=== PATIENT | female | born 1965 | race Caucasian/White ===

== ENCOUNTER 2016-11-02 11:59 | Outpatient (CLI) | payer BC | END 2016-11-02 12:00 | disposition home or self-care (01) | DX: Z79.01 Long term (current) use of anticoagulants (principal); Z95.811 Presence of heart assist device ==

== ENCOUNTER 2016-11-16 10:21 | Outpatient (CLI) | payer BC | END 2016-11-16 10:22 | disposition home or self-care (01) | DX: Z79.01 Long term (current) use of anticoagulants (principal); Z95.811 Presence of heart assist device ==

== ENCOUNTER 2016-11-30 11:00 | Outpatient (CLI) | payer MEDICARE | END 2016-11-30 11:01 | disposition home or self-care (01) | DX: Z79.01 Long term (current) use of anticoagulants (principal); Z95.811 Presence of heart assist device ==

== ENCOUNTER 2016-12-17 13:21 | Outpatient (CLI) | payer MEDICARE, BC | END 2016-12-17 13:22 | disposition home or self-care (01) | DX: Z79.01 Long term (current) use of anticoagulants (principal); Z95.811 Presence of heart assist device ==

== ENCOUNTER 2016-12-24 10:59 | Outpatient (CLI) | payer MEDICARE, BC | END 2016-12-24 11:00 | disposition home or self-care (01) | DX: Z79.01 Long term (current) use of anticoagulants (principal); Z95.811 Presence of heart assist device ==

== ENCOUNTER 2017-01-04 12:07 | Outpatient (CLI) | payer MEDICARE, BC | END 2017-01-04 12:08 | disposition home or self-care (01) | DX: Z79.01 Long term (current) use of anticoagulants (principal); Z95.811 Presence of heart assist device ==

== ENCOUNTER 2017-01-09 14:54 | Outpatient (CLI) | payer MEDICARE, BC | END 2017-01-09 14:55 | disposition home or self-care (01) | DX: Z79.01 Long term (current) use of anticoagulants (principal); Z95.811 Presence of heart assist device ==

== ENCOUNTER 2017-02-11 10:58 | Outpatient (CLI) | payer MEDICARE, BC | END 2017-02-11 10:59 | disposition home or self-care (01) | DX: Z79.01 Long term (current) use of anticoagulants (principal); Z95.811 Presence of heart assist device ==

== ENCOUNTER 2017-02-25 08:00 | Outpatient (CLI) | payer MEDICARE, BC | END 2017-02-25 08:01 | disposition home or self-care (01) | DX: Z79.01 Long term (current) use of anticoagulants (principal); Z95.811 Presence of heart assist device ==

== ENCOUNTER 2017-03-12 11:12 | Outpatient (CLI) | payer MEDICARE, BC ==
[2017-03-12 11:59] LABS: INR 3.2 (0.8-1.2); PT - PROTHROMBIN TIME 36.5 secs (9.9-12.6)
== END 2017-03-12 11:13 | disposition home or self-care (01) ==
LOC: LAB 11:12
PROVIDERS: ATTEND Pharmacist Pharmacotherapy
DX: Z95.811 Presence of heart assist device (principal); Z79.01 Long term (current) use of anticoagulants
CPT/HCPCS: 36415; 85610

== ENCOUNTER 2017-04-11 10:15 | Outpatient (CLI) | payer MEDICARE, BC ==
[2017-04-11 10:49] LABS: INR 2.3 (0.8-1.2); PT - PROTHROMBIN TIME 26.2 secs (9.9-12.6)
== END 2017-04-11 10:16 | disposition home or self-care (01) ==
LOC: LAB 10:15
PROVIDERS: ATTEND Pharmacist Pharmacotherapy
DX: Z95.811 Presence of heart assist device (principal); Z79.01 Long term (current) use of anticoagulants
CPT/HCPCS: 36415; 85610

== ENCOUNTER 2017-04-18 11:07 | Outpatient (CLI) | payer MEDICARE, BC ==
[2017-04-18 11:26] LABS: INR 2.7 (0.8-1.2)
== END 2017-04-18 11:08 | disposition home or self-care (01) ==
LOC: LAB 11:07
PROVIDERS: ATTEND Pharmacist Pharmacotherapy
DX: Z95.811 Presence of heart assist device (principal); Z79.01 Long term (current) use of anticoagulants
CPT/HCPCS: 36415; 85610

== ENCOUNTER 2017-04-25 10:58 | Outpatient (CLI) | payer MEDICARE, BC ==
[2017-04-25 11:21] LABS: INR 2.6 (0.8-1.2); PT - PROTHROMBIN TIME 29.7 secs (9.9-12.6)
== END 2017-04-25 10:59 | disposition home or self-care (01) ==
LOC: LAB 10:58
PROVIDERS: ATTEND Pharmacist Pharmacotherapy
DX: Z95.811 Presence of heart assist device (principal); Z79.01 Long term (current) use of anticoagulants
CPT/HCPCS: 36415; 85610

== ENCOUNTER 2017-05-10 11:32 | Outpatient (CLI) | payer MEDICARE, BC ==
[2017-05-10 11:53] LABS: INR 3.1 (0.8-1.2)
== END 2017-05-10 11:33 | disposition home or self-care (01) ==
LOC: LAB 11:32
PROVIDERS: ATTEND Pharmacist Pharmacotherapy
DX: Z95.811 Presence of heart assist device (principal); Z79.01 Long term (current) use of anticoagulants
CPT/HCPCS: 36415; 85610

== ENCOUNTER 2017-05-24 09:30 | Outpatient (CLI) | payer MEDICARE, BC ==
[2017-05-24 11:14] LABS: INR 2.7 (0.8-1.2); PT - PROTHROMBIN TIME 30.4 secs (9.9-12.6)
== END 2017-05-24 09:31 | disposition home or self-care (01) ==
LOC: LAB 09:30
PROVIDERS: ATTEND Pharmacist Pharmacotherapy
DX: Z95.811 Presence of heart assist device (principal); Z79.01 Long term (current) use of anticoagulants
CPT/HCPCS: 85610

== ENCOUNTER → 2017-06-06 | Outpatient (CLI) | payer MEDICARE, BC ==
[2017-06-06 11:03] LABS: INR 2.3 (0.8-1.2); PT - PROTHROMBIN TIME 26.1 secs (9.9-12.6)
== END ==
LOC: LAB 08:00
PROVIDERS: ATTEND Pharmacist Pharmacotherapy
DX: Z95.811 Presence of heart assist device (principal); Z79.01 Long term (current) use of anticoagulants
CPT/HCPCS: 36415; 85610

== ENCOUNTER 2017-07-03 20:09 | Emergency (ER) | payer MEDICARE, BC ==
[2017-07-03] MEDS ORDERED: SODIUM CHLORIDE 0.9% 500 ML IV ONE (20:59)
[2017-07-03 21:13] LABS: BASOPHILS # (AUTO) 0.1 10^3/uL (0.0-0.1); BASOPHILS % (AUTO) 1.1 %; EOSINOPHILS # (AUTO) 0.2 10^3/uL (0.0-0.7); EOSINOPHILS % (AUTO) 2.1 %; HCT - HEMATOCRIT 38.7 % (37.0-47.0); HGB - HEMOGLOBIN 13.6 g/dL (12.0-16.0); LYMPHOCYTES # (AUTO) 1.4 10^3/uL (1.5-3.5); LYMPHOCYTES % (AUTO) 19.4 %; MEAN CORPUSCULAR HEMOGLOBIN 33.8 pg (27.0-31.0); MEAN CORPUSCULAR VOLUME 96.6 fL (81.0-99.0); MEAN PLATELET VOLUME 8.9 fL (7.9-10.8); MONOCYTES # (AUTO) 0.5 10^3/uL (0.0-1.0); MONOCYTES % (AUTO) 7.3 %; NEUTROPHILS # (AUTO) 5.2 10^3/uL (1.5-6.6); NEUTROPHILS % (AUTO) 70.1 %; NUCLEATED RED BLOOD CELLS AUTO 0.1 /100WBC; RED BLOOD COUNT 4.01 10^6/uL (4.20-5.40); RED CELL DISTRIBUTION WIDTH 13.2 % (12.0-15.0); UNCORRECTED WHITE BLOOD COUNT 7.4 x10^3/uL; WHITE BLOOD COUNT 7.4 x10^3/uL (4.8-10.8)
[2017-07-03 21:23] LABS: VBG BASE EXCESS 2.1 mmol/L (-2 - +2); VBG OXYGEN SATURATION 97.9 % (60-80); VBG PH 7.497 (7.31-7.41); VBG TOTAL CO2 25.8 mmol/L (24-29)
--- NOTE | 2017-07-03 21:25 | XRAY Preliminary Report ---
Exam: XR Chest 1 View IMPRESSION: No acute pulmonary air space disease. Cardiomegaly. [facility] SITE ID: [id number]
[2017-07-03 21:27] LABS: ALBUMIN/GLOBULIN RATIO 1.4 (1.0-2.2); BILIRUBIN,TOTAL 0.6 mg/dL (0.2-1.0); CALCIUM 8.6 mg/dL (8.5-10.3); MAGNESIUM 1.9 mg/dL (1.7-2.8); PHOSPHORUS 2.8 mg/dL (2.5-4.6); POTASSIUM 3.4 mmol/L (3.5-5.0); TOTAL PROTEIN 6.8 g/dL (6.7-8.2)
--- NOTE | 2017-07-03 21:28 | XRAY Report ---
EXAM: CHEST RADIOGRAPHY EXAM DATE: 07/03/2017 09:09 PM. CLINICAL HISTORY: Cough. COMPARISON: 11/17/2014. TECHNIQUE: 1 view. FINDINGS: Lungs/Pleura: No focal opacities evident. No pleural effusion. No pneumothorax. Mediastinum: Enlarged heart. Status post median sternotomy. Other: None. IMPRESSION: No acute pulmonary air space disease. Cardiomegaly. [facility] Referring Provider Line: [phone] SITE ID: [id number]
[2017-07-03 21:29] LABS: INR 3.6 (0.8-1.2); PT - PROTHROMBIN TIME 40.8 secs (9.9-12.6)
--- NOTE | 2017-07-03 21:32 | ED Physician Documentation ---
PD HPI CHEST PAIN - Stated complaint Stated Complaint: IRREGULAR HB - Chief complaint Chief Complaint: Cardiac - History obtained from History obtained from: Patient, Family - History of Present Illness Timing - onset: Today Timing - onset during: Rest Timing - details: Gradual onset, Waxing and waning Quality: Pressure Location: Substernal Improved by: Rest Associated symptoms: No: Shortness of air, Diaphoresis, Nausea Similar symptoms before: Work up / diagnostics, Treatment, Follow up Recently seen: Not recently seen - Additional information Additional information: Patient is a 52 year old female with a history of heart failure with an lvad in place who is presenting to the emergency department for irregular heart beat. Patient states that her heart rate is normally in the 80s and today it has been anywhere from 112-190. Patient denies any recent illness, nausea, vomiting, fever or chills. Patient does state that she has had more serious drainage from her implantation sites. Review of Systems Constitutional: denies: Fever, Chills, Myalgias Eyes: denies: Decreased vision, Photophobia Ears: denies: Ear pain, Drainage/discharge Nose: denies: Rhinorrhea / runny nose, Congestion Throat: denies: Sore throat Cardiac: reports: Chest pain / pressure, Palpitations. 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: Breast cancer : Kidney stones Psych: Anxiety - Past Surgical History Past Surgical History: Yes Ortho: Spine surgery /MILL HELPER: Mastectomy - Present Medications Home Medications: Ambulatory Orders Medication Instructions Recorded Confirmed Exemestane 25 mg PO DAILY 03/02/15 07/03/17 Lisinopril 1.25 mg PO BID 03/02/15 07/03/17 Magnesium 400 mg PO BID 03/02/15 07/03/17 Potassium Chloride [Micro-K] 20 mg PO DAILY 03/02/15 07/03/17 Aspirin [Aspir 81] 81 mg DAILY 06/18/15 07/03/17 Bumetanide [Bumex] 1 mg PO DAILY 06/18/15 07/03/17 Sertraline HCl 50 mg PO DAILY 06/18/15 07/03/17 Sildenafil Citrate [Revatio] 40 mg PO Q8H 06/18/15 07/03/17 Metoprolol Succinate 25 mg PO BID 08/10/15 07/03/17 Cholecalciferol [Vitamin D3] 5,000 unit PO DAILY 03/19/16 07/03/17 Ferrous Sulfate 325 mg PO DAILY 03/19/16 07/03/17 Multivitamin [Multivitamins] 1 each PO DAILY 03/19/16 07/03/17 Phytonadione [Vitamin K] 100 mcg PO DAILY 03/19/16 07/03/17 Vitamin B Complex 1 each PO DAILY 03/19/16 07/03/17 Calcium Carbonate [Calcium] 500 mg PO DAILY 11/26/16 07/03/17 - Allergies Allergies/Adverse Reactions: Allergies Allergy/AdvReac Type Severity Reaction Status Date / Time No Known Drug Allergies Allergy Verified 07/03/17 20:16 - Social History Does the pt smoke?: No Smoking Status: Never smoker Does the pt drink ETOH?: Yes Does the pt have substance abuse?: No - Immunizations Immunizations are current?: Yes - POLST Patient has POLST: No PD ED PE NORMAL - Vitals Vital signs reviewed: Yes - General General: Alert and oriented X 3 - HEENT HEENT: Atraumatic, PERRL - Respiratory Respiratory: No respiratory distress, Clear bilaterally - Abdomen Abdomen: Soft - Derm Derm: Normal color, Warm and dry, No rash - Extremities Extremities: No deformity - Neuro Neuro: Alert and oriented X 3, No motor deficit, No sensory deficit, Normal speech - Psych Psych: Normal mood, Normal affect PD ED PE EXPANDED - General General: Alert, No acute distress - HEENT HEENT: Dry mucous membranes - Cardiac Cardiac: Tachy, Irregularly irregular, Other (lvad in place, motor sounds appreciated. ) - Abdomen Abdomen: Surgical scars, Other (wires under bandage). No: Tender to palpation, Rebound, Guarding Results - Vitals Vitals: Vital Signs - 24 hr 07/03/17 07/03/17 20:11 21:28 Temperature 35.8 C L Heart Rate 108 H 117 H Respiratory 18 18 Rate O2 Saturation 97 99 Oxygen O2 Source Room air - EKG (time done) 2037 Rate: Rate (enter#) (112) Rhythm: Atrial fibrillation [place]: Normal Ischemia: Q waves Compare to prior EKG: Changed from prior EKG - Labs Labs: Laboratory Tests 07/03/17 07/03/17 07/03/17 20:43 21:00 21:00 WBC 7.4 RBC 4.01 L Hgb 13.6 Hct 38.7 MCV 96.6 MCH 33.8 H MCHC 35.0 RDW 13.2 Plt Count 194 MPV 8.9 Neut # 5.2 Lymph # 1.4 L [place] # 0.5 Eos # 0.2 Baso # 0.1 Absolute Nucleated RBC 0.01 Nucleated RBCs 0.1 PT 40.8 H INR 3.6 H APTT 36.8 H VBG pH 7.497 H VBG pCO2 32.7 L VBG pO2 112.0 H VBG HCO3 24.8 VBG Total CO2 25.8 VBG O2 Saturation 97.9 H VBG Base Excess 2.1 H Sodium Potassium Chloride Carbon Dioxide Anion Gap BUN Creatinine Estimated GFR (MDRD) Glucose Lactic Acid Calcium Phosphorus Magnesium Total Bilirubin AST ALT Alkaline Phosphatase Troponin I B-Natriuretic Peptide Total Protein Albumin Globulin Albumin/Globulin Ratio Lipase TSH 07/03/17 07/03/17 07/03/17 21:00 21:00 21:00 WBC RBC Hgb Hct MCV MCH MCHC RDW Plt Count MPV Neut # Lymph # [place] # Eos # Baso # Absolute Nucleated RBC Nucleated RBCs PT INR APTT VBG pH VBG pCO2 VBG pO2 VBG HCO3 VBG Total CO2 VBG O2 Saturation VBG Base Excess Sodium 140 Potassium 3.4 L Chloride 107 Carbon Dioxide 25 Anion Gap 8.0 BUN 21 H Creatinine 1.0 Estimated GFR (MDRD) 59 L Glucose 107 H Lactic Acid Calcium 8.6 Phosphorus 2.8 Magnesium 1.9 Total Bilirubin 0.6 AST 27 ALT 24 Alkaline Phosphatase 68 Troponin I < 0.04 B-Natriuretic Peptide 1072 H Total Protein 6.8 Albumin 4.0 Globulin 2.8 Albumin/Globulin Ratio 1.4 Lipase 31 TSH 07/03/17 07/03/17 21:00 21:00 WBC RBC Hgb Hct MCV MCH MCHC RDW Plt Count MPV Neut # Lymph # [place] # Eos # Baso # Absolute Nucleated RBC Nucleated RBCs PT INR APTT VBG pH VBG pCO2 VBG pO2 VBG HCO3 VBG Total CO2 VBG O2 Saturation VBG Base Excess Sodium Potassium Chloride Carbon Dioxide Anion Gap BUN Creatinine Estimated GFR (MDRD) Glucose Lactic Acid 1.2 Calcium Phosphorus Magnesium Total Bilirubin AST ALT Alkaline Phosphatase Troponin I B-Natriuretic Peptide Total Protein Albumin Globulin Albumin/Globulin Ratio Lipase TSH 2.18 - Rads (name of study) chest x-ray Radiology: Final report received (within normal limits) PD MEDICAL DECISION MAKING - ED course Complexity details: reviewed old records, reviewed results, re-evaluated patient , considered differential, d/w patient, d/w family, d/w corporate learning consultant ED course: Patient was seen and examined at bedside. IV access was gained and labs were drawn. ekg was performed and showed new a fib. patient was treated with a 500ml bolus. When patient's diagnostics came back the case was discussed with lvad coordinator and dr. reyes. Due to the new a fib it was decided to transfer the patient. Arrangements were made and patient was transferred in stable condition. Departure - Departure Disposition: 02 Transfer Acute Care Hosp Clinical Impression: LVAD (left ventricular assist device) present, Tachycardia Condition: Stable
[2017-07-03 21:36] LABS: PARTIAL THROMBOPLASTIN TIME 36.8 secs (24.9-33.3)
[2017-07-03] MEDS ORDERED: POTASSIUM CHLORIDE 20 MEQ TABLET PO STA (21:36)
[2017-07-03] MEDS ORDERED: POTASSIUM CHLORIDE 20 MEQ TABLET PO ONE (22:19)
== END 2017-07-03 23:36 | disposition short-term general hospital (02) ==
LOC: ED 20:09
DX: R00.0 Tachycardia, unspecified (principal); Z95.811 Presence of heart assist device; I48.92 Unspecified atrial flutter; R94.31 Abnormal electrocardiogram [ECG] [EKG]; I11.0 Hypertensive heart disease with heart failure; I50.9 Heart failure, unspecified; Z85.3 Personal history of malignant neoplasm of breast; Z87.442 Personal history of urinary calculi; Z79.82 Long term (current) use of aspirin
CPT/HCPCS: 36415; 71010; 80053; 82803; 83605; 83690; 83735; 83880; 84100; 84443; 84484; 85025; 85610; 85730; 87040; 93005; 99284; 99285; A9270; 81001; 81003; 87086

== ENCOUNTER 2017-07-03 23:32 | Outpatient (CLI) | payer MEDICARE, BC | END 2017-07-03 23:33 | disposition short-term general hospital (02) | LOC: EMS 23:32 | PROVIDERS: ATTEND Surgery | DX: I49.9 Cardiac arrhythmia, unspecified (principal); Z95.811 Presence of heart assist device | CPT/HCPCS: A0425; A0426 ==

== ENCOUNTER 2017-07-19 09:13 | Outpatient (CLI) | payer MEDICARE, BC ==
[2017-07-19 10:27] LABS: INR 2.5 (0.8-1.2); PT - PROTHROMBIN TIME 27.8 secs (9.9-12.6)
== END 2017-07-19 09:14 | disposition home or self-care (01) ==
LOC: LAB 09:13
PROVIDERS: ATTEND Pharmacist Pharmacotherapy
DX: Z79.01 Long term (current) use of anticoagulants (principal); Z95.811 Presence of heart assist device
CPT/HCPCS: 36415; 85610

== ENCOUNTER 2017-07-22 11:00 | Emergency (ER) | payer MEDICARE, BC ==
--- NOTE | 2017-07-22 11:49 | ED Physician Documentation ---
History of Present Illness - Stated complaint Stated Complaint: PALPATATIONS - Chief complaint Chief Complaint: Cardiac - History obtained from History obtained from: Patient - History of Present Illness Timing: How many days ago (4) - Additonal information Additional information: 52-year-old female with an LVAD in place for the past 2 years has developed atrial fibrillation with RVR and she was admitted to the [facility] 2 weeks ago and she was diuresed. She converted to sinus rhythm and left the hospital with a rate of 70. She went home and took [place] walk [place] the beach and subsequently began to feel poorly. She took a second walk the following day on the beach and the third day she walked on flat ground only the fourth day she did not get out of bed. She is feeling palpitations and some mild dyspnea. She feels at times near syncopal. She called her LVAD coordinator was instructed to come directly to the emergency department. Review of Systems Constitutional: reports: Fatigue, Sweats. denies: Fever, Chills Eyes: denies: Decreased vision Ears: denies: Ear pain Nose: denies: Congestion Throat: denies: Sore throat Cardiac: reports: Palpitations Respiratory: reports: Dyspnea. denies: Cough GI: reports: Nausea. 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: Mastectomy - Present Medications Home Medications: Ambulatory Orders Medication Instructions Recorded Confirmed Exemestane 25 mg PO DAILY 03/02/15 07/03/17 Lisinopril 1.25 mg PO BID 03/02/15 07/03/17 Magnesium 400 mg PO BID 03/02/15 07/03/17 Potassium Chloride [Micro-K] 20 mg PO DAILY 03/02/15 07/03/17 Aspirin [Aspir 81] 81 mg DAILY 06/18/15 07/03/17 Sertraline HCl 50 mg PO DAILY 06/18/15 07/03/17 Sildenafil Citrate [Revatio] 40 mg PO Q8H 06/18/15 07/03/17 Cholecalciferol [Vitamin D3] 5,000 unit PO DAILY 03/19/16 07/03/17 Ferrous Sulfate 325 mg PO DAILY 03/19/16 07/03/17 Multivitamin [Multivitamins] 1 each PO DAILY 03/19/16 07/03/17 Phytonadione [Vitamin K] 100 mcg PO DAILY 03/19/16 07/03/17 Vitamin B Complex 1 each PO DAILY 03/19/16 07/03/17 Calcium Carbonate [Calcium] 500 mg PO DAILY 11/26/16 07/03/17 Furosemide 20 mg PO 07/22/17 Hydralazine HCl 500 mg PO 07/22/17 Metoprolol Tartrate 12.5 mg PO 07/22/17 - Allergies Allergies/Adverse Reactions: Allergies Allergy/AdvReac Type Severity Reaction Status Date / Time carvedilol Allergy Anaphylaxis Verified 07/22/17 11:06 - Social History Does the pt smoke?: No Smoking Status: Former smoker Does the pt drink ETOH?: Yes Does the pt have substance abuse?: No - Immunizations Immunizations are current?: Yes - POLST Patient has POLST: No PD ED PE NORMAL - Vitals Vital signs reviewed: Yes (tachy ) - General General: Alert and oriented X 3, Well developed/nourished, Other (The patient is flush appearing ) - HEENT HEENT: Atraumatic, PERRL - Neck Neck: Supple, no meningeal sign - Cardiac Cardiac: Other (irregular and tachy with a constant hum ) - Respiratory Respiratory: No respiratory distress, Clear bilaterally - Abdomen Abdomen: Soft, Non tender, Other (There are no signs of inflamation surrounding the drive port. ) - Back Back: No CVA TTP, No spinal TTP - Derm Derm: Normal color, Warm and dry, No rash - Extremities Extremities: No deformity, No edema - Neuro Neuro: No motor deficit, No sensory deficit - Psych Psych: Normal mood, Normal affect Results - Vitals Vitals: Vital Signs - 24 hr 07/22/17 07/22/17 11:02 12:27 Temperature 36.1 C L Heart Rate 54 L 96 Respiratory 16 Rate O2 Saturation 99 Oxygen O2 Source Room air - EKG (time done) 1122 Rate: Rate (enter#) (109) Rhythm: Atrial fibrillation Ischemia: Q waves (ant/lat) Compare to prior EKG: Unchanged from prior EKG (07-03-17) Computer interpretation: Agree with computer - Labs Labs: Laboratory Tests 07/22/17 07/22/17 07/22/17 12:00 12:00 12:00 WBC 5.2 RBC 3.60 L Hgb 12.2 Hct 33.7 L MCV 93.7 MCH 33.9 H MCHC 36.2 H RDW 13.0 Plt Count 196 MPV 9.2 Neut # 3.6 Lymph # 1.0 L [place] # 0.5 Eos # 0.1 Baso # 0.1 Absolute Nucleated RBC 0.00 Nucleated RBCs 0.0 Sodium 136 Potassium 3.4 L Chloride 102 Carbon Dioxide 25 Anion Gap 9.0 BUN 25 H Creatinine 0.9 Estimated GFR (MDRD) 66 L Glucose 89 Calcium 8.9 Total Bilirubin 0.9 AST 28 ALT 32 Alkaline Phosphatase 66 Troponin I < 0.04 Total Protein 6.7 Albumin 4.0 Globulin 2.7 Albumin/Globulin Ratio 1.5 Lipase 43 Urine Color Urine Clarity Urine pH Ur Specific [place] Urine Protein Urine Glucose (UA) Urine Ketones Urine Occult Blood Urine Nitrite Urine Bilirubin Urine Urobilinogen Ur Leukocyte Esterase Ur Microscopic Review Urine Culture Comments 07/22/17 12:33 WBC RBC Hgb Hct MCV MCH MCHC RDW Plt Count MPV Neut # Lymph # [place] # Eos # Baso # Absolute Nucleated RBC Nucleated RBCs Sodium Potassium Chloride Carbon Dioxide Anion Gap BUN Creatinine Estimated GFR (MDRD) Glucose Calcium Total Bilirubin AST ALT Alkaline Phosphatase Troponin I Total Protein Albumin Globulin Albumin/Globulin Ratio Lipase Urine Color YELLOW Urine Clarity CLEAR Urine pH 7.0 Ur Specific [place] 1.010 Urine Protein NEGATIVE Urine Glucose (UA) NEGATIVE Urine Ketones NEGATIVE Urine Occult Blood NEGATIVE Urine Nitrite NEGATIVE Urine Bilirubin NEGATIVE Urine Urobilinogen 0.2 (NORMAL) Ur Leukocyte Esterase NEGATIVE Ur Microscopic Review NOT INDICATED Urine Culture Comments NOT INDICATED Procedures - IVC sono (time) 1125 Bedside IVC sono: IVC measures (cm) (1.68), IVC collapsed c insp (cm) (1.22), Euvolemia PD MEDICAL DECISION MAKING - ED course Complexity details: reviewed old records, reviewed results, re-evaluated patient , considered differential, d/w patient ED course: 52-year-old female with an LVAD in place with atrial fibrillation with rapid ventricular response is symptomatic with this and her LVAD team is consulted at the [facility] they would like her transferred to the [facility] for further workup. They recommended administration of potassium at this time. Dr. Carr is accepting. Departure - Departure Disposition: 02 Transfer Acute Care Hosp Clinical Impression: LVAD (left ventricular assist device) present Atrial fibrillation Qualifiers: Atrial fibrillation type: paroxysmal Qualified Code(s): I48.0 - Paroxysmal atrial fibrillation
[2017-07-22 12:15] LABS: ALBUMIN/GLOBULIN RATIO 1.5 (1.0-2.2); BILIRUBIN,TOTAL 0.9 mg/dL (0.2-1.0); CALCIUM 8.9 mg/dL (8.5-10.3); CREATININE 0.9 mg/dL (0.4-1.0); POTASSIUM 3.4 mmol/L (3.5-5.0); TOTAL PROTEIN 6.7 g/dL (6.7-8.2)
[2017-07-22 12:31] LABS: BASOPHILS # (AUTO) 0.1 10^3/uL (0.0-0.1); BASOPHILS % (AUTO) 1.3 %; EOSINOPHILS # (AUTO) 0.1 10^3/uL (0.0-0.7); HCT - HEMATOCRIT 33.7 % (37.0-47.0); HGB - HEMOGLOBIN 12.2 g/dL (12.0-16.0); LYMPHOCYTES % (AUTO) 19.3 %; MEAN CORPUSCULAR HEMOGLOBIN 33.9 pg (27.0-31.0); MEAN CORPUSCULAR HGB CONC 36.2 g/dL (32.0-36.0); MEAN CORPUSCULAR VOLUME 93.7 fL (81.0-99.0); MEAN PLATELET VOLUME 9.2 fL (7.9-10.8); MONOCYTES # (AUTO) 0.5 10^3/uL (0.0-1.0); MONOCYTES % (AUTO) 8.8 %; NEUTROPHILS # (AUTO) 3.6 10^3/uL (1.5-6.6); NEUTROPHILS % (AUTO) 69.6 %; UNCORRECTED WHITE BLOOD COUNT 5.2 x10^3/uL; WHITE BLOOD COUNT 5.2 x10^3/uL (4.8-10.8)
[2017-07-22 12:50] LABS: BILIRUBIN,URINE NEGATIVE (NEGATIVE)
[2017-07-22] MEDS ORDERED: POTASSIUM BICARB 25 MEQ TABLET PO STA (12:50)
[2017-07-22 12:55] LABS: UA CHARGE (STRIP ONLY) YES; UR CULTURE IF IND NOT INDICATED
[2017-07-22] MEDS ORDERED: POTASSIUM BICARB 25 MEQ TABLET PO ONE (12:57)
== END 2017-07-22 14:34 | disposition short-term general hospital (02) ==
LOC: ED 11:00
DX: I48.0 Paroxysmal atrial fibrillation (principal); I11.0 Hypertensive heart disease with heart failure; I50.9 Heart failure, unspecified; C50.919 Malignant neoplasm of unspecified site of unspecified female breast; Z95.811 Presence of heart assist device; Z87.891 Personal history of nicotine dependence
CPT/HCPCS: 36415; 80053; 81003; 83690; 84484; 85025; 93005; 99283; 99284; A9270; 81001; 87086

== ENCOUNTER 2017-07-22 14:05 | Outpatient (CLI) | payer MEDICARE, BC | END 2017-07-22 14:06 | disposition short-term general hospital (02) | LOC: EMS 14:05 | PROVIDERS: ATTEND Surgery | DX: R00.2 Palpitations (principal); R06.00 Dyspnea, unspecified | CPT/HCPCS: A0170; A0425; A0426 ==

== ENCOUNTER 2017-07-29 12:04 | Outpatient (CLI) | payer MEDICARE, BC ==
[2017-07-29 12:35] LABS: CALCIUM 9.3 mg/dL (8.5-10.3); CREATININE 1.2 mg/dL (0.4-1.0); MAGNESIUM 2.3 mg/dL (1.7-2.8); POTASSIUM 4.5 mmol/L (3.5-5.0)
== END 2017-07-29 12:05 | disposition home or self-care (01) ==
LOC: LAB 12:04
PROVIDERS: ATTEND Internal Medicine Cardiovascular Disease
DX: I42.7 Cardiomyopathy due to drug and external agent (principal); T45.1X5A Adverse effect of antineoplastic and immunosuppressive drugs, initial encounter; Z95.811 Presence of heart assist device; I50.23 Acute on chronic systolic (congestive) heart failure; R00.2 Palpitations
CPT/HCPCS: 36415; 80048; 83735

== ENCOUNTER 2017-07-30 08:52 | Outpatient (CLI) | payer MEDICARE, BC ==
[2017-07-30 09:39] LABS: INR 2.7 (0.8-1.2); PT - PROTHROMBIN TIME 30.3 secs (9.9-12.6)
[2017-07-30 09:40] LABS: MAGNESIUM 2.1 mg/dL (1.7-2.8); POTASSIUM 3.4 mmol/L (3.5-5.0)
== END 2017-07-30 08:53 | disposition home or self-care (01) ==
LOC: LAB 08:52
PROVIDERS: ATTEND Internal Medicine Cardiovascular Disease
DX: I42.7 Cardiomyopathy due to drug and external agent (principal); T45.1X5A Adverse effect of antineoplastic and immunosuppressive drugs, initial encounter; Z79.01 Long term (current) use of anticoagulants; I50.23 Acute on chronic systolic (congestive) heart failure; Z95.811 Presence of heart assist device; R00.2 Palpitations
CPT/HCPCS: 36415; 80048; 83735; 85610

== ENCOUNTER 2017-08-01 15:34 | Outpatient (CLI) | payer MEDICARE, BC | END 2017-08-01 15:35 | disposition short-term general hospital (02) | LOC: EMS 15:34 | PROVIDERS: ATTEND Surgery | DX: R07.9 Chest pain, unspecified (principal) | CPT/HCPCS: A0425; A0427 ==

== ENCOUNTER 2017-08-08 10:18 | Outpatient (CLI) | payer MEDICARE, BC ==
[2017-08-08 10:54] LABS: INR 3.3 (0.8-1.2); PT - PROTHROMBIN TIME 37.7 secs (9.9-12.6)
== END 2017-08-08 10:19 | disposition home or self-care (01) ==
LOC: LAB 10:18
PROVIDERS: ATTEND Pharmacist Pharmacotherapy
DX: Z79.01 Long term (current) use of anticoagulants (principal); Z95.811 Presence of heart assist device
CPT/HCPCS: 36415; 85610

== ENCOUNTER 2017-08-09 21:35 | Outpatient (CLI) | payer MEDICARE, BC | END 2017-08-09 21:36 | disposition critical access hospital (66) | LOC: EMS 21:35 | PROVIDERS: ATTEND Surgery | DX: R53.1 Weakness (principal); R09.89 Other specified symptoms and signs involving the circulatory and respiratory systems; Z95.811 Presence of heart assist device ==

== ENCOUNTER 2017-08-09 21:57 | Emergency (ER) | payer MEDICARE, BC ==
--- NOTE | 2017-08-09 22:54 | ED Physician Documentation ---
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 She was discharged from [facility] 5 days ago. She had increase in her amiodarone approximately 1 week ago and increase in her metoprolol dose approximately 2 weeks ago. Since she was discharged from [facility] 5 days ago, she has had episodic lightheadedness that was more frequent when standing up from sitting/lying position. Tonight, she had a more pronounced sensation of lightheadedness, associated with nausea, then sensation of a pause in her cardiac rhythm and unusual sensation in her chest that felt like a friction sensation, and then sensation of regular but slow and pounding heart beats. She used a doppler to measure pulse rate and found it to be in the 30s; she then used a phone phil which read HR in mid 40s, and subsequently 70. She was unable to measure MAP during most of the event, as she felt too ill and lightheaded to do so, but upon recovering, she found her MAP to be 68-75. (Antoine Vaughn) Review of Systems Constitutional: denies: Fever Cardiac: reports: Palpitations. denies: Chest pain / pressure, Pedal edema Respiratory: reports: Reviewed and negative GI: reports: Nausea. 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 : Kidney stones HEENT: None Psych: Anxiety Musculoskeletal: None Derm: None - Past Surgical History Past Surgical History: Yes Ortho: Spine surgery /GAS CHARGER: Mastectomy Cardiovascular: Other - Social History Does the pt smoke?: No Smoking Status: Never smoker Does the pt drink ETOH?: Yes Does the pt have substance abuse?: No - Immunizations Immunizations are current?: Yes - POLST Patient has POLST: No - Present Medications Home Medications: Ambulatory Orders Medication Instructions Recorded Confirmed Exemestane 25 mg PO DAILY 03/02/15 08/09/17 Magnesium 400 mg PO BID 03/02/15 08/09/17 Potassium Chloride [Micro-K] 20 mg PO DAILY 03/02/15 08/09/17 Aspirin [Aspir 81] 81 mg DAILY 06/18/15 08/09/17 Sertraline HCl 50 mg PO DAILY 06/18/15 08/09/17 Sildenafil Citrate [Revatio] 40 mg PO Q8H 06/18/15 08/09/17 Cholecalciferol [Vitamin D3] 5,000 unit PO DAILY 03/19/16 08/09/17 Ferrous Sulfate 325 mg PO DAILY 03/19/16 08/09/17 Multivitamin [Multivitamins] 1 each PO DAILY 03/19/16 08/09/17 Phytonadione [Vitamin K] 100 mcg PO DAILY 03/19/16 08/09/17 Vitamin B Complex 1 each PO DAILY 03/19/16 08/09/17 Calcium Carbonate [Calcium] 500 mg PO DAILY 11/26/16 08/09/17 Metoprolol Tartrate 75 mg PO BID 07/22/17 08/09/17 Amiodarone [Pacerone] 200 mg PO TID 08/09/17 08/09/17 Spironolactone 25 mg PO DAILY 08/09/17 08/09/17 Torsemide 200 mg PO BID 08/09/17 08/09/17 Warfarin [Coumadin] 8 mg PO DAILY 08/09/17 08/09/17 - Allergies Allergies/Adverse Reactions: Allergies Allergy/AdvReac Type Severity Reaction Status Date / Time carvedilol Allergy Anaphylaxis Verified 08/09/17 22:09 PD ED PE NORMAL - Vitals Vital signs reviewed: Yes - General General: Alert and oriented X 3, No acute distress, Well developed/nourished - HEENT HEENT: Moist mucous membranes - Neck Neck: Supple, no meningeal sign - Cardiac Cardiac: RRR, No murmur - Respiratory Respiratory: No respiratory distress, Clear bilaterally - Derm Derm: Normal color, Warm and dry - Extremities Extremities: No edema - Neuro Neuro: Alert and oriented X 3 Results - EKG (time done) No standard instances Rate: Rate (enter#) (66) Rhythm: NSR [place]: Normal Intervals: Normal [place] QRS: Normal Ischemia: Normal ST segments Other comments: Other comments (artifact V4, V5 (and to a lesser extent V6, I, aVL); this does not preclude my interpretation ) - Vitals Vitals: Vital Signs - 24 hr 08/09/17 08/09/17 08/10/17 22:01 23:01 01:30 Temperature 35.6 C L 36.7 C Heart Rate 76 69 69 Respiratory 24 16 18 Rate O2 Saturation 98 98 100 08/10/17 08/10/17 08/10/17 04:26 06:29 06:32 Temperature Heart Rate 67 63 66 Respiratory 16 16 18 Rate O2 Saturation 97 96 95 08/10/17 08/10/17 08/10/17 09:13 10:15 11:16 Temperature 36.7 C Heart Rate 66 64 70 Respiratory 18 15 14 Rate O2 Saturation 95 97 98 Oxygen O2 Source Room air - Labs Labs: Laboratory Tests 08/09/17 08/09/17 08/09/17 23:58 23:58 23:58 WBC 7.6 RBC 3.82 L Hgb 13.0 Hct 36.0 L MCV 94.2 MCH 34.0 H MCHC 36.1 H RDW 13.2 Plt Count 246 MPV 8.8 Neut # 4.8 Lymph # 1.9 [place] # 0.6 Eos # 0.2 Baso # 0.1 Absolute Nucleated RBC 0.00 Nucleated RBC % 0.0 PT 31.6 H INR 2.8 H Sodium 139 Potassium 2.6 L Chloride 97 L Carbon Dioxide 28 Anion Gap 14.0 H BUN 34 H Creatinine 1.0 Estimated GFR (MDRD) 59 L Glucose 110 H Calcium 9.5 Magnesium Troponin I 08/09/17 08/10/17 08/10/17 23:58 04:29 09:50 WBC RBC Hgb Hct MCV MCH MCHC RDW Plt Count MPV Neut # Lymph # [place] # Eos # Baso # Absolute Nucleated RBC Nucleated RBC % PT INR Sodium Potassium 3.0 L 3.5 Chloride Carbon Dioxide Anion Gap BUN Creatinine Estimated GFR (MDRD) Glucose Calcium Magnesium Troponin I < 0.04 08/10/17 12:43 WBC RBC Hgb Hct MCV MCH MCHC RDW Plt Count MPV Neut # Lymph # [place] # Eos # Baso # Absolute Nucleated RBC Nucleated RBC % PT INR Sodium Potassium 3.9 Chloride Carbon Dioxide Anion Gap BUN Creatinine Estimated GFR (MDRD) Glucose Calcium Magnesium 2.3 Troponin I PD MEDICAL DECISION MAKING - ED course Complexity details: reviewed old records, reviewed results, re-evaluated patient , considered differential, d/w patient - ED course ED course: I discussed case with LVAD coordinator (Anuja), who initially recommended transfer to [facility], agrees with basic blood work. While awaiting results, Anuja called back and says she d/w Dr. Krishna (cardiology public relations writer at [facility]), who says patient can be observed in [facility] ED and discharged if she remains asymptomatic with no arrhythmias on monitor and unremarkable blood tests. Unfortunately, potassium resulted at 2.6. I recontacted Anuja and she recommended potassium repletion in [facility] ED (this potassium level does not indicate nor necessitate transfer and can be repleted here). She recommends potassium replacement to level of 4.0 or higher (avoiding hyperkalemia). Patient given 10meq IV potassium x 2 and 40meq potassium PO. Redraw reveals 3.0 potassium. The same doses were repeated, redraw is 3.5. I turned the case over to Dr. Whitlock at 10:00 AM. (Antoine Vaughn) Departure - Departure Disposition: 01 Home, Self Care Clinical Impression: LVAD (left ventricular assist device) present, Bradycardia, Hypokalemia Condition: Stable Instructions: ED Potassium Deficiency Follow-Up: Your, doctor [Other] Discharge Date/Time: 08/10/17 13:12
[2017-08-10 00:09] LABS: BASOPHILS # (AUTO) 0.1 10^3/uL (0.0-0.1); BASOPHILS % (AUTO) 1.4 %; EOSINOPHILS # (AUTO) 0.2 10^3/uL (0.0-0.7); EOSINOPHILS % (AUTO) 2.1 %; LYMPHOCYTES # (AUTO) 1.9 10^3/uL (1.5-3.5); MEAN CORPUSCULAR HGB CONC 36.1 g/dL (32.0-36.0); MEAN CORPUSCULAR VOLUME 94.2 fL (81.0-99.0); MEAN PLATELET VOLUME 8.8 fL (7.9-10.8); MONOCYTES # (AUTO) 0.6 10^3/uL (0.0-1.0); MONOCYTES % (AUTO) 7.9 %; NEUTROPHILS # (AUTO) 4.8 10^3/uL (1.5-6.6); NEUTROPHILS % (AUTO) 63.6 %; RED BLOOD COUNT 3.82 10^6/uL (4.20-5.40); RED CELL DISTRIBUTION WIDTH 13.2 % (12.0-15.0); UNCORRECTED WHITE BLOOD COUNT 7.6 x10^3/uL; WHITE BLOOD COUNT 7.6 x10^3/uL (4.8-10.8)
[2017-08-10 00:15] LABS: CALCIUM 9.5 mg/dL (8.5-10.3); POTASSIUM 2.6 mmol/L (3.5-5.0)
[2017-08-10 00:54] LABS: INR 2.8 (0.8-1.2); PT - PROTHROMBIN TIME 31.6 secs (9.9-12.6)
[2017-08-10] MEDS ORDERED: POTASSIUM CHLOR 10 MEQ/100 ML 10 MEQ/100 ML BAG IV ONE ×4 (01:51→11:17)
[2017-08-10] MEDS ORDERED: POTASSIUM CHLORIDE 20 MEQ TABLET PO STA ×2 (01:52→06:22)
[2017-08-10] MEDS ORDERED: POTASSIUM CHLOR 10 MEQ/100 ML 10 MEQ/100 ML BAG IV STA (01:53)
[2017-08-10] MEDS ORDERED: POTASSIUM BICARB 25 MEQ TABLET PO ONE ×3 (02:01→12:18)
[2017-08-10] MEDS ORDERED: SODIUM CHLORIDE FLUSH 0.9% 10 ML SYRINGE IVP ONE (02:01)
[2017-08-10] MEDS ORDERED: POTASSIUM CHLOR 10 MEQ/100 ML 20 MEQ/200 ML BAG IV ONE ×2 (02:02→06:12)
[2017-08-10] MEDS ORDERED: POTASSIUM CHLORIDE 20 MEQ TABLET PO ONE ×2 (02:04→06:12)
[2017-08-10] MEDS: POTASSIUM CHLOR 10 MEQ/100 ML 10 MEQ/100 ML BAG IV STA ×2 (06:28→07:13)
[2017-08-10] MEDS: POTASSIUM BICARB 25 MEQ TABLET PO STA ×2 (11:19→12:13)
[2017-08-10] MEDS ORDERED: POTASSIUM BICARB 25 MEQ TABLET PO STA (12:02)
[2017-08-10 12:56] LABS: MAGNESIUM 2.3 mg/dL (1.7-2.8); POTASSIUM 3.9 mmol/L (3.5-5.0)
== END 2017-08-10 13:12 | disposition home or self-care (01) ==
LOC: EDUNIT# → ED 21:57
DX: R00.1 Bradycardia, unspecified (principal); E87.6 Hypokalemia; Z95.811 Presence of heart assist device; I11.0 Hypertensive heart disease with heart failure; I50.9 Heart failure, unspecified; Z85.3 Personal history of malignant neoplasm of breast; Z90.10 Acquired absence of unspecified breast and nipple; Z87.442 Personal history of urinary calculi; Z79.82 Long term (current) use of aspirin
CPT/HCPCS: 36415; 80048; 83735; 84132; 84484; 85025; 85610; 93005; 96365; 96366; 99284; 99285; A9270

== ENCOUNTER 2017-08-12 10:18 | Outpatient (CLI) | payer MEDICARE, BC ==
[2017-08-12 10:42] LABS: CALCIUM 9.1 mg/dL (8.5-10.3); CREATININE 1.3 mg/dL (0.4-1.0); POTASSIUM 3.6 mmol/L (3.5-5.0); PT - PROTHROMBIN TIME 33.8 secs (9.9-12.6)
== END 2017-08-12 10:19 | disposition home or self-care (01) ==
LOC: LAB 10:18
PROVIDERS: ATTEND Internal Medicine Cardiovascular Disease
DX: Z95.811 Presence of heart assist device (principal); Z91.89 Other specified personal risk factors, not elsewhere classified; Z79.01 Long term (current) use of anticoagulants
CPT/HCPCS: 36415; 80048; 85610

== ENCOUNTER 2017-08-15 09:31 | Outpatient (CLI) | payer MEDICARE, BC | END 2017-08-15 09:32 | disposition home or self-care (01) | LOC: LAB 09:31 | PROVIDERS: ATTEND Internal Medicine Cardiovascular Disease | DX: Z95.811 Presence of heart assist device (principal); Z91.89 Other specified personal risk factors, not elsewhere classified | CPT/HCPCS: 36415; 80048 ==

== ENCOUNTER 2017-08-18 19:35 | Emergency (ER) | payer MEDICARE, BC ==
[2017-08-18 20:08] LABS: BASOPHILS % (AUTO) 0.3 %; EOSINOPHILS # (AUTO) 0.1 10^3/uL (0.0-0.7); EOSINOPHILS % (AUTO) 1.5 %; HCT - HEMATOCRIT 34.4 % (37.0-47.0); HGB - HEMOGLOBIN 12.4 g/dL (12.0-16.0); LYMPHOCYTES # (AUTO) 1.6 10^3/uL (1.5-3.5); LYMPHOCYTES % (AUTO) 19.2 %; MEAN CORPUSCULAR HEMOGLOBIN 34.4 pg (27.0-31.0); MEAN CORPUSCULAR HGB CONC 36.1 g/dL (32.0-36.0); MEAN CORPUSCULAR VOLUME 95.3 fL (81.0-99.0); MEAN PLATELET VOLUME 8.7 fL (7.9-10.8); MONOCYTES # (AUTO) 0.6 10^3/uL (0.0-1.0); MONOCYTES % (AUTO) 7.5 %; NEUTROPHILS # (AUTO) 6.1 10^3/uL (1.5-6.6); NEUTROPHILS % (AUTO) 71.5 %; RED BLOOD COUNT 3.61 10^6/uL (4.20-5.40); RED CELL DISTRIBUTION WIDTH 13.1 % (12.0-15.0); UNCORRECTED WHITE BLOOD COUNT 8.5 x10^3/uL; WHITE BLOOD COUNT 8.5 x10^3/uL (4.8-10.8)
[2017-08-18 20:19] LABS: ALBUMIN/GLOBULIN RATIO 1.4 (1.0-2.2); BILIRUBIN,TOTAL 0.7 mg/dL (0.2-1.0); CALCIUM 8.5 mg/dL (8.5-10.3); CREATININE 1.3 mg/dL (0.4-1.0); POTASSIUM 3.6 mmol/L (3.5-5.0); TOTAL PROTEIN 7.3 g/dL (6.7-8.2)
[2017-08-18 20:27] LABS: MAGNESIUM 2.4 mg/dL (1.7-2.8); PHOSPHORUS 4.1 mg/dL (2.5-4.6)
--- NOTE | 2017-08-18 20:45 | XRAY Preliminary Report ---
Exam: XR CHEST 1 VIEW IMPRESSION: Mild diffuse bilateral airspace disease, unchanged, could represent mild pulmonary edema. Increased mild left mid lung linear opacities, could be atelectasis. Pneumonia not excluded. Stable cardiomegaly. [facility] SITE ID: [id number]
--- NOTE | 2017-08-18 20:47 | XRAY Report ---
EXAM: CHEST RADIOGRAPHY EXAM DATE: 08/18/2017 08:14 PM. CLINICAL HISTORY: Shortness of breath. COMPARISON: Chest 07/03/2017. TECHNIQUE: 1 view. FINDINGS: Lungs/Pleura: Mild diffuse bilateral airspace disease, unchanged, could represent mild pulmonary emerald a. Increased mild left mid lung linear opacities, could be atelectasis. No pleural effusion or pneumo thorax seen. Mediastinum: Stable cardiomegaly. Mediastinal postsurgical changes. IMPRESSION: Mild diffuse bilateral airspace disease, unchanged, could represent mild pulmonary edema. Increased mild left mid lung linear opacities, could be atelectasis. Pneumonia not excluded. Stable cardiomegaly. [facility] Referring Provider Line: [phone] SITE ID: [id number]
[2017-08-18] MEDS: BUMETANIDE 1 MG/4 ML VIAL IVP STA ×2 (21:10→22:43)
[2017-08-18 21:12] LABS: BILIRUBIN,URINE NEGATIVE (NEGATIVE); PH,URINE 5.5 PH (5.0-7.5)
[2017-08-18 21:13] LABS: UA CHARGE (STRIP ONLY) YES; UR CULTURE IF IND NOT INDICATED
[2017-08-18] MEDS ORDERED: BUMETANIDE 1 MG/4 ML VIAL ONE ×2 (21:13→22:46)
[2017-08-18 21:45] VITALS: BP 128/69
[2017-08-18] MEDS ORDERED: BUMETANIDE 1 MG/4 ML VIAL IVP STA (22:33)
--- NOTE | 2017-08-18 22:34 | ED Physician Documentation ---
PD HPI DYSPNEA - Stated complaint Stated Complaint: SOA,PALPITATION,NAUSEA - Chief complaint Chief Complaint: Cardiac - History obtained from History obtained from: Patient, Friend - History of Present Illness Timing - onset: Chronic Timing - onset during: Rest, Light activity, Exertion Timing - details: Gradual onset, Still present Improved by: Lasix, Rest Worsened by: Exertion, Laying flat Associated symptoms: No: Fever, Cough, Wheezing Similar symptoms before: Work up / diagnostics, Treatment, Follow up Recently seen: Not recently seen - Additional information Additional information: Patient is a 52 year old female with a history of heart failure with an lvad in place who is presenting to the emergency department for not feeling well, heart fluttering sensation and a 9 lb weight gain over the weekend. Patient states that ever since she was admitted and put on amiodarone she has not been feeling well. Patient states that she had changed her diuretic recently since she had been getting up too much at night, but the bumex did not seem to be working. Review of Systems Constitutional: denies: Fever, Chills Eyes: denies: Loss of vision, Photophobia Ears: denies: Ear pain, Drainage/discharge Nose: reports: Congestion Throat: denies: Oral lesions / sores, Sore throat Cardiac: reports: Palpitations, Pedal edema. denies: Chest pain / pressure Respiratory: reports: Dyspnea. denies: Cough, Wheezing GI: denies: Nausea, Vomiting : reports: Frequency Skin: denies: Rash, Lesions Musculoskeletal: denies: Neck pain, Back pain Neurologic: reports: Generalized weakness. denies: Focal weakness, Numbness Psychiatric: denies: Depressed, Suicidal Immunocompromised: reports: Immunocompromised PD PAST MEDICAL HISTORY - Past Medical History Cardiovascular: Congestive heart failure, Hypertension, Other Respiratory: None Neuro: None Endocrine/Autoimmune: None GI: None PREDATORY ANIMAL TRAPPER: Breast cancer : Kidney stones HEENT: None Psych: Anxiety Musculoskeletal: None Derm: None - Past Surgical History Past Surgical History: Yes Ortho: Spine surgery /PREDATORY ANIMAL TRAPPER: Mastectomy Cardiovascular: Other - Present Medications Home Medications: Ambulatory Orders Medication Instructions Recorded Confirmed Exemestane 25 mg PO DAILY 03/02/15 08/14/17 Magnesium 400 mg PO BID 03/02/15 08/14/17 Potassium Chloride [Micro-K] 20 mg PO DAILY 03/02/15 08/14/17 Aspirin [Aspir 81] 81 mg DAILY 06/18/15 08/14/17 Sertraline HCl 50 mg PO DAILY 06/18/15 08/14/17 Sildenafil Citrate [Revatio] 40 mg PO Q8H 06/18/15 08/14/17 Cholecalciferol [Vitamin D3] 5,000 unit PO DAILY 03/19/16 08/14/17 Ferrous Sulfate 325 mg PO DAILY 03/19/16 08/14/17 Multivitamin [Multivitamins] 1 each PO DAILY 03/19/16 08/14/17 Phytonadione [Vitamin K] 100 mcg PO DAILY 03/19/16 08/14/17 Vitamin B Complex 1 each PO DAILY 03/19/16 08/14/17 Calcium Carbonate [Calcium] 500 mg PO DAILY 11/26/16 08/14/17 Metoprolol Tartrate 75 mg PO BID 07/22/17 08/14/17 Amiodarone [Pacerone] 200 mg PO BID 08/09/17 08/14/17 Spironolactone 35.5 mg PO DAILY 08/09/17 08/14/17 Torsemide 40 mg PO BID 08/09/17 08/14/17 Warfarin [Coumadin] 8 mg PO DAILY 08/09/17 08/14/17 Amiodarone HCl 200 mg PO BID 08/14/17 08/14/17 - Allergies Allergies/Adverse Reactions: Allergies Allergy/AdvReac Type Severity Reaction Status Date / Time carvedilol Allergy Anaphylaxis Verified 08/09/17 22:09 - Social History Does the pt smoke?: No Smoking Status: Never smoker Does the pt drink ETOH?: Yes Does the pt have substance abuse?: No - Immunizations Immunizations are current?: Yes - POLST Patient has POLST: No PD ED PE NORMAL - Vitals Vital signs reviewed: Yes - General General: Alert and oriented X 3 - HEENT HEENT: Atraumatic - Abdomen Abdomen: Soft, Non distended - Derm Derm: Normal color, Warm and dry - Extremities Extremities: No deformity - Neuro Neuro: Alert and oriented X 3, No motor deficit, No sensory deficit, Normal speech PD ED PE EXPANDED - General General: Alert, Anxious - HEENT HEENT: Dry mucous membranes - Neck Neck: JVD present - Cardiac Cardiac: Other (murmur of lvad, no peripheral pulse) - Respiratory Respiratory: Decreased breath sounds, Right upper lobe, Right middle lobe, Right lower lobe, Left upper lobe, Left lower lobe - Extremities Extremities: Pedal edema bilateral Results - Vitals Vitals: Vital Signs - 24 hr 08/18/17 08/18/17 08/18/17 19:40 21:41 22:16 Temperature 37.3 C 36.6 C Heart Rate 88 72 Respiratory 30 H 22 Rate Blood Pressure 133/72 H [Sitting] Blood Pressure 145/66 H [Standing] Blood Pressure 128/69 [Supine] O2 Saturation 96 100 08/18/17 22:55 Temperature Heart Rate 73 Respiratory 17 Rate Blood Pressure [Sitting] Blood Pressure [Standing] Blood Pressure [Supine] O2 Saturation 96 Oxygen O2 Source Room air - EKG (time done) 1943 Rate: Rate (enter#) (88) [place]: Normal Compare to prior EKG: Unchanged from prior EKG - Labs Labs: Laboratory Tests 08/18/17 08/18/17 08/18/17 19:55 19:55 19:55 WBC 8.5 RBC 3.61 L Hgb 12.4 Hct 34.4 L MCV 95.3 MCH 34.4 H MCHC 36.1 H RDW 13.1 Plt Count 241 MPV 8.7 Neut # 6.1 Lymph # 1.6 [place] # 0.6 Eos # 0.1 Baso # 0.0 Absolute Nucleated RBC 0.00 Nucleated RBC % 0.0 Sodium 135 Potassium 3.6 Chloride 104 Carbon Dioxide 17 L Anion Gap 14.0 H BUN 36 H Creatinine 1.3 H Estimated GFR (MDRD) 43 L Glucose 94 Calcium 8.5 Phosphorus Magnesium Total Bilirubin 0.7 AST 23 ALT 20 Alkaline Phosphatase 82 Troponin I < 0.04 B-Natriuretic Peptide Total Protein 7.3 Albumin 4.2 Globulin 3.1 Albumin/Globulin Ratio 1.4 Lipase 46 Urine Color Urine Clarity Urine pH Ur Specific [place] Urine Protein Urine Glucose (UA) Urine Ketones Urine Occult Blood Urine Nitrite Urine Bilirubin Urine Urobilinogen Ur Leukocyte Esterase Ur Microscopic Review Urine Culture Comments 08/18/17 08/18/17 08/18/17 19:55 19:55 21:02 WBC RBC Hgb Hct MCV MCH MCHC RDW Plt Count MPV Neut # Lymph # [place] # Eos # Baso # Absolute Nucleated RBC Nucleated RBC % Sodium Potassium Chloride Carbon Dioxide Anion Gap BUN Creatinine Estimated GFR (MDRD) Glucose Calcium Phosphorus 4.1 Magnesium 2.4 Total Bilirubin AST ALT Alkaline Phosphatase Troponin I B-Natriuretic Peptide 1085 H Total Protein Albumin Globulin Albumin/Globulin Ratio Lipase Urine Color YELLOW Urine Clarity CLEAR Urine pH 5.5 Ur Specific [place] 1.020 Urine Protein NEGATIVE Urine Glucose (UA) NEGATIVE Urine Ketones NEGATIVE Urine Occult Blood NEGATIVE Urine Nitrite NEGATIVE Urine Bilirubin NEGATIVE Urine Urobilinogen 0.2 (NORMAL) Ur Leukocyte Esterase NEGATIVE Ur Microscopic Review NOT INDICATED Urine Culture Comments NOT INDICATED - Rads (name of study) chest x-ray Radiology: Final report received (mild edema, no change from previous) PD MEDICAL DECISION MAKING - ED course Complexity details: reviewed old records, reviewed results, re-evaluated patient , considered differential, d/w patient, d/w family, d/w networks software consultant ED course: Patient was seen and examined at bedside. ekg was performed which was unchanged in a sinus rhythm . Patient was placed on a monitor. IV access was gained and labs were drawn. chest x-ray was performed and was relatively unchanged. When patient's labs came back the case was discussed with with the VAD coordinator who suggested diuresis and see how she does. Patient was treated with bumex 1mg iv push. Patient diuresed very well, producing over a liter of urine. Patient started to feel much better. Patient stated that she wanted to return home. Patient was treated with 1mg additional of bumex before being discharged. Patient was discharged feeling well in stable condition with strict discharge and return parameters. Departure - Departure Disposition: 01 Home, Self Care Clinical Impression: Congestive heart failure, Pulmonary edema Condition: Stable Instructions: Device Ventricular Assist Dc Follow-Up: Rosey Garcia PA-C [Primary Care Provider] - Comments: Your symptoms today are likely secondary to fluid overload. After the increased diuretic you seem to be a bit better. It is important to follow up with your LVAD coordinator tomorrow. You should return to the emergency department at any time for new, worsening or uncontrollable symptoms at any time. Discharge Date/Time: 08/18/17 22:55
== END 2017-08-18 22:55 | disposition home or self-care (01) ==
LOC: ED 19:35
DX: I11.0 Hypertensive heart disease with heart failure (principal); I50.9 Heart failure, unspecified; J81.1 Chronic pulmonary edema; R94.31 Abnormal electrocardiogram [ECG] [EKG]; Z85.3 Personal history of malignant neoplasm of breast; Z79.82 Long term (current) use of aspirin
CPT/HCPCS: 36415; 71010; 80053; 81001; 81003; 83690; 83735; 83880; 84100; 84484; 85025; 87086; 93005; 96374; 99284

== ENCOUNTER 2017-08-20 09:50 | Outpatient (CLI) | payer MEDICARE, BC ==
[2017-08-20 10:32] LABS: INR 3.4 (0.8-1.2); PT - PROTHROMBIN TIME 38.9 secs (9.9-12.6)
[2017-08-20 10:35] LABS: CALCIUM 9.7 mg/dL (8.5-10.3); CREATININE 1.2 mg/dL (0.4-1.0); POTASSIUM 4.2 mmol/L (3.5-5.0)
== END 2017-08-20 09:51 | disposition home or self-care (01) ==
LOC: LAB 09:50
PROVIDERS: ATTEND Pharmacist Pharmacotherapy
DX: Z95.811 Presence of heart assist device (principal); Z91.89 Other specified personal risk factors, not elsewhere classified; Z79.01 Long term (current) use of anticoagulants
CPT/HCPCS: 36415; 80048; 85610

== ENCOUNTER 2017-08-23 10:04 | Outpatient (CLI) | payer MEDICARE, BC ==
[2017-08-23 10:27] LABS: INR 3.4 (0.8-1.2); PT - PROTHROMBIN TIME 39.1 secs (9.9-12.6)
== END 2017-08-23 10:05 | disposition home or self-care (01) ==
LOC: LAB 10:04
PROVIDERS: ATTEND Pharmacist Pharmacotherapy
DX: Z95.811 Presence of heart assist device (principal); Z79.01 Long term (current) use of anticoagulants
CPT/HCPCS: 36415; 85610

== ENCOUNTER 2017-08-27 12:14 | Outpatient (CLI) | payer MEDICARE, BC ==
[2017-08-27 12:47] LABS: INR 2.6 (0.8-1.2); PT - PROTHROMBIN TIME 29.6 secs (9.9-12.6)
== END 2017-08-27 12:15 | disposition home or self-care (01) ==
LOC: LAB 12:14
PROVIDERS: ATTEND Pharmacist Pharmacotherapy
DX: Z79.01 Long term (current) use of anticoagulants (principal); Z95.811 Presence of heart assist device
CPT/HCPCS: 36415; 85610

== ENCOUNTER 2017-09-14 10:16 | Outpatient (CLI) | payer MEDICARE, BC ==
[2017-09-14 10:50] LABS: CALCIUM 9.3 mg/dL (8.5-10.3); CREATININE 1.4 mg/dL (0.4-1.0); POTASSIUM 3.6 mmol/L (3.5-5.0)
[2017-09-14 10:57] LABS: INR 2.6 (0.8-1.2); PT - PROTHROMBIN TIME 28.2 secs (9.9-12.6)
== END 2017-09-14 10:17 | disposition home or self-care (01) ==
LOC: LAB 10:16
DX: Z95.811 Presence of heart assist device (principal); E87.6 Hypokalemia
CPT/HCPCS: 36415; 80048; 85610

== ENCOUNTER 2017-09-18 11:22 | Outpatient (CLI) | payer MEDICARE, BC ==
[2017-09-18 12:02] LABS: PT - PROTHROMBIN TIME 56.7 secs (9.9-12.6)
[2017-09-18 12:26] LABS: INR 5.4 (0.8-1.2)
== END 2017-09-18 11:23 | disposition home or self-care (01) ==
LOC: LAB 11:22
PROVIDERS: ATTEND Pharmacist Pharmacotherapy
DX: Z95.811 Presence of heart assist device (principal); Z79.01 Long term (current) use of anticoagulants
CPT/HCPCS: 85610

== ENCOUNTER 2017-09-20 09:29 | Outpatient (CLI) | payer MEDICARE, BC ==
[2017-09-20 09:56] LABS: INR 3.1 (0.8-1.2); PT - PROTHROMBIN TIME 33.6 secs (9.9-12.6)
== END 2017-09-20 09:30 | disposition home or self-care (01) ==
LOC: LAB 09:29
PROVIDERS: ATTEND Pharmacist Pharmacotherapy
DX: Z95.811 Presence of heart assist device (principal); Z79.01 Long term (current) use of anticoagulants
CPT/HCPCS: 36415; 85610

== ENCOUNTER 2017-10-03 12:59 | Outpatient (CLI) | payer MEDICARE, BC ==
[2017-10-03 13:04] LABS: INR 2.7 (0.8-1.2); PT - PROTHROMBIN TIME 28.9 secs (9.9-12.6)
[2017-10-03 13:15] LABS: CALCIUM 9.2 mg/dL (8.5-10.3); CREATININE 1.6 mg/dL (0.4-1.0); POTASSIUM 2.8 mmol/L (3.5-5.0)
== END 2017-10-03 13:00 | disposition home or self-care (01) ==
LOC: LAB 12:59
PROVIDERS: ATTEND Pharmacist Pharmacotherapy
DX: Z95.811 Presence of heart assist device (principal); Z91.89 Other specified personal risk factors, not elsewhere classified
CPT/HCPCS: 36415; 80048; 85610

== ENCOUNTER 2017-10-07 09:50 | Outpatient (CLI) | payer MEDICARE, BC ==
[2017-10-07 10:32] LABS: CALCIUM 9.4 mg/dL (8.5-10.3); CREATININE 1.2 mg/dL (0.4-1.0); POTASSIUM 3.7 mmol/L (3.5-5.0)
== END 2017-10-07 09:51 | disposition home or self-care (01) ==
LOC: LAB 09:50
PROVIDERS: ATTEND Internal Medicine Cardiovascular Disease
DX: Z95.811 Presence of heart assist device (principal); Z91.89 Other specified personal risk factors, not elsewhere classified
CPT/HCPCS: 36415; 80048

== ENCOUNTER 2017-10-12 10:34 | Outpatient (CLI) | payer MEDICARE, BC ==
[2017-10-12 10:59] LABS: INR 2.1 (0.8-1.2); PT - PROTHROMBIN TIME 23.2 secs (9.9-12.6)
== END 2017-10-12 10:35 | disposition home or self-care (01) ==
LOC: LAB 10:34
PROVIDERS: ATTEND Pharmacist Pharmacotherapy
DX: Z79.01 Long term (current) use of anticoagulants (principal); Z95.811 Presence of heart assist device
CPT/HCPCS: 85610

== ENCOUNTER 2017-10-14 11:18 | Outpatient (CLI) | payer MEDICARE, BC ==
[2017-10-14 11:35] LABS: INR 2.8 (0.8-1.2); PT - PROTHROMBIN TIME 30.5 secs (9.9-12.6)
== END 2017-10-14 11:19 | disposition home or self-care (01) ==
LOC: LAB 11:18
PROVIDERS: ATTEND Pharmacist Pharmacotherapy
DX: Z79.01 Long term (current) use of anticoagulants (principal); Z95.811 Presence of heart assist device
CPT/HCPCS: 36415; 85610

== ENCOUNTER 2017-10-18 10:23 | Outpatient (CLI) | payer MEDICARE, BC ==
[2017-10-18 10:47] LABS: PT - PROTHROMBIN TIME 32.7 secs (9.9-12.6)
== END 2017-10-18 10:24 | disposition home or self-care (01) ==
LOC: LAB 10:23
PROVIDERS: ATTEND Pharmacist Pharmacotherapy
DX: Z95.811 Presence of heart assist device (principal); Z79.01 Long term (current) use of anticoagulants
CPT/HCPCS: 36415; 85610

== ENCOUNTER 2017-10-24 09:36 | Outpatient (CLI) | payer MEDICARE, BC ==
[2017-10-24 10:07] LABS: INR 2.9 (0.8-1.2); PT - PROTHROMBIN TIME 31.4 secs (9.9-12.6)
== END 2017-10-24 09:37 | disposition home or self-care (01) ==
LOC: LAB 09:36
PROVIDERS: ATTEND Pharmacist Pharmacotherapy
DX: Z79.01 Long term (current) use of anticoagulants (principal); Z95.811 Presence of heart assist device
CPT/HCPCS: 36415; 85610

== ENCOUNTER 2017-10-31 10:45 | Outpatient (CLI) | payer MEDICARE, BC ==
[2017-10-31 11:21] LABS: INR 2.7 (0.8-1.2); PT - PROTHROMBIN TIME 28.9 secs (9.9-12.6)
== END 2017-10-31 10:46 | disposition home or self-care (01) ==
LOC: LAB 10:45
PROVIDERS: ATTEND Pharmacist Pharmacotherapy
DX: Z79.01 Long term (current) use of anticoagulants (principal); Z95.811 Presence of heart assist device
CPT/HCPCS: 36415; 85610

== ENCOUNTER 2017-11-07 09:31 | Outpatient (CLI) | payer MEDICARE, BC ==
[2017-11-07 09:54] LABS: INR 3.1 (0.8-1.2); PT - PROTHROMBIN TIME 33.9 secs (9.9-12.6)
== END 2017-11-07 09:32 | disposition home or self-care (01) ==
LOC: LAB 09:31
PROVIDERS: ATTEND Pharmacist Pharmacotherapy
DX: Z79.01 Long term (current) use of anticoagulants (principal); Z95.811 Presence of heart assist device
CPT/HCPCS: 36415; 85610

== ENCOUNTER 2017-11-19 22:00 | Outpatient (CLI) | payer MEDICARE, BC | END 2017-11-19 22:01 | disposition critical access hospital (66) | LOC: EMS 22:00 | PROVIDERS: ATTEND Surgery | DX: R09.89 Other specified symptoms and signs involving the circulatory and respiratory systems (principal) | CPT/HCPCS: A0425; A0427 ==

== ENCOUNTER 2017-11-19 22:20 | Emergency (ER) | payer MEDICARE, BC ==
[2017-11-19 22:47] LABS: BASOPHILS # (AUTO) 0.1 10^3/uL (0.0-0.1); BASOPHILS % (AUTO) 0.9 %; EOSINOPHILS # (AUTO) 0.2 10^3/uL (0.0-0.7); HGB - HEMOGLOBIN 13.4 g/dL (12.0-16.0); LYMPHOCYTES # (AUTO) 1.5 10^3/uL (1.5-3.5); LYMPHOCYTES % (AUTO) 18.5 %; MEAN CORPUSCULAR HEMOGLOBIN 33.1 pg (27.0-31.0); MEAN CORPUSCULAR HGB CONC 34.9 g/dL (32.0-36.0); MEAN CORPUSCULAR VOLUME 94.8 fL (81.0-99.0); MEAN PLATELET VOLUME 7.8 fL (7.9-10.8); MONOCYTES # (AUTO) 0.8 10^3/uL (0.0-1.0); MONOCYTES % (AUTO) 9.8 %; NEUTROPHILS # (AUTO) 5.7 10^3/uL (1.5-6.6); NEUTROPHILS % (AUTO) 68.8 %; PLT - PLATELET COUNT 282 10^3/uL (130-450); RED BLOOD COUNT 4.06 10^6/uL (4.20-5.40); RED CELL DISTRIBUTION WIDTH 13.5 % (12.0-15.0); WHITE BLOOD COUNT 8.3 x10^3/uL (4.8-10.8)
[2017-11-19 23:05] LABS: ALBUMIN 4.2 g/dL (3.2-5.5); ALBUMIN/GLOBULIN RATIO 1.4 (1.0-2.2); BILIRUBIN,TOTAL 0.6 mg/dL (0.2-1.0); CALCIUM 9.4 mg/dL (8.5-10.3); CREATININE 1.3 mg/dL (0.4-1.0); MAGNESIUM 1.9 mg/dL (1.7-2.8); PHOSPHORUS 3.6 mg/dL (2.5-4.6); TOTAL PROTEIN 7.3 g/dL (6.7-8.2)
[2017-11-19] MEDS ORDERED: POTASSIUM CHLOR 10 MEQ/100 ML 10 MEQ/100 ML BAG IV ONE (23:05)
[2017-11-19] MEDS ORDERED: POTASSIUM CHLORIDE 20 MEQ TABLET PO STA (23:06)
--- NOTE | 2017-11-19 23:24 | ED Physician Documentation ---
History of Present Illness - Stated complaint Stated Complaint: LVAD PROBLEM - BRADYCARDIA - Chief complaint Chief Complaint: Cardiac - History obtained from History obtained from: Patient, EMS - History of Present Illness Timing: Today - Additonal information Additional information: Patient is a 52 year old female with a history of heart failure with LVAD who is presenting to the emergency department for intermittent bradycardia and not feeling well. Patient states that earlier today she was having runs where her heart rate would be in the 30s. Patient called her lvad team at [facility] who stated that she should come be seen. Patient states that she saw them yesterday and her electrolytes were within normal limits. Patient denies chest pain, shortness of breath, fevers, chills, nausea or vomiting. Review of Systems Constitutional: denies: Fever, Chills Eyes: denies: Decreased vision Ears: denies: Ear pain, Drainage/discharge Nose: reports: Reviewed and negative Throat: reports: Reviewed and negative Cardiac: denies: Chest pain / pressure, Palpitations Respiratory: denies: Dyspnea, Cough, Wheezing GI: denies: Nausea, Vomiting : reports: Reviewed and negative Skin: denies: Rash, Lesions Musculoskeletal: denies: Extremity pain, Extremity swelling Neurologic: reports: Generalized weakness. 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: Breast cancer : Kidney stones HEENT: None Psych: Anxiety Musculoskeletal: None Derm: None - Past Surgical History Past Surgical History: Yes Ortho: Spine surgery /PLANT CYTOLOGIST: Mastectomy Cardiovascular: Other - Present Medications Home Medications: Ambulatory Orders Medication Instructions Recorded Confirmed Exemestane 25 mg PO DAILY 03/02/15 11/19/17 Magnesium 400 mg PO BID 03/02/15 11/19/17 Potassium Chloride [Micro-K] 40 mg PO TID 03/02/15 11/19/17 Aspirin [Aspir 81] 81 mg PO DAILY 06/18/15 11/19/17 Sertraline HCl 50 mg PO DAILY 06/18/15 11/19/17 Sildenafil Citrate [Revatio] 40 mg PO Q8H 06/18/15 11/19/17 Cholecalciferol [Vitamin D3] 5,000 unit PO DAILY 03/19/16 11/19/17 Ferrous Sulfate 325 mg PO DAILY 03/19/16 11/19/17 Multivitamin [Multivitamins] 1 each PO DAILY 03/19/16 11/19/17 Phytonadione [Vitamin K] 100 mcg PO DAILY 03/19/16 11/19/17 Vitamin B Complex 1 each PO DAILY 03/19/16 11/19/17 Calcium Carbonate [Calcium] 500 mg PO DAILY 11/26/16 11/19/17 Metoprolol Tartrate 50 mg PO DAILY 07/22/17 11/19/17 Amiodarone [Pacerone] 200 mg PO DAILY 08/09/17 11/19/17 Spironolactone 35.5 mg PO BID 08/09/17 11/19/17 Warfarin [Coumadin] 8.5 mg PO DAILY 08/09/17 11/19/17 Bumetanide 4 mg PO BID 11/04/17 11/19/17 Chlorothiazide 0.5 tab PO BID 11/04/17 11/19/17 - Allergies Allergies/Adverse Reactions: Allergies Allergy/AdvReac Type Severity Reaction Status Date / Time carvedilol Allergy Anaphylaxis Verified 11/19/17 22:37 - Social History Does the pt smoke?: No Smoking Status: Never smoker Does the pt drink ETOH?: Yes Does the pt have substance abuse?: No - Immunizations Immunizations are current?: Yes - POLST Patient has POLST: No PD ED PE NORMAL - Vitals Vital signs reviewed: Yes - General General: Alert and oriented X 3, No acute distress, Well developed/nourished - HEENT HEENT: Atraumatic - Neck Neck: Supple, no meningeal sign, No JVD - Respiratory Respiratory: No respiratory distress - Abdomen Abdomen: Soft, Non tender, Non distended - Derm Derm: Normal color, Warm and dry, No rash - Extremities Extremities: No deformity - Neuro Neuro: Alert and oriented X 3, No motor deficit, No sensory deficit, Normal speech Eye Opening: Spontaneous Motor: Obeys Commands Verbal: Oriented GCS Score: 15 Results - Vitals Vitals: Vital Signs - 24 hr 11/19/17 11/19/17 11/20/17 22:20 23:40 00:07 Temperature 35.8 C L Heart Rate 74 70 70 Respiratory 18 15 18 Rate O2 Saturation 98 100 97 11/20/17 00:30 Temperature 36.0 C L Heart Rate 71 Respiratory 21 Rate O2 Saturation 98 Oxygen O2 Source Room air - EKG (time done) 2225 Rate: Rate (enter#) (72) Rhythm: NSR [place]: Normal Intervals: Prolonged QT QRS: Normal Compare to prior EKG: Unchanged from prior EKG - Labs Labs: Laboratory Tests 11/19/17 11/19/17 22:39 22:39 WBC 8.3 RBC 4.06 L Hgb 13.4 Hct 38.5 MCV 94.8 MCH 33.1 H MCHC 34.9 RDW 13.5 Plt Count 282 MPV 7.8 L Neut # 5.7 Lymph # 1.5 [place] # 0.8 Eos # 0.2 Baso # 0.1 Absolute Nucleated RBC 0.00 Nucleated RBC % 0.0 Sodium 133 L Potassium 2.0 L* Chloride 91 L Carbon Dioxide 25 Anion Gap 17.0 H BUN 30 H Creatinine 1.3 H Estimated GFR (MDRD) 43 L Glucose 138 H Calcium 9.4 Phosphorus 3.6 Magnesium 1.9 Total Bilirubin 0.6 AST 31 ALT 22 Alkaline Phosphatase 73 Total Protein 7.3 Albumin 4.2 Globulin 3.1 Albumin/Globulin Ratio 1.4 Lipase 44 PD MEDICAL DECISION MAKING - ED course Complexity details: reviewed old records, reviewed results, re-evaluated patient , considered differential, d/w patient, d/w professional housing consultant ED course: Patient was seen and examined at bedside. IV access was gained and labs were drawn. patient was placed on a monitor. ekg was performed which showed sinus rhythm. Patient had a map of 58. When patient's labs came back she was found to have a potassium of 2. Anuja at the lvad team was contacted and the case was discussed with her. She stated that patient required a long time to replenish her potassium so she should probably be sent down there. Patient was started on IV 10meq, and oral 40meq. While awaiting transfer patient was started on her second round of 10meq. patient was asymptomatic while in the emergency department and was stable for als transfer. Departure - Departure Disposition: 02 Transfer Acute Care Hosp Clinical Impression: Hypokalemia Condition: Stable
[2017-11-20] MEDS ORDERED: POTASSIUM CHLOR 10 MEQ/100 ML 10 MEQ/100 ML BAG IV ONE ×3 (01:13→01:20)
== END 2017-11-20 01:24 | disposition short-term general hospital (02) ==
LOC: EDBD → EDUNIT# → ED 22:20
DX: E87.6 Hypokalemia (principal); I11.0 Hypertensive heart disease with heart failure; I50.9 Heart failure, unspecified; Z85.3 Personal history of malignant neoplasm of breast; Z95.811 Presence of heart assist device; Z90.10 Acquired absence of unspecified breast and nipple; Z79.82 Long term (current) use of aspirin
CPT/HCPCS: 36415; 80053; 83690; 83735; 84100; 85025; 93005; 96365; 99284; 99285; A9270

== ENCOUNTER 2017-11-20 01:20 | Outpatient (CLI) | payer MEDICARE, BC | END 2017-11-20 01:21 | disposition short-term general hospital (02) | LOC: EMS 01:20 | PROVIDERS: ATTEND Surgery | DX: E87.6 Hypokalemia (principal) | CPT/HCPCS: A0425; A0426 ==

== ENCOUNTER 2017-11-25 10:09 | Outpatient (CLI) | payer MEDICARE, BC ==
[2017-11-25 10:38] LABS: INR 3.7 (0.8-1.2); PT - PROTHROMBIN TIME 39.8 secs (9.9-12.6)
[2017-11-25 11:00] LABS: CALCIUM 8.8 mg/dL (8.5-10.3); CREATININE 0.9 mg/dL (0.4-1.0)
== END 2017-11-25 10:10 | disposition home or self-care (01) ==
LOC: LAB 10:09
PROVIDERS: ATTEND Pharmacist Pharmacotherapy
DX: Z95.811 Presence of heart assist device (principal); Z79.01 Long term (current) use of anticoagulants; Z91.89 Other specified personal risk factors, not elsewhere classified
CPT/HCPCS: 36415; 80048; 80053; 83735; 85610

== ENCOUNTER 2017-12-09 09:54 | Outpatient (CLI) | payer MEDICARE, BC ==
[2017-12-09 10:46] LABS: INR 2.8 (0.8-1.2); PT - PROTHROMBIN TIME 30.6 secs (9.9-12.6)
== END 2017-12-09 09:55 | disposition home or self-care (01) ==
LOC: LAB 09:54
PROVIDERS: ATTEND Pharmacist Pharmacotherapy
DX: Z95.811 Presence of heart assist device (principal); Z79.01 Long term (current) use of anticoagulants
CPT/HCPCS: 36415; 85610

== ENCOUNTER 2017-12-11 09:48 | Outpatient (CLI) | payer MEDICARE, BC ==
[2017-12-11 10:12] LABS: INR 2.5 (0.8-1.2); PT - PROTHROMBIN TIME 27.7 secs (9.9-12.6)
[2017-12-11 10:14] LABS: CALCIUM 9.5 mg/dL (8.5-10.3); CREATININE 1.3 mg/dL (0.4-1.0)
== END 2017-12-11 09:49 | disposition home or self-care (01) ==
LOC: LAB 09:48
PROVIDERS: ATTEND Internal Medicine Cardiovascular Disease
DX: I47.2 Ventricular tachycardia (principal); Z79.01 Long term (current) use of anticoagulants; Z95.811 Presence of heart assist device; Z91.89 Other specified personal risk factors, not elsewhere classified
CPT/HCPCS: 36415; 80048; 83735; 85610

== ENCOUNTER 2017-12-17 09:47 | Outpatient (CLI) | payer MEDICARE, BC ==
[2017-12-17 10:21] LABS: INR 2.4 (0.8-1.2); PT - PROTHROMBIN TIME 26.6 secs (9.9-12.6)
[2017-12-17 10:51] LABS: CALCIUM 9.2 mg/dL (8.5-10.3)
== END 2017-12-17 09:48 | disposition home or self-care (01) ==
LOC: LAB 09:47
PROVIDERS: ATTEND Pharmacist Pharmacotherapy
DX: Z79.01 Long term (current) use of anticoagulants (principal); Z95.811 Presence of heart assist device; Z91.89 Other specified personal risk factors, not elsewhere classified
CPT/HCPCS: 36415; 80048; 85610

== ENCOUNTER 2017-12-23 12:02 | Outpatient (CLI) | payer MEDICARE, BC ==
[2017-12-23 12:24] LABS: CALCIUM 9.4 mg/dL (8.5-10.3); CREATININE 1.6 mg/dL (0.4-1.0)
== END 2017-12-23 12:03 | disposition home or self-care (01) ==
LOC: LAB 12:02
PROVIDERS: ATTEND Internal Medicine Cardiovascular Disease
DX: Z95.811 Presence of heart assist device (principal); Z91.89 Other specified personal risk factors, not elsewhere classified
CPT/HCPCS: 36415; 80048

== ENCOUNTER 2018-01-02 11:00 | Outpatient (CLI) | payer MEDICARE, BC ==
[2018-01-02 11:45] LABS: INR 3.8 (0.8-1.2); PT - PROTHROMBIN TIME 40.7 secs (9.9-12.6)
[2018-01-02 11:50] LABS: CALCIUM 8.9 mg/dL (8.5-10.3); CREATININE 1.3 mg/dL (0.4-1.0)
== END 2018-01-02 11:01 | disposition home or self-care (01) ==
LOC: LAB 11:00
PROVIDERS: ATTEND Pharmacist Pharmacotherapy
DX: E07.9 Disorder of thyroid, unspecified (principal); Z79.01 Long term (current) use of anticoagulants; Z95.811 Presence of heart assist device; Z86.79 Personal history of other diseases of the circulatory system; Z91.89 Other specified personal risk factors, not elsewhere classified
CPT/HCPCS: 36415; 80048; 84443; 85610

== ENCOUNTER 2018-01-09 09:40 | Outpatient (CLI) | payer MEDICARE, BC ==
[2018-01-09 10:02] LABS: PT - PROTHROMBIN TIME 32.1 secs (9.9-12.6)
[2018-01-09 10:44] LABS: CALCIUM 9.1 mg/dL (8.5-10.3); CREATININE 1.2 mg/dL (0.4-1.0)
== END 2018-01-09 09:41 | disposition home or self-care (01) ==
LOC: LAB 09:40
PROVIDERS: ATTEND Pharmacist Pharmacotherapy
DX: Z95.811 Presence of heart assist device (principal); Z79.01 Long term (current) use of anticoagulants
CPT/HCPCS: 36415; 80048; 85610

== ENCOUNTER 2018-01-14 11:28 | Outpatient (CLI) | payer MEDICARE, BC ==
[2018-01-14 12:02] LABS: INR 3.6 (0.8-1.2); PT - PROTHROMBIN TIME 39.1 secs (9.9-12.6)
[2018-01-14 12:06] LABS: CALCIUM 9.3 mg/dL (8.5-10.3); CREATININE 1.6 mg/dL (0.4-1.0)
== END 2018-01-14 11:29 | disposition home or self-care (01) ==
LOC: LAB 11:28
PROVIDERS: ATTEND Internal Medicine Cardiovascular Disease
DX: Z95.811 Presence of heart assist device (principal); Z91.89 Other specified personal risk factors, not elsewhere classified; Z79.01 Long term (current) use of anticoagulants
CPT/HCPCS: 36415; 80048; 85610

== ENCOUNTER 2018-01-20 11:15 | Outpatient (CLI) | payer MEDICARE, BC ==
[2018-01-20 11:43] LABS: INR 2.5 (0.8-1.2); PT - PROTHROMBIN TIME 27.2 secs (9.9-12.6)
[2018-01-20 11:46] LABS: CALCIUM 9.4 mg/dL (8.5-10.3); CREATININE 1.6 mg/dL (0.4-1.0)
== END 2018-01-20 11:16 | disposition home or self-care (01) ==
LOC: LAB 11:15
PROVIDERS: ATTEND Pharmacist Pharmacotherapy
DX: Z95.811 Presence of heart assist device (principal); Z79.01 Long term (current) use of anticoagulants
CPT/HCPCS: 36415; 80048; 85610

== ENCOUNTER 2018-01-23 10:52 | Outpatient (CLI) | payer MEDICARE, BC ==
[2018-01-23 11:51] LABS: CREATININE 1.1 mg/dL (0.4-1.0)
== END 2018-01-23 10:53 | disposition home or self-care (01) ==
LOC: LAB 10:52
PROVIDERS: ATTEND Internal Medicine Cardiovascular Disease
DX: Z95.811 Presence of heart assist device (principal); Z91.89 Other specified personal risk factors, not elsewhere classified
CPT/HCPCS: 36415; 80048

== ENCOUNTER 2018-01-27 10:32 | Outpatient (CLI) | payer MEDICARE, BC ==
[2018-01-27 10:56] LABS: INR 2.7 (0.8-1.2); PT - PROTHROMBIN TIME 29.7 secs (9.9-12.6)
[2018-01-27 11:01] LABS: CALCIUM 9.1 mg/dL (8.5-10.3); CREATININE 1.4 mg/dL (0.4-1.0)
== END 2018-01-27 10:33 | disposition home or self-care (01) ==
LOC: LAB 10:32
PROVIDERS: ATTEND Pharmacist Pharmacotherapy
DX: Z95.811 Presence of heart assist device (principal); Z79.01 Long term (current) use of anticoagulants; Z91.89 Other specified personal risk factors, not elsewhere classified
CPT/HCPCS: 36415; 80048; 85610

== ENCOUNTER 2018-01-30 10:47 | Outpatient (CLI) | payer MEDICARE, BC ==
[2018-01-30 11:23] LABS: CALCIUM 9.1 mg/dL (8.5-10.3); CREATININE 1.4 mg/dL (0.4-1.0)
== END 2018-01-30 10:48 | disposition home or self-care (01) ==
LOC: LAB 10:47
PROVIDERS: ATTEND Internal Medicine Cardiovascular Disease
DX: Z95.811 Presence of heart assist device (principal); Z91.89 Other specified personal risk factors, not elsewhere classified
CPT/HCPCS: 36415; 80048

== ENCOUNTER 2018-02-03 09:44 | Outpatient (CLI) | payer MEDICARE, BC ==
[2018-02-03 10:11] LABS: INR 3.2 (0.8-1.2); PT - PROTHROMBIN TIME 34.5 secs (9.9-12.6)
[2018-02-03 10:20] LABS: CALCIUM 9.3 mg/dL (8.5-10.3); CREATININE 1.5 mg/dL (0.4-1.0)
== END 2018-02-03 09:45 | disposition home or self-care (01) ==
LOC: LAB 09:44
PROVIDERS: ATTEND Pharmacist Pharmacotherapy
DX: Z95.811 Presence of heart assist device (principal); Z79.01 Long term (current) use of anticoagulants; Z91.89 Other specified personal risk factors, not elsewhere classified
CPT/HCPCS: 36415; 80048; 85610

== ENCOUNTER 2018-02-10 10:25 | Outpatient (CLI) | payer MEDICARE, BC ==
[2018-02-10 11:04] LABS: CALCIUM 9.6 mg/dL (8.5-10.3); CREATININE 1.6 mg/dL (0.4-1.0)
[2018-02-10 11:06] LABS: PT - PROTHROMBIN TIME 42.9 secs (9.9-12.6)
== END 2018-02-10 10:26 | disposition home or self-care (01) ==
LOC: LAB 10:25
PROVIDERS: ATTEND Pharmacist Pharmacotherapy
DX: Z95.811 Presence of heart assist device (principal); Z79.01 Long term (current) use of anticoagulants; Z91.89 Other specified personal risk factors, not elsewhere classified
CPT/HCPCS: 36415; 80048; 85610

== ENCOUNTER 2018-02-17 10:40 | Outpatient (CLI) | payer MEDICARE, BC ==
[2018-02-17 11:11] LABS: PT - PROTHROMBIN TIME 22.1 secs (9.9-12.6)
[2018-02-17 11:12] LABS: CALCIUM 9.3 mg/dL (8.5-10.3); CREATININE 1.2 mg/dL (0.4-1.0)
== END 2018-02-17 10:41 | disposition home or self-care (01) ==
LOC: LAB 10:40
PROVIDERS: ATTEND Pharmacist Pharmacotherapy
DX: Z79.01 Long term (current) use of anticoagulants (principal); Z95.811 Presence of heart assist device; Z91.89 Other specified personal risk factors, not elsewhere classified
CPT/HCPCS: 36415; 80048; 85610

== ENCOUNTER 2018-02-20 16:48 | Outpatient (CLI) | payer MEDICARE, BC | END 2018-02-20 16:49 | disposition home or self-care (01) | LOC: LAB 16:48 | PROVIDERS: ATTEND Internal Medicine Cardiovascular Disease | DX: Z53.9 Procedure and treatment not carried out, unspecified reason (principal) ==

== ENCOUNTER 2018-02-20 17:20 | Outpatient (CLI) | payer MEDICARE, BC ==
[2018-02-20 17:55] LABS: CALCIUM 9.4 mg/dL (8.5-10.3); CREATININE 1.7 mg/dL (0.4-1.0)
== END 2018-02-20 17:21 | disposition home or self-care (01) ==
LOC: LAB 17:20
PROVIDERS: ATTEND Internal Medicine Cardiovascular Disease
DX: Z95.811 Presence of heart assist device (principal); Z91.89 Other specified personal risk factors, not elsewhere classified
CPT/HCPCS: 36415; 80048

== ENCOUNTER 2018-02-24 10:28 | Outpatient (CLI) | payer MEDICARE, BC ==
[2018-02-24 10:53] LABS: PT - PROTHROMBIN TIME 22.4 secs (9.9-12.6)
== END 2018-02-24 10:29 | disposition home or self-care (01) ==
LOC: LAB 10:28
PROVIDERS: ATTEND Pharmacist Pharmacotherapy
DX: Z79.01 Long term (current) use of anticoagulants (principal); Z95.811 Presence of heart assist device
CPT/HCPCS: 36415; 85610

== ENCOUNTER 2018-03-03 12:37 | Outpatient (CLI) | payer MEDICARE, BC ==
[2018-03-03 13:06] LABS: INR 2.6 (0.8-1.2); PT - PROTHROMBIN TIME 28.5 secs (9.9-12.6)
== END 2018-03-03 12:38 | disposition home or self-care (01) ==
LOC: LAB 12:37
PROVIDERS: ATTEND Pharmacist Pharmacotherapy
DX: Z95.811 Presence of heart assist device (principal); Z79.01 Long term (current) use of anticoagulants
CPT/HCPCS: 36415; 85610

== ENCOUNTER 2018-03-07 10:23 | Outpatient (CLI) | payer MEDICARE, BC ==
[2018-03-07 10:47] LABS: INR 4.1 (0.8-1.2); PT - PROTHROMBIN TIME 43.9 secs (9.9-12.6)
[2018-03-07 11:01] LABS: CALCIUM 9.3 mg/dL (8.5-10.3); CREATININE 1.2 mg/dL (0.4-1.0)
== END 2018-03-07 10:24 | disposition home or self-care (01) ==
LOC: LAB 10:23
PROVIDERS: ATTEND Pharmacist Pharmacotherapy
DX: Z79.01 Long term (current) use of anticoagulants (principal); Z95.811 Presence of heart assist device; Z91.89 Other specified personal risk factors, not elsewhere classified
CPT/HCPCS: 36415; 80048; 85610

== ENCOUNTER 2018-03-14 10:08 | Outpatient (CLI) | payer MEDICARE, BC ==
[2018-03-14 10:49] LABS: CALCIUM 9.3 mg/dL (8.5-10.3); CREATININE 1.3 mg/dL (0.4-1.0)
[2018-03-14 11:05] LABS: INR 3.7 (0.8-1.2); PT - PROTHROMBIN TIME 39.7 secs (9.9-12.6)
== END 2018-03-14 10:09 | disposition home or self-care (01) ==
LOC: LAB 10:08
PROVIDERS: ATTEND Pharmacist Pharmacotherapy
DX: Z95.811 Presence of heart assist device (principal); Z79.01 Long term (current) use of anticoagulants; Z91.89 Other specified personal risk factors, not elsewhere classified
CPT/HCPCS: 36415; 80048; 85610

== ENCOUNTER 2018-03-21 10:37 | Outpatient (CLI) | payer MEDICARE, BC ==
[2018-03-21 10:56] LABS: INR 2.7 (0.8-1.2); PT - PROTHROMBIN TIME 29.7 secs (9.9-12.6)
[2018-03-21 11:00] LABS: CREATININE 1.3 mg/dL (0.4-1.0)
== END 2018-03-21 10:38 | disposition home or self-care (01) ==
LOC: LAB 10:37
PROVIDERS: ATTEND Pharmacist Pharmacotherapy
DX: Z79.01 Long term (current) use of anticoagulants (principal); Z95.811 Presence of heart assist device; Z91.89 Other specified personal risk factors, not elsewhere classified
CPT/HCPCS: 36415; 80048; 85610

== ENCOUNTER 2018-04-01 09:18 | Outpatient (CLI) | payer MEDICARE, BC ==
[2018-04-01 09:39] LABS: INR 4.2 (0.8-1.2)
[2018-04-01 09:40] LABS: CALCIUM 9.6 mg/dL (8.5-10.3); CREATININE 1.3 mg/dL (0.4-1.0)
== END 2018-04-01 09:19 | disposition home or self-care (01) ==
LOC: LAB 09:18
PROVIDERS: ATTEND Pharmacist Pharmacotherapy
DX: Z95.811 Presence of heart assist device (principal); Z79.01 Long term (current) use of anticoagulants; Z91.89 Other specified personal risk factors, not elsewhere classified
CPT/HCPCS: 36415; 80048; 85610

== ENCOUNTER 2018-04-07 10:06 | Outpatient (CLI) | payer MEDICARE, BC ==
[2018-04-07 10:51] LABS: INR 3.3 (0.8-1.2); PT - PROTHROMBIN TIME 35.3 secs (9.9-12.6)
[2018-04-07 10:54] LABS: CALCIUM 9.4 mg/dL (8.5-10.3); CREATININE 1.4 mg/dL (0.4-1.0)
== END 2018-04-07 10:07 | disposition home or self-care (01) ==
LOC: LAB 10:06
PROVIDERS: ATTEND Pharmacist Pharmacotherapy
DX: Z95.811 Presence of heart assist device (principal); Z79.01 Long term (current) use of anticoagulants; Z91.89 Other specified personal risk factors, not elsewhere classified
CPT/HCPCS: 36415; 80048; 85610

== ENCOUNTER 2018-04-14 08:31 | Outpatient (CLI) | payer MEDICARE, BC ==
[2018-04-14 08:49] LABS: INR 2.4 (0.8-1.2); PT - PROTHROMBIN TIME 26.5 secs (9.9-12.6)
[2018-04-14 08:52] LABS: CALCIUM 9.7 mg/dL (8.5-10.3); CREATININE 1.7 mg/dL (0.4-1.0)
== END 2018-04-14 08:32 | disposition home or self-care (01) ==
LOC: LAB 08:31
PROVIDERS: ATTEND Pharmacist Pharmacotherapy
DX: Z95.811 Presence of heart assist device (principal); Z79.01 Long term (current) use of anticoagulants; Z91.89 Other specified personal risk factors, not elsewhere classified
CPT/HCPCS: 36415; 80048; 85610

== ENCOUNTER 2018-04-20 17:55 | Outpatient (CLI) | payer MEDICARE, BC | END 2018-04-20 23:59 | disposition short-term general hospital (02) | LOC: EMS 17:55 | PROVIDERS: ATTEND Surgery | DX: R42 Dizziness and giddiness (principal); R53.1 Weakness; R11.0 Nausea; H53.9 Unspecified visual disturbance | CPT/HCPCS: A0425; A0427 ==

== ENCOUNTER 2018-04-29 11:10 | Outpatient (CLI) | payer MEDICARE, BC ==
[2018-04-29 11:55] LABS: INR 3.6 (0.8-1.2); PT - PROTHROMBIN TIME 38.6 secs (9.9-12.6)
== END 2018-04-29 11:11 | disposition home or self-care (01) ==
LOC: LAB 11:10
PROVIDERS: ATTEND Pharmacist Pharmacotherapy
DX: Z95.811 Presence of heart assist device (principal); Z79.01 Long term (current) use of anticoagulants
CPT/HCPCS: 36415; 85610

== ENCOUNTER 2018-05-01 11:00 | Outpatient (CLI) | payer MEDICARE, BC ==
[2018-05-01 11:45] LABS: CALCIUM 9.4 mg/dL (8.5-10.3); CREATININE 1.7 mg/dL (0.4-1.0)
[2018-05-01 12:09] LABS: INR 2.8 (0.8-1.2); PT - PROTHROMBIN TIME 30.7 secs (9.9-12.6)
== END 2018-05-01 11:01 | disposition home or self-care (01) ==
LOC: LAB 11:00
PROVIDERS: ATTEND Pharmacist Pharmacotherapy
DX: Z95.811 Presence of heart assist device (principal); Z91.89 Other specified personal risk factors, not elsewhere classified; Z79.01 Long term (current) use of anticoagulants
CPT/HCPCS: 36415; 80048; 85610

== ENCOUNTER 2018-05-12 10:55 | Outpatient (CLI) | payer MEDICARE, BC ==
[2018-05-12 11:17] LABS: INR 2.4 (0.8-1.2); PT - PROTHROMBIN TIME 26.4 secs (9.9-12.6)
[2018-05-12 11:28] LABS: CALCIUM 9.1 mg/dL (8.5-10.3); CREATININE 1.1 mg/dL (0.4-1.0)
== END 2018-05-12 10:56 | disposition home or self-care (01) ==
LOC: LAB 10:55
PROVIDERS: ATTEND Pharmacist Pharmacotherapy
DX: Z95.811 Presence of heart assist device (principal); Z79.01 Long term (current) use of anticoagulants
CPT/HCPCS: 36415; 80048; 85610

== ENCOUNTER 2018-05-22 11:29 | Outpatient (CLI) | payer MEDICARE, BC ==
[2018-05-22 11:56] LABS: INR 2.1 (0.8-1.2); PT - PROTHROMBIN TIME 23.1 secs (9.9-12.6)
== END 2018-05-22 11:30 | disposition home or self-care (01) ==
LOC: LAB 11:29
PROVIDERS: ATTEND Pharmacist Pharmacotherapy
DX: Z79.01 Long term (current) use of anticoagulants (principal); Z95.811 Presence of heart assist device
CPT/HCPCS: 36415; 85610

== ENCOUNTER 2018-05-27 10:47 | Outpatient (CLI) | payer MEDICARE, BC ==
[2018-05-27 11:25] LABS: INR 2.3 (0.8-1.2); PT - PROTHROMBIN TIME 25.6 secs (9.9-12.6)
[2018-05-27 11:29] LABS: CALCIUM 9.3 mg/dL (8.5-10.3); CREATININE 1.3 mg/dL (0.4-1.0)
== END 2018-05-27 10:48 | disposition home or self-care (01) ==
LOC: LAB 10:47
PROVIDERS: ATTEND Pharmacist Pharmacotherapy
DX: Z79.01 Long term (current) use of anticoagulants (principal); Z95.811 Presence of heart assist device; Z91.89 Other specified personal risk factors, not elsewhere classified
CPT/HCPCS: 36415; 80048; 85610

== ENCOUNTER 2018-06-02 10:33 | Outpatient (CLI) | payer MEDICARE, BC ==
[2018-06-02 11:25] LABS: INR 2.7 (0.8-1.2); PT - PROTHROMBIN TIME 29.8 secs (9.9-12.6)
[2018-06-02 11:32] LABS: CALCIUM 9.5 mg/dL (8.5-10.3); CREATININE 1.4 mg/dL (0.4-1.0)
== END 2018-06-02 10:34 | disposition home or self-care (01) ==
LOC: LAB 10:33
PROVIDERS: ATTEND Pharmacist Pharmacotherapy
DX: Z95.811 Presence of heart assist device (principal); Z79.01 Long term (current) use of anticoagulants; Z91.89 Other specified personal risk factors, not elsewhere classified
CPT/HCPCS: 36415; 80048; 85610

== ENCOUNTER 2018-06-10 12:52 | Outpatient (CLI) | payer MEDICARE, BC | END 2018-06-10 12:53 | disposition critical access hospital (66) | LOC: EMS 12:52 | PROVIDERS: ATTEND Surgery | DX: R07.9 Chest pain, unspecified (principal) | CPT/HCPCS: A0425; A0427 ==

== ENCOUNTER 2018-06-10 13:10 | Emergency (ER) | payer MEDICARE, BC ==
--- NOTE | 2018-06-10 13:35 | ED Physician Documentation ---
PD HPI CHEST PAIN - Stated complaint Stated Complaint: CP - Chief complaint Chief Complaint: Cardiac - History obtained from History obtained from: Patient - History of Present Illness Timing - onset: How many days ago (3) Timing - onset during: Light activity Timing - duration: Days (3) Timing - details: Gradual onset, Still present, Waxing and waning Pain level max: 6 Pain level now: 2 Quality: Pressure, Sharp, Pain Location: Left chest Radiation: Neck, Left upper extremity Improved by: Rest Worsened by: Exertion, Movement Associated symptoms: Shortness of air. 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 She states that this is worse if she is up and around doing much of anything and improves with rest. She does not have any tenderness anywhere and does not think that she strained her arm doing anything specific. She states she has been more active than usual and by this she means that she did not take her usual naps over the weekend as she had company. She did not do any strenuous activity she did not do any manual labor she did not do any lifting. She does have her usual exertional dyspnea this is somewhat worse than usual for her. She has contacted her LVAD coordinator and Nabila has recommended she come down to the [facility]. She recommended she come down by ambulance or private auto the patient called the ambulance the ambulance refused to transport her to the [place] and brought her to [facility]. Review of Systems Constitutional: denies: Fever, Chills Eyes: denies: Decreased vision Ears: denies: Ear pain Nose: denies: Rhinorrhea / runny nose, Congestion Throat: denies: Oral lesions / sores, Sore throat Cardiac: reports: Chest pain / pressure. denies: Palpitations, Pedal edema, Calf pain Respiratory: reports: Dyspnea. denies: Cough, Hemoptysis, Wheezing GI: reports: Nausea. denies: Abdominal Pain, Vomiting : denies: Dysuria, Frequency Skin: denies: Rash Musculoskeletal: reports: Neck pain, Extremity pain. 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: Breast cancer : Kidney stones HEENT: None Psych: Anxiety Musculoskeletal: None Derm: None - Past Surgical History Past Surgical History: Yes Ortho: Spine surgery /STEEL LOADER: Mastectomy Cardiovascular: Other - Present Medications Home Medications: Ambulatory Orders Medication Instructions Recorded Confirmed Exemestane 25 mg PO DAILY 03/02/15 03/10/18 Magnesium 400 mg PO BID 03/02/15 03/10/18 Potassium Chloride [Micro-K] 40 mg PO TID 03/02/15 03/10/18 Aspirin [Aspir 81] 81 mg PO DAILY 06/18/15 03/10/18 Sertraline HCl 50 mg PO DAILY 06/18/15 03/10/18 Sildenafil Citrate [Revatio] 40 mg PO Q8H 06/18/15 03/10/18 Cholecalciferol [Vitamin D3] 5,000 unit PO DAILY 03/19/16 03/10/18 Ferrous Sulfate 325 mg PO DAILY 03/19/16 03/10/18 Multivitamin [Multivitamins] 1 each PO DAILY 03/19/16 03/10/18 Phytonadione [Vitamin K] 100 mcg PO DAILY 03/19/16 03/10/18 Vitamin B Complex 1 each PO DAILY 03/19/16 03/10/18 Calcium Carbonate [Calcium] 500 mg PO DAILY 11/26/16 03/10/18 Metoprolol Tartrate 50 mg PO DAILY 07/22/17 03/10/18 Spironolactone 35.5 mg PO BID 08/09/17 03/10/18 Warfarin [Coumadin] 8.5 mg PO DAILY 08/09/17 03/10/18 Bumetanide 4 mg PO BID 11/04/17 03/10/18 Chlorothiazide 0.5 tab PO BID 11/04/17 03/10/18 - Allergies Allergies/Adverse Reactions: Allergies Allergy/AdvReac Type Severity Reaction Status Date / Time carvedilol Allergy Anaphylaxis Verified 06/10/18 13:18 - Social History Does the pt smoke?: No Smoking Status: Never smoker Does the pt drink ETOH?: Yes Does the pt have substance abuse?: No - Immunizations Immunizations are current?: Yes - POLST Patient has POLST: No PD ED PE NORMAL - Vitals Vital signs reviewed: Yes (hypotensive ) - General General: Alert and oriented X 3, No acute distress, Well developed/nourished - HEENT HEENT: Atraumatic, PERRL, EOMI - Neck Neck: Supple, no meningeal sign, No bony TTP - Cardiac Cardiac: RRR, Other (2/6 holosystolic murmer at LSB) - Respiratory Respiratory: No respiratory distress, Clear bilaterally, Other (There are radiation arce to the left chest wall and the chest wall is not tender, the neck is not tender and the LUE is not tender. ) - Abdomen Abdomen: Soft, Non tender - Back Back: No CVA TTP, No spinal TTP - Derm Derm: Normal color, Warm and dry, No rash - Extremities Extremities: No deformity, No edema - Neuro Neuro: Alert and oriented X 3, load mixer 2-12 intact, No motor deficit, No sensory deficit, Normal speech Eye Opening: Spontaneous Motor: Obeys Commands Verbal: Oriented GCS Score: 15 - Psych Psych: Normal mood, Normal affect Results - Vitals Vitals: Vital Signs - 24 hr 06/10/18 06/10/18 13:11 13:55 Temperature 36.3 C L Heart Rate 87 86 Respiratory 16 18 Rate Blood Pressure 82/52 L O2 Saturation 97 98 Oxygen O2 Source Room air - EKG (time done) 1323 Rate: Rate (enter#) (86) Ischemia: Q waves (lateral ), Other (flat T's inferior) Compare to prior EKG: Changed from prior EKG (SPT 11-19-17 limb lead morphology has changed) - Labs Labs: Laboratory Tests 06/10/18 06/10/18 06/10/18 13:36 13:36 13:36 WBC 6.4 RBC 3.72 L Hgb 12.8 Hct 34.6 L MCV 93.0 MCH 34.3 H MCHC 36.9 H RDW 12.9 Plt Count 240 MPV 8.9 Neut # (Auto) 4.5 Lymph # (Auto) 1.1 L [place] # (Auto) 0.6 Eos # (Auto) 0.1 Baso # (Auto) 0.1 Absolute Nucleated RBC 0.00 Nucleated RBC % 0.1 PT 28.8 H INR 2.6 H Sodium 136 Potassium 3.1 L Chloride 100 L Carbon Dioxide 24 Anion Gap 12.0 BUN 22 H Creatinine 1.2 H Estimated GFR (MDRD) 47 L Glucose 95 Calcium 9.0 Total Bilirubin 1.1 H AST 22 ALT 22 Alkaline Phosphatase 81 Troponin I B-Natriuretic Peptide Total Protein 7.7 Albumin 4.3 Globulin 3.4 Albumin/Globulin Ratio 1.3 Lipase 42 Urine Color Urine Clarity Urine pH Ur Specific [place] Urine Protein Urine Glucose (UA) Urine Ketones Urine Occult Blood Urine Nitrite Urine Bilirubin Urine Urobilinogen Ur Leukocyte Esterase Ur Microscopic Review Urine Culture Comments 06/10/18 06/10/18 06/10/18 13:36 13:36 14:00 WBC RBC Hgb Hct MCV MCH MCHC RDW Plt Count MPV Neut # (Auto) Lymph # (Auto) [place] # (Auto) Eos # (Auto) Baso # (Auto) Absolute Nucleated RBC Nucleated RBC % PT INR Sodium Potassium Chloride Carbon Dioxide Anion Gap BUN Creatinine Estimated GFR (MDRD) Glucose Calcium Total Bilirubin AST ALT Alkaline Phosphatase Troponin I < 0.04 B-Natriuretic Peptide 997 H Total Protein Albumin Globulin Albumin/Globulin Ratio Lipase Urine Color YELLOW Urine Clarity CLEAR Urine pH 7.5 Ur Specific [place] 1.010 Urine Protein NEGATIVE Urine Glucose (UA) NEGATIVE Urine Ketones NEGATIVE Urine Occult Blood NEGATIVE Urine Nitrite NEGATIVE Urine Bilirubin NEGATIVE Urine Urobilinogen 0.2 (NORMAL) Ur Leukocyte Esterase NEGATIVE Ur Microscopic Review NOT INDICATED Urine Culture Comments NOT INDICATED - Rads (name of study) 1 veiw chest Radiology: Prelim report reviewed (Impression: Cardiomegaly, pulmonary venous congestion), EMP read indepedently, See rad report PD MEDICAL DECISION MAKING - ED course Complexity details: reviewed old records, reviewed results, re-evaluated patient , considered differential, d/w patient ED course: 53 y/o LVAD patient with 3 days of symptoms of chest pain arrives in the ED without EKG evidence of STEMI and without infiltrate or effusion on CXR. She does not appear to be in failure and she will require a more complete work up and transfer to [facility] is sought. The LVAD coordinator Anuja is contacted and recommends ground transport to [facility] . - Sepsis Event Vital Signs: Vital Signs - 24 hr 06/10/18 06/10/18 13:11 13:55 Temperature 36.3 C L Heart Rate 87 86 Respiratory 16 18 Rate Blood Pressure 82/52 L O2 Saturation 97 98 Oxygen O2 Source Room air Departure - Departure Disposition: 02 Transfer Acute Care Hosp Clinical Impression: Chest pain Qualifiers: Chest pain type: unspecified Qualified Code(s): R07.9 - Chest pain, unspecified Condition: Stable
[2018-06-10 13:53] LABS: INR 2.6 (0.8-1.2); PT - PROTHROMBIN TIME 28.8 secs (9.9-12.6)
[2018-06-10 14:02] LABS: ALBUMIN 4.3 g/dL (3.2-5.5); ALBUMIN/GLOBULIN RATIO 1.3 (1.0-2.2); BILIRUBIN,TOTAL 1.1 mg/dL (0.2-1.0); CREATININE 1.2 mg/dL (0.4-1.0); TOTAL PROTEIN 7.7 g/dL (6.7-8.2)
[2018-06-10 14:03] LABS: BASOPHILS # (AUTO) 0.1 10^3/uL (0.0-0.1); EOSINOPHILS # (AUTO) 0.1 10^3/uL (0.0-0.7); EOSINOPHILS % (AUTO) 0.8 %; HGB - HEMOGLOBIN 12.8 g/dL (12.0-16.0); LYMPHOCYTES # (AUTO) 1.1 10^3/uL (1.5-3.5); LYMPHOCYTES % (AUTO) 17.6 %; MEAN CORPUSCULAR HEMOGLOBIN 34.3 pg (27.0-31.0); MEAN CORPUSCULAR HGB CONC 36.9 g/dL (32.0-36.0); MEAN PLATELET VOLUME 8.9 fL (7.9-10.8); MONOCYTES # (AUTO) 0.6 10^3/uL (0.0-1.0); MONOCYTES % (AUTO) 9.3 %; NEUTROPHILS # (AUTO) 4.5 10^3/uL (1.5-6.6); NEUTROPHILS % (AUTO) 71.3 %; PLT - PLATELET COUNT 240 10^3/uL (130-450); RED BLOOD COUNT 3.72 10^6/uL (4.20-5.40); RED CELL DISTRIBUTION WIDTH 12.9 % (12.0-15.0); WHITE BLOOD COUNT 6.4 x10^3/uL (4.8-10.8)
--- NOTE | 2018-06-10 14:16 | XRAY Report ---
Procedure Date: 06/10/2018 Accession Number: [id number] / [id number] Procedure: XR - Chest 1 View X-Ray CPT Code: 03278 FULL RESULT: EXAM: CHEST RADIOGRAPHY EXAM DATE: 06/10/2018 01:46 PM. CLINICAL HISTORY: CHEST PAIN. COMPARISON: None. TECHNIQUE: 1 view. FINDINGS: Lungs/Pleura: Pulmonary vascularity increased. No focal opacities evident. No pleural effusion. No pneumothorax. Mediastinum: Poststernotomy. Stable cardiomegaly. Left ventricular assist device. Other: None. IMPRESSION: Cardiomegaly, pulmonary venous congestion RADIA
[2018-06-10 14:29] LABS: BILIRUBIN,URINE NEGATIVE (NEGATIVE); GLUCOSE, URINE (UA) NEGATIVE (NEGATIVE); KETONES,URINE (UA) NEGATIVE (NEGATIVE); LEUKOCYTE ESTERASE, URINE NEGATIVE (NEGATIVE); NITRITE,URINE NEGATIVE (NEGATIVE); OCCULT BLOOD,URINE NEGATIVE (NEGATIVE); PH,URINE 7.5 PH (5.0-7.5); PROTEIN,URINE NEGATIVE (NEGATIVE); UROBILINOGEN,URINE 0.2 (NORMAL) E.U./dL (NORMAL)
[2018-06-10 14:32] LABS: CLARITY,URINE CLEAR (CLEAR)
[2018-06-10] MEDS ORDERED: POTASSIUM BICARB 25 MEQ TABLET PO STA (14:40)
[2018-06-10 15:06] VITALS: BP 85/44
== END 2018-06-10 15:37 | disposition short-term general hospital (02) ==
LOC: EDUNIT# → ED 13:10
DX: R07.9 Chest pain, unspecified (principal); C50.919 Malignant neoplasm of unspecified site of unspecified female breast; I11.0 Hypertensive heart disease with heart failure; I50.9 Heart failure, unspecified; Z90.10 Acquired absence of unspecified breast and nipple; Z79.82 Long term (current) use of aspirin
CPT/HCPCS: 36415; 71045; 80053; 81003; 83690; 83880; 84484; 85025; 85610; 93005; 99284; A9270; 81001; 87086

== ENCOUNTER 2018-06-10 15:38 | Outpatient (CLI) | payer MEDICARE, BC | END 2018-06-10 15:39 | disposition short-term general hospital (02) | LOC: EMS 15:38 | PROVIDERS: ATTEND Surgery | DX: R07.9 Chest pain, unspecified (principal) | CPT/HCPCS: A0170; A0425; A0427 ==

== ENCOUNTER 2018-06-16 10:51 | Outpatient (CLI) | payer MEDICARE, BC ==
[2018-06-16 11:35] LABS: CALCIUM 9.1 mg/dL (8.5-10.3); CREATININE 1.3 mg/dL (0.4-1.0)
== END 2018-06-16 10:52 | disposition home or self-care (01) ==
LOC: LAB 10:51
PROVIDERS: ATTEND Internal Medicine Cardiovascular Disease
DX: Z95.811 Presence of heart assist device (principal); Z91.89 Other specified personal risk factors, not elsewhere classified
CPT/HCPCS: 36415; 80048

== ENCOUNTER 2018-06-25 11:42 | Outpatient (CLI) | payer MEDICARE, BC ==
[2018-06-25 12:26] LABS: CALCIUM 9.3 mg/dL (8.5-10.3); CREATININE 1.3 mg/dL (0.4-1.0)
== END 2018-06-25 11:43 | disposition home or self-care (01) ==
LOC: LAB 11:42
PROVIDERS: ATTEND Internal Medicine Cardiovascular Disease
DX: Z95.811 Presence of heart assist device (principal); Z91.89 Other specified personal risk factors, not elsewhere classified
CPT/HCPCS: 36415; 80048

== ENCOUNTER 2018-07-02 10:08 | Outpatient (CLI) | payer MEDICARE, BC ==
[2018-07-02 10:32] LABS: INR 2.4 (0.8-1.2); PT - PROTHROMBIN TIME 25.8 secs (9.9-12.6)
[2018-07-02 10:38] LABS: CALCIUM 9.5 mg/dL (8.5-10.3); CREATININE 1.3 mg/dL (0.4-1.0)
== END 2018-07-02 10:09 | disposition home or self-care (01) ==
LOC: LAB 10:08
PROVIDERS: ATTEND Pharmacist Pharmacotherapy
DX: Z79.01 Long term (current) use of anticoagulants (principal); Z95.811 Presence of heart assist device
CPT/HCPCS: 36415; 80048; 85610

== ENCOUNTER 2018-07-14 08:44 | Outpatient (CLI) | payer MEDICARE, BC ==
[2018-07-14 09:11] LABS: INR 2.1 (0.8-1.2)
[2018-07-14 12:15] LABS: CALCIUM 9.1 mg/dL (8.5-10.3); CREATININE 1.3 mg/dL (0.4-1.0)
== END 2018-07-14 08:45 | disposition home or self-care (01) ==
LOC: LAB 08:44
PROVIDERS: ATTEND Pharmacist Pharmacotherapy
DX: Z79.01 Long term (current) use of anticoagulants (principal); I50.23 Acute on chronic systolic (congestive) heart failure; Z95.811 Presence of heart assist device; I42.7 Cardiomyopathy due to drug and external agent
CPT/HCPCS: 36415; 80048; 83880; 85610

== ENCOUNTER 2018-07-24 09:47 | Outpatient (CLI) | payer MEDICARE, BC ==
[2018-07-24 10:23] LABS: BUN - BLOOD UREA NITROGEN 27 mg/dL (6-20); CALCIUM 9.2 mg/dL (8.5-10.3); CARBON DIOXIDE - CO2 24 mmol/L (21-32); CHLORIDE 101 mmol/L (101-111); CHOL/HDL RATIO 4.1 (<4.4); CHOLESTEROL 224 mg/dL; CREATININE 1.4 mg/dL (0.4-1.0); GFR - MDRD 40 (>89); GLUCOSE 98 mg/dL (70-100); HDL CHOLESTEROL 54 mg/dL; LDL CHOLESTEROL,CALCULATED 144 mg/dL; LDL/HDL RATIO 2.7 (<4.4); SODIUM 134 mmol/L (135-145); VLDL CHOLESTEROL 26 mg/dL
[2018-07-24 11:04] LABS: INR 2.3 (0.8-1.2); PT - PROTHROMBIN TIME 25.1 secs (9.9-12.6)
== END 2018-07-24 09:48 | disposition home or self-care (01) ==
LOC: LAB 09:47
PROVIDERS: ATTEND Internal Medicine Cardiovascular Disease
DX: I50.23 Acute on chronic systolic (congestive) heart failure (principal); Z79.01 Long term (current) use of anticoagulants; Z95.811 Presence of heart assist device; Z91.89 Other specified personal risk factors, not elsewhere classified
CPT/HCPCS: 36415; 80048; 80061; 83721; 85610

== ENCOUNTER 2018-07-30 09:19 | Outpatient (CLI) | payer MEDICARE, BC ==
[2018-07-30 10:11] LABS: CALCIUM 9.3 mg/dL (8.5-10.3); CREATININE 1.3 mg/dL (0.4-1.0)
[2018-07-30 10:24] LABS: INR 2.7 (0.8-1.2)
== END 2018-07-30 09:20 | disposition home or self-care (01) ==
LOC: LAB 09:19
PROVIDERS: ATTEND Pharmacist Pharmacotherapy
DX: Z95.811 Presence of heart assist device (principal); Z79.01 Long term (current) use of anticoagulants
CPT/HCPCS: 36415; 80048; 85610

== ENCOUNTER 2018-08-06 10:16 | Outpatient (CLI) | payer MEDICARE, BC ==
[2018-08-06 11:12] LABS: INR 3.5 (0.8-1.2); PT - PROTHROMBIN TIME 38.2 secs (9.9-12.6)
[2018-08-06 11:18] LABS: CREATININE 1.5 mg/dL (0.4-1.0)
== END 2018-08-06 10:17 | disposition home or self-care (01) ==
LOC: LAB 10:16
PROVIDERS: ATTEND Internal Medicine Cardiovascular Disease
DX: Z95.811 Presence of heart assist device (principal); Z91.89 Other specified personal risk factors, not elsewhere classified
CPT/HCPCS: 36415; 80048; 85610

== ENCOUNTER 2018-08-20 09:58 | Outpatient (CLI) | payer MEDICARE, BC ==
[2018-08-20 10:17] LABS: INR 3.9 (0.8-1.2); PT - PROTHROMBIN TIME 43.6 secs (9.9-12.6)
== END 2018-08-20 09:59 | disposition home or self-care (01) ==
LOC: LAB 09:58
PROVIDERS: ATTEND Pharmacist Pharmacist Clinician (PhC)/ Clinical Pharmacy Specialist
DX: Z79.01 Long term (current) use of anticoagulants (principal); Z95.811 Presence of heart assist device
CPT/HCPCS: 36415; 85610

== ENCOUNTER 2018-08-27 10:27 | Outpatient (CLI) | payer MEDICARE, BC ==
[2018-08-27 10:54] LABS: INR 2.5 (0.8-1.2); PT - PROTHROMBIN TIME 27.8 secs (9.9-12.6)
[2018-08-27 11:04] LABS: CALCIUM 8.9 mg/dL (8.5-10.3); CREATININE 1.2 mg/dL (0.4-1.0)
== END 2018-08-27 10:28 | disposition home or self-care (01) ==
LOC: LAB 10:27
PROVIDERS: ATTEND Pharmacist Pharmacist Clinician (PhC)/ Clinical Pharmacy Specialist
DX: Z95.811 Presence of heart assist device (principal); Z79.01 Long term (current) use of anticoagulants
CPT/HCPCS: 36415; 80048; 85610

== ENCOUNTER 2018-08-27 10:54 | Outpatient (CLI) | payer MEDICARE, BC ==
--- NOTE | 2018-08-27 17:01 | CONSULTATION NOTE ---
Palliative Care Consultation - Referral Referring Provider: Dr. Jackie Callahan Time of Visit: [id number] Referral setting: [facility] [place] Referral Reason: LVAD/Breast Cancer/Depression - Information Sources Records reviewed: Previous records reviewed History/Review of Systems obtained from: Patient Exam limitations: No limitations - History of Present Illness Brief History of Present Illness: This is a jose 53-year-old woman who presents today seeking support regarding living with her serious illness, and exacerbation of depression symptoms. Patient originally diagnosed with stage III inflammatory breast cancer in 03/2014, received treatment, including Adriamycin, radiation, and has been supported on endocrine therapy since 12/2014 without progression. She did have a bilateral mastectomy in August 2014. Over her period of treatment for breast cancer, she was having increased shortness of breath, and was found to have severe cardiomyopathy. She was originally told she had about a year to live, then in 02/2015 was told about a month. 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 This last year with more complications, needed an ablation for recurrent arrhythmias, and recent VT. She has not had any hospitalizations for infection, but has decreasing activity tolerance, had pulmonary hypertension, and continues to manage a very complex medical regimen as well as the device. Things that have helped her in the past as far as coping, she is a fairly pragmatic person, has been physical activity, nature, and her dog. Because her history of breast cancer, Dr. Harpreet angeles has advised against heart transplant, because of the immunotherapy drugs. Patient is hoping at the end of 5 years, as she is at 3.5, to get a second opinion regarding this though understands this is a long shot. But does understand at this point the LVAD is considered destination therapy, and the understanding is her right heart failure is what is affecting her current condition, and unclear if going to improve. The prognostication regarding this has been 3.5 years to 7 years, though certainly there have been those who have survived beyond this. Given the complexity of her current situation, her loss of feeling of control, things that have helped her in the past cope are not available, as well as her decreasing activity tolerance she does feel herself with increased depressive symptoms. She is seeking support or a place to be able to process some of this, has history of major depressive disorder, but denies suicidal ideation at the time of our visit. She has done some work on her advanced care planning, she will bring her documents for our next visit. Palliative care to provide support and counseling regarding symptom management, including depression and anxiety. Medical/Surgical History - Past Medical History Cardiovascular: reports: Congestive heart failure, Hypertension, Atrial fibrillation (on anticoag), Arrhythmia (hx of ablation), Other (LVAD Destination Therapy) Respiratory: reports: Shortness of breath Neuro: reports: None Endocrine/Autoimmune: reports: None GI: reports: None CV TECH: reports: Breast cancer (inflammatory Stage IIB s/p chemo & radiaion) : reports: Kidney stones HEENT: reports: None Psych: reports: Depression, Anxiety Musculoskeletal: reports: None Derm: reports: None MRSA Hx?: No - Past Surgical History Ortho: reports: Spine surgery (2004) /CV TECH: reports: Mastectomy (bilateral) Cardiovascular: reports: Other (LVAD since 03/28/2015) - Substance History Use: Uses substance without health or social issues: NONE Social History - Living Situation Living arrangement: At home Living Situation: With family (lives at mother's home; spends weekend at friends home; very supportive family and friend) Support System: 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 Family History - Family History Family History: Mother: Alive and Well ( of TBI from accident ), Father: (father in car accident at age 37; ), Sister: Alive and Well Medications/Allergies - Medications Home Medications: Ambulatory Orders Medication Instructions Recorded Confirmed Magnesium 400 mg PO BID 03/02/15 08/28/18 Potassium Chloride [Micro-K] 60 meq PO BID 03/02/15 08/28/18 Aspirin [Aspir 81] 81 mg PO DAILY 06/18/15 08/28/18 Sertraline HCl 100 mg PO DAILY 06/18/15 08/28/18 Sildenafil Citrate [Revatio] 10 mg PO Q8H 06/18/15 08/28/18 Cholecalciferol [Vitamin D3] 1,000 unit PO DAILY 03/19/16 08/28/18 Ferrous Sulfate 325 mg PO DAILY 03/19/16 08/28/18 Multivitamin [Multivitamins] 1 each PO DAILY 03/19/16 08/28/18 Phytonadione [Vitamin K] 100 mcg PO DAILY 03/19/16 03/10/18 Calcium Carbonate [Calcium] 500 mg PO DAILY 11/26/16 08/28/18 Metoprolol Tartrate 12.5 mg PO BID 07/22/17 08/28/18 Spironolactone 50 mg PO BID 08/09/17 08/28/18 Warfarin [Coumadin] 10 mg PO DAILY MDD as directed by 08/09/17 03/10/18 acc Bumetanide 3 mg PO BID 11/04/17 08/28/18 Exemestane 25 mg PO DAILY #90 tablet 07/02/18 08/28/18 ALPRAZolam [Alprazolam] 0.25 mg PO DAILY PM PRN 08/28/18 08/28/18 Acetaminophen 650 mg PO Q6HR PRN 08/28/18 08/28/18 Leuprolide Acetate [Eligard] 22.5 mg IM .12 WEEKS 08/28/18 08/28/18 Mexiletine HCl 150 mg PO Q8HR 08/28/18 08/28/18 Pantoprazole [Protonix] 40 mg PO BID 08/28/18 08/28/18 Phytonadione [Vitamin K] 100 mcg PO DAILY 08/28/18 08/28/18 Trazodone HCl 100 mg PO DAILY PM PRN 08/28/18 08/28/18 - Allergies Allergies/Adverse Reactions: Allergies Allergy/AdvReac Type Severity Reaction Status Date / Time carvedilol Allergy Anaphylaxis Verified 06/10/18 13:18 amiodarone AdvReac Unknown Verified 08/28/18 08:23 Review of Systems - Constitutional Constitutional: reports: Fatigue, Other (monitors for fluid satus 255 08/12). denies: Fever, Chills - Eyes Eyes: reports: Vision loss, Corrective lenses - Cardiovascular Cardiovascular: reports: Edema (mostly occurs in abdomen). denies: Chest pain - Respiratory Respiratory: reports: SOB with exertion. denies: Cough - Gastrointestinal Gastrointestinal: reports: Bloating - Genitourinary Genitourinary: reports: Frequency - Musculoskeletal Musculoskeletal: reports: Muscle weakness - Integumentary Integumentary: reports: Dryness - Neurological Neurological: reports: General weakness, Memory problems (mild cognitive recall/STM issues uses lists/reminders) - Psychiatric Psychiatric: reports: Depression (significant hx in past; wanting to address), Anxiety. denies: Suicidal - Endocrine Endocrine: denies: Diabetes type 2, Hypothyroidism - Hematologic/Lymphatic Hematologic/Lymphatic: denies: Recurrent infections - All Other Systems All Other Systems: reports: Reviewed and negative Physical Exam - Physical Exam General Appearance: positive: No acute distress Eyes Bilateral: positive: Normal inspection ENT: positive: No signs of dehydration Neck: positive: Trachea midline Cardiovascular: positive: Regular rate & rhythm Respiratory: positive: Diminished in bases. negative: Wheezes, Rales, Rhonchi Abdomen: positive: Soft Skin: positive: Pallor, Other (scars from double masectomy; petechiae through chest area; no masses noted on axilla or chest wall) Extremities: positive: No pedal edema Neurologic/Psychiatric: positive: Oriented x3, Weakness, Depressed mood/affect Palliative Care - POLST Patient has POLST: No POLST Status: DNR (will get advanced care planning document as not on file here) Pain: No pain Tiredness/Fatigue: Moderate (4-6) Drowsiness/Sedation: Moderate (4-6) Nausea: Mild (1-3) Depression: Moderate (4-6) Anxiety: Mild (1-3) Dyspnea: Severe (7-10) Anorexia: Mild (1-3) Feelings of wellbeing/Perceived Quality of Life: Poor, Worsening Performance Status: Patient is able to attend to her own ADLs, she is ambulatory. She does though need now frequent rest secondary to dyspnea on exertion, having to pace all her activities, and finds herself with severe fatigue if she overdoes. I would put her at a PPS of 70% - Palliative Care Discussion: Patient has done some advanced care planning, current documents are not available or up on file here at [facility]. Agreed she would bring them in, or have available to be able to discuss. She does understand her therapy as "destination", has participated in some reflection on end of life, planning, and has stated goals regarding this.Her immediate challenge currently, is living with her current debility, and declining functional status as well as increasing fatigue. We did discuss in the context of her depression, regarding referral resources, but has limitations with insurance and finances. She currently does not feel like she needs her medications adjusted, that she would benefit from support and counseling regarding process her feeling regarding her current situation recognizing she is at risk for the sequela of major depression. Counseling provided regarding the role of palliative care, more of a cognitive behavioral therapy approach, as well as counseling for adjustment to illness. 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 We agreed would continue with counseling, and refer as indicated by severity of symptoms to address some of her concerns and other symptoms. Results - Lab Results Lab results reviewed: Yes Impression and Recommendations - Palliative Care Impression: This is a 53-year-old woman with history of inflammatory breast cancer stage III, currently in remission and on hormone treatment. 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 Palliative care to provide support and counseling regarding depression, anxiety, fatigue, and anticipatory guidance. Recommendations/Counseling Done: 1. Depression. Counseling regarding normalizing grief and loss process, developing rapport and identifying concerns, acknowledging ongoing challenges, introduction to palliative care and support offered. 2. Anxiety. Patient with ongoing functional decline in activity tolerance, increasing patient's anxiety and concern regarding the future and loss of independence. Counseling provided to provide support, validation, and explore past and current coping mechanisms. 3. LVAD, will defer to cardiology team, but will continue to work with patient as far as advanced care planning, goals of care, and anticipatory guidance. Requested advanced care planning documents, to be able to review and place copies here at [facility]. Time Spent: 60 minutes with greater than 50% of this done in counseling regarding goals of care, anticipatory guidance, establishing rapport, addressing depression and anxiety as well as creating treatment plan.
== END 2018-08-27 10:55 | disposition home or self-care (01) ==
LOC: PC 10:54
PROVIDERS: ATTEND Nurse Practitioner Adult Health
DX: Z51.5 Encounter for palliative care (principal); F32.9 Major depressive disorder, single episode, unspecified; F41.9 Anxiety disorder, unspecified; I42.7 Cardiomyopathy due to drug and external agent; T45 Poisoning by, adverse effect of and underdosing of primarily systemic and hematological agents, not elsewhere classified; I11.0 Hypertensive heart disease with heart failure; I50.810 Right heart failure, unspecified; I27.20 Pulmonary hypertension, unspecified; I47.2 Ventricular tachycardia; I48.91 Unspecified atrial fibrillation; C50.919 Malignant neoplasm of unspecified site of unspecified female breast; Z79.899 Other long term (current) drug therapy; Z79.01 Long term (current) use of anticoagulants; Z79.818 Long term (current) use of other agents affecting estrogen receptors and estrogen levels; Z66 Do not resuscitate; Z95.811 Presence of heart assist device
CPT/HCPCS: 99205

== ENCOUNTER 2018-09-02 09:52 | Outpatient (CLI) | payer MEDICARE, BC ==
[2018-09-02 10:54] LABS: INR 3.1 (0.8-1.2); PT - PROTHROMBIN TIME 33.8 secs (9.9-12.6)
[2018-09-02 11:06] LABS: CALCIUM 9.4 mg/dL (8.5-10.3); CREATININE 1.3 mg/dL (0.4-1.0)
== END 2018-09-02 09:53 | disposition home or self-care (01) ==
LOC: LAB 09:52
PROVIDERS: ATTEND Pharmacist Pharmacist Clinician (PhC)/ Clinical Pharmacy Specialist
DX: Z95.811 Presence of heart assist device (principal); Z79.01 Long term (current) use of anticoagulants
CPT/HCPCS: 36415; 80048; 85610

== ENCOUNTER 2018-09-02 10:40 | Outpatient (CLI) | payer MEDICARE, BC ==
--- NOTE | 2018-09-02 18:10 | CONSULTATION NOTE ---
Palliative Care Follow Up - Referral Referring Provider: Dr. Jackie Callahan Time of Visit: 09-08 Referral setting: [facility] [place] Referral Reason: Depression/CHF/LVAD - Information Sources Records reviewed: Previous records reviewed History/Review of Systems obtained from: Patient Exam limitations: No limitations - History of Present Illness Update Brief HPI Update: Please see 08/27 for expanded history. This is a jose 53-year-old woman who has a history of stage III inflammatory breast cancer, post treatment radiation and chemotherapy, double mastectomy, currently on hormone therapy originally diagnosed in 03/2014. 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 She has experienced recurrent atrial arrhythmias, with recen history of ablation, and worsening pulmonary hypertension. As a result she has experienced increased activity tolerance, dyspnea, exacerbation of her depression and anxiety. Palliative care providing support regarding symptom management of depression and anxiety, counseling for advanced care planning, and anticipatory guidance Social History - Living Situation Living arrangement: At home Living Situation: With family Support System: Patient currently living at home, with her mother, which is a complicated situation for her, but grateful for support. She does have a dog and cat, she also has a friend of 30 years who has moved to the [place], she does spend weekends there and reports "feeling better in that space". Medications/Allergies - Medications Home Medications: Ambulatory Orders Medication Instructions Recorded Confirmed Magnesium 400 mg PO BID 03/02/15 09/03/18 Potassium Chloride [Micro-K] 60 meq PO BID 03/02/15 09/03/18 Aspirin [Aspir 81] 81 mg PO . 4 TABS DAILY 06/18/15 09/03/18 Sertraline HCl 100 mg PO DAILY 06/18/15 09/03/18 Sildenafil Citrate [Revatio] 10 mg PO Q8H 06/18/15 09/03/18 Cholecalciferol [Vitamin D3] 1,000 unit PO DAILY 03/19/16 09/03/18 Ferrous Sulfate 325 mg PO DAILY 03/19/16 09/03/18 Multivitamin [Multivitamins] 1 each PO DAILY 03/19/16 09/03/18 Phytonadione [Vitamin K] 100 mcg PO DAILY 03/19/16 09/03/18 Calcium Carbonate [Calcium] 500 mg PO DAILY 11/26/16 09/03/18 Metoprolol Tartrate 12.5 mg PO BID 07/22/17 09/03/18 Spironolactone 50 mg PO BID 08/09/17 09/03/18 Warfarin [Coumadin] 10 mg PO .9.5 4X;10 3X WEEK MDD as 08/09/17 09/03/18 directed by acc Bumetanide 3 mg PO BID 11/04/17 09/03/18 Exemestane 25 mg PO DAILY #90 tablet 07/02/18 09/03/18 ALPRAZolam [Alprazolam] 0.25 mg PO DAILY PM PRN 08/28/18 09/03/18 Acetaminophen 650 mg PO Q6HR PRN 08/28/18 09/03/18 Leuprolide Acetate [Eligard] 22.5 mg IM .12 WEEKS 08/28/18 09/03/18 Mexiletine HCl 150 mg PO Q8HR 08/28/18 09/03/18 Pantoprazole [Protonix] 40 mg PO BID 08/28/18 09/03/18 Trazodone HCl 100 mg PO DAILY PM PRN 08/28/18 09/03/18 - Allergies Allergies/Adverse Reactions: Allergies Allergy/AdvReac Type Severity Reaction Status Date / Time carvedilol Allergy Anaphylaxis Verified 06/10/18 13:18 amiodarone AdvReac Unknown Verified 08/28/18 08:23 Review of Systems - Constitutional Constitutional: reports: Fatigue - Cardiovascular Cardiovascular: reports: Exertional dyspnea, Decr. exercise tolerance - Respiratory Respiratory: reports: SOB at rest (at times with conversation), SOB with exertion - Gastrointestinal Gastrointestinal: reports: Nausea (increased today; often sign of fluid overload for her), Good appetite. denies: Constipation - Genitourinary Genitourinary: reports: Frequency - Psychiatric Psychiatric: reports: Depression, Anxiety. denies: Suicidal Physical Exam - Physical Exam General Appearance: positive: Mild distress, Anxious Eyes Bilateral: positive: Other (slight periorbital edema) ENT: positive: No signs of dehydration Neck: positive: Trachea midline Respiratory: positive: Other (increased respiratory effort with activity; conversation if not paced) Skin: positive: Dryness Neurologic/Psychiatric: positive: Oriented x3, Depressed mood/affect Palliative Care Pain: No pain Tiredness/Fatigue: Severe (7-10) Drowsiness/Sedation: Severe (7-10) Nausea: Moderate (4-6) Depression: Severe (7-10) Anxiety: Severe (7-10) Dyspnea: Moderate (4-6) Anorexia: Mild (1-3) Sleep: Variable sleep pattern (up to void frequently at night) Feelings of wellbeing/Perceived Quality of Life: Poor, No change Performance Status: Patient independent in her own ADLs, continue to drive. Is finding herself with continued difficulty with activity tolerance, needing to limit her ambulation for short distances, does have breathlessness with increased conversation. - Palliative Care Discussion: Patient's goals are to discuss some process regarding her depression, living with her serious illness, and adjusting to her functional decline. Themes explo red today include current social support,and challenges regarding living with multiple losses that have come with her illness, coping mechanisms positive and negative, ways to strengthen and support her resilience. Patient spirituality is more based in nature, being active, and history sees herself currently as "agnostic" and pragmatic. Results - Lab Results Lab results reviewed: Yes Impression and Recommendations - Palliative Care Impression: This is a 53-year-old woman coping with two serious illnesses, Stage III inflammatory breast cancer, currently in remission, and end stage systolic CHF with LVAD as destination therapy. Patient experiencing high symptom burden with poor activity tolerance impacting functional status, fatigue, dyspnea, insomina, depression and anxiety. Palliative care providing support regarding symptom management and anticipatory guidance. Recommendations/Counseling Done: 1. Depression. Counseling provided as well as enlisting CBT techniques, normalizing grief and loss process, continuing to develop rapport, exploration of past coping mechanisms, and spirituality. 2. Nausea. Patient without antiemetic, feels more related to cardiac issues, reviewed other medications than Zofran, as told not able with her drug interactions, encouraged to reach out if worsens or need medication. 3. Insomina, mutifactorial, Using Trazadone, does help with initiating sleep, up frequently to void. Explored anxiety component, encouraged enlisting mindfulness/meditation techniques, reviewed resources. 4. Advanced care planning. Has not revisited documents for several years, agreed concrete planning, exploration of end of life plans, and updating will be of benefit given her expressed concerns and current situation. Goal to bring at next session to complete review. Time Spent: 60 minutes with greater than 50% of this done in counseling regarding goals of care, anticipatory guidance, and establishing rapport, counseling for depression and anxiety.
== END 2018-09-02 10:41 | disposition home or self-care (01) ==
LOC: PC 10:40
PROVIDERS: ATTEND Nurse Practitioner Adult Health
DX: Z51.5 Encounter for palliative care (principal); F32.9 Major depressive disorder, single episode, unspecified; R11.0 Nausea; G47.00 Insomnia, unspecified; I42.7 Cardiomyopathy due to drug and external agent; T45.1X5S Adverse effect of antineoplastic and immunosuppressive drugs, sequela; C50.919 Malignant neoplasm of unspecified site of unspecified female breast; I50.84 End stage heart failure; I50.20 Unspecified systolic (congestive) heart failure; I27.20 Pulmonary hypertension, unspecified; F41.9 Anxiety disorder, unspecified; Z79.818 Long term (current) use of other agents affecting estrogen receptors and estrogen levels; Z95.811 Presence of heart assist device; Z79.899 Other long term (current) drug therapy
CPT/HCPCS: 99215

== ENCOUNTER 2018-09-10 10:34 | Outpatient (CLI) | payer MEDICARE, BC ==
[2018-09-10 11:03] LABS: INR 2.6 (0.8-1.2); PT - PROTHROMBIN TIME 29.3 secs (9.9-12.6)
== END 2018-09-10 10:35 | disposition home or self-care (01) ==
LOC: LAB 10:34
PROVIDERS: ATTEND Pharmacist Pharmacist Clinician (PhC)/ Clinical Pharmacy Specialist
DX: Z79.01 Long term (current) use of anticoagulants (principal); Z95.811 Presence of heart assist device
CPT/HCPCS: 36415; 85610

== ENCOUNTER 2018-09-10 11:14 | Outpatient (CLI) | payer MEDICARE, BC ==
--- NOTE | 2018-09-11 07:25 | CONSULTATION NOTE ---
Palliative Care Follow Up - Referral Referring Provider: Dr. Pasha Ross/Dr. Arango Time of Visit: 09/10 [place] [facility] Reason: Depression/LVAD/Goals of Care - Information Sources Records reviewed: Previous records reviewed History/Review of Systems obtained from: Patient Exam limitations: No limitations - History of Present Illness Update Brief HPI Update: Please see the 08/27 for expanded history. Is a jose 53-year-old woman who has a history of stage III inflammatory breast cancer, status post treatment radiation chemotherapy, double mastectomy, currently on hormone therapy. Recently saw Dr. Ross, No clinical signs of disease progression, but was told high likelihood of recurrence up to 70%, and if goes on immunosuppressive drugs she heard 90%. This visit was somewhat difficult on her emotionally, as she has still been quite hopeful if she made the five years, might be transplant candidate. 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 She has worsening pulmonary hypertension, has experienced ongoing and increasing activity tolerance, dyspnea, exacerbation of her depression and anxiety. Palliative care providing support regarding symptom management of depression and anxiety, counseling for advanced care planning, and anticipatory guidance Social History - Living Situation Living arrangement: At home Living Situation: With family (Lives with mother; stays with friend on weekend) Medications/Allergies - Medications Home Medications: Ambulatory Orders Medication Instructions Recorded Confirmed Magnesium 400 mg PO BID 03/02/15 09/08/18 Potassium Chloride [Micro-K] 60 meq PO BID 03/02/15 09/08/18 Aspirin [Aspir 81] 81 mg PO . 4 TABS DAILY 06/18/15 09/08/18 Sertraline HCl 100 mg PO DAILY 06/18/15 09/08/18 Sildenafil Citrate [Revatio] 10 mg PO Q8H 06/18/15 09/08/18 Cholecalciferol [Vitamin D3] 1,000 unit PO DAILY 03/19/16 09/08/18 Ferrous Sulfate 325 mg PO DAILY 03/19/16 09/08/18 Multivitamin [Multivitamins] 1 each PO DAILY 03/19/16 09/08/18 Phytonadione [Vitamin K] 100 mcg PO DAILY 03/19/16 09/08/18 Calcium Carbonate [Calcium] 500 mg PO DAILY 11/26/16 09/08/18 Metoprolol Tartrate 12.5 mg PO BID 07/22/17 09/08/18 Spironolactone 50 mg PO BID 08/09/17 09/08/18 Warfarin [Coumadin] 10 mg PO .9.5 4X;10 3X WEEK MDD as 08/09/17 09/08/18 directed by acc Bumetanide 3 mg PO BID 11/04/17 09/08/18 Exemestane 25 mg PO DAILY #90 tablet 07/02/18 09/08/18 ALPRAZolam [Alprazolam] 0.25 mg PO DAILY PM PRN 08/28/18 09/08/18 Acetaminophen 650 mg PO Q6HR PRN 08/28/18 09/08/18 Leuprolide Acetate [Eligard] 22.5 mg IM .12 WEEKS 08/28/18 09/08/18 Mexiletine HCl 150 mg PO Q8HR 08/28/18 09/08/18 Pantoprazole [Protonix] 40 mg PO BID 08/28/18 09/08/18 Trazodone HCl 100 mg PO DAILY PM PRN 08/28/18 09/08/18 - Allergies Allergies/Adverse Reactions: Allergies Allergy/AdvReac Type Severity Reaction Status Date / Time carvedilol Allergy Anaphylaxis Verified 06/10/18 13:18 amiodarone AdvReac Unknown Verified 08/28/18 08:23 Review of Systems - Constitutional Constitutional: reports: Fatigue (worsening;), Weakness - Cardiovascular Cardiovascular: reports: Lightheadedness, Exertional dyspnea, Decr. exercise tolerance - Respiratory Respiratory: reports: SOB at rest, SOB with exertion - Psychiatric Psychiatric: reports: Depression, Anxiety Physical Exam - Physical Exam General Appearance: positive: Mild distress, Anxious Eyes Bilateral: positive: Normal inspection ENT: positive: No signs of dehydration Neck: positive: Trachea midline Respiratory: positive: Other (respiratory effort with) Neurologic/Psychiatric: positive: Oriented x3 Palliative Care - POLST Patient has POLST: No POLST Status: Full Code Pain: No pain Tiredness/Fatigue: Severe (7-10) Drowsiness/Sedation: Severe (7-10) Nausea: Mild (1-3) Depression: Moderate (4-6) Anxiety: Moderate (4-6) Dyspnea: Severe (7-10) Anorexia: Mild (1-3) Sleep: Sleeps poorly Constipation: No Feelings of wellbeing/Perceived Quality of Life: Poor, Worsening Performance Status: Patient reports her activity tolerance continues to worsen, struggles with the balance of activity and breathlessness, feeling poorly. Able at this point to attend to her own ADLs, trying to continue with short walks/ambulation but missing able to go out in nature with colder weather. Feels currently cardiac rehab would not be able to tolerate or be exhausted in her ability to do anything else. - Palliative Care Discussion: Focused conversation on her depressive feelings, new losses, ongoing anticipatory grief. Discussed at length regarding changing her DPOA from mother to sister, in reviewing form does not have notarized so is not valid, new form provided. Discussed regarding her appointment with Dr. Ross, she is at 4 1/2 years since breast cancer dx, has 70% chance of recurrence, though currently in remission, but with immunosuppression drugs was quoted 90%. This was a surprise to her regarding recurrent statistics, says would not treat at this time if reoccurred. She was able to express feelings around losing what hope she had left for transplant. We did spend time with documents/questions regarding EOL her wishes and goals. Given the complexities of LVAD, how best to direct future care, and communicate to her loved ones. Her goals are not to have any prolonged suffering, if she were not to have independence and function this would not be quality of life, she would not want to keep going which includes no extended therapy such as nutrition to support this. There are new unique pieces regarding LVAD's, she is aware there is hospice support at [facility], has been a positive clinical environment for her. Wondering about the interface between with dignity and LVAD, she does have an appointment coming up with her drawbridge tender. We did discuss questions and things to frame for future planning, goal would be to create a document which reflects her wishes and can be used to guide care in the future. Many forms given, for her to review, for things and language that might be of benefit to her. Results - Lab Results Lab results reviewed: Yes Impression and Recommendations - Palliative Care Impression: This is a jose 53-year-old woman with 2 serious illnesses, stage III i nflammatory cancer, currently in remission and end-stage systolic CHF with LVAD as destination therapy. Patient experiencing high symptom burden, palliative care providing support regarding symptom management and anticipatory guidance. Patient's current goal is to complete advanced care planning. Recommendations/Counseling Done: 1. Depression. Counseling provided, exploring grief and loss, continue develop rapport, discussing multiple stressors. 2. Advanced care planning. Reviewed patient's current goals, end-of-life goals, agreed needs further concrete planning, explored concepts unique to LVAD. Patient will follow up with drawbridge tender regarding specific questions, goal is to create document that is reflective of patient's end-of-life wishes that can be used by herself and family to communicate to the medical system. Time Spent: 60 minutes was given 50% of this done in counseling regarding advanced care planning, addressing depression and anxiety, and anticipatory guidance
== END 2018-09-10 11:15 | disposition home or self-care (01) ==
LOC: PC 11:14
PROVIDERS: ATTEND Nurse Practitioner Adult Health
DX: Z51.5 Encounter for palliative care (principal); F41.9 Anxiety disorder, unspecified; F32.9 Major depressive disorder, single episode, unspecified; I42.7 Cardiomyopathy due to drug and external agent; T45.1X5S Adverse effect of antineoplastic and immunosuppressive drugs, sequela; I50.20 Unspecified systolic (congestive) heart failure; I50.84 End stage heart failure; I27.20 Pulmonary hypertension, unspecified; C50.919 Malignant neoplasm of unspecified site of unspecified female breast; Z95.811 Presence of heart assist device; Z79.818 Long term (current) use of other agents affecting estrogen receptors and estrogen levels; Z79.899 Other long term (current) drug therapy; Z79.82 Long term (current) use of aspirin; Z79.01 Long term (current) use of anticoagulants
CPT/HCPCS: 99215

== ENCOUNTER 2018-09-24 10:52 | Outpatient (CLI) | payer MEDICARE, BC ==
--- NOTE | 2018-09-24 17:56 | CONSULTATION NOTE ---
Palliative Care Follow Up - Referral Referring Provider: Dr. Ross/Dr. Callahan Time of Visit: 09-08 Referral setting: [facility] [place] Referral Reason: Depression/LVAD Destination Therapy/Goals of Care - Information Sources Records reviewed: Previous records reviewed History/Review of Systems obtained from: Patient Exam limitations: No limitations - History of Present Illness Update Brief HPI Update: This is a jose 53-year-old woman who has a history of stage III inflammatory breast cancer, status post treatment radiation/chemotherapy, double mastectomy, currently on hormone therapy. 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 She has experienced recurrent atrial arrhythmias, with recent history of ablation, and worsening pulmonary hypertension. She has worsening dyspnea, increased difficulty with activity tolerance, and presented this week with increased fluid retention resistant to diuresis. She is finally feeling somewhat improved, was symptomatic enough to consider returning to [facility] yesterday. She reports her fatigue has worsened, she feels like she did have symptoms of a cold, her pulmonary hypertension pressures have been fluctuating anywhere from 18-27. She was only about 2.5 pounds over her dry weight, she reports she usually has symptoms of the severity she experienced at higher weight, today she presents is less than a pound under her dry weight. She is wondering if this is shifted, she has had some anorexia and suspect some weight loss. She did meet with her strapper last week, who did recommend no further cardiac rehab. Was able to get some of her questions answered regarding end-of-life choices, and has taken seriously having conversations and reviewing her end of life choices in preparation to create advanced directive document. Social History - Living Situation Living arrangement: At home Living Situation: With family (Patient lives at home with her mother for part of the week, and with her friend on the weekends. She did have her sister from [place] visiting this week, and was able to sort through and clean out her "stuff". This has been something that has been weighing on her, and feels a sense of accomplishment with this.) Medications/Allergies - Medications Home Medications: Ambulatory Orders Medication Instructions Recorded Confirmed Magnesium 400 mg PO BID 03/02/15 09/08/18 Potassium Chloride [Micro-K] 60 meq PO BID 03/02/15 09/08/18 Aspirin [Aspir 81] 81 mg PO . 4 TABS DAILY 06/18/15 09/08/18 Sertraline HCl 100 mg PO DAILY 06/18/15 09/08/18 Sildenafil Citrate [Revatio] 10 mg PO Q8H 06/18/15 09/08/18 Cholecalciferol [Vitamin D3] 1,000 unit PO DAILY 03/19/16 09/08/18 Ferrous Sulfate 325 mg PO DAILY 03/19/16 09/08/18 Multivitamin [Multivitamins] 1 each PO DAILY 03/19/16 09/08/18 Phytonadione [Vitamin K] 100 mcg PO DAILY 03/19/16 09/08/18 Calcium Carbonate [Calcium] 500 mg PO DAILY 11/26/16 09/08/18 Metoprolol Tartrate 12.5 mg PO BID 07/22/17 09/08/18 Spironolactone 50 mg PO BID 08/09/17 09/08/18 Warfarin [Coumadin] 10 mg PO .9.5 4X;10 3X WEEK MDD as 08/09/17 09/08/18 directed by acc Bumetanide 3 mg PO BID 11/04/17 09/08/18 Exemestane 25 mg PO DAILY #90 tablet 07/02/18 09/08/18 ALPRAZolam [Alprazolam] 0.25 mg PO DAILY PM PRN 08/28/18 09/08/18 Acetaminophen 650 mg PO Q6HR PRN 08/28/18 09/08/18 Leuprolide Acetate [Eligard] 22.5 mg IM .12 WEEKS 08/28/18 09/08/18 Mexiletine HCl 150 mg PO Q8HR 08/28/18 09/08/18 Pantoprazole [Protonix] 40 mg PO BID 08/28/18 09/08/18 Trazodone HCl 100 mg PO DAILY PM PRN 08/28/18 09/08/18 - Allergies Allergies/Adverse Reactions: Allergies Allergy/AdvReac Type Severity Reaction Status Date / Time carvedilol Allergy Anaphylaxis Verified 06/10/18 13:18 amiodarone AdvReac Unknown Verified 08/28/18 08:23 Review of Systems - Constitutional Constitutional: reports: Fatigue (worsening over last week), Poor appetite. denies: Fever - Cardiovascular Cardiovascular: reports: Edema, Exertional dyspnea, Decr. exercise tolerance - Respiratory Respiratory: reports: SOB at rest, SOB with exertion. denies: Wheezing - Gastrointestinal Gastrointestinal: reports: Early satiety. denies: Constipation, Nausea - Genitourinary Genitourinary: reports: Frequency - Musculoskeletal Musculoskeletal: reports: Muscle weakness - Integumentary Integumentary: reports: Dryness - Neurological Neurological: reports: General weakness, Memory problems (STM issues worsen with fatigue) - Psychiatric Psychiatric: reports: Depression (feels is improving), Anxiety - Hematologic/Lymphatic Hematologic/Lymphatic: denies: Recurrent infections - All Other Systems All Other Systems: reports: Reviewed and negative Physical Exam - Physical Exam General Appearance: positive: No acute distress Eyes Bilateral: positive: Normal inspection ENT: positive: No signs of dehydration Neck: positive: No JVD, Trachea midline Cardiovascular: positive: Regular rate & rhythm Respiratory: positive: Breath sounds nml, Diminished in bases. negative: Wheezes, Rales, Rhonchi Skin: positive: Pallor, Dryness Neurologic/Psychiatric: positive: Oriented x3, Mood/affect nml Palliative Care - POLST Patient has POLST: No Pain: No pain Tiredness/Fatigue: Moderate (4-6) Drowsiness/Sedation: Moderate (4-6) Nausea: Mild (1-3) Depression: Mild (1-3) Anxiety: Mild (1-3) Dyspnea: Severe (7-10) Anorexia: Moderate (4-6) Sleep: Variable sleep pattern Constipation: No Feelings of wellbeing/Perceived Quality of Life: Fair Performance Status: Patient still able to attend to her own ADLs, is limited as far as activity tolerance, frequent rest periods. Ambulation induces dyspnea, needs to pace. - Palliative Care Discussion: Palliative care discussion regarding goals of care. Discussed things to incorporate into her advanced directives, for her what matters to the most end of life is to have family and friends have the opportunity to say goodbye if the y wish, to be comfortable, no pain, and at this point in time is looking at hospice at [facility]. She does reflect on the family needs as a result of her experience with caring for her sister, who had a traumatic car accident, and 2 years of decline. She was part of that caregiving team and experience. She does come to her thinking from this place around end of life that this is a shared experience and does want the needs of her family to be met if possible balanced with what is most important to her. She was able to discuss with her strapper, regarding the LVAD and [facility], they are able to turn it off, with a focus on symptom management. And her reflection on this she does feel they would be better able to adequately manage her symptoms, though a at home is not off the table, she feels more confident as far as having multiple experiences in the hospital and her concern for relief of suffering. There is a point that patient may need to be supported by isotopes, though this may hasten her decline, it does improve quality of life and keeping the fluid off. She is more interested in quality of life issues. We did discuss in the context of the threshold for transition to the acute hospice, that can look at hospice further upstream when patient is given that 6 months prognosis. Patient is still interested in pursuing an opportunity to have with dignity if this becomes a prolonged process. She has had multiple conversations with her sisters over this holiday, going through the forms that has helped her be able to define and express these more easily. She is feeling somewhat corporate strategist in the context of creating a values checklist and guide. In agreement palliative care practitioner will put together information gathered and work on a shared document for her to integrate into her care plan. She still is identified her mother Maria Ines Juan as her radical D POA telephone #[phone], cell phone [phone] and an alternative agent is her sister to Erinn Huggins [phone] Impression and Recommendations - Palliative Care Impression: This is a jose 53-year-old woman who is living with an LVAD as destination therapy, as well as stage III inflammatory cancer of the breast in remission. Patient has had an exacerbation with increased fluid retention, severe fatigue, and cold symptoms currently resolving. Palliative care is working with patient to address symptoms of depression and anxiety as well as integrate values and goals and to advance care planning document. Recommendations/Counseling Done: 1. Depression. Counseling provided regarding current symptoms of depression, goal setting, patient feeling less overwhelmed and feels improving. Discussion of multiple stressors, home solving, and psychosocial support provided. 2. Advanced care planning. Reviewed multiple aspects of patient's goals, values, and wishes to be included into her advanced care planning document. This included counseling regarding hospice, hospice benefit, with dignity, and anticipatory guidance. Time Spent: 60 minutes with greater than 50% of this done in counseling regarding depression, goals of care, end-of-life wishes, and anticipatory guidance.
== END 2018-09-24 10:53 | disposition home or self-care (01) ==
LOC: PC 10:52
PROVIDERS: ATTEND Nurse Practitioner Adult Health
DX: Z51.5 Encounter for palliative care (principal); F32.9 Major depressive disorder, single episode, unspecified; F41.9 Anxiety disorder, unspecified; I42.7 Cardiomyopathy due to drug and external agent; T45.1X5S Adverse effect of antineoplastic and immunosuppressive drugs, sequela; I11.0 Hypertensive heart disease with heart failure; I50.20 Unspecified systolic (congestive) heart failure; I50.84 End stage heart failure; C50.919 Malignant neoplasm of unspecified site of unspecified female breast; I27.20 Pulmonary hypertension, unspecified; Z95.811 Presence of heart assist device; Z79.899 Other long term (current) drug therapy; Z79.811 Long term (current) use of aromatase inhibitors
CPT/HCPCS: 99215

== ENCOUNTER 2018-09-25 10:05 | Outpatient (CLI) | payer MEDICARE, BC ==
[2018-09-25 10:58] LABS: CALCIUM 9.4 mg/dL (8.5-10.3); CREATININE 1.5 mg/dL (0.4-1.0)
== END 2018-09-25 10:06 | disposition home or self-care (01) ==
LOC: LAB 10:05
PROVIDERS: ATTEND Internal Medicine Cardiovascular Disease
DX: I50.23 Acute on chronic systolic (congestive) heart failure (principal); I42.7 Cardiomyopathy due to drug and external agent; Z95.811 Presence of heart assist device; Z91.89 Other specified personal risk factors, not elsewhere classified
CPT/HCPCS: 36415; 80048; 83880

== ENCOUNTER 2018-09-29 10:42 | Outpatient (CLI) | payer MEDICARE, BC ==
[2018-09-29 11:31] LABS: CALCIUM 9.4 mg/dL (8.5-10.3); CREATININE 1.4 mg/dL (0.4-1.0)
[2018-09-29 14:22] LABS: INR 3.1 (0.8-1.2); PT - PROTHROMBIN TIME 33.8 secs (9.9-12.6)
== END 2018-09-29 10:43 | disposition home or self-care (01) ==
LOC: LAB 10:42
PROVIDERS: ATTEND Pharmacist Pharmacist Clinician (PhC)/ Clinical Pharmacy Specialist
DX: Z95.811 Presence of heart assist device (principal); Z91.89 Other specified personal risk factors, not elsewhere classified; I50.23 Acute on chronic systolic (congestive) heart failure; I42.7 Cardiomyopathy due to drug and external agent; Z79.01 Long term (current) use of anticoagulants
CPT/HCPCS: 36415; 80048; 83880; 85610

== ENCOUNTER 2018-10-01 10:52 | Outpatient (CLI) | payer MEDICARE, BC ==
--- NOTE | 2018-10-01 19:39 | CONSULTATION NOTE ---
Palliative Care Follow Up - Referral Referring Provider: Dr. Pasha Ross/Dr. Pfeiffer Time of Visit: 09-08 Referral setting: [facility] [place] Referral Reason: LVAD/Stage III Inflammatory Breast CA/Depression - Information Sources Records reviewed: Previous records reviewed History/Review of Systems obtained from: Patient Exam limitations: No limitations - History of Present Illness Update Brief HPI Update: This is a jose 53-year-old woman who has a history of stage III inflammatory breast cancer, currently in remission and on hormone therapy. 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 She does have a history of recurrent atrial arrhythmias, recent history of ablation, and worsening right- sided/pulmonary hypertension. She continues to struggle physically with symptoms of fluid overload, fluctuating pulmonary hypertension pressures, poor activity tolerance, and now increased lower extremity muscle cramping particularly at night. She is somewhat discouraged with this, her sister had been visiting over the week, had enjoyed her visit but felt like she has over done. This is quite discouraging for her, because she does already have limited activity, and thinks that important to her such as walks, cooking meals, and spending time in nature are more difficult for her. Palliative care is seen patient for defining goals of care, end-of-life planning, and addressing symptoms of depression and anxiety. Patient does feel that her depression is improving, that she has been able to process some of her distress regarding conversations around end-of-life planning, and has normalized this at some level to be able to talk with her friends and family. We are continue to work on a document to express her end-of-life wishes. Social History - Living Situation Living arrangement: At home Living Situation: With family (lives with mother, spends weekend with friend) Support System: very supportive friends and family; Medications/Allergies - Medications Home Medications: Ambulatory Orders Medication Instructions Recorded Confirmed Magnesium 400 mg PO BID 03/02/15 09/08/18 Potassium Chloride [Micro-K] 60 meq PO BID 03/02/15 09/08/18 Aspirin [Aspir 81] 81 mg PO . 4 TABS DAILY 06/18/15 09/08/18 Sertraline HCl 100 mg PO DAILY 06/18/15 09/08/18 Sildenafil Citrate [Revatio] 10 mg PO Q8H 06/18/15 09/08/18 Cholecalciferol [Vitamin D3] 1,000 unit PO DAILY 03/19/16 09/08/18 Ferrous Sulfate 325 mg PO DAILY 03/19/16 09/08/18 Multivitamin [Multivitamins] 1 each PO DAILY 03/19/16 09/08/18 Phytonadione [Vitamin K] 100 mcg PO DAILY 03/19/16 09/08/18 Calcium Carbonate [Calcium] 500 mg PO DAILY 11/26/16 09/08/18 Metoprolol Tartrate 12.5 mg PO BID 07/22/17 09/08/18 Spironolactone 50 mg PO BID 08/09/17 09/08/18 Warfarin [Coumadin] 10 mg PO .9.5 4X;10 3X WEEK MDD as 08/09/17 09/08/18 directed by acc Bumetanide 3 mg PO BID 11/04/17 09/08/18 Exemestane 25 mg PO DAILY #90 tablet 07/02/18 09/08/18 ALPRAZolam [Alprazolam] 0.25 mg PO DAILY PM PRN 08/28/18 09/08/18 Acetaminophen 650 mg PO Q6HR PRN 08/28/18 09/08/18 Leuprolide Acetate [Eligard] 22.5 mg IM .12 WEEKS 08/28/18 09/08/18 Mexiletine HCl 150 mg PO Q8HR 08/28/18 09/08/18 Pantoprazole [Protonix] 40 mg PO BID 08/28/18 09/08/18 Trazodone HCl 100 mg PO DAILY PM PRN 08/28/18 09/08/18 - Allergies Allergies/Adverse Reactions: Allergies Allergy/AdvReac Type Severity Reaction Status Date / Time carvedilol Allergy Anaphylaxis Verified 06/10/18 13:18 amiodarone AdvReac Unknown Verified 08/28/18 08:23 Review of Systems - Constitutional Constitutional: reports: Fatigue (worsening more difficulty with activity tolerance) - Eyes Eyes: reports: Vision loss - Ears, Nose & Throat Ears, Nose & Throat: reports: Dry mouth (feeling dehydrated) - Cardiovascular Cardiovascular: reports: Chest pain (discomfort in chest at night), Exertional dyspnea, Decr. exercise tolerance. denies: Edema - Respiratory Respiratory: reports: Orthopnea, SOB at rest, SOB with exertion - Gastrointestinal Gastrointestinal: reports: Abdominal distention, Nausea, Bloating, Poor appetite - Genitourinary Genitourinary: reports: Frequency - Musculoskeletal Musculoskeletal: reports: Muscle weakness, Other (muscle spasms in legs worsening at night) - Integumentary Integumentary: reports: Dryness - Neurological Neurological: reports: General weakness, Memory problems (STM issues) - Psychiatric Psychiatric: reports: Depression (much improved), Anxiety - Hematologic/Lymphatic Hematologic/Lymphatic: denies: Recurrent infections - All Other Systems All Other Systems: reports: Reviewed and negative Physical Exam - Physical Exam General Appearance: positive: No acute distress, Alert Eyes Bilateral: positive: Normal inspection Neck: positive: No JVD, Trachea midline Cardiovascular: positive: Regular rate & rhythm Respiratory: positive: Diminished in bases Abdomen: positive: Distended Skin: positive: Pallor, Dryness Extremities: positive: No pedal edema Neurologic/Psychiatric: positive: Oriented x3, Mood/affect nml, Weakness Palliative Care - POLST Patient has POLST: No Pain: Pain unchanged, Location (leg cramping; mild discomfort in joints) Tiredness/Fatigue: Severe (7-10) Drowsiness/Sedation: Severe (7-10) Nausea: Moderate (4-6) Depression: Mild (1-3) Anxiety: Moderate (4-6) Dyspnea: Severe (7-10) Anorexia: Severe (7-10) Sleep: Variable sleep pattern (up to void when diuresing) Feelings of wellbeing/Perceived Quality of Life: Fair, Worsening Performance Status: Patient tolerating activity more poorly, is can only ambulate short distances without increased severity of her shortness of breath. She is still able to attend her ADLs, but stairs are difficult prolonged activity and standing as well. - Palliative Care Discussion: Question centered around her feelings of grief and loss regarding her poor activity tolerance, and feelings of loss of independence. We did discuss in the context of "all or nothing" regarding how to challenge and pace and plan activities so as not to have them give him up. We did further work on advanced living document, taking the information from filling out different forms with different questions and approaches, and putting them into one document including one that reflects closer to the unit decisions around an LVAD. This is also helped her clarify to better be able to discuss with her administrative law judge some of her questions, as well as the need for shared decision making as she shares more of her values and beliefs with her administrative law judge. First graft was completed, she will reflect on this, further clarify questions with her administrative law judge and we will complete at next visit. In discussion of D INNA, had been ambivalent whether to change it to her sister, she will keep it with her mom at this point in time. Document given for medical D POA to fill out, will try and get notarized at next visit Results - Lab Results Lab results reviewed: Yes Impression and Recommendations - Palliative Care Impression: This is a jose 53-year-old woman who is living with LVAD as destination therapy, as well as a second serious illness of stage III inflammatory breast cancer currently in remission and on hormone therapy. Patient continues with struggling with fluid overload, symptoms as a result of this, including severe fatigue and poor activity tolerance. Patient does feel she is making progress on her depression, continue to work on advanced care planning document. Recommendations/Counseling Done: 1. Depression. Counseling provided regarding current symptoms of depression, continued working on goal setting and communication with her family. Discussion of multiple stressors, problem solving and psychosocial support provided. 2. Dyspnea. Patient does complain of vague chest discomfort particularly at night, and increasing dyspnea with any kind of activity and/or exertion. Genee ling provided regarding the use of morphine 20 mg per male at low doses of 5 mg as a tool and a toolbox, education provided on rationale, will consider and will consult with administrative law judge regarding having it available. Patient dislikes the oxycodone, makes her feel too loopy and nauseated, discussed if could use lower small frequent doses of opioid may tolerate better. 3. Advanced care planning. Reviewed draft of advanced care planning document, further clarifying questions defined to follow-up with Dr. Callahan, and Patient working with friends and families to further normalize conversations and illicit things of important to them as well. Has decided to keep mother Maria Ines Juan as her primary D POA, her phone number is [phone] and cell phone [phone]. Time Spent: 60 minutes with good and 50% of this done in counseling regarding depression, pacing of activities,, using cognitive behavioral therapy techniques for managing current limitations as well as anticipatory guidance.
== END 2018-10-01 10:53 | disposition home or self-care (01) ==
LOC: PC 10:52
PROVIDERS: ATTEND Nurse Practitioner Adult Health
DX: Z51.5 Encounter for palliative care (principal); F32.9 Major depressive disorder, single episode, unspecified; R11.0 Nausea; T40.2X5A Adverse effect of other opioids, initial encounter; I42.7 Cardiomyopathy due to drug and external agent; T45.1X5S Adverse effect of antineoplastic and immunosuppressive drugs, sequela; I11.0 Hypertensive heart disease with heart failure; I50.20 Unspecified systolic (congestive) heart failure; I50.84 End stage heart failure; I27.20 Pulmonary hypertension, unspecified; F41.9 Anxiety disorder, unspecified; C50.919 Malignant neoplasm of unspecified site of unspecified female breast; Z79.818 Long term (current) use of other agents affecting estrogen receptors and estrogen levels; Z95.811 Presence of heart assist device
CPT/HCPCS: 99215

== ENCOUNTER 2018-12-16 09:50 | Outpatient (CLI) | payer MEDICARE, BC ==
[2018-12-16 10:52] LABS: ALBUMIN 3.7 g/dL (3.2-5.5); ALBUMIN/GLOBULIN RATIO 1.5 (1.0-2.2); BILIRUBIN,TOTAL 0.5 mg/dL (0.2-1.0); CALCIUM 8.7 mg/dL (8.5-10.3); CREATININE 0.9 mg/dL (0.4-1.0); MAGNESIUM 1.4 mg/dL (1.7-2.8); TOTAL PROTEIN 6.1 g/dL (6.7-8.2)
== END 2018-12-16 09:51 | disposition home or self-care (01) ==
LOC: LAB 09:50
PROVIDERS: ATTEND Internal Medicine Cardiovascular Disease
DX: I47.2 Ventricular tachycardia (principal); Z95.811 Presence of heart assist device; Z94.1 Heart transplant status
CPT/HCPCS: 36415; 80053; 80197; 83735

== ENCOUNTER 2018-12-17 11:20 | Outpatient (CLI) | payer MEDICARE, BC ==
--- NOTE | 2018-12-17 11:43 | CT Report ---
Reason: HEADACHE, OCCIPITAL OF CEREBELLAR HEMORRHAGE Procedure Date: 12/17/2018 Accession Number: [id number] / [id number] Procedure: CT - HEAD WO CPT Code: FULL RESULT: EXAM: CT HEAD EXAM DATE: 12/17/2018 11:34 AM. CLINICAL HISTORY: Headache, occipital of cerebellar hemorrhage. COMPARISON: None. TECHNIQUE: Multiaxial CT images were obtained from the foramen magnum to the vertex. Reformats: Sagittal and coronal. IV contrast: None. In accordance with CT protocol optimization, one or more of the following dose reduction techniques were utilized for this exam: automated exposure control, adjustment of mA and/or KV based on patient size, or use of iterative reconstructive technique. FINDINGS: Parenchyma: No intraparenchymal hemorrhage. No evidence of mass, midline shift, or CT findings of infarction. Mireles-white differentiation is distinct. Extraaxial Spaces: Normal for age. No subdural or epidural collections identified. Ventricles: Normal in size and position. Sinuses and Orbits: Imaged paranasal sinuses, orbits, and mastoids show no significant abnormality. Bones: No evidence of fracture or calvarial defect. Other: None. IMPRESSION: No acute intracranial hemorrhage is detected. RADIA
== END 2018-12-17 11:21 | disposition home or self-care (01) ==
LOC: DI 11:20
PROVIDERS: ATTEND Nurse Practitioner
DX: R51 Headache (principal); Z87.898 Personal history of other specified conditions
CPT/HCPCS: 70450

== ENCOUNTER 2018-12-18 11:23 | Emergency (ER) | payer MEDICARE, BC ==
--- NOTE | 2018-12-18 12:22 | ED Physician Documentation ---
PD HPI HEADACHE - Stated complaint Stated Complaint: HEADACHE - Chief complaint Chief Complaint: Neuro - History obtained from History obtained from: Patient - History of Present Illness Timing - onset: Other (This is a 53-year-old woman who had an LVAD but then had a complication and ended up having a cardiac transplant on a couple of months ago. Perioperatively she had what she describes as 2 small strokes with some residual language issues which are minor. She is also noticed some difficulty walking because of clumsiness on the right side since then. She had a fall 4 weeks ago. She did not hit her head but she kind of sebastian herself. Since then she has had a constant occipital headache which is unresolved by Tylenol or oxycodone. More recently the headache is a little w orse and radiating to the right parietal and temporal region and today she noticed right hand numbness. There is no associated fever or weight loss. She has a history of tension headaches but never like this and never this long. She had a CT yesterday done here which was read as being normal.) - Additional information Additional information: 12/09 mycophenolate 3.3, high nl. Tacrolimus 13.0, last bx 12/09 1a. 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: Breast cancer (inflammatory Stage IIB s/p chemo & radiaion) : Kidney stones HEENT: None Psych: Depression, Anxiety Musculoskeletal: None Derm: None - Past Surgical History Past Surgical History: Yes Ortho: Spine surgery (2004) /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: Mastectomy (bilateral) Cardiovascular: Other (LVAD since 03/28/2015) - Present Medications Home Medications: Ambulatory Orders Medication Instructions Recorded Confirmed Alendronate Sodium 70 mg PO 1-2XD 12/18/18 12/18/18 Aspirin Chewable [[facility] 81 mg PO DAILY 12/18/18 12/18/18 Aspirin] Calcium Carbonate [[id number]-[id number]-380] 1,000 mg PO DAILY 12/18/18 12/18/18 Cholecalciferol (Vitamin D3) 1,000 unit PO DAILY 12/18/18 12/18/18 [Vitamin D3] Clotrimazole Pastora 10 mg PO DAILY 12/18/18 12/18/18 Exemestane 25 mg PO DAILY 12/18/18 12/18/18 Gabapentin 300 mg PO TID 12/18/18 12/18/18 Leuprolide Acetate [Lupron Depot] 22.5 mg IM 1-2XD 12/18/18 12/18/18 Lisinopril [Zestril] 2.5 mg PO DAILY 12/18/18 12/18/18 Magnesium 133 mg PO DAILY 12/18/18 12/18/18 Melatonin 6 mg PO DAILY 12/18/18 12/18/18 Mycophenolate Mofetil [Cellcept] 1,000 mg PO DAILY 12/18/18 12/18/18 Pantoprazole [Protonix] 40 mg PO DAILY 12/18/18 12/18/18 Pnv No.95/Ferrous Fum/Folic AC 1 each PO DAILY 12/18/18 12/18/18 [ Caplet] Potassium Chloride 20 meq PO DAILY 12/18/18 12/18/18 Pravastatin [Pravachol] 10 mg PO DAILY 12/18/18 12/18/18 Prednisone 10 mg PO DAILY 12/18/18 12/18/18 Sertraline [Zoloft] 100 mg PO DAILY 12/18/18 12/18/18 Sulfamethoxazole/Trimethoprim 1 each PO 12/18/18 [Bactrim 400-80 mg Tablet] Tacrolimus [Prograf] 2.5 mg PO BID 12/18/18 12/18/18 Torsemide 20 mg PO DAILY 12/18/18 12/18/18 Valganciclovir HCl 900 mg PO 12/18/18 - Allergies Allergies/Adverse Reactions: Allergies Allergy/AdvReac Type Severity Reaction Status Date / Time carvedilol Allergy Anaphylaxis Verified 06/10/18 13:18 amiodarone AdvReac Unknown Verified 12/18/18 11:29 - Social History Does the pt smoke?: No Smoking Status: Never smoker Does the pt drink ETOH?: Yes Does the pt have substance abuse?: No - Immunizations Immunizations are current?: Yes - POLST Patient has POLST: No PD ED PE NORMAL - Vitals Vital signs reviewed: Yes - General General: Alert and oriented X 3, No acute distress - HEENT HEENT: PERRL, EOMI, Pharynx benign - Neck Neck: Supple, no meningeal sign, No bony TTP - Cardiac Cardiac: RRR, No murmur - Respiratory Respiratory: No respiratory distress, Clear bilaterally - Abdomen Abdomen: Normal bowel sounds, Soft, Non tender - Back Back: No CVA TTP, No spinal TTP - Derm Derm: Normal color, Warm and dry, Other (She has a slight rash on the forearms which she thinks is from her new antirejection medications.) - Extremities Extremities: No edema, No calf tenderness / cord - Neuro Neuro: Alert and oriented X 3, pasta maker 2-12 intact, Other (She has slightly decreased sensation on the right arm and right leg. 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 There is no abnormal sensation in the face. She is a little weak in the right leg without drift per se but I am able to push it down much easier than the left.) Eye Opening: Spontaneous Motor: Obeys Commands Verbal: Oriented GCS Score: 15 - Psych Psych: Normal mood Results - Vitals Vitals: Vital Signs - 24 hr 12/18/18 12/18/18 11:26 13:11 Temperature 36 C L Heart Rate 105 H 88 Respiratory 20 16 Rate Blood Pressure 135/79 H 123/83 H O2 Saturation 94 95 Oxygen O2 Source Room air PD MEDICAL DECISION MAKING - ED course ED course: This is a 53-year-old woman with history of heart transplant who presents with worsening headache associated with strokelike symptoms on the right side that are subacute. Differential diagnosis is broad and complicated by her recent heart transplant status. Call was placed to the [facility] and after some delays she was accepted there for further evaluation and treatment by tania Encarnacion were completed. Her pager number is [phone]. There may be a significant delay until bed availability due to high patient volume there. Departure - Departure Disposition: 02 Transfer Acute Care Hosp Clinical Impression: Stroke-like symptoms, Heart transplant recipient Headache Qualifiers: Headache type: unspecified Headache chronicity pattern: acute headache Intractability: not intractable Qualified Code(s): R51 - Headache Condition: Serious
[2018-12-18] MEDS ORDERED: HYDROmorphone 1 MG/ML CARPUJECT IM STA (12:27)
[2018-12-18] MEDS ORDERED: KETOROLAC 30 MG/ML VIAL IVP STA (14:00)
[2018-12-18] MEDS ORDERED: SODIUM CHLORIDE 0.9% 1,000 ML IV ONE (14:00)
[2018-12-18 14:08] LABS: BASOPHILS # (AUTO) 0.1 10^3/uL (0.0-0.1); BASOPHILS % (AUTO) 0.6 %; EOSINOPHILS % (AUTO) 0.1 %; LYMPHOCYTES # (AUTO) 0.2 10^3/uL (1.5-3.5); MEAN CORPUSCULAR HEMOGLOBIN 36.5 pg (27.0-31.0); MEAN CORPUSCULAR HGB CONC 35.1 g/dL (32.0-36.0); MEAN CORPUSCULAR VOLUME 103.9 fL (81.0-99.0); MEAN PLATELET VOLUME 7.7 fL (7.9-10.8); MONOCYTES # (AUTO) 0.2 10^3/uL (0.0-1.0); MONOCYTES % (AUTO) 1.7 %; NEUTROPHILS # (AUTO) 9.5 10^3/uL (1.5-6.6); NEUTROPHILS % (AUTO) 95.6 %; PLT - PLATELET COUNT 247 10^3/uL (130-450); RED BLOOD COUNT 3.55 10^6/uL (4.20-5.40); RED CELL DISTRIBUTION WIDTH 17.6 % (12.0-15.0); WHITE BLOOD COUNT 9.9 x10^3/uL (4.8-10.8)
[2018-12-18 14:20] LABS: ALBUMIN 3.9 g/dL (3.2-5.5); ALBUMIN/GLOBULIN RATIO 1.5 (1.0-2.2); BILIRUBIN,TOTAL 0.5 mg/dL (0.2-1.0); CALCIUM 8.6 mg/dL (8.5-10.3); CREATININE 1.1 mg/dL (0.4-1.0); TOTAL PROTEIN 6.5 g/dL (6.7-8.2)
[2018-12-18] MEDS ORDERED: METOCLOPRAMIDE 10 MG/2 ML VIAL IVP STA (14:47)
[2018-12-18 15:19] VITALS: BP 122/75
== END 2018-12-18 16:38 | disposition short-term general hospital (02) ==
LOC: ED 11:23
DX: R51 Headache (principal); R20.9 Unspecified disturbances of skin sensation; Z94.1 Heart transplant status
CPT/HCPCS: 36415; 80053; 83690; 85025; 96372; 96374; 96375; 99284; 99285; J1170; J2765

== ENCOUNTER 2018-12-23 10:24 | Outpatient (CLI) | payer MEDICARE, BC ==
--- NOTE | 2018-12-23 16:21 | CONSULTATION NOTE ---
Palliative Care Follow Up - Referral Referring Provider: Dr. 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 She received the chemotherapy for history of stage III inflammatory breast cancer, currently in remission and continues on hormone therapy. Previously had not felt to be a candidate for transplant due to her cancer history, this was reconsidered and she ultimately underwent an orthopod attic heart transplant on with PFO closure of a transplanted heart. She was hospitalized with a LVAD thrombosis on 10/02 and discharged on 11/18/2018 after transplant. She did do fairly well during this time until she had on 11/02 but was attributed to a stroke with expressive, fluent aphasia, dizzyness, and complaints of headache. She has recovered with only right lower extremity weakness, but has had residual and unrelenting headache pain. This continued to progress and on 12/18 had followed up with the emergency room, and was transferred to [facility] and discharged on 12/20. They had increased her gabapentin to 400 mg, 400 mg, and 600 mg at bedtime, with significant improvement in her pain. Of what is interesting is the pain is worse when lying down and is somewhat relieved when sitting up. Palliative care has been following her previous to admit, for depression, advanced care planning, and psychosocial support. Patient is doing well, feels depression is well controlled at this point in time but concerned may resurface as is on high doses of steroids, does understand she is still living with some uncertainty, as far as goals for palliative care, would like to continue support through this transition time and to redo and finished advanced directives. She is scheduled to start cardiac rehab 01/19/2019 as well as follow-up on 01/[address] Lara At [facility] to taper her immunosuppressants given her history of stage III breast cancer. Social History - Living Situation Living arrangement: At home Living Situation: With family Support System: Patient currently needing 20/05 supervision as part of the protocol and follow-up after heart transplant. This is mostly supplied and supported through her mother, but she also has a good friend with whom she is staying as well. She is anxious to regain some independence, and is hopeful to cardiac rehab to improve her functional status. Medications/Allergies - Medications Home Medications: Ambulatory Orders Medication Instructions Recorded Confirmed Alendronate Sodium 70 mg PO .Sundays12/18/18 12/24/18 Aspirin Chewable [[facility] 81 mg PO DAILY 12/18/18 12/24/18 Aspirin] Calcium Carbonate [[id number]] 1,000 mg PO BID 12/18/18 12/24/18 Cholecalciferol (Vitamin D3) 1,000 unit PO DAILY 12/18/18 12/24/18 [Vitamin D3] Clotrimazole Pastora 10 mg PO .4X DAY 12/18/18 12/24/18 Exemestane 25 mg PO DAILY 12/18/18 12/24/18 Gabapentin 400 mg PO . AM/ LUNCH 12/18/18 12/24/18 Leuprolide Acetate [Lupron Depot] 22.5 mg IM .Q3 MONTH 12/18/18 12/24/18 Lisinopril [Zestril] 2.5 mg PO DAILY 12/18/18 12/24/18 Magnesium 266 mg PO BID 12/18/18 12/24/18 Melatonin 6 mg PO ACHS 12/18/18 12/24/18 Mycophenolate Mofetil [Cellcept] 1,000 mg PO BID 12/18/18 12/24/18 Pantoprazole [Protonix] 40 mg PO DAILY 12/18/18 12/24/18 Pravastatin [Pravachol] 20 mg PO DAILY 12/18/18 12/24/18 Prednisone 20 mg PO DAILY 12/18/18 12/24/18 Sertraline [Zoloft] 100 mg PO DAILY 12/18/18 12/24/18 Sulfamethoxazole/Trimethoprim 1 each PO DAILY 12/18/18 12/24/18 [Bactrim 400-80 mg Tablet] Tacrolimus [Prograf] 3 mg PO BID 12/18/18 12/24/18 Torsemide 20 mg PO DAILY 12/18/18 12/24/18 Valganciclovir HCl 900 mg PO DAILY 12/18/18 12/24/18 Acetaminophen [Tylenol] 650 mg PO Q6HR PRN 12/24/18 12/24/18 Gabapentin 600 mg PO ACHS 12/24/18 12/24/18 Vitamin [Trinatal Rx 1] 1 tab PO DAILY 12/24/18 12/24/18 - Allergies Allergies/Adverse Reactions: Allergies Allergy/AdvReac Type Severity Reaction Status Date / Time carvedilol Allergy Anaphylaxis Verified 06/10/18 13:18 amiodarone AdvReac Unknown Verified 12/18/18 11:29 Review of Systems - Constitutional Constitutional: reports: Fatigue, Weight gain (attributes recent 5 pound weight gain to fluid;) - Cardiovascular Cardiovascular: reports: Exertional dyspnea, Decr. exercise tolerance. denies: Chest pain - Respiratory Respiratory: reports: SOB with exertion. denies: Cough, SOB at rest - Gastrointestinal Gastrointestinal: reports: Good appetite. denies: Constipation, Nausea, Reflux/heartburn - Musculoskeletal Musculoskeletal: reports: Stiffness, Muscle weakness - Integumentary Integumentary: reports: Dryness, Other (healing surgical incisions) - Neurological Neurological: reports: Focal weakness (RLE), Memory problems (mild but improving) - Psychiatric Psychiatric: reports: Anxiety. denies: Depression - Hematologic/Lymphatic Hematologic/Lymphatic: denies: Recurrent infections - All Other Systems All Other Systems: reports: Reviewed and negative Physical Exam - Vital Signs Pulse Rate: 92 Respiratory Rate: 18 Blood Pressure: 118/84 - Physical Exam General Appearance: positive: No acute distress Eyes Bilateral: positive: Normal inspection ENT: positive: No signs of dehydration Neck: positive: No JVD, Trachea midline Cardiovascular: positive: Regular rate & rhythm Respiratory: positive: No respiratory distress, Breath sounds nml. negative: Wheezes, Rales, Rhonchi Abdomen: positive: Soft Skin: positive: Pallor, Dryness Extremities: positive: No pedal edema Neurologic/Psychiatric: positive: Oriented x3, Mood/affect nml Palliative Care - POLST Patient has POLST: No Pain: Pain improved, Location (Headache pain, had been initiated with a fall and jarring self. Located in the subdural, has not been responsive to acetaminophen nor oxycodone, unfortunately oxycodone dose is been 2.[address] scan done on 220 without abnormal findings. Patient has had improvement with increase of gabapentin of 400 mg a.m. 400 mg lunch and 600 mg at bedtime. Denies any increased sedation and does feel like she is in a better place with this.), Severity (was 5-6/10 now 3/10; worse with laying down) Tiredness/Fatigue: Moderate (4-6) Drowsiness/Sedation: Mild (1-3) Nausea: None Depression: None Anxiety: None Dyspnea: Moderate (4-6) Anorexia: None Sleep: Sleeps well (up only two times at night to void) Constipation: No Feelings of wellbeing/Perceived Quality of Life: Good, Acceptable, Improved Performance Status: Patient is able to attend her own ADLs, she has been walking for longer distances, is tolerating this better area and she took her dog on a mile hike tolerated this fairly well with just 1 rest. She is looking forward to cardiac rehab, but wants to start this after she is no longer needing 24-hour supervision. She is feeling significantly better with her new heart, and better able to tolerate her household activities. - Palliative Care Discussion: Patient does present with the understanding that there are still risks, she is going in for ongoing biopsies to monitor for rejection, the risk of recurrence of her breast cancer on the immunosuppressants, and the sequela as she experienced of a stroke. She is feeling very grateful, time was spent on telling the story, and processing the emotional response to this. She is feeling quite "up", given her history of depression she is concerned this is supported by the steroids, but still has some goals that she she wants to follow-up on with palliative care. Given the complexity of her situation, she would like to finish and follow through on advanced care planning documents that is reflective of her beliefs and values. Results - Lab Results Lab results reviewed: Yes Impression and Recommendations - Palliative Care Impression: This is a jose 53-year-old woman who has received a heart transplant, who had been living with LVAD as a destination therapy. She is recovering nicely, but is under close supervision. She also has history of stage III inflammatory breast cancer, continuing on in remission and on hormone therapy. Palliative care ongoing providing support regarding depression, anxiety, and advanced care planning. Recommendations/Counseling Done: 1. Depression, currently controlled. Patient does not present with further persistence of feelings of helplessness or hopelessness. We did discuss in the context of her story, her current emotional state of health, goals for the future, and concerns and anxieties. We will continue to monitor, as patient is on steroids and worried this may be mask symptoms. 2. Headache pain. And patient's description, would consider in the differential post stroke syndrome. Has been responding well to the gabapentin, without s ignificant side effects of sedation or confusion. There is still room for titration if needed in total dosing. Patient is also reestablished with PCP Nay TREJO, will reach out to her as well regarding management of symptoms. 3. Dyspnea. Patient has had significant improvement, does attribute current symptoms related to deconditioning, as is more prominent with exertion. Patient to start cardiac rehab, she is slowly increasing her activity level. Counseling provided regarding balancing energy conservation and building endurance. 4. Advanced care planning. Patient's D POA is her mother Maria Ines Juan, and cell phone [phone]. Counseling provided regarding patient's current concerns, she would like to complete now in the context of her new situation, given a copy of her previous draft, had used at [facility] to communicate both to her family and care team, will adjust according to her new goals and new situation. Time Spent: 60 minutes with greater than 50% of this done in counseling regarding goals of care, symptoms, and anticipatory guidance.
== END 2018-12-23 10:25 | disposition home or self-care (01) ==
LOC: PC 10:24
PROVIDERS: ATTEND Nurse Practitioner Adult Health
DX: Z51.5 Encounter for palliative care (principal); F32.9 Major depressive disorder, single episode, unspecified; R51 Headache; R06.00 Dyspnea, unspecified; I69.341 Monoplegia of lower limb following cerebral infarction affecting right dominant side; C50.919 Malignant neoplasm of unspecified site of unspecified female breast; F41.9 Anxiety disorder, unspecified; I10 Essential (primary) hypertension; Z94.1 Heart transplant status; Z79.899 Other long term (current) drug therapy; Z79.52 Long term (current) use of systemic steroids; Z79.811 Long term (current) use of aromatase inhibitors; Z79.818 Long term (current) use of other agents affecting estrogen receptors and estrogen levels; Z92.21 Personal history of antineoplastic chemotherapy
CPT/HCPCS: 99215

== ENCOUNTER 2019-01-12 10:15 | Outpatient (CLI) | payer MEDICARE, BC ==
--- NOTE | 2019-01-12 20:58 | CONSULTATION NOTE ---
Palliative Care Follow Up - Referral Referring Provider: Dr. Pasha Ross Time of Visit: [id number] Referral Reason: Depression/anxiety/goals of care - Information Sources Records reviewed: Previous records reviewed History/Review of Systems obtained from: Patient Exam limitations: No limitations - History of Present Illness Update Brief HPI Update: This is a jose 53-year-old woman, who was originally seen by palliative care as a result of having LVAD as a destination therapy. This was result of chemotherapy-induced severe cardiomyopathy with the sequela of systolic end- stage CHF. She has received chemotherapy for history of stage III inflammatory breast cancer, currently in remission and continues on hormone therapy. She did receive a heart transplant after she had been hospitalized with an LVAD thrombosis on 10/02/2019, despite originally told she was not a candidate. She has continued to improve, she has some residual side effects, mostly thought originally to attribute to her stroke noted on 11/02. She does have headache, currently managed on gabapentin, reports increased fatigue, and currently being monitored for rejection. Her last heart biopsy was negative, and her prednisone is being tapered. She did see Dr. Lara at [facility], he perceives her as low risk, and continuing on the right medications. One of her concerns was options if she were to recur, and was reassured that there were still some non-chemo options she would be a candidate for. She will continue with Dr. Ross, and her current regimen. Social History - Living Situation Living arrangement: At home Living Situation: With family Support System: Patient does need 24/7 supervision as part of the post heart transplant protocol. She is almost completed this, is ready to be somewhat more independent. Her mother is in providing most of this oversight, she does live with her currently. [place] also spends quite a bit of time with as well as stay with on the weekends. She enjoys as far as quality of life, her dog and nature. She has good family support and friends who are providing practical and emotional support through this time. Medications/Allergies - Medications Home Medications: Ambulatory Orders Medication Instructions Recorded Confirmed Alendronate Sodium 70 mg PO .Sundays12/18/18 01/12/19 Aspirin Chewable [[facility] 81 mg PO DAILY 12/18/18 01/12/19 Aspirin] Calcium Carbonate [[id number]] 1,000 mg PO BID 12/18/18 01/12/19 Cholecalciferol (Vitamin D3) 1,000 unit PO DAILY 12/18/18 01/12/19 [Vitamin D3] Clotrimazole Pastora 10 mg PO .4X DAY 12/18/18 01/12/19 Exemestane 25 mg PO DAILY 12/18/18 01/12/19 Gabapentin 400 mg PO . AM/ LUNCH MDD 12/18/18 01/12/19 titrating 300 mg Leuprolide Acetate [Lupron Depot] 22.5 mg IM .Q3 MONTH 12/18/18 01/12/19 Magnesium 266 mg PO BID 12/18/18 01/12/19 Melatonin 6 mg PO ACHS 12/18/18 01/12/19 Mycophenolate Mofetil [Cellcept] 1,000 mg PO BID 12/18/18 01/12/19 Pantoprazole [Protonix] 40 mg PO DAILY 12/18/18 01/12/19 Pravastatin [Pravachol] 20 mg PO DAILY 12/18/18 01/12/19 Prednisone 15 mg PO DAILY 12/18/18 01/12/19 Sertraline [Zoloft] 100 mg PO DAILY 12/18/18 01/12/19 Sulfamethoxazole/Trimethoprim 1 each PO DAILY 12/18/18 01/12/19 [Bactrim 400-80 mg Tablet] Tacrolimus [Prograf] 3 mg PO BID 12/18/18 01/12/19 Torsemide 40 mg PO DAILY 12/18/18 01/12/19 Valganciclovir HCl 900 mg PO DAILY 12/18/18 01/12/19 Acetaminophen [Tylenol] 650 mg PO Q6HR PRN 12/24/18 01/12/19 Gabapentin 600 mg PO ACHS 12/24/18 01/12/19 Vitamin [Trinatal Rx 1] 1 tab PO DAILY 12/24/18 01/12/19 - Allergies Allergies/Adverse Reactions: Allergies Allergy/AdvReac Type Severity Reaction Status Date / Time carvedilol Allergy Anaphylaxis Verified 06/10/18 13:18 amiodarone AdvReac Unknown Verified 12/18/18 11:29 Review of Systems - Constitutional Constitutional: reports: Fatigue, Weight gain. denies: Fever, Chills - Ears, Nose & Throat Ears, Nose & Throat: reports: Dry mouth - Cardiovascular Cardiovascular: reports: Decr. exercise tolerance. denies: Chest pain - Respiratory Respiratory: reports: SOB with exertion. denies: SOB at rest - Gastrointestinal Gastrointestinal: reports: Good appetite - Musculoskeletal Musculoskeletal: reports: Stiffness, Muscle weakness - Integumentary Integumentary: reports: Dryness - Neurological Neurological: reports: General weakness, Memory problems (mild) - Psychiatric Psychiatric: reports: Depression (controlled), Anxiety (mild attributed to health and financial concerns) - All Other Systems All Other Systems: reports: Reviewed and negative Physical Exam - Vital Signs Pulse Rate: 92 Respiratory Rate: 18 Blood Pressure: 113/72 - Physical Exam General Appearance: positive: No acute distress, Anxious Eyes Bilateral: positive: Normal inspection ENT: positive: No signs of dehydration Neck: positive: No JVD, Trachea midline Cardiovascular: positive: Regular rate & rhythm Respiratory: positive: No respiratory distress, Breath sounds nml Abdomen: positive: Soft, Obese Skin: positive: Dryness, Other (scarring on chest bilat. masectomy; no abnormalities noted) Extremities: positive: Pedal edema Neurologic/Psychiatric: positive: Oriented x3, Mood/affect nml Palliative Care - POLST Patient has POLST: No Pain: Location (Reports headache pain at a 2 out of 10, is currently on gabapentin 400 a.m. 400 midday and 600 mg at bedtime. Had originally also been put on for right sciatic right sharp shooting neuropathic pain which is currently controlled and/or resolved.) Tiredness/Fatigue: Mild (1-3) Drowsiness/Sedation: Mild (1-3) Nausea: None Depression: None Anxiety: Mild (1-3) Dyspnea: Mild (1-3) Anorexia: None Sleep: Sleeps well Constipation: No Feelings of wellbeing/Perceived Quality of Life: Fair, Acceptable, Improved Performance Status: She is slowly progressing her activity, she is able to ambulate long distances with less frequent rest. Though she does get limited by her breathlessness and acknowledges lack of endurance. She is to start cardiac rehab at the end of the month. She is independent in her ADLs, and is looking forward to being able to drive again. - Palliative Care Discussion: Spent time processing just the transition from where she was as far as looking at LVAD as destination therapy, still recognizing she is in a precarious position but feeling much more hopeful. She has completed the loop and discussed further treatment options if her breast cancer were to reoccur, does feel like there is hoping in her future. She does counterbalance this with reality and the seriousness of her current condition. We had initiated a advanced directive that captured her beliefs and values, we reviewed it today to reflect her current situation. We will go ahead and update this and complete at following visit. Her Gerald KEITH is her mother Maria Ines Juan home [phone] and cell phone [phone] Impression and Recommendations - Palliative Care Impression: This a jose 53-year-old woman who received a heart transplant, who had been living with LVAD as a destination therapy. She also has a history of breast cancer, continued remission and on hormone therapy. She has moderate symptom burden, and will be starting cardiac rehab. Palliative care ongoing to provide support regarding depression, anxiety, and advanced care planning. Recommendations/Counseling Done: 1. Persistent headache. Patient is awaiting appointment at stroke clinic. Given her persistent fatigue, and improved pain management of her right leg and headache, pain is currently 2 out of 10. Discussed trialing decreasing gabapentin to 300 mg in the day for dosing and continue 600 mg at bedtime, taking it down 100 mg 1 week apart to see if improved energy and dizziness and goal for not escalation of pain. Patient verbalizes understanding. 2. Depression, currently controlled. Counseling provided regarding review of her current situation, processing feelings and concerns, as well as ongoing monitoring for exacerbation of symptoms. 3. Dyspnea. Patient to start cardiac rehab, does attribute most of this to deconditioning, though it has had some fluid gain. Counseling provided to balance energy conservation and building endurance. 4. Advanced care planning. Counseling provided regarding patient's current concerns, updated advanced care document reviewed, changes accommodated along with exploring goals of care and current wishes. Will complete and sign at next visit. Patient is anxious to have this in her record to communicate to her health care team. Time Spent: The minutes with greater than 50% of this done in counseling regarding goals of care, depression, anxiety, and anticipatory guidance
== END 2019-01-12 10:16 | disposition home or self-care (01) ==
LOC: PC 10:15
PROVIDERS: ATTEND Nurse Practitioner Adult Health
DX: Z51.5 Encounter for palliative care (principal); I69.398 Other sequelae of cerebral infarction; R51 Headache; R53.83 Other fatigue; F32.9 Major depressive disorder, single episode, unspecified; R06.00 Dyspnea, unspecified; F41.9 Anxiety disorder, unspecified; C50.919 Malignant neoplasm of unspecified site of unspecified female breast; Z94.1 Heart transplant status; Z79.899 Other long term (current) drug therapy; Z79.811 Long term (current) use of aromatase inhibitors
CPT/HCPCS: 99215

== ENCOUNTER 2019-02-02 10:02 | Outpatient (CLI) | payer MEDICARE, BC ==
--- NOTE | 2019-02-02 17:57 | CONSULTATION NOTE ---
Palliative Care Follow Up - Referral Referring Provider: Dr. Pasha Ross Time of Visit: 10-10:50 [place] [facility] [place] Reason: Depression/Heart transplant/Breast Ca Stage III - Information Sources Records reviewed: Previous records reviewed History/Review of Systems obtained from: Patient Exam limitations: No limitations - History of Present Illness Update Brief HPI Update: This is a jose 53-year-old woman who received a heart transplant is after she had been hospitalized with LVAD thrombosis on 10/02/2019. 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 She received chemotherapy for history of stage III breast cancer, currently in remission and continues on hormone therapy. She is continued to improve, she does have some residual symptoms attributed to her stroke on 11/02/2018. She has persistent headache, currently managed With gabapentin, reports ongoing fatigue, dyspnea, and some increase in her right leg pain. She had titrated back on her gabapentin, as she was having dizziness, this did help with the dizziness but has noted more leg pain, her headache has stayed the same. She continues to have regular heart biopsies, with a prednisone taper, she is being monitored for rejection. She continues to see Dr. Ross, For management of her breast cancer, she is scheduled to see him later today. She does have a pending neck x-ray, as her pain is in the base of her skull, her CT scan here and MRI at [facility] were negative for etiology of pain. 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 Palliative care continues to see patient for symptom management, specifically around depression and anxiety. Patient does have a history of depression, she was feeling quite getting on her prednisone, as she has been tapered off and with an abrupt change in her goals from focusing on her pending , now to getting "well", is feeling somewhat adrift. Social History - Living Situation Living arrangement: At home Living Situation: With family Support System: Patient currently living with her mother, she is supported by disability is currently going through the process. She has a good friend that she is moved in a great amount of time with it as well. She is a very supportive family. She loves nature and walking with her dogs. She is about to restart cardiac rehab, she finds this is supportive community as well. Medications/Allergies - Medications Home Medications: Ambulatory Orders Medication Instructions Recorded Confirmed Alendronate Sodium 70 mg PO .Sundays12/18/18 02/02/19 Aspirin Chewable [[facility] 81 mg PO DAILY 12/18/18 02/02/19 Aspirin] Calcium Carbonate [[id number]] 1,000 mg PO BID 12/18/18 02/02/19 Cholecalciferol (Vitamin D3) 1,000 unit PO DAILY 12/18/18 02/02/19 [Vitamin D3] Clotrimazole Pastora 10 mg PO .4X DAY 12/18/18 02/02/19 Exemestane 25 mg PO DAILY 12/18/18 02/02/19 Leuprolide Acetate [Lupron Depot] 22.5 mg IM .Q3 MONTH 12/18/18 02/02/19 Magnesium 266 mg PO BID 12/18/18 02/02/19 Melatonin 6 mg PO ACHS 12/18/18 02/02/19 Mycophenolate Mofetil [Cellcept] 1,000 mg PO BID 12/18/18 02/02/19 Pantoprazole [Protonix] 40 mg PO DAILY 12/18/18 02/02/19 Pravastatin [Pravachol] 20 mg PO DAILY 12/18/18 02/02/19 Prednisone 10 mg PO DAILY 12/18/18 02/02/19 Sertraline [Zoloft] 100 mg PO DAILY 12/18/18 02/02/19 Sulfamethoxazole/Trimethoprim 1 each PO DAILY 12/18/18 02/02/19 [Bactrim 400-80 mg Tablet] Tacrolimus [Prograf] 3 mg PO BID 12/18/18 02/02/19 Torsemide 40 mg PO DAILY 12/18/18 02/02/19 Valganciclovir HCl 900 mg PO DAILY 12/18/18 02/02/19 Acetaminophen [Tylenol] 650 mg PO Q6HR PRN 12/24/18 02/02/19 Vitamin [Trinatal Rx 1] 1 tab PO DAILY 12/24/18 02/02/19 Gabapentin 300 mg PO BID 02/02/19 02/02/19 Gabapentin 600 mg PO DAILY PM 02/02/19 02/02/19 - Allergies Allergies/Adverse Reactions: Allergies Allergy/AdvReac Type Severity Reaction Status Date / Time carvedilol Allergy Anaphylaxis Verified 02/02/19 11:22 amiodarone AdvReac Unknown Verified 02/02/19 11:22 Review of Systems - Constitutional Constitutional: reports: Fatigue, Weight gain (7 pounds). denies: Fever - Eyes Eyes: reports: Vision loss, Corrective lenses - Cardiovascular Cardiovascular: reports: Exertional dyspnea, Decr. exercise tolerance. denies: Chest pain - Respiratory Respiratory: reports: SOB at rest, SOB with exertion - Gastrointestinal Gastrointestinal: reports: Early satiety - Musculoskeletal Musculoskeletal: reports: Muscle weakness - Integumentary Integumentary: reports: Dryness - Neurological Neurological: reports: General weakness, Dizziness, Memory problems (mild) - Psychiatric Psychiatric: reports: Depression, Anxiety - All Other Systems All Other Systems: reports: Reviewed and negative Physical Exam - Vital Signs Pulse Rate: 93 Respiratory Rate: 18 O2 Saturation: 94 (ra @ rest) Blood Pressure: 125/80 - Physical Exam General Appearance: positive: No acute distress, Alert Eyes Bilateral: positive: Normal inspection ENT: positive: No signs of dehydration Neck: positive: No JVD, Trachea midline Cardiovascular: positive: Regular rate & rhythm Respiratory: negative: Rales (decreased in left base) Abdomen: positive: Non-tender, Soft, Obese Skin: positive: Pallor, Dryness Extremities: positive: No pedal edema Neurologic/Psychiatric: positive: Oriented x3, Mood/affect nml Palliative Care - POLST Patient has POLST: No POLST Status: Full Code Pain: Location (Reports persistent dull ache at the base of her skull, this is not increased with her decrease of gabapentin. She is currently on 300 a.m., 300 mid afternoon, and 600 at bedtime. What has evolved that she does have some increased right pain in her thigh area. If that eighth severity rating of 4 out of 10. This has emerged as part of the taper, though the dizziness has improved.) Tiredness/Fatigue: Severe (7-10) Drowsiness/Sedation: Severe (7-10) Nausea: None Depression: None Anxiety: Mild (1-3) Dyspnea: Moderate (4-6) Anorexia: Mild (1-3) Sleep: Sleeps poorly (Reports difficulty going to sleep, denies racing thoughts, she does take a break in the afternoon for about 2 hours, but does not sleep during that time.) Constipation: No Feelings of wellbeing/Perceived Quality of Life: Good, Acceptable, Improved Performance Status: Patient is able to go for short walks, though has to rest frequently. She is having significant shortness of breath with activity. She does attend her own ADLs, she no longer needs someone with her is able to drive again. She is looking forward to initiating cardiac rehab. - Palliative Care Discussion: We did finish her healthcare directive, with a final review, she is feeling quite good about this. It has been adapted for her current situation, she will get it signed and on record. Counseling in conversation today was focused on the construct of going from focusing on "getting her head around dying" to now focusing on being well and living. She is feeling somewhat lost and drifting as a result of this. She has had more depressive feelings, but denies feeling depressed. Explored these feelings and concepts. Impression and Recommendations - Palliative Care Impression: This is a 53-year-old woman who is status post heart transplant, who had been living with LVAD as a destination therapy. She does have a history of stage III breast cancer, continued remission and on hormone therapy. She continues with moderate symptom burden, specifically fatigue, insomnia, and concern for depression. Palliative care to provide ongoing support, patient to start cardiac rehab. Recommendations/Counseling Done: 1. Persistent headache. She did trial the gabapentin down to 300 mg a day and dosing, and continued 600 at night. This did improve her dizziness, did not improve her fatigue and she did have the emergence of some right leg pain which has been problematic previously secondary to her stroke. Recommended she trial back up on the 400 mg, to see if dizziness increases. She is still awaiting appointment at stroke clinic. Is not unbearable, she does have a neck x-ray scheduled by Dr. Cochran. 2. Depression, currently controlled. Counseling provided to normalize feelings of grief and loss, patient now with a transition from focusing on her dying to focusing on her living, provided some CBT techniques for increasing some of her feelings, including journaling, resumption of supportive activities, I do feel she will benefit from re-engaging in starting cardiac rehab. 3. Dyspnea. Patient continues to have severe dyspnea, and activity intolerance. She has had some weight gain, though does not identify increased edema, abdominal increase in girth, her lungs are clear. She she has been eating better, it may actually just be weight. Patient seen her cardiac team th is Th[facility], and on a regular basis. Counseling provided again for energy conservation, balancing activity with energy, she is to start cardiac rehab this may address some of her deconditioning. 4. Insomnia. Patient is able to sleep when she falls asleep, despite getting up frequently to avoid. Instructed on CBT techniques for insomnia, if she is finding she is laying there greater than 15 minutes, she is to get up find alternative activity, and then return to bed and continue to repeat this. Counseling provided regarding sleep hygiene. 5. Advanced care planning. Counseling provided regarding patient's current concerns, completed advanced care planning document, this is been something patient has been anxious about getting completed. She will get it signed and returned for her medical record. Time Spent: Time spent 50 minutes with greater than 50% of this done in counseling regarding goals of care, depression, anxiety, and anticipatory guidance.
== END 2019-02-02 10:03 | disposition home or self-care (01) ==
LOC: PC 10:02
PROVIDERS: ATTEND Nurse Practitioner Adult Health
DX: Z51.5 Encounter for palliative care (principal); R51 Headache; F32.9 Major depressive disorder, single episode, unspecified; F41.9 Anxiety disorder, unspecified; R06.00 Dyspnea, unspecified; R42 Dizziness and giddiness; R53.1 Weakness; G47.00 Insomnia, unspecified; R53.83 Other fatigue; M79.604 Pain in right leg; Z94.1 Heart transplant status; I50.20 Unspecified systolic (congestive) heart failure; I42.7 Cardiomyopathy due to drug and external agent; T45.1X5D Adverse effect of antineoplastic and immunosuppressive drugs, subsequent encounter; C50.919 Malignant neoplasm of unspecified site of unspecified female breast; H54.7 Unspecified visual loss; Z79.52 Long term (current) use of systemic steroids; Z79.899 Other long term (current) drug therapy
CPT/HCPCS: 99215

== ENCOUNTER 2019-02-02 12:18 | Outpatient (CLI) | payer MEDICARE, BC ==
--- NOTE | 2019-02-02 15:02 | XRAY Report ---
Reason: NECK PAIN Procedure Date: 02/02/2019 Accession Number: [id number] / [id number] Procedure: XR - Cervical Spine 2 View CPT Code: FULL RESULT: EXAM: CERVICAL SPINE RADIOGRAPHY EXAM DATE: 02/02/2019 12:48 PM. CLINICAL HISTORY: Neck pain. COMPARISONS: None. TECHNIQUE: 3 views. FINDINGS: Alignment: Normal. No spondylolisthesis or scoliosis. Bones: The cervical vertebral bodies and posterior elements are well visualized from the skull base through C7-T1. The bones are qualitatively osteopenic; this limits evaluation for underlying fractures or masses. No fractures or bone lesions. Disks: Normal. Disk heights are maintained. Facets: There is lateral mass hypertrophy on the AP view, likely underappreciated due to osteopenia. Soft Tissues: Normal. No prevertebral soft tissue swelling. The visualized lung apices are clear. IMPRESSION: Qualitative osteopenia and lateral mass predominant degenerative changes. RADIA
== END 2019-02-02 12:19 | disposition home or self-care (01) ==
LOC: DI 12:18
PROVIDERS: ATTEND Internal Medicine Cardiovascular Disease
DX: M47.812 Spondylosis without myelopathy or radiculopathy, cervical region (principal); M85.88 Other specified disorders of bone density and structure, other site
CPT/HCPCS: 72040

== ENCOUNTER 2019-02-09 08:05 | Outpatient (CLI) | payer MEDICARE, BC ==
[2019-02-09 08:44] LABS: CALCIUM 8.6 mg/dL (8.5-10.3); CREATININE 1.3 mg/dL (0.4-1.0)
== END 2019-02-09 08:06 | disposition home or self-care (01) ==
LOC: LAB 08:05
PROVIDERS: ATTEND Registered Nurse
DX: Z94.1 Heart transplant status (principal)
CPT/HCPCS: 36415; 80048; 80197

== ENCOUNTER 2019-02-16 10:03 | Outpatient (CLI) | payer MEDICARE, BC | END 2019-02-16 10:04 | disposition home or self-care (01) | LOC: PC 10:03 | PROVIDERS: ATTEND Nurse Practitioner Adult Health | DX: Z53.9 Procedure and treatment not carried out, unspecified reason (principal) ==

== ENCOUNTER 2019-02-25 10:59 | Outpatient (CLI) | payer MEDICARE, BC ==
[2019-02-25 11:23] LABS: BASOPHILS # (AUTO) 0.1 10^3/uL (0.0-0.1); BASOPHILS % (AUTO) 4.1 %; EOSINOPHILS # (AUTO) 0.1 10^3/uL (0.0-0.7); EOSINOPHILS % (AUTO) 4.7 %; HGB - HEMOGLOBIN 12.4 g/dL (12.0-16.0); LYMPHOCYTES # (AUTO) 0.5 10^3/uL (1.5-3.5); LYMPHOCYTES % (AUTO) 39.2 %; MEAN CORPUSCULAR HEMOGLOBIN 34.3 pg (27.0-31.0); MEAN CORPUSCULAR HGB CONC 34.2 g/dL (32.0-36.0); MEAN CORPUSCULAR VOLUME 100.4 fL (81.0-99.0); MEAN PLATELET VOLUME 7.5 fL (7.9-10.8); MONOCYTES # (AUTO) 0.5 10^3/uL (0.0-1.0); MONOCYTES % (AUTO) 34.5 %; NEUTROPHILS % (AUTO) 17.5 %; PLT - PLATELET COUNT 236 10^3/uL (130-450); RED CELL DISTRIBUTION WIDTH 12.2 % (12.0-15.0)
[2019-02-25 11:35] LABS: CALCIUM 9.3 mg/dL (8.5-10.3); CREATININE 1.3 mg/dL (0.4-1.0)
[2019-02-25 11:50] LABS: RBC MORPHOLOGY (MULTIPLE) 1+ ANISOCYTOSIS (NORMAL)
[2019-02-25 12:30] LABS: NEUTROPHILS # (AUTO) 0.2 10^3/uL (1.5-6.6); WHITE BLOOD COUNT 1.3 x10^3/uL (4.8-10.8)
== END 2019-02-25 11:00 | disposition home or self-care (01) ==
LOC: LAB 10:59
PROVIDERS: ATTEND Registered Nurse
DX: Z94.1 Heart transplant status (principal)
CPT/HCPCS: 36415; 80048; 80197; 85025

== ENCOUNTER 2019-03-02 09:45 | Outpatient (CLI) | payer MEDICARE, BC ==
[2019-03-02 10:13] LABS: BASOPHILS % (AUTO) 1.1 %; EOSINOPHILS % (AUTO) 1.2 %; HGB - HEMOGLOBIN 12.2 g/dL (12.0-16.0); LYMPHOCYTES % (AUTO) 13.3 %; MEAN CORPUSCULAR HEMOGLOBIN 34.7 pg (27.0-31.0); MEAN CORPUSCULAR HGB CONC 34.7 g/dL (32.0-36.0); MEAN CORPUSCULAR VOLUME 99.8 fL (81.0-99.0); MEAN PLATELET VOLUME 8.2 fL (7.9-10.8); MONOCYTES % (AUTO) 12.8 %; NEUTROPHILS % (AUTO) 71.6 %; PLT - PLATELET COUNT 205 10^3/uL (130-450); RED BLOOD COUNT 3.52 10^6/uL (4.20-5.40); RED CELL DISTRIBUTION WIDTH 12.2 % (12.0-15.0); WHITE BLOOD COUNT 9.5 x10^3/uL (4.8-10.8)
[2019-03-02 10:33] LABS: ABNORMAL LYMPHS % (MANUAL) 0 %
[2019-03-02 10:37] LABS: BAND NEUTROPHILS % (MANUAL) 11 %; BASOPHILS # (MANUAL) 0.2 10^3/uL (0-0.1); BASOPHILS % (MANUAL) 2 %; DIFFERENTIAL COMMENT MANUAL DIFFERENTIAL; EOSINOPHILS # (MANUAL) 0.1 10^3/uL (0-0.7); LYMPHOCYTES # (MANUAL) 1.3 10^3/uL (1.5-3.5); LYMPHOCYTES % (MANUAL) 7 %; METAMYELOCYTES % (MANUAL) 1 %; MONOCYTES # (MANUAL) 1.4 10^3/uL (0.0-1.0); MYELOCYTES % (MANUAL) 3 %; NEUTROPHILS # (MANUAL) 6.1 10^3/uL (1.5-6.6); NEUTROPHILS % (MANUAL) 53 %
== END 2019-03-02 09:46 | disposition home or self-care (01) ==
LOC: LAB 09:45
PROVIDERS: ATTEND Internal Medicine Cardiovascular Disease
DX: D70.8 Other neutropenia (principal); Z94.1 Heart transplant status
CPT/HCPCS: 36415; 85025

== ENCOUNTER 2019-03-09 08:06 | Outpatient (CLI) | payer MEDICARE, BC ==
[2019-03-09 08:26] LABS: BASOPHILS # (AUTO) 0.1 10^3/uL (0.0-0.1); BASOPHILS % (AUTO) 1.1 %; EOSINOPHILS # (AUTO) 0.1 10^3/uL (0.0-0.7); EOSINOPHILS % (AUTO) 1.3 %; HGB - HEMOGLOBIN 13.2 g/dL (12.0-16.0); LYMPHOCYTES % (AUTO) 11.8 %; MEAN CORPUSCULAR HEMOGLOBIN 34.2 pg (27.0-31.0); MEAN CORPUSCULAR HGB CONC 35.1 g/dL (32.0-36.0); MEAN CORPUSCULAR VOLUME 97.5 fL (81.0-99.0); MEAN PLATELET VOLUME 8.6 fL (7.9-10.8); MONOCYTES # (AUTO) 0.6 10^3/uL (0.0-1.0); MONOCYTES % (AUTO) 7.7 %; NEUTROPHILS # (AUTO) 6.5 10^3/uL (1.5-6.6); NEUTROPHILS % (AUTO) 78.1 %; PLT - PLATELET COUNT 245 10^3/uL (130-450); RED BLOOD COUNT 3.84 10^6/uL (4.20-5.40); WHITE BLOOD COUNT 8.3 x10^3/uL (4.8-10.8)
[2019-03-09 08:40] LABS: CALCIUM 8.6 mg/dL (8.5-10.3); CREATININE 1.6 mg/dL (0.4-1.0)
== END 2019-03-09 08:07 | disposition home or self-care (01) ==
LOC: LAB 08:06
PROVIDERS: ATTEND Internal Medicine Cardiovascular Disease
DX: Z94.1 Heart transplant status (principal)
CPT/HCPCS: 36415; 80048; 80197; 85025

== ENCOUNTER 2019-03-18 10:24 | Outpatient (CLI) | payer MEDICARE, BC ==
--- NOTE | 2019-03-18 15:29 | CONSULTATION NOTE ---
Palliative Care Follow Up - Referral Referring Provider: Dr. Pasha Ross Time of Visit: [id number] Referral setting: [facility] [place] Reason: Depression/Heart transplant/Breast CA - Information Sources Records reviewed: Previous records reviewed History/Review of Systems obtained from: Patient Exam limitations: No limitations - History of Present Illness Update Brief HPI Update: This is a jose 53-year-old woman who originally seen by palliative care as a result of having an LVAD as destination therapy. This is a result of chemotherapy-induced severe cardiomyopathy with the sequela of end-stage systolic CHF. She had received chemotherapy for stage III inflammatory breast cancer, currently in remission and continues on hormone therapy. She did receive a heart transplant after she been hospitalized with LVAD thrombosis in 09/2019, she also had a small stroke in October 2018. She continues to follow a fairly intensive follow-up with heart transplant, with now down to biopsies monthly, frequent lab draws, most recently she was neutropenic secondary to her immunosuppressive drugs. She did require Neulasta, has not had any residual effects from this. She has had some difficulty with fluid balance, unfortunately this week it is hypotension. She is on increased doses of diuretics. She is working on pacing her activities, try not to get inpatient, as well as stays safe with her dizziness and fall prevention. Palliative care following her for symptom management, particularly around depression. She does feel less engaged, prsents with somewhat of a flat affect, and feeling more fatigued overall. She has had multiple medication changes, as well as needing to identify the new normal, looking forward and setting goals regarding her now extended prognosis. She is coming up on her 5-year anniversary for her breast cancer, unfortunately her sister was just diagnosed with breast cancer, she lives in [place]. She will be attending her appointments and providing support. Social History - Living Situation Living arrangement: At home Living Situation: With family Support System: She lives with her mother most of the time, she has a good friend that she stays with a green bank for the rest. She finds this balance satisfactory. Medications/Allergies - Medications Home Medications: Ambulatory Orders Medication Instructions Recorded Confirmed Alendronate Sodium 70 mg PO .Sundays12/18/18 03/18/19 Aspirin Chewable [[facility] 81 mg PO DAILY 12/18/18 03/18/19 Aspirin] Calcium Carbonate [[id number]] 1,000 mg PO BID 12/18/18 03/18/19 Cholecalciferol (Vitamin D3) 1,000 unit PO DAILY 12/18/18 03/18/19 [Vitamin D3] Exemestane 25 mg PO DAILY 12/18/18 03/18/19 Leuprolide Acetate [Lupron Depot] 22.5 mg IM .Q3 MONTH 12/18/18 03/18/19 Magnesium 133 mg PO DAILY 12/18/18 03/18/19 Melatonin 6 mg PO ACHS 12/18/18 03/18/19 Mycophenolate Mofetil [Cellcept] 500 mg PO BID 12/18/18 03/18/19 Pantoprazole [Protonix] 40 mg PO DAILY 12/18/18 03/18/19 Pravastatin [Pravachol] 20 mg PO DAILY 12/18/18 03/18/19 Prednisone 7.5 mg PO DAILY 12/18/18 03/18/19 Sertraline [Zoloft] 100 mg PO DAILY 12/18/18 03/18/19 Sulfamethoxazole/Trimethoprim 1 each PO DAILY 12/18/18 03/18/19 [Bactrim 400-80 mg Tablet] Tacrolimus [Prograf] 3.5 mg PO BID 12/18/18 03/18/19 Torsemide 40 mg PO DAILY 12/18/18 03/18/19 Acetaminophen [Tylenol] 650 mg PO Q6HR PRN 12/24/18 03/18/19 Vitamin [Trinatal Rx 1] 1 tab PO DAILY 12/24/18 03/18/19 Gabapentin 300 mg PO BID 02/02/19 03/18/19 Gabapentin 600 mg PO DAILY PM 02/02/19 03/18/19 Potassium Chloride 80 meq PO DAILY 02/26/19 03/18/19 - Allergies Allergies/Adverse Reactions: Allergies Allergy/AdvReac Type Severity Reaction Status Date / Time carvedilol Allergy Anaphylaxis Verified 02/02/19 11:22 amiodarone AdvReac Unknown Verified 02/02/19 11:22 Review of Systems - Constitutional Constitutional: reports: Fatigue, Poor appetite, Weight gain. denies: Fever, Chills - Cardiovascular Cardiovascular: reports: Lightheadedness (has had hypotension for a few days), Exertional dyspnea, Decr. exercise tolerance - Respiratory Respiratory: reports: SOB with exertion. denies: SOB at rest - Genitourinary Genitourinary: reports: Frequency - Musculoskeletal Musculoskeletal: reports: Stiffness, Muscle weakness - Integumentary Integumentary: reports: Dryness - Neurological Neurological: reports: General weakness, Dizziness, Memory problems (mild) - Psychiatric Psychiatric: reports: Depression, Anxiety - All Other Systems All Other Systems: reports: Reviewed and negative Physical Exam - Vital Signs Temperature: 36.7 C Pulse Rate: 96 Respiratory Rate: 18 Blood Pressure: 96/62 (@ cardiac rehab) - Physical Exam General Appearance: positive: Mild distress (feeling "whoozy") Eyes Bilateral: positive: Normal inspection ENT: negative: Pharyngeal erythema, Dry mucous membranes Neck: positive: Trachea midline, Other (mild cushingnoids) Cardiovascular: positive: Regular rate & rhythm, Tachycardia Respiratory: positive: Diminished in bases. negative: Wheezes, Rales, Rhonchi Abdomen: positive: Soft, Nml bowel sounds, Obese Skin: positive: Pallor, Dryness, Other (petechiae on chest wall with scarring; no lumps or areas of concern on incision line) Extremities: positive: No pedal edema Neurologic/Psychiatric: positive: Oriented x3, Weakness, Depressed mood/affect Palliative Care - POLST Patient has POLST: No POLST Status: Full Code Pain: Pain improved, Location (She is on gabapentin 300 mg twice daily and 600 mg at bedtime. This is for residual right leg pain and right side secondary stroke, this is improved. She also has some acute new her left shoulder pain, thought to be related to some cervical stenosis. Her headache pain has improved and mostly resolved over the last 3 to 4 weeks, wondering if it is side effect of 1 of the medications she is discontinued.) Tiredness/Fatigue: Severe (7-10) (Her biggest complaint is about her fatigue, some of this has to do with her hypertension, she did have some fluid overload and recently increase in her diuretics. She is also had a change in her prednisone and continues on Bactrim. She reports she is sleeping without any difficulty other than up to void with increased diuretic. Has not been anemic, though her kidney function is not great this last drawn on 03/09.) Drowsiness/Sedation: Mild (1-3) Nausea: Mild (1-3) Depression: Mild (1-3) Anxiety: None Dyspnea: Mild (1-3) Anorexia: None Sleep: Sleeps well Constipation: No Feelings of wellbeing/Perceived Quality of Life: Good, Acceptable Performance Status: Patient is participating in cardiac rehab, does have to do a slow warm up and slow down. Her blood pressure has been on the lower side, is somewhat hypotensive today. She is taking her walks with her dog, is feeling somewhat flat so this is not is stimulating as in the past. She is independent in her ADLs. - Palliative Care Discussion: She was slight setback with neutropenia, has had multiple medication changes over the last several weeks. Is feeling somewhat flat and significant fatigue. We did discuss in the context of her depression, that she has been titrated down on her prednisone which is often more of a stimulant, she has had major med changes, she is hypotensive and suspect her physical is definitely impacting her emotional at this point in time. We did review strategies that are of support for her, she has set up some goals for hiking this fall, trying to define a new normal, now will be supporting her sister who is starting her journey with breast cancer. Given information on [employer]. Encouraged to continue to stay active, consistent with cardiac rehab, and perhaps find some outside acitivity/class or group not connected to her health care. Problem solving done around this.She did get her advanced directive signed, will get a copy for her records, she does have a record done and signed at [facility]. Results - Lab Results Lab results reviewed: Yes Impression and Recommendations - Palliative Care Impression: This is a jose 53-year-old woman status post heart transplant, who been living with LVAD as destination therapy, history of stage III breast cancer with continued remission and on hormone therapy. She continues with moderate symptom burden, specifically persistent fatigue, has had an exacerbation of her depressive symptoms, is trying to find "a new normal". Palliative care to continue provide support around symptom management, counseling for adjustment illness. Recommendations/Counseling Done: 1.Hypotension. Patient is somewhat symptomatic, she does see her provider tomorrow, continues to have her medications adjusted. Encouraged on slow pace, and to track blood pressures for provider review. 2. Headache. This does appear to be doing better, given she discontinued the Valganciclovir, wondering if this was the culprit. She reports has been improved. She does have some residual left shoulder pain, does have a referral for PT after her cardiac rehab is not resolved. 3. Fatigue. This is multifactorial in origin, has had multiple medication changes, including titration down of her prednisone. Would suggest further follow-up regarding her adrenal/cortisol levels. Encouraged to continue with her cardiac rehab, pacing activities, and frequent rest periods 4. Depression. Patient does present with more persistent depressive symptoms, this is discussed regarding benefits and burdens at some point of transitioning to alternative antidepressant. Did discuss more about cognitive behavioral approaches as well as activities to engage, goalsetting and continuing to acknowledge just the trauma and grief she is been through recently. 5. Advanced care planning. Patient does have her advanced care planning document done, she will get a copy to me for her records, at this point time she is a full code, she does have a D POA her mother Maria Ines Juan home number [phone]; mobile [phone] Time Spent: 55 minutes with getting 50% of this done in counseling regarding adjustment illness, goals of care, managing both physical and emotional symptoms and anticipatory guidance
== END 2019-03-18 10:25 | disposition home or self-care (01) ==
LOC: PC 10:24
PROVIDERS: ATTEND Nurse Practitioner Adult Health
DX: Z51.5 Encounter for palliative care (principal); I95.9 Hypotension, unspecified; R51 Headache; M25.512 Pain in left shoulder; F32.9 Major depressive disorder, single episode, unspecified; C50.919 Malignant neoplasm of unspecified site of unspecified female breast; I10 Essential (primary) hypertension; F41.9 Anxiety disorder, unspecified; M79.604 Pain in right leg; I69.998 Other sequelae following unspecified cerebrovascular disease; Z79.811 Long term (current) use of aromatase inhibitors; Z79.899 Other long term (current) drug therapy; Z94.1 Heart transplant status; Z86.718 Personal history of other venous thrombosis and embolism; Z80.3 Family history of malignant neoplasm of breast; Z79.52 Long term (current) use of systemic steroids; Z79.2 Long term (current) use of antibiotics
CPT/HCPCS: 99215

== ENCOUNTER 2019-03-26 10:33 | Outpatient (CLI) | payer MEDICARE, BC | END 2019-03-26 10:34 | disposition home or self-care (01) | LOC: LAB 10:33 | DX: Z53.9 Procedure and treatment not carried out, unspecified reason (principal) | CPT/HCPCS: 36415; 80048; 80197 ==

== ENCOUNTER 2019-03-27 09:42 | Outpatient (CLI) | payer MEDICARE, BC ==
[2019-03-27 10:10] LABS: CALCIUM 8.7 mg/dL (8.5-10.3); CREATININE 1.3 mg/dL (0.4-1.0)
== END 2019-03-27 09:43 | disposition home or self-care (01) ==
LOC: LAB 09:42
DX: Z51.81 Encounter for therapeutic drug level monitoring (principal); Z94.1 Heart transplant status
CPT/HCPCS: 36415; 80048; 80197

== ENCOUNTER 2019-04-24 10:05 | Outpatient (CLI) | payer MEDICARE, BC ==
--- NOTE | 2019-04-24 19:46 | CONSULTATION NOTE ---
Palliative Care Follow Up - Referral Referring Provider: Dr. Pasha Ross Time of Visit: [id number] Referral setting: [facility] [place] Referral Reason: Depression/Heart transplant/Hx of Breast CA - Information Sources History/Review of Systems obtained from: Patient Exam limitations: No limitations - History of Present Illness Update Brief HPI Update: This is a jose 53-year-old woman who was originally seen by palliative care as a result of having an LVAD as destination therapy. 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 She actually received a heart transplant after being hospitalized with LVAD thrombosis in 09/2019, at this time she had a small stroke in October 2018. She is followed quite closely by the heart transplant team, with ongoing biopsies to monitor for rejection, and is on a prednisone taper, she is currently just switched to 2.5 mg daily. She also complains of recent fluid overload, and is working with torsemide with her providers regarding this. She has progressed to the point that she is participating in cardiac rehab and has found this is quite positive. She is also at risk for neutropenia secondary to her [id number] drugs. Patient also has completed chemotherapy/radiation for stage III inflammatory breast cancer, currently in remission and continues on hormone therapy. Her sister was recently diagnosed with breast cancer, she has been assisting her through her journey, interestingly enough with the same providers. Palliative care has been following her for symptom management, particular around her depression. She does report she is feeling more physically well, but worried about her emotional well-being. She did recently have a taper on her prednisone, is feeling a little rough around the edges, she has had in the past significant depressive episodes. She is currently on sertraline 100 mg, and has had significant situational stressors over the last several months, adding to her risk of reccurence. Social History - Living Situation Living arrangement: Other Living Situation: With family Support System: Patient lives part-time with her mother, renting a room. This is been supportive both financially and emotionally for patient, particularly over the last couple years with her significant health issues. She also has a good friend, that she spends and stays with in [place] on a regular basis. Her community is somewhat limited, as some of her friends have moved off the [place]. She does have a very supportive family as well as her long-term friend Medications/Allergies - Medications Home Medications: Ambulatory Orders Medication Instructions Recorded Confirmed Alendronate Sodium 70 mg PO .Sundays12/18/18 04/25/19 Aspirin Chewable [[facility] 81 mg PO DAILY 12/18/18 04/25/19 Aspirin] Calcium Carbonate [[id number]] 1,000 mg PO BID 12/18/18 04/25/19 Cholecalciferol (Vitamin D3) 1,000 unit PO DAILY 12/18/18 04/25/19 [Vitamin D3] Exemestane 25 mg PO DAILY 12/18/18 04/25/19 Leuprolide Acetate [Lupron Depot] 22.5 mg IM .Q3 MONTH 12/18/18 04/25/19 Magnesium 133 mg PO DAILY 12/18/18 04/25/19 Melatonin 6 mg PO ACHS 12/18/18 04/25/19 Mycophenolate Mofetil [Cellcept] 500 mg PO BID 12/18/18 04/25/19 Pantoprazole [Protonix] 40 mg PO DAILY 12/18/18 04/25/19 Pravastatin [Pravachol] 20 mg PO DAILY 12/18/18 04/25/19 Prednisone 2.5 mg PO DAILY 12/18/18 04/25/19 Sertraline [Zoloft] 100 mg PO DAILY 12/18/18 04/25/19 Sulfamethoxazole/Trimethoprim 1 each PO DAILY 12/18/18 04/25/19 [Bactrim 400-80 mg Tablet] Tacrolimus [Prograf] 3.5 mg PO BID 12/18/18 04/25/19 Torsemide 20 mg PO BID 12/18/18 04/25/19 Acetaminophen [Tylenol] 650 mg PO Q6HR PRN 12/24/18 04/25/19 Vitamin [Trinatal Rx 1] 1 tab PO DAILY 12/24/18 04/25/19 Gabapentin 100 mg PO BID 02/02/19 04/25/19 Gabapentin 600 mg PO DAILY PM 02/02/19 04/25/19 Potassium Chloride 80 meq PO DAILY 02/26/19 04/25/19 - Allergies Allergies/Adverse Reactions: Allergies Allergy/AdvReac Type Severity Reaction Status Date / Time carvedilol Allergy Anaphylaxis Verified 02/02/19 11:22 amiodarone AdvReac Unknown Verified 02/02/19 11:22 Review of Systems - Constitutional Constitutional: reports: Fatigue, Weight gain (13 pounds is one month-attributes 4 to fluid; does not feel has altered diet). denies: Fever, Chills - Eyes Eyes: reports: Vision loss (encourage with changes to get appointment soon), Corrective lenses - Ears, Nose & Throat Ears, Nose & Throat: reports: Dry mouth - Cardiovascular Cardiovascular: reports: Decr. exercise tolerance - Respiratory Respiratory: reports: SOB at rest (needs to cool down and warm up at slow pace with heart transplant to accomodate), SOB with exertion - Gastrointestinal Gastrointestinal: reports: Bloating, Good appetite. denies: Constipation, Nausea, Reflux/heartburn - Genitourinary Genitourinary: reports: Frequency - Musculoskeletal Musculoskeletal: reports: Other (needs to pace self; but is ambulatory and able to attend to ADLs) - Integumentary Integumentary: reports: Dryness - Neurological Neurological: reports: General weakness, Headache (has had continues persistant headache; will be seeing H/a clinic), Dizziness (improved with titration back of gabapentin), Memory problems - Psychiatric Psychiatric: reports: Depression, Anxiety. denies: Suicidal - All Other Systems All Other Systems: reports: Reviewed and negative Physical Exam - Vital Signs Pulse Rate: 100 (had come from cardiac rehab) Respiratory Rate: 20 Blood Pressure: 99/73 - Physical Exam General Appearance: positive: No acute distress, Anxious Eyes Bilateral: positive: Conjunctivae nml ENT: positive: No signs of dehydration Neck: positive: No JVD, Trachea midline Cardiovascular: positive: Tachycardia Respiratory: positive: Diminished in bases. negative: Wheezes, Rales, Rhonchi Abdomen: positive: Soft, Obese Skin: positive: Pallor, Dryness, Other (hair loss) Extremities: positive: No pedal edema Neurologic/Psychiatric: positive: Oriented x3, Weakness, Depressed mood/affect Palliative Care - POLST Patient has POLST: No POLST Status: Full Code Pain: Pain worsening (Patient has residual right thigh pain thought to be neuropathic from cutting of nerves in her groin. She is currently on gabapentin 100 mg a.m. afternoon and 600 mg at night. She had tried to titrate back secondary to dizziness, but did find the pain worsened. She also has worsening pain at the base of her right occipital, radiating down into her right neck area. This translates into persistent headaches, fluctuating in nature but fairly consistent. She has not found any medications that really have assisted in management.) Tiredness/Fatigue: Moderate (4-6) Drowsiness/Sedation: Moderate (4-6), Comment (does take day time nap) Nausea: Mild (1-3) Depression: Mild (1-3) Anxiety: None Dyspnea: Moderate (4-6) (has some improvement with cardiac rehab but has remained persistent and limiting related to activity tolerance.) Anorexia: None Sleep: Variable sleep pattern Constipation: No Feelings of wellbeing/Perceived Quality of Life: Fair, Acceptable Performance Status: Patient is participating in cardiac rehab, does require slow warm up and cool down. She does feel like she is making progress. She continues to take walks with her dog, she is independent in her ADLs. He other night she did walk 1-1/2 miles with paced activity and frequent rests. - Palliative Care Discussion: Patient continues to have intermittent fluctuation in her physical status, and is currently on a prednisone taper which could be impacting her mood. She is qu ite anxious about having a recurrent major depressive episode, and is watching for signs and symptoms. She did meet with a provider, but did not find this helpful as a long-term solution. Counseling provided regarding strategies to list with coping, may be interested in ongoing therapy, will get her resource. Encouraged to continue consistent with cardiac rehab, she is currently doing a little work covering for her sister once a week, and finding that stimulating but also tiring. Encouraged to follow through with her goal to write heart transplant donor family, discussed ways to support her in this to make it more meaningful, as they do not always respond. Impression and Recommendations - Palliative Care Impression: This is a jose 53-year-old woman status post heart transplant, previously been living with LVAD as destination therapy. She also has history of stage III breast cancer with continued remission and on hormone therapy. She continues with moderate symptom burden, specifically fatigue and exacerbation of her depressive symptoms. Palliative care to provide continued support around symptom management and counseling for adjustment to illness. Recommendations/Counseling Done: 1. Headache. That she had been doing better after she is stopped the VAncyclovir, Has persisted. It starts at her left occipital and radiates down her left shoulder. Has been using ice alternating with heat, encouraged to try some topicals. She does have a referral to the headache clinic, which she is planning to follow-up on. 2. Fatigue. This is multifactorial in origin, continues with fluctuating medication changes, and titration down of her prednisone. Would suggest further follow-up regarding her adrenal/cortisol levels. Encouraged to continue with her cardiac rehab, pacing activities, and finding the balance with rest periods. 3. Depression. Patient does present with continued more persistent depressive symptoms, she had seen someone up at [facility], with the only recommendation was to increase her sertraline. She would like to avoid medication changes, we did discuss adding psychotherapy to her regimen, she has been having trouble finding someone will take her insurance. We will send her to psychology today.[employer] website, where you can put your ZIP Code in and they have profiles along with insurance acceptance in one spot. Counseling again provided regarding cognitive behavioral approaches encouraged to find her grow her community, outside of her healthcare needs. Continue to acknowledge just the trauma and grief she is been through. 4. Advanced care planning. Patient does have advanced care planning document done, will need to be reminded to bring in again. She is at this point in time of full code, she does have a D POA her mother Maria Ines Juan home number [phone]; mobile [phone].Continues to struggle with how to look forward given her change in goals and outcomes. Time Spent: 60 minutes with greater than 50% of this done in counseling regarding goals of care, depression, management of fatigue and anticipatory guidance
== END 2019-04-24 10:06 | disposition home or self-care (01) ==
LOC: PC 10:05
PROVIDERS: ATTEND Nurse Practitioner Adult Health
DX: Z51.5 Encounter for palliative care (principal); Z94.1 Heart transplant status; F32.9 Major depressive disorder, single episode, unspecified; R53.1 Weakness; R53.83 Other fatigue; C50.919 Malignant neoplasm of unspecified site of unspecified female breast; I11.0 Hypertensive heart disease with heart failure; I50.9 Heart failure, unspecified; I42.7 Cardiomyopathy due to drug and external agent; T45.1X5D Adverse effect of antineoplastic and immunosuppressive drugs, subsequent encounter; I48.91 Unspecified atrial fibrillation; R35.0 Frequency of micturition; H54.7 Unspecified visual loss; R51 Headache; Z86.73 Personal history of transient ischemic attack (TIA), and cerebral infarction without residual deficits; Z79.52 Long term (current) use of systemic steroids; Z79.82 Long term (current) use of aspirin
CPT/HCPCS: 99215

== ENCOUNTER 2019-06-10 10:25 | Outpatient (CLI) | payer MEDICARE, BC ==
--- NOTE | 2019-06-10 12:35 | CONSULTATION NOTE ---
Palliative Care Follow Up - Referral Referring Provider: Dr. Pasha Ross Time of Visit: [id number] Referral setting: [facility] [place] Referral Reason: Depression/s/p heart transplant - Information Sources Records reviewed: Previous records reviewed History/Review of Systems obtained from: Patient Exam limitations: No limitations - History of Present Illness Update Brief HPI Update: This is a jose 54-year-old woman who was originally seen by palliative care in the context of having an LVAD as destination therapy. This is a result of chemotherapy-induced severe cardiomyopathy with the sequela of CHF. She received a heart transplant after being hospitalized with LVAD thrombosis 09/2019, she also sustained a small stroke in October 2018. She has been continued to slowly improve, she is getting biopsies on a regular basis with her next to on Saturday. She has been able to participate in cardiac rehab, she continues to have fluctuating heart rate control, with a little tachycardia during the day. She is also finding she needs to warm up and cool down quite slowly in response. She is finishing with cardiac rehab, at this point in time plans to continue with the gym. Her most pressing symptom is her headache pain, she has been on a prednisone taper and now is been off for 2 weeks. Her headaches are fairly severe, resulting in decreased function and needing to rest. A constellation of symptoms have increased with nausea and some vomiting. She is on multiple immunosuppressive drugs, certainly could be adding to the picture, as well as coming off of prednisone. She is to be followed up with neurology, her at the new cyst is she has some severe paresthesias, particularly with cold in her hand and feet. These have been progressing, and are quite problematic as far as impacting her quality of life. Her other new symptom is she is starting to have some diarrhea, with some small cramping. This is mostly occurring after eating. Overall she feels like her emotional health continues to be somewhat fragile, she does feel like she is improved, she is been quite busy helping her sister who is been dealing with breast cancer. She is also initiated a trial of work, it found 3 times a week fairly exhausting and too much stress. She feels her depression is currently managed on her sertraline 100 mg daily, did spend quite a bit of time talking about PTSD in the context of her hospitalization and journey with what was thought to be end-of-life issues. Social History - Living Situation Living arrangement: At home Living Situation: With family Support System: Patient is able to be independent now and drive. She does live with her mother and spends time with her friend. She is able to manage all her medical appointments, she does report some forgetfulness since her stroke and with all of her healthcare problems. She is compensating by writing things down, and does manage to pull most of everything together. Medications/Allergies - Medications Home Medications: Ambulatory Orders Medication Instructions Recorded Confirmed Alendronate Sodium 70 mg PO .Sundays12/18/18 06/10/19 Aspirin Chewable [[facility] 81 mg PO DAILY 12/18/18 06/10/19 Aspirin] Calcium Carbonate [[id number]] 1,000 mg PO BID 12/18/18 06/10/19 Cholecalciferol (Vitamin D3) 1,000 unit PO DAILY 12/18/18 06/10/19 [Vitamin D3] Exemestane 25 mg PO DAILY 12/18/18 06/10/19 Leuprolide Acetate [Lupron Depot] 22.5 mg IM .Q3 MONTH 12/18/18 06/10/19 Magnesium 133 mg PO DAILY 12/18/18 06/10/19 Melatonin 6 mg PO ACHS 12/18/18 06/10/19 Mycophenolate Mofetil [Cellcept] 500 mg PO BID 12/18/18 06/10/19 Pantoprazole [Protonix] 40 mg PO DAILY 12/18/18 06/10/19 Pravastatin [Pravachol] 20 mg PO DAILY 12/18/18 06/10/19 Sertraline [Zoloft] 100 mg PO DAILY 12/18/18 06/10/19 Sulfamethoxazole/Trimethoprim 1 each PO DAILY 12/18/18 06/10/19 [Bactrim 400-80 mg Tablet] Tacrolimus [Prograf] 3.5 mg PO BID 12/18/18 06/10/19 Torsemide 40 mg PO DAILY 12/18/18 06/10/19 Acetaminophen [Tylenol] 650 mg PO Q6HR PRN 12/24/18 06/10/19 Vitamin [Trinatal Rx 1] 1 tab PO DAILY 12/24/18 06/10/19 Gabapentin 600 mg PO DAILY PM 02/02/19 06/10/19 Potassium Chloride 60 meq PO DAILY 05/02/19 08/14/19 Trazodone HCl 100 mg PO ACHS PRN 06/10/19 06/10/19 - Allergies Allergies/Adverse Reactions: Allergies Allergy/AdvReac Type Severity Reaction Status Date / Time carvedilol Allergy Anaphylaxis Verified 02/02/19 11:22 amiodarone AdvReac Unknown Verified 02/02/19 11:22 Review of Systems - Constitutional Constitutional: reports: Fatigue (much improved), Weight stable. denies: Fever, Chills - Eyes Eyes: reports: Vision loss, Corrective lenses (saw eye md with new RX progressives) - Cardiovascular Cardiovascular: reports: Lightheadedness, Exertional dyspnea, Decr. exercise tolerance. denies: Chest pain, Edema - Respiratory Respiratory: reports: SOB with exertion. denies: SOB at rest - Gastrointestinal Gastrointestinal: reports: Diarrhea (new symptom with eating; no severe abdominal cramping but abd discomfort after eating), Nausea (intermittent and exacerbated with headache/occasional vomiting), Reflux/heartburn (had stopped pantoprazole in am), Good appetite - Musculoskeletal Musculoskeletal: reports: Muscle weakness - Integumentary Integumentary: reports: Dryness, Hair changes (thinning for over 8 months) - Neurological Neurological: reports: General weakness, Headache (headaches focal and radiating / build in intenstity/ now weekly and lasting for greater than a day. Unable to identify triggers; does have hx of migraines in past. Tried oxycodone without success and felt worse. Tried exedrine migraine and worked only once.), Numbness (new parathesias hand and feet; flushing at times with holding tight or pressure; continues with numbness in right leg, but using gabapentin 600 mg at night only because of dizzyness improved off in day), Memory problems (STM with forgetfulness) - Psychiatric Psychiatric: reports: Depression (controlled), Anxiety - Endocrine Endocrine: reports: Intolerance to cold - Hematologic/Lymphatic Hematologic/Lymphatic: denies: Recurrent infections - All Other Systems All Other Systems: reports: Reviewed and negative Physical Exam - Vital Signs Temperature: 36.7 C Pulse Rate: 98 Respiratory Rate: 18 Blood Pressure: 116/75 - Physical Exam General Appearance: positive: No acute distress, Alert Eyes Bilateral: positive: Normal inspection ENT: positive: No signs of dehydration Neck: positive: No JVD, Trachea midline Cardiovascular: positive: Tachycardia Respiratory: positive: Breath sounds nml, Other (diminished LLL; no crackles, wheezing, or rhonchi) Abdomen: positive: Soft Skin: positive: Pallor, Dryness Extremities: positive: No pedal edema Neurologic/Psychiatric: positive: Oriented x3, Mood/affect nml Palliative Care - POLST Patient has POLST: No Pain: Pain worsening (headache pain/right thigh numbness and discomfort) Tiredness/Fatigue: Moderate (4-6) Drowsiness/Sedation: Mild (1-3) Nausea: Mild (1-3), With vomiting Depression: Mild (1-3) Anxiety: Mild (1-3) Dyspnea: Moderate (4-6) Anorexia: None Sleep: Sleeps poorly Constipation: No Feelings of wellbeing/Perceived Quality of Life: Fair, Acceptable, Improved Performance Status: Patient reports increased ability to tolerate activity, though does become very tired if overexerts. She is participating in cardiac rehab, and is planning to follow-up at the gym. She does take her dogs for walks. She does manage her ADLs independently as well as continues to drive and oversee her own care. - Palliative Care Discussion: Discussion was spent on discussing her current emotional and mental health well- being. She was unable to find a therapist that took Medicare. She does feel like she is in a better place, her depression is not exacerbated, feels currently controlled. She does express feelings which would be appropriate of PTSD regarding now that she is going to live, versus her traumatic experience with the end of life and heart transplant. She has been finding ways to keep herself "helpful busy". She is supporting her sister through her cancer journey. She does find herself feeling somewhat more irritable, but is hoping with the completion of the prednisone this will improve. Her quality of life has been impacted though by her headaches and her new paresthesias. Impression and Recommendations - Palliative Care Impression: This is a jose 54-year-old woman status post heart transplant, previously living with LVAD as destination therapy. She does have a history of stage III breast cancer with continued remission and on hormone therapy. She is having significant improvement with her fatigue, improving physically with cardiac rehab, is having some increased trouble with insomnia and intermittently dealing with depressive symptoms. Palliative care to provide continued support around symptom management and counseling for adjustment to illness. Recommendations/Counseling Done: 1. Headache. She continues to struggle now with more frequency and increase in severity of her headache, starts at her left occipital and radiates down her left shoulder. She continues to use ice alternating with heat, has not found oxycodone or other medications helpful. Patient does have a history of m igraines, she does have a referral to neurology has not made an appointment yet. She is on tacrolimus which can add to headache, did encourage her to particularly in the light of these new paresthesias to make a appointment with the clinical pharmacist to review her medication list. 2. Insomnia. Patient only sleeping for a few hours at a time, she has been on trazodone previously with good results. We did discuss in the context of her level of fatigue she does need good sleep. We will go ahead and reorder, she will call if not effective. 3. Peripheral neuropathy. Patient does describe symptoms of numbness and tingling, fluctuating in her hands and feet. Also alternating with issues of circulation, with skin flushing. This is gradually increased over the last couple weeks. She does present with some cold intolerance also. Patient is on CellCept and Prograf, encouraged to make an appointment with clinical oil pipe inspector helper to review side effects and drug interactions. Patient is seeing neurologist in the future, discussed this would be a first tier to rule out any side effects of medications. 4. Depression. Patient does have some fluctuating persistent depressive symptoms, has not been able to find counseling support through her insurance. Counseling provided regarding normalizing her current feelings regarding her experience, signs and symptoms of PTSD, as well as encouraging to continue her physical activity, need for better sleep patterns. 5. GERD. Patient has stopped pantoprazole as no longer taking a.m. gabapentin, given patient's low-grade nausea, and intermittent vomiting instructed to restart on a regular basis. Patient also experiencing some diarrhea, patient on long-term Bactrim related to her transplant, she will revisit this with the transplant team but encouraged to consider adding probiotic or other things to support her that health. She will follow-up at her appointment on Saturday as well as with the clinical oil pipe inspector helper. Time Spent: 55 minutes with greater than 50% of this done in counseling regarding anxiety and depression, adjustment illness, side effects, and anticipatory guidance.
== END 2019-06-10 10:26 | disposition home or self-care (01) ==
LOC: PC 10:25
PROVIDERS: ATTEND Nurse Practitioner Adult Health
DX: Z51.5 Encounter for palliative care (principal); R51 Headache; R11.2 Nausea with vomiting, unspecified; G47.00 Insomnia, unspecified; G62.9 Polyneuropathy, unspecified; R19.7 Diarrhea, unspecified; K21.9 Gastro-esophageal reflux disease without esophagitis; F32.9 Major depressive disorder, single episode, unspecified; F41.9 Anxiety disorder, unspecified; R53.1 Weakness; R06.02 Shortness of breath; R53.83 Other fatigue; Z79.899 Other long term (current) drug therapy; Z79.2 Long term (current) use of antibiotics; Z79.82 Long term (current) use of aspirin; Z79.811 Long term (current) use of aromatase inhibitors; Z94.1 Heart transplant status; Z86.73 Personal history of transient ischemic attack (TIA), and cerebral infarction without residual deficits; Z85.3 Personal history of malignant neoplasm of breast
CPT/HCPCS: 99215

== ENCOUNTER 2019-07-13 15:26 | Outpatient (CLI) | payer MEDICARE, BC ==
--- NOTE | 2019-07-13 17:03 | CONSULTATION NOTE ---
Palliative Care Follow Up - Referral Referring Provider: Nay TREJO Time of Visit: [id number] [place] [facility] [place] Reason: Depression/Neuropathic pain/s/p Heart transplant/Breast CA - Information Sources Records reviewed: Previous records reviewed History/Review of Systems obtained from: Patient Exam limitations: No limitations - History of Present Illness Update Brief HPI Update: This is a jose 54-year-old woman who was originally seen by palliative care in the context of having an LVAD as destination therapy. 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 She did receive a heart transplant after being [facility], And sustained a small stroke in October 2018. She has been continuing to improve, and fax feels actually very good and starting to feel hopeful as she is starting to have more energy, less depression, and though continues with intermittent health issues overall has had a steady improvement. She is completed cardiac rehab, is working out at a local fitness center, but still continues with neuropathic symptoms, He had seen the neurologist and was not given a large amount of information. She does have continued headache pain, this is improved somewhat, she is finished her prednisone taper. If she catches it early with Excedrin Migraine, she is able to abort it. The headache has improved overall, she continues on multiple immunosuppressive drugs, and has not been able to meet with the clinical phone engineer yet. She also has severe paresthesias particularly with cold in her hand and feet, it was suggested these would be chemotherapy-induced, but she is been several years since she is received chemotherapy. She is to get a EMG testing 08/12, she reports it is irritating but not necessarily impacting her severe quality of life. She continues with persistent pain in her right thigh, this is combined with numbness most likely related to nerve damage with her surgeries. She continues on gabapentin 600 mg, had tried daytime gabapentin with increased sedation and dizziness. She does report increased dizziness for a couple weeks, as well as increased pruritus. In review of her labs, she does have a severe worsening of her kidney function with a BUN of 45, creatinine 2.5, GFR of 20. In the context of her current regimen, she is on torsemide 40 mg daily, she has no crackles, in fact appears somewhat dry. No pedal edema, and has had no recent testing. These are quite a bit higher than her baseline recently from [facility]. She feels her mood has improved, she is not feeling so vulnerable, she is feeling like she has made that transition from looking at going to to now looking at life moving forward, and to finding what the new normal is. She has a support of her friends and family, she appears quite bright and engaged, and seems to be doing well emotionally. Social History - Living Situation Living arrangement: At home Living Situation: With family Support System: She lives with her mother, which she finds a good relationship. Her mother is 78, and in good health she is thankful to have that support. She also has a good friend, where she does spend time away from/in addition to her living situation. This may be changing as he is looking at moving. He has been a good support. She is currently on SSI disability, and working with finding a balance that she does not feel like she could return full-time, but has done some that she is found fulfilling. Medications/Allergies - Medications Home Medications: Ambulatory Orders Medication Instructions Recorded Confirmed Alendronate Sodium 70 mg PO .Sundays12/18/18 07/13/19 Aspirin Chewable [[facility] 81 mg PO DAILY 12/18/18 07/13/19 Aspirin] Calcium Carbonate [[id number]] 1,000 mg PO BID 12/18/18 07/13/19 Cholecalciferol (Vitamin D3) 1,000 unit PO DAILY 12/18/18 07/13/19 [Vitamin D3] Exemestane 25 mg PO DAILY 12/18/18 07/13/19 Leuprolide Acetate [Lupron Depot] 22.5 mg IM .Q3 MONTH 12/18/18 07/13/19 Magnesium 133 mg PO DAILY 12/18/18 07/13/19 Melatonin 6 mg PO ACHS 12/18/18 07/13/19 Mycophenolate Mofetil [Cellcept] 500 mg PO BID 12/18/18 07/13/19 Pantoprazole [Protonix] 40 mg PO DAILY 12/18/18 07/13/19 Pravastatin [Pravachol] 20 mg PO DAILY 12/18/18 07/13/19 Sertraline [Zoloft] 100 mg PO DAILY 12/18/18 07/13/19 Sulfamethoxazole/Trimethoprim 1 each PO DAILY 12/18/18 07/13/19 [Bactrim 400-80 mg Tablet] Tacrolimus [Prograf] 3.5 mg PO BID 12/18/18 07/13/19 Torsemide 40 mg PO DAILY 12/18/18 07/13/19 Acetaminophen [Tylenol] 650 mg PO Q6HR PRN 12/24/18 07/13/19 Vitamin [Trinatal Rx 1] 1 tab PO DAILY 12/24/18 07/13/19 Gabapentin 600 mg PO DAILY PM 02/02/19 07/13/19 Potassium Chloride 60 meq PO DAILY 02/26/19 07/13/19 Trazodone HCl 100 mg PO ACHS PRN 06/10/19 07/13/19 - Allergies Allergies/Adverse Reactions: Allergies Allergy/AdvReac Type Severity Reaction Status Date / Time carvedilol Allergy Anaphylaxis Verified 07/13/19 16:27 amiodarone AdvReac Unknown Verified 07/13/19 16:27 Review of Systems - Constitutional Constitutional: reports: Fatigue, Weight loss. denies: Fever, Chills - Eyes Eyes: reports: Vision loss, Corrective lenses - Ears, Nose & Throat Ears, Nose & Throat: reports: Dry mouth - Cardiovascular Cardiovascular: reports: Lightheadedness, Exertional dyspnea, Decr. exercise tolerance. denies: Chest pain, Edema - Respiratory Respiratory: reports: SOB at rest, SOB with exertion. denies: Cough - Gastrointestinal Gastrointestinal: reports: Abdominal distention, Diarrhea (for two days), Good appetite. denies: Nausea, Vomiting - Genitourinary Genitourinary: reports: Frequency - Musculoskeletal Musculoskeletal: reports: Stiffness, Muscle weakness - Integumentary Integumentary: reports: Pruritis (new for two weeks), Dryness, Hair changes (thinning) - Neurological Neurological: reports: General weakness, Memory problems (improved; feeling more clear) - Psychiatric Psychiatric: denies: Depression, Anxiety - Hematologic/Lymphatic Hematologic/Lymphatic: denies: Anemia, Recurrent infections - All Other Systems All Other Systems: reports: Reviewed and negative Physical Exam - Vital Signs Pulse Rate: 95 Respiratory Rate: 18 O2 Saturation: 99 (ra @ rest) Blood Pressure: 118/70 - Physical Exam General Appearance: positive: No acute distress, Alert Eyes Bilateral: positive: Normal inspection Neck: positive: No JVD, Trachea midline Cardiovascular: positive: Regular rate & rhythm Respiratory: positive: No respiratory distress, Breath sounds nml. negative: Rales Abdomen: positive: Soft Skin: positive: Pallor, Dryness Extremities: positive: No pedal edema Neurologic/Psychiatric: positive: Oriented x3, Mood/affect nml Palliative Care - POLST Patient has POLST: No POLST Status: Full Code Pain: Comment (see HPI; using gabapentin 600 mg for thigh discomfrt) Tiredness/Fatigue: Moderate (4-6) Drowsiness/Sedation: Moderate (4-6) Nausea: None Depression: Mild (1-3) Anxiety: None Dyspnea: Moderate (4-6) Anorexia: None Sleep: Sleep improved, Other (planning on sleep study) Feelings of wellbeing/Perceived Quality of Life: Good, Acceptable, Improved Performance Status: Patient is independent in her ADLs, she can drive herself, she is starting to do more activity, including daily activity at the gym. She takes her dog for the w alk, and feels like she is doing better managing overall her activity tolerance - Palliative Care Discussion: Counseling regarding her current emotional state, who feelings of hopefulness, feeling like she is doing better and has avoided an exacerbation of her depression. Continue to explore ways to engage in community, focus on things outside of herself, and defining new normal. She is feeling both physically and emotionally better, and feels like able to take changes better in stride. Results - Lab Results Lab results reviewed: Yes Lab and Imaging Results: Sodium 139; potassium 4.6; BUN 45; creatinine 2.5; GFR 20 total protein 7.2 albumin 4.3 WBC 7.9 RBC 3.89 hemoglobin 11.9 hematocrit 35.4 Impression and Recommendations - Palliative Care Impression: This is a jose 54-year-old woman status post heart transplant, previous living with LVAD as destination therapy. She does have a history of stage III breast cancer with continued remission, and on hormone therapy. She is due to see the oncologist this afternoon. Her symptom burden has improved, she continues with ongoing remittent neuropathy symptoms, and now presents with worsening of her kidney function. Palliative care to provide continued support around symptom management and counseling for adjustment to illness. Recommendations/Counseling Done: 1. Neuropathies. Patient describes symptoms of numbness and tingling, fluctuating her hands and feet with paresthesias related to temperature. She is hesitant to increase the gabapentin, as she already has baseline dizziness has found that more fatiguing. Counseling provided regarding alternative if neuropathies continue to worsen can look at pregabalin, it is generic now and may be better tolerated as far as side effects and ease of titration. She is planning to meet with the clinical phone engineer with her next visit at the [facility], she will follow-up given after her review of her medications. 2. Insomnia. Patient reports trazodone has improved sleep. She does have an appointment with the sleep center in [place] in the next month. We will continue the trazodone for now. 3. Depression. Patient is doing much better, with management of her depression. Counseling provided regarding other cognitive behavioral approaches to incorporate, including her light box, specific directions given for use and rationale. 4. Renal insufficiency. Patient does have an exacerbation of her renal insufficiency, most likely is too dry and needs torsemide adjusted. She will call her transplant team for recommendations. Time Spent: 45 minutes with greater than 50% of this done in counseling regarding management of symptoms, as well as adjustment to illness and anticipatory guidance. Have set next appointment into August, and unless she has an exacerbation or concerns she will contact me.
== END 2019-07-13 15:27 | disposition home or self-care (01) ==
LOC: PC 15:26
PROVIDERS: ATTEND Nurse Practitioner Adult Health
DX: Z51.5 Encounter for palliative care (principal); R20.2 Paresthesia of skin; R20.0 Anesthesia of skin; M79.651 Pain in right thigh; G47.00 Insomnia, unspecified; N28.9 Disorder of kidney and ureter, unspecified; F32.9 Major depressive disorder, single episode, unspecified; R51 Headache; R42 Dizziness and giddiness; L29.9 Pruritus, unspecified; C50.919 Malignant neoplasm of unspecified site of unspecified female breast; I10 Essential (primary) hypertension; Z79.899 Other long term (current) drug therapy; Z94.1 Heart transplant status; Z79.811 Long term (current) use of aromatase inhibitors
CPT/HCPCS: 99215

== ENCOUNTER 2019-07-14 10:29 | Outpatient (CLI) | payer MEDICARE, BC ==
[2019-07-14 10:49] LABS: CALCIUM 8.6 mg/dL (8.5-10.3); CREATININE 1.8 mg/dL (0.4-1.0)
== END 2019-07-14 10:30 | disposition home or self-care (01) ==
LOC: LAB 10:29
PROVIDERS: ATTEND Internal Medicine Cardiovascular Disease
DX: Z95.811 Presence of heart assist device (principal); Z91.89 Other specified personal risk factors, not elsewhere classified
CPT/HCPCS: 36415; 80048

== ENCOUNTER 2019-08-31 09:58 | Outpatient (CLI) | payer MEDICARE, BC ==
--- NOTE | 2019-08-31 16:56 | CONSULTATION NOTE ---
Palliative Care Follow Up - Referral Referring Provider: Nay TREJO Time of Visit: 10:00-1045 Referral setting: [facility] – [place] Referral Reason: Depression/Neuropathic pain/s/p heart transplant/Hx Breast CA - Information Sources Records reviewed: Previous records reviewed History/Review of Systems obtained from: Patient Exam limitations: No limitations - History of Present Illness Update Brief HPI Update: Is a jose 54-year-old woman who was originally referred to palliative care in the context of having an LVAD as destination therapy. This is a result of chemotherapy-induced severe cardiomyopathy with sequela of advanced CHF. She did eventually receive a heart transplant after being hospitalized with LVAD t hrombosis 07/2019, history of a small stroke in October 2018. She is continued to have some residual health fluctuations attributed to multiple underlying etiologies. Her headache though which was most intense last time, has been improving, she had an MRI which did rule out anything serious. She does have bilateral peripheral neuropathy both in her hands and feet, thought maybe to be attributed to her immunosuppressive drugs, but with the cold have increased in severity. She is also being worked up for sleep apnea, this too may be a source of her underlying headache pain, as well as her fatigue, and her last issue is she does have some left clavicle bone pain, thought to be induced related to heart arrythmias and just finished with heart monitoring, and has ongoing heart biopsies for rejection. Is continue to receive her Lupron/MS sustained for her history of breast cancer, and so far has remained in remission. Despite all of the above, she is presenting in good spirits, she is making future plans including some contract work, considering volunteering for a board of a nonprofit, and starting knitting again. She feels like her depression is well controlled, and has so fair done well with weather/light changes. Patient does have a history of major depressive disorder, and has found follow-up with palliative care for counseling for depression and anxiety is helpful in managing her with all her multiple comorbidities and symptoms. Social History - Living Situation Living arrangement: At home Living Situation: With family Support System: Patient does live with her mother, who is quite supportive but can be somewhat too attentive. She does have a friend for which she is stays for weekends and long periods of time, though this may not be an option in the future. Counseling provided regarding negotiating if need to a balance with her mother. Patient continues to have her dog, which is a great support and whom she takes walking on a regular basis. Medications/Allergies - Medications Home Medications: Ambulatory Orders Medication Instructions Recorded Confirmed Alendronate Sodium 70 mg PO .Sundays12/18/18 08/31/19 Aspirin Chewable [[facility] 81 mg PO DAILY 12/18/18 08/31/19 Aspirin] Calcium Carbonate [[id number]] 1,000 mg PO BID 12/18/18 08/31/19 Cholecalciferol (Vitamin D3) 1,000 unit PO DAILY 12/18/18 08/31/19 [Vitamin D3] Exemestane 25 mg PO DAILY 12/18/18 08/31/19 Leuprolide Acetate [Lupron Depot] 22.5 mg IM .Q3 MONTH 12/18/18 08/31/19 Magnesium 133 mg PO DAILY 12/18/18 08/31/19 Melatonin 6 mg PO ACHS 12/18/18 08/31/19 Mycophenolate Mofetil [Cellcept] 500 mg PO BID 12/18/18 08/31/19 Pantoprazole [Protonix] 40 mg PO DAILY 12/18/18 08/31/19 Pravastatin [Pravachol] 20 mg PO DAILY 12/18/18 08/31/19 Sertraline [Zoloft] 100 mg PO DAILY 12/18/18 08/31/19 Sulfamethoxazole/Trimethoprim 1 each PO .MWF 12/18/18 08/31/19 [Bactrim 400-80 mg Tablet] Tacrolimus [Prograf] 3.5 mg PO .4 MG AM 3.5 MG PM 12/18/18 08/31/19 Torsemide 20 mg PO DAILY 12/18/18 08/31/19 Acetaminophen [Tylenol] 650 mg PO Q6HR PRN 12/24/18 08/31/19 Vitamin [Trinatal Rx 1] 1 tab PO DAILY 12/24/18 08/31/19 Gabapentin 600 mg PO DAILY PM MDD trying 02/02/19 08/31/19 divided doses Potassium Chloride 30 meq PO DAILY 02/26/19 08/31/19 Trazodone HCl 100 mg PO ACHS PRN 06/10/19 08/31/19 - Allergies Allergies/Adverse Reactions: Allergies Allergy/AdvReac Type Severity Reaction Status Date / Time carvedilol Allergy Anaphylaxis Verified 09/16/19 16:27 amiodarone AdvReac Unknown Verified 07/13/19 16:27 Review of Systems - Constitutional Constitutional: reports: Fatigue, Weight stable. denies: Fever, Chills - Eyes Eyes: reports: Vision loss, Corrective lenses - Cardiovascular Cardiovascular: reports: Exertional dyspnea, Decr. exercise tolerance. denies: Chest pain, Lightheadedness - Respiratory Respiratory: reports: SOB with exertion. denies: Cough, SOB at rest - Gastrointestinal Gastrointestinal: reports: Good appetite - Musculoskeletal Musculoskeletal: reports: Muscle weakness - Integumentary Integumentary: reports: Hair changes (improved) - Neurological Neurological: reports: General weakness, Headache (improved), Memory problems (improved with improved concentration) - Psychiatric Psychiatric: denies: Depression, Anxiety - Endocrine Endocrine: reports: Intolerance to cold (peripheral neuropathy/hands and feet) - Hematologic/Lymphatic Hematologic/Lymphatic: denies: Recurrent infections - All Other Systems All Other Systems: reports: Reviewed and negative Physical Exam - Vital Signs Temperature: 36.7 C Pulse Rate: 99 Respiratory Rate: 18 O2 Saturation: 96 (ra @ rest) Blood Pressure: 103/71 - Physical Exam General Appearance: positive: No acute distress, Alert Eyes Bilateral: positive: Normal inspection ENT: positive: No signs of dehydration Neck: positive: No JVD, Trachea midline Cardiovascular: positive: Regular rate & rhythm, Tachycardia Respiratory: positive: Other (diminished LL). negative: Wheezes, Rales Abdomen: positive: Soft, Obese Skin: positive: Pallor Extremities: positive: No pedal edema Neurologic/Psychiatric: positive: Oriented x3, Mood/affect nml Palliative Care - POLST Patient has POLST: No POLST Status: Full Code Pain: Pain improved, Severity (4/10 in hands/h/a), Comment (SEE HPI) Tiredness/Fatigue: Moderate (4-6) Drowsiness/Sedation: Mild (1-3) Nausea: None Depression: Mild (1-3) Anxiety: None Dyspnea: Mild (1-3) Anorexia: None Sleep: Sleep improved, Variable sleep pattern Constipation: No Feelings of wellbeing/Perceived Quality of Life: Fair, Improved Performance Status: Patient has had less activity, some of this activity intolerance other is just has had many appointments. She still goes to the gym, but has been limited by her both her headache pain and her peripheral neuropathy. She is not as active as is she was with cardiac rehab, but also has had multiple other problems arise. She is independent in her ADLs, she can drive, and remains active in the context she does take her dog for walks. - Palliative Care Discussion: Time spent talking about future goals, finding a balance of not getting too busy but also engaging in moving forward. Reflection regarding just the trauma she has been through over the last year, and ways to best processed some of this. Results - Lab Results Lab results reviewed: Yes Impression and Recommendations - Palliative Care Impression: This is a jose 54-year-old woman with multiple morbidities, currently living status post heart transplant with previous LVAD as destination therapy. Her symptom burden continues to improve, she is setting both short-term and long-t erm goals, her depression is well controlled currently. Palliative care to provide continued support around symptom management and counseling for adjustment to illness. Recommendations/Counseling Done: 1. Peripheral neuropathy. Patient continues to describe symptoms of numbness and tingling, now exacerbated with the initiation cold season. She has had dizziness with increased doses of gabapentin in the past, given her original indication for the gabapentin was her right thigh pain and this is improved, counseling provided regarding trialing to divide the dose up, so she has coverage during the day. 300 mg twice daily, she does have dizziness she still has some 100 mg capsules left, she will titrate up slowly. Counseling provided regarding mechanism of gabapentin. 2. Headache pain. This continues to improve, she will be getting CPAP machine this may improve it more so. She has been offered Botox, she has had an MRI to rule out any significant or underlying etiology. She does feel as much more livable at this point in time, they have also decreased her Bactrim which was also on the list of may be problematic, to 3 times a week. 3. Insomnia. Patient reports trazodone continues to help with initiation of sleep, she is looking forward to trialing the CPAP, she also has restless leg syndrome. 4. Renal insufficiency. Patient reports it was not the torsemide but her antirejection drugs, they have adjusted these, with the hope to decrease her persistently high creatinine. 5. Depression. Patient is doing quite well the day, with the management of her depression. Counseling provided for the setting of short-term goals as well as use of writing to process some of her trauma experience. 6. Left clavicle bone pain. There is some point tenderness on examination, more exacerbated with movement. She is awaiting outcome of the Holter monitor, to see if it is somewhat induced by cardiac arrhythmias. If this rules out, and/or pain worsens without unknown underlying etiology, she is to recontact me and I will follow-up with oncologist if needs bone scan. Time Spent: 45 minutes with greater than 50% of this done in counseling regarding pain and symptom management and anticipatory guidance.
== END 2019-08-31 09:59 | disposition home or self-care (01) ==
LOC: PC 09:58
PROVIDERS: ATTEND Nurse Practitioner Adult Health
DX: Z51.5 Encounter for palliative care (principal); F32.9 Major depressive disorder, single episode, unspecified; Z94.1 Heart transplant status; Z86.718 Personal history of other venous thrombosis and embolism; Z86.73 Personal history of transient ischemic attack (TIA), and cerebral infarction without residual deficits; R51 Headache; G62.9 Polyneuropathy, unspecified; Z79.899 Other long term (current) drug therapy; M89.8X8 Other specified disorders of bone, other site; C50.919 Malignant neoplasm of unspecified site of unspecified female breast; Z79.818 Long term (current) use of other agents affecting estrogen receptors and estrogen levels; F41.9 Anxiety disorder, unspecified; Z79.2 Long term (current) use of antibiotics; G47.00 Insomnia, unspecified; G25.81 Restless legs syndrome; N28.9 Disorder of kidney and ureter, unspecified; T50.915D Adverse effect of multiple unspecified drugs, medicaments and biological substances, subsequent encounter
CPT/HCPCS: 99215

== ENCOUNTER 2019-09-02 08:15 | Emergency (ER) | payer MEDICARE, BC ==
--- NOTE | 2019-09-02 08:26 | ED Physician Documentation ---
History of Present Illness - Stated complaint Stated Complaint: HEADACHE/NAUSEA CHEST PX - Chief complaint Chief Complaint: Cardiac - Additonal information Additional information: This is a 54-year-old female with a history of heart transplant 1 year ago, who follows with Dr. Callahan of cardiology at [facility], who presents with headache, nausea, and clavicle discomfort. Patient states that she has had intermittent headaches since the heart transplant, her doctors have not been able to figure out the exact cause. This most recent headache began yesterday and has been gradually worsening. She states that she has had headaches this bad in the past however this is more severe than her typical headache. She has had some nausea as well, no vomtiing She has some discomfort in her clavicle region as well, though this has been ongoing and she reports being on a heart monitor because of this with her medical office clerk, and they have not yet figured out the cause. She denies any shortness of breath currently, she states that earlier when she laid flat she had some trouble breathing which is atypical for her. No fever, sore throat, rhinorrhea. She has been taking her antirejection meds faithfully, which include tacrolimus, mycophenolate. Patient has had a past stroke leaving her with very mild residual right upper and lower extremity weakness. She denies any new weakness or numbness Review of Systems Constitutional: denies: Fever Cardiac: denies: Chest pain / pressure Respiratory: reports: Other (brief orthoopnea) GI: denies: Abdominal Pain Skin: denies: Rash Neurologic: reports: Generalized weakness PD PAST MEDICAL HISTORY - Past Medical History Cardiovascular: Congestive heart failure, Hypertension, Atrial fibrillation, Arrhythmia, Other Respiratory: Shortness of breath Neuro: CVA Endocrine/Autoimmune: None GI: None OPTICAL MANAGER: Breast cancer (inflammatory Stage IIB s/p chemo & radiaion) : Kidney stones HEENT: None Psych: Depression, Anxiety Musculoskeletal: None Derm: None - Past Surgical History Past Surgical History: Yes Ortho: Spine surgery (2004) /OPTICAL MANAGER: Mastectomy (bilateral) Cardiovascular: Other (LVAD since 03/28/2015) - Present Medications Home Medications: Ambulatory Orders Medication Instructions Recorded Confirmed Alendronate Sodium 70 mg PO .Sundays12/18/18 08/31/19 Aspirin Chewable [[facility] 81 mg PO DAILY 12/18/18 08/31/19 Aspirin] Calcium Carbonate [[id number]] 1,000 mg PO BID 12/18/18 08/31/19 Cholecalciferol (Vitamin D3) 1,000 unit PO DAILY 12/18/18 08/31/19 [Vitamin D3] Exemestane 25 mg PO DAILY 12/18/18 08/31/19 Leuprolide Acetate [Lupron Depot] 22.5 mg IM .Q3 MONTH 12/18/18 08/31/19 Magnesium 133 mg PO DAILY 12/18/18 08/31/19 Melatonin 6 mg PO ACHS 12/18/18 08/31/19 Mycophenolate Mofetil [Cellcept] 500 mg PO BID 12/18/18 08/31/19 Pantoprazole [Protonix] 40 mg PO DAILY 12/18/18 08/31/19 Pravastatin [Pravachol] 20 mg PO DAILY 12/18/18 08/31/19 Sertraline [Zoloft] 100 mg PO DAILY 12/18/18 08/31/19 Sulfamethoxazole/Trimethoprim 1 each PO .MWF 12/18/18 08/31/19 [Bactrim 400-80 mg Tablet] Tacrolimus [Prograf] 3.5 mg PO .4 MG AM 3.5 MG PM 12/18/18 08/31/19 Torsemide 20 mg PO DAILY 12/18/18 08/31/19 Acetaminophen [Tylenol] 650 mg PO Q6HR PRN 12/24/18 08/31/19 Vitamin [Trinatal Rx 1] 1 tab PO DAILY 12/24/18 08/31/19 Gabapentin 600 mg PO DAILY PM MDD trying 02/02/19 08/31/19 divided doses Potassium Chloride 30 meq PO DAILY 02/26/19 08/31/19 Trazodone HCl 100 mg PO ACHS PRN 06/10/19 08/31/19 - Allergies Allergies/Adverse Reactions: Allergies Allergy/AdvReac Type Severity Reaction Status Date / Time carvedilol Allergy Anaphylaxis Verified 09/02/19 08:26 amiodarone AdvReac Unknown Verified 09/02/19 08:26 - Social History Does the pt smoke?: No Smoking Status: Never smoker Does the pt drink ETOH?: Yes Does the pt have substance abuse?: No - Immunizations Immunizations are current?: Yes - POLST Patient has POLST: No PD ED PE NORMAL - Vitals Vital signs reviewed: Yes - General General: Alert and oriented X 3 - HEENT HEENT: Atraumatic, PERRL, Pharynx benign - Neck Neck: Supple, no meningeal sign - Cardiac Cardiac: RRR - Respiratory Respiratory: No respiratory distress, Clear bilaterally - Abdomen Abdomen: Soft, Non tender, Non distended - Extremities Extremities: No deformity - Neuro Neuro: Alert and oriented X 3, supply chain project manager 2-12 intact, No sensory deficit, Normal speech, Other (Almost imperceptible slight weakness on right with elbow felxion and extension, 4+/5. Left strength is 5/5) Results - Vitals Vitals: Vital Signs - 24 hr 09/02/19 09/02/19 09/02/19 08:22 08:57 10:00 Temperature 37.0 C Heart Rate 99 90 87 Respiratory 20 17 13 Rate Blood Pressure 116/82 H 110/86 H 130/87 H O2 Saturation 100 94 94 09/02/19 09/02/19 11:30 12:55 Temperature Heart Rate 90 91 Respiratory 14 12 Rate Blood Pressure 126/92 H 126/92 H O2 Saturation 98 95 Oxygen O2 Source Room air - EKG (time done) 8:22 Other comments: Other comments (Rate 96, rhythm sinus, there is left ventricular hypertrophy, no ST segment elevation or depression. There is some baseline wa nder.) - Labs Labs: Laboratory Tests 09/02/19 09/02/19 09/02/19 08:35 08:35 08:35 WBC 4.8 RBC 3.65 L Hgb 11.4 L Hct 33.3 L MCV 91.2 MCH 31.2 H MCHC 34.2 RDW 12.3 Plt Count 275 MPV 10.6 Neut # (Auto) 3.9 Lymph # (Auto) 0.4 L [place] # (Auto) 0.4 Eos # (Auto) 0.1 Baso # (Auto) 0.0 Absolute Nucleated RBC 0.00 Nucleated RBC % 0.0 Sodium 141 Potassium 4.0 Chloride 107 Carbon Dioxide 23 Anion Gap 11.0 BUN 25 H Creatinine 1.3 H Estimated GFR (MDRD) 43 L Glucose 117 H Calcium 9.1 Total Bilirubin 0.3 AST 17 ALT 18 Alkaline Phosphatase 59 Troponin I High Sens 4.5 B-Natriuretic Peptide Total Protein 6.8 Albumin 4.1 Globulin 2.7 Albumin/Globulin Ratio 1.5 Lipase 31 Influenza A (Rapid) Influenza B (Rapid) 09/02/19 09/02/19 08:35 08:55 WBC RBC Hgb Hct MCV MCH MCHC RDW Plt Count MPV Neut # (Auto) Lymph # (Auto) [place] # (Auto) Eos # (Auto) Baso # (Auto) Absolute Nucleated RBC Nucleated RBC % Sodium Potassium Chloride Carbon Dioxide Anion Gap BUN Creatinine Estimated GFR (MDRD) Glucose Calcium Total Bilirubin AST ALT Alkaline Phosphatase Troponin I High Sens B-Natriuretic Peptide 208 H Total Protein Albumin Globulin Albumin/Globulin Ratio Lipase Influenza A (Rapid) Negative Influenza B (Rapid) Negative - Rads (name of study) CXR Radiology: Other (Elevated left hemidiaphragm with resulting basilar compression atelectasis.) PD MEDICAL DECISION MAKING - ED course Complexity details: considered differential (Migraine, tension headache, ACS, dysrhytmia, PTX, PNA, viral syndrome) ED course: Pt is well-appearing on exam, EKG shows no convincing signs of ischemia or dysrhythmia. CXR shows hemidiaphragm elevation, no acute cardiopulmonary abnormality. Labs are unrevealing, troponin is negative, and BNP is as low as it has ever been in our system. Her clavicle discomfort has been ongoing and given her negative troponin ACS is highly unlikley. I discussed the case with her medical office clerk Dr. Callahan, who thinks she is appropriate for outpatient follow up including an CT of the chest to check for cancer recurrence. She does not have leg swelling, shortness of breath, or chest pain to suggest PE today. Her biggest complaint is her headache, which has been ongoing and does not have any red flag symptoms. After reglan and benadryl her headache was nearly completely resolved and patient was feeling well and eager to go home. I highly doubt intracranial bleed/mass given her symptom resolution and the chronicity of her symptoms. I discussed close follow up (her medical office clerk will help arrange this), as well as strict return precautions. Pt agrees and was discharged. Departure - Departure Disposition: 01 Home, Self Care Clinical Impression: Clavicle pain Headache Qualifiers: Headache type: unspecified Headache chronicity pattern: unspecified pattern Intractability: not intractable Qualified Code(s): R51 - Headache Condition: Good Instructions: ED Cephalgia Unspecified Follow-Up: Jackie Callahan MD [Provider Admit Priv/Credential] - Comments: I'm glad your headache is feeling better, please follow-up with your primary care provider and your specialist team on these headaches. We do not see signs of strain on your heart at this time, but it is important that you follow-up for a CT of your chest to further work this up. Dr. Callahan's office will contact you about this. If you develop chest pain, shortness of breath, or other concerning symptoms, return to the emergency department. Discharge Date/Time: 09/02/19 12:58
[2019-09-02] MEDS ORDERED: METOCLOPRAMIDE 10 MG/2 ML VIAL IVP STA (08:39)
[2019-09-02] MEDS ORDERED: MORPHINE 10 MG/ML VIAL IVP STA (08:39)
[2019-09-02] MEDS ORDERED: diphenhydrAMINE INJ 50 MG/ML VIAL IVP STA (08:39)
[2019-09-02] MEDS ORDERED: MORPHINE 2 MG/ML CARPUJECT IVP STA (08:46)
[2019-09-02 08:49] LABS: BASOPHILS % (AUTO) 0.8 %; EOSINOPHILS # (AUTO) 0.1 10^3/uL (0.0-0.7); EOSINOPHILS % (AUTO) 1.9 %; HGB - HEMOGLOBIN 11.4 g/dL (12.0-16.0); LYMPHOCYTES # (AUTO) 0.4 10^3/uL (1.5-3.5); LYMPHOCYTES % (AUTO) 7.5 %; MEAN CORPUSCULAR HEMOGLOBIN 31.2 pg (27.0-31.0); MEAN CORPUSCULAR HGB CONC 34.2 g/dL (32.0-36.0); MEAN CORPUSCULAR VOLUME 91.2 fL (81.0-99.0); MEAN PLATELET VOLUME 10.6 fL (7.9-10.8); MONOCYTES # (AUTO) 0.4 10^3/uL (0.0-1.0); MONOCYTES % (AUTO) 7.3 %; NEUTROPHILS # (AUTO) 3.9 10^3/uL (1.5-6.6); NEUTROPHILS % (AUTO) 82.1 %; PLT - PLATELET COUNT 275 10^3/uL (130-450); RED BLOOD COUNT 3.65 10^6/uL (4.20-5.40); RED CELL DISTRIBUTION WIDTH 12.3 % (12.0-15.0); WHITE BLOOD COUNT 4.8 x10^3/uL (4.8-10.8)
[2019-09-02 09:03] LABS: ALBUMIN 4.1 g/dL (3.2-5.5); ALBUMIN/GLOBULIN RATIO 1.5 (1.0-2.2); BILIRUBIN,TOTAL 0.3 mg/dL (0.2-1.0); CALCIUM 9.1 mg/dL (8.5-10.3); CREATININE 1.3 mg/dL (0.4-1.0); TOTAL PROTEIN 6.8 g/dL (6.7-8.2)
--- NOTE | 2019-09-02 09:29 | XRAY Report ---
Reason: Chest Pain, hx transplant Procedure Date: 09/02/2019 Accession Number: [id number] / [id number] Procedure: XR - Chest 1 View X-Ray CPT Code: 57731 Final Report FULL RESULT: EXAM: CHEST RADIOGRAPHY EXAM DATE: 09/02/2019 08:44 AM. CLINICAL HISTORY: Chest pain, history of transplant. COMPARISON: CHEST 2 VIEW PA/LAT 06/24/2016 8:31 AM images and report from [facility]. CHEST 2 VIEW PA/LAT 01/08/2016 12:35 PM. Images and report from [facility]. TECHNIQUE: 1 view. FINDINGS: Lungs/Pleura: Elevated left hemidiaphragm, some resulting basilar compressive atelectasis. This is new since the comparison study. Mild low lung volumes present. Atelectasis seen left lung base. Mediastinum: Previous sternal sutures. Other: None. IMPRESSION: 1. Elevated left hemidiaphragm, some resulting basilar compressive atelectasis. This shows mild progression. 2. Right chest and left upper lobe appear normal. RADIA
[2019-09-02 11:39] VITALS: BP 126/92
== END 2019-09-02 12:58 | disposition home or self-care (01) ==
LOC: ED 08:15
DX: R51 Headache (principal); M89.8X8 Other specified disorders of bone, other site; Z94.1 Heart transplant status; I10 Essential (primary) hypertension; I69.351 Hemiplegia and hemiparesis following cerebral infarction affecting right dominant side; Z79.82 Long term (current) use of aspirin; Z85.3 Personal history of malignant neoplasm of breast
CPT/HCPCS: 36415; 71045; 80053; 83690; 83880; 84484; 85025; 87275; 87276; 93005; 96374; 96375; 99283; 99284; J1200; J2765

== ENCOUNTER 2019-09-16 22:17 | Emergency (ER) | payer MEDICARE, BC ==
--- NOTE | 2019-09-16 22:37 | ED Physician Documentation ---
PD HPI HEADACHE - Stated complaint Stated Complaint: MOLINA - Chief complaint Chief Complaint: Neuro - History obtained from History obtained from: Patient - History of Present Illness Timing - onset: Today Timing - onset during: Rest Timing - duration: Hours Timing - details: Gradual onset Worst headache ever?: No: Worst headache ever? Location: Front (bilateral) Quality: Aching, Tightness. No: Thunderclap, Throbbing Associated symptoms: Nausea, Vomiting. No: Fever, Stiff neck, Weakness, Numbness, Syncope, Seizure, Eye pain, Vision changes Improved by: Nothing Worsened by: Light Contributing factors: No: Anticoagulated, Recent illness, Trauma Similar symptoms before: Diagnosis (has hx of chronic headaches) Recently seen: Not recently seen - Treatment prior to arrival Treatment prior to arrival: excedrin with minimal relief Review of Systems Ten Systems: 10 systems reviewed and negative Constitutional: denies: Fever Eyes: reports: Photophobia. denies: Loss of vision, Decreased vision, Discharge, Irritation Ears: reports: Reviewed and negative Nose: reports: Reviewed and negative Throat: reports: Reviewed and negative Cardiac: reports: Reviewed and negative Respiratory: reports: Reviewed and negative GI: reports: Reviewed and negative : reports: Reviewed and negative Skin: reports: Reviewed and negative Musculoskeletal: reports: Reviewed and negative Neurologic: reports: Headache. denies: Generalized weakness, Focal weakness, Numbness, Difficulty speaking, Near syncope, Syncope, Seizure, Confused, Altered mental status, Head injury, LOC Immunocompromised: reports: Reviewed and negative PD PAST MEDICAL HISTORY - Past Medical History Past Medical History: Yes Cardiovascular: Congestive heart failure, Hypertension, Atrial fibrillation, Arrhythmia, Other Respiratory: Shortness of breath Neuro: CVA Endocrine/Autoimmune: None GI: None MEDICAL OFFICE REP: Breast cancer : Kidney stones HEENT: None Psych: Depression, Anxiety Musculoskeletal: None Derm: None - Past Surgical History Past Surgical History: Yes Ortho: Spine surgery /MEDICAL OFFICE REP: Mastectomy Cardiovascular: Other - Present Medications Home Medications: Ambulatory Orders Medication Instructions Recorded Confirmed Alendronate Sodium 70 mg PO .Sundays12/18/18 08/31/19 Aspirin Chewable [[facility] 81 mg PO DAILY 12/18/18 08/31/19 Aspirin] Calcium Carbonate [[id number]-[id number]] 1,000 mg PO BID 12/18/18 08/31/19 Cholecalciferol (Vitamin D3) 1,000 unit PO DAILY 12/18/18 08/31/19 [Vitamin D3] Exemestane 25 mg PO DAILY 12/18/18 08/31/19 Leuprolide Acetate [Lupron Depot] 22.5 mg IM .Q3 MONTH 12/18/18 08/31/19 Magnesium 133 mg PO DAILY 12/18/18 08/31/19 Melatonin 6 mg PO ACHS 12/18/18 08/31/19 Mycophenolate Mofetil [Cellcept] 500 mg PO BID 12/18/18 08/31/19 Pantoprazole [Protonix] 40 mg PO DAILY 12/18/18 08/31/19 Pravastatin [Pravachol] 20 mg PO DAILY 12/18/18 08/31/19 Sertraline [Zoloft] 100 mg PO DAILY 12/18/18 08/31/19 Sulfamethoxazole/Trimethoprim 1 each PO .MWF 12/18/18 08/31/19 [Bactrim 400-80 mg Tablet] Tacrolimus [Prograf] 3.5 mg PO .4 MG AM 3.5 MG PM 12/18/18 08/31/19 Torsemide 20 mg PO DAILY 12/18/18 08/31/19 Acetaminophen [Tylenol] 650 mg PO Q6HR PRN 12/24/18 08/31/19 Vitamin [Trinatal Rx 1] 1 tab PO DAILY 12/24/18 08/31/19 Gabapentin 600 mg PO DAILY PM MDD trying 02/02/19 08/31/19 divided doses Potassium Chloride 30 meq PO DAILY 02/26/19 08/31/19 Trazodone HCl 100 mg PO ACHS PRN 06/10/19 08/31/19 Metoclopramide [Reglan] 5 mg PO Q6H PRN #6 tablet 09/17/19 - Allergies Allergies/Adverse Reactions: Allergies Allergy/AdvReac Type Severity Reaction Status Date / Time carvedilol Allergy Anaphylaxis Verified 09/16/19 22:22 amiodarone AdvReac Unknown Verified 09/16/19 22:22 - Social History Does the pt smoke?: No Smoking Status: Never smoker Does the pt drink ETOH?: Yes Does the pt have substance abuse?: No - Immunizations Immunizations are current?: Yes - POLST Patient has POLST: No PD ED PE NORMAL - Vitals Vital signs reviewed: Yes - General General: Alert and oriented X 3, No acute distress, Well developed/nourished - HEENT HEENT: Atraumatic, PERRL, Moist mucous membranes, Pharynx benign - Neck Neck: Supple, no meningeal sign, No JVD - Cardiac Cardiac: RRR, No murmur, No gallop, No rub - Respiratory Respiratory: No respiratory distress, Clear bilaterally - Abdomen Abdomen: Soft, Non tender, Non distended - Female Female : Deferred - Rectal Rectal: Deferred - Derm Derm: Normal color, Warm and dry, No rash - Extremities Extremities: No deformity, No tenderness to palpate, Normal ROM s pain, No edema, No calf tenderness / cord - Neuro Neuro: Alert and oriented X 3, rfid specialist 2-12 intact, No motor deficit, No sensory deficit, Normal speech Eye Opening: Spontaneous Motor: Obeys Commands Verbal: Oriented GCS Score: 15 - Psych Psych: Normal mood, Normal affect Results - Vitals Vitals: Vital Signs - 24 hr 09/16/19 09/16/19 09/17/19 22:19 22:22 00:47 Temperature 36.3 C L Heart Rate 99 99 93 Respiratory 17 17 16 Rate Blood Pressure 142/109 H 142/109 H 129/85 H O2 Saturation 98 98 98 Oxygen O2 Source Room air PD MEDICAL DECISION MAKING - ED course Complexity details: reviewed old records, reviewed results, re-evaluated patient, considered differential, d/w patient ED course: ddx- tension headache, migraine, sinus headache, meningitis, SAH, ICH 54 y/o F with hx of chronic recurrent headaches, today with MOLINA of gradual onset, moderate in severity unrelieved by excedrin at home. Pt with normal neuro exam. Is photophobic, suspect migraine MOLINA. Gradual onset, doubt SAH, No neck stiffness or rigidity, no fever to suggest meningitis. No sinus congestion. This MOLINA is more consistent with a migraine or tension MOLINA She was given IM toradol and zofran with relief of nausea but persistent MOLINA. Thus given reglan and benadryl which relived her MOLINA almost completely. She is asking to go home. I think this is reasonable. Do not feel emergent imaging is indicated at this time. Pt is stable for discharge with outpt f/u. Given return precautions if worsening or new concerning symptoms. Departure - Departure Disposition: 01 Home, Self Care Clinical Impression: Headache Qualifiers: Headache type: unspecified Headache chronicity pattern: acute headache Intractability: not intractable Qualified Code(s): R51 - Headache Condition: Stable Record reviewed to determine appropriate education?: Yes Instructions: ED Headache Migraine Follow-Up: Nay Hayward ARNP, [facility] [employer] [facility] [Primary Care Provider] - As Needed Prescriptions: Metoclopramide [Reglan] 5 mg PO Q6H PRN #6 tablet PRN Reason: Nausea / Vomiting Comments: You were evaluated today for a headache and found to have a normal neurologic examination. Your head improved with reglan and benadryl. You can take excedrin for headache at home but if not improving or if having nausea/vomiting you can try taking 1 or 2 tablets of reglan. Take with over the counter 25mg benadryl to prevent side effects like restlessness that can occur with reglan. If worsening symptoms or new concerns return to the ED. Discharge Date/Time: 09/17/19 00:50
[2019-09-16] MEDS ORDERED: METOCLOPRAMIDE 10 MG/2 ML VIAL IVP STA (22:53)
[2019-09-16] MEDS ORDERED: diphenhydrAMINE INJ 50 MG/ML VIAL IVP STA (22:54)
[2019-09-16] MEDS ORDERED: KETOROLAC 60 MG/2 ML VIAL IM STA (23:18)
[2019-09-16] MEDS ORDERED: ONDANSETRON ODT 4 MG TABLET TL STA (23:22)
[2019-09-17 01:08] VITALS: BP 129/85
== END 2019-09-17 00:50 | disposition home or self-care (01) ==
LOC: ED 22:17
DX: R51 Headache (principal); R11.2 Nausea with vomiting, unspecified; H53.149 Visual discomfort, unspecified; I10 Essential (primary) hypertension; Z79.82 Long term (current) use of aspirin
CPT/HCPCS: 96372; 96374; 96375; 99283; 99284; J1200; J2765; Q0162

== ENCOUNTER 2019-10-05 09:51 | Outpatient (CLI) | payer MEDICARE, BC ==
--- NOTE | 2019-10-06 07:48 | Nuclear Medicine Report ---
Reason: CLAVICLE PAIN LT, BREAST CA Procedure Date: 10/05/2019 Accession Number: [id number] / [id number] Procedure: NM - Bone Whole Body CPT Code: Final Report FULL RESULT: EXAM: BONE SCAN EXAM DATE: 10/05/2019 02:20 PM. CLINICAL HISTORY: CLAVICLE PAIN LT, BREAST CA. COMPARISON: ABDOMEN/PELVIS W/ 03/02/2015 11:35 PM CHEST 1 VIEW 09/02/2019 8:28 AM. TECHNIQUE: Following the intravenous administration of 30 mCi of technetium 99m MDP and an appropriate delay, a whole-body scan was performed in anterior and posterior projections. Site-specific spot views of the region of interest were obtained in various projections. FINDINGS: Normal renal radiotracer uptake and bladder activity. Normal soft tissue activity. Overall normal osseous uptake. Conspicuous sternal uptake likely corresponding to sternotomy changes. Probable degenerative uptake at the acromioclavicular joints, bilateral knees, bilateral feet. Mild multilevel thoracic, lumbar spinal uptake probably degenerative. Segmental mild uptake involving the left anterior fifth rib, indeterminate. IMPRESSION: 1. Mild segmental uptake involving the left anterior fifth rib, indeterminate. 2. Sternal uptake likely corresponding to sternotomy changes. 3. Other multifocal probable degenerative uptake as noted above. RADIA
== END 2019-10-05 09:52 | disposition home or self-care (01) ==
LOC: DI 09:51
PROVIDERS: ATTEND Nurse Practitioner Adult Health
DX: M25.512 Pain in left shoulder (principal); C50.919 Malignant neoplasm of unspecified site of unspecified female breast
CPT/HCPCS: 78306

== ENCOUNTER 2019-11-09 10:29 | Outpatient (CLI) | payer MEDICARE, BC ==
--- NOTE | 2019-11-09 18:21 | CONSULTATION NOTE ---
Palliative Care Follow Up - Referral Referring Provider: Dr. Pasha Ross Time of Visit: [id number] Referral setting: [facility] Referral Reason: Depression/s/p Heart transplant/Hx Breast CA - Information Sources Records reviewed: Previous records reviewed History/Review of Systems obtained from: Patient Exam limitations: No limitations - History of Present Illness Update Brief HPI Update: This is a jose 54-year-old woman who I have been following for palliative care since 07/2018, originally in the context of LVAD as destination therapy. 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 She did eventually have a heart transplant after being hospitalized with an LVAD thrombosis 07/2019, and has a history of a small stroke in October 2018. Most recently she has been dealing with significant headache, had been intermittent in nature, now occurring more frequently, and worsening in severity. Has been to the emergency room 2 times for the headache, along accompanying this is severe left clavicle pain. They had been trying to rule out if this had anything to do with her cardiac issues, she did have a Holter monitor with a negative finding. The last time it did exacerbate was after her heart biopsy for rejection on 10/27. This too has not had any resol ution, or able to figure out underlying etiology. They have been looking at triggers, is not activity or food induced, does not seem to be exacerbated by any kind of movement. She also reports complication on 10/14 of an angiogram, with severe hematoma and resulting headache at that time. She does report this is most likely the biggest thing impacting her current quality of life. Has had a pending echo on 11/20, and she is awaiting testing of MRI versus CAT scan for follow-up on her bone scan findings, her vaudeville actor expressed concern. Patient is well aware she does remain high risk for recurrence, given her history is well is now her immunosuppressive drugs. Patient continues to struggle with intermittent insomnia, she does fall asleep, but when she is up is difficult for her to go back to sleep. She is getting her CPAP adjusted, reports her depression is currently well controlled, as well as her anxiety though she is somewhat anxious about figuring out the underlying anxiety related to her headaches. She did feel somewhat overwhelmed to the holidays, but is coming out of this, does like things are going pretty well. She will be starting some interesting activities, and is brain storming on looking at ways to support her financially while on SSI disability given her fluctuating status of good and bad days. Social History - Living Situation Living arrangement: At home Living Situation: With family (mother) Support System: Patient splits her time between living with her mother at home, and staying with her friend Vasu. This is worse well for her as far as supporting her need for independence, and financial stressors. Patient feeling better, and exploring ways to pace herself as far as looking at supplemental income and working, as she can not count on her fluctuating energy and health status. She feels well supported by her family, and is venturing out to look for other community support. Medications/Allergies - Medications Home Medications: Ambulatory Orders Medication Instructions Recorded Confirmed Alendronate Sodium 70 mg PO .Sundays12/18/18 11/15/19 Aspirin Chewable [[facility] 81 mg PO DAILY 12/18/18 11/15/19 Aspirin] Calcium Carbonate [[id number]] 1,000 mg PO BID 12/18/18 11/15/19 Cholecalciferol (Vitamin D3) 1,000 unit PO DAILY 12/18/18 11/15/19 [Vitamin D3] Exemestane 25 mg PO DAILY 12/18/18 11/15/19 Leuprolide Acetate [Lupron Depot] 22.5 mg IM .Q3 MONTH 12/18/18 11/15/19 Magnesium 133 mg PO DAILY 12/18/18 11/15/19 Melatonin 6 mg PO ACHS 12/18/18 11/15/19 Mycophenolate Mofetil [Cellcept] 500 mg PO BID 12/18/18 11/15/19 Pantoprazole [Protonix] 40 mg PO DAILY 12/18/18 11/15/19 Pravastatin [Pravachol] 20 mg PO DAILY 12/18/18 11/15/19 Sertraline [Zoloft] 100 mg PO DAILY 12/18/18 11/15/19 Sulfamethoxazole/Trimethoprim 1 each PO .MWF 12/18/18 11/15/19 [Bactrim 400-80 mg Tablet] Tacrolimus [Prograf] 3.5 mg PO BID 12/18/18 11/15/19 Torsemide 20 mg PO DAILY 12/18/18 11/15/19 Acetaminophen [Tylenol] 650 mg PO Q6HR PRN 12/24/18 11/15/19 Vitamin [Trinatal Rx 1] 1 tab PO DAILY 12/24/18 11/15/19 Gabapentin 300 mg PO BID 02/02/19 11/15/19 Potassium Chloride 30 meq PO DAILY 02/26/19 11/15/19 Trazodone HCl 100 mg PO ACHS PRN 06/10/19 11/15/19 Metoclopramide [Reglan] 5 mg PO Q6H PRN #6 tablet 09/17/19 11/15/19 Aspirin/Acetaminophen/Caffeine 1 tab PO DAILY PRN 11/15/19 11/15/19 [Excedrin Migraine Caplet] - Allergies Allergies/Adverse Reactions: Allergies Allergy/AdvReac Type Severity Reaction Status Date / Time carvedilol Allergy Anaphylaxis Verified 09/16/19 22:22 amiodarone AdvReac Unknown Verified 09/16/19 22:22 Review of Systems - Constitutional Constitutional: reports: Fatigue (fluctuates), Weight stable. denies: Fever, Chills - Eyes Eyes: reports: Vision loss, Corrective lenses - Ears, Nose & Throat Ears, Nose & Throat: reports: Dry mouth (attributes to medications) - Cardiovascular Cardiovascular: reports: Chest pain (see HPI), Edema (intermittent; improved), Lightheadedness, Exertional dyspnea, Decr. exercise tolerance - Respiratory Respiratory: reports: SOB with exertion. denies: Orthopnea, SOB at rest - Gastrointestinal Gastrointestinal: denies: Constipation - Genitourinary Genitourinary: reports: Frequency - Musculoskeletal Musculoskeletal: reports: Muscle aches (right thigh), Stiffness - Integumentary Integumentary: reports: Dryness - Neurological Neurological: reports: Headache (see HPI), Memory problems (improving) - Psychiatric Psychiatric: denies: Depression, Anxiety - Hematologic/Lymphatic Hematologic/Lymphatic: denies: Recurrent infections - All Other Systems All Other Systems: reports: Reviewed and negative Physical Exam - Vital Signs Temperature: 97.3 C Pulse Rate: 93 Respiratory Rate: 18 O2 Saturation: 99 (ra @ rest) Blood Pressure: 121/78 - Physical Exam General Appearance: positive: No acute distress, Alert Eyes Bilateral: positive: Normal inspection ENT: positive: No signs of dehydration Neck: positive: Trachea midline Cardiovascular: positive: Regular rate & rhythm, Tachycardia (with activity) Respiratory: positive: No respiratory distress, Breath sounds nml. negative: Rales Abdomen: positive: Soft Skin: positive: Pallor, Dryness (LE) Extremities: positive: No pedal edema Neurologic/Psychiatric: positive: Oriented x3, Mood/affect nml Palliative Care - POLST Patient has POLST: No POLST Status: Full Code Pain: Location (right thigh persistant pain since stroke; worsens when titrates back gabapentin; MOLINA worsening in severity/frequency see HPI), Comment (see HPI) Tiredness/Fatigue: Mild (1-3) Drowsiness/Sedation: Mild (1-3) Nausea: Mild (1-3) Anorexia: Mild (1-3) Dyspnea: Mild (1-3) Depression: None Anxiety: None Feelings of wellbeing/Perceived Quality of Life: Fair, Acceptable, No change Sleep: Variable sleep pattern Constipation: Intermittent constipation Performance Status: Patient is independent in her ADLs, can ambulate with frequent rest periods. She is not engaging as much in her activity program, this was reviewed. She has having fluctuating days as far as energy, and does try to match this with her activity. She is able to drive. - Palliative Care Discussion: She has been somewhat befuddled and impacted by her intermittent headache and left clavicle pain, worried that it is related to her cardiac issues. She has had 3 emergency room visits as a result, none of which have yielded much effect. She does feel like she is still able to manage her day-to-day's life, is feeling encouraged about making plans and moving forward. She has been working on processing her experience with her heart transplant, and discussion regarding intentions moving forward. Results - Lab Results Lab results reviewed: Yes Lab and Imaging Results: hgb 11.4 Impression and Recommendations - Palliative Care Impression: This is a jose 54-year-old woman with multiple morbidities, currently living status post heart transplant with previous LVAD that as destination therapy. She also continues with treatment regarding her past history of breast cancer. She has had an exacerbation in her symptom burden related to her left clavicular pain and recurrent and intermittent headaches. Palliative care continue provide support around symptom management and counseling for adjustment to illness. Recommendations/Counseling Done: 1. Peripheral neuropathy. Patient is doing better on the gabapentin 300 mg twice daily, she will continue to leave it at her current dosing. 2. Headache pain this is fluctuating, at this point in time has tried multiple approaches in attempt to decrease the frequency and severity. It often is in conjunction with her exacerbated left clavicular pain, which has resulted in several ED visits. She does have 1 further round of testing do, including an echo 11/20 and awaiting to see if she will be doing MRI versus CAT scan on the area. She reports it is livable but does as far as quality of life issues impact her ability to function on most days that it is worsened. 3. Left clavicular pain. In follow-up she did receive a bone scan. Overall it showed mild segmental uptake involving the left anterior fifth rib indet erminant, sternal uptake likely corresponding to sternotomy changes, and multifocal areas probably related to degenerative disease in the acro both clavicular joints and bilateral knees and bilateral feet. Given the persistence of her pain, her vaudeville actor would like further follow-up and is planning to have an MRI versus CT scan ordered after her echo on 11/20. Patient does report though is not persistent, it comes and goes related to often cardiac issues. 4. Depression. Patient does appear to be coping fairly well. Reports has been doing some writing, processing of her experience, is feeling less anxious and overwhelmed with the holidays past. She will be looking or exploring other ways to support her finances, she recently did some contract work and found that helpful. She is struggling with being able to commit with her fluctuating health status and symptoms. 5. Generalized weakness. Counseling in the context of her self-care and physical activity. Looking at returning to some commitment for managing ongoing activity, and progressive activity program. Patient does have a gym membership, and does feel better when able to participate, unfortunately she again with her fluctuating healthcare status has to pace her activities. Time Spent: 60 minutes with greater than 50% of this done in counseling regarding quality of life issues, depression and anxiety, setting intention and anticipatory guidance.
== END 2019-11-09 10:30 | disposition home or self-care (01) ==
LOC: PC 10:29
PROVIDERS: ATTEND Nurse Practitioner Adult Health
DX: Z51.5 Encounter for palliative care (principal); G62.9 Polyneuropathy, unspecified; R51 Headache; M25.512 Pain in left shoulder; F32.9 Major depressive disorder, single episode, unspecified; R53.1 Weakness; C50.919 Malignant neoplasm of unspecified site of unspecified female breast; Z79.899 Other long term (current) drug therapy; Z79.811 Long term (current) use of aromatase inhibitors; Z94.1 Heart transplant status; Z86.73 Personal history of transient ischemic attack (TIA), and cerebral infarction without residual deficits; Z79.818 Long term (current) use of other agents affecting estrogen receptors and estrogen levels
CPT/HCPCS: 99215

== ENCOUNTER 2020-02-02 14:30 | Outpatient (CLI) | payer MEDICARE, BC ==
--- NOTE | 2020-02-02 15:57 | PROVIDER PROGRESS NOTE ---
HPI/Interval History - HPI/Interval History This is a jose 54-year-old woman who has been following with palliative care since 07/2018, originally in the context of LVAD as destination therapy. She had an LVAD is due to result of chemotherapy-induced severe cardiomyopathy with the sequela of advanced CHF. She did eventually have a heart transplant after being hospitalized with an LVAD thrombosis 07/2019, she is also had a history of small stroke in 2019. She also is still receiving support for her history of stage III breast cancer currently in remission and continues on hormone therapy and Lupron every 3 months. Patient is doing much better, she reports she has had improvement regarding her headache pain. These have been very persistent and somewhat debilitating. She did go to a headache clinic. She has had multiple tests to rule out anything of concern, including an MRI recently that was negative. She reports it now occurs about every 2 or 3 weeks, persistent for 2 or 3 days, still fairly severe in nature but more tolerable. They are considering possibly being a migraine, she does have to "fail" other interventions before they will pay for "migraine" medications. Transitioning her from her sertraline to venlafaxine, she will not require a taper with this. Though she was cautioned she may still have some side effects. She has stayed sequestered, is using proper precautions regarding COVID 19. She is quite anxious has this would be quite devastating for her, particularly since she is on immunosuppressive therapy as well as her underlying diagnoses. Reports that she is doing somewhat better, with her pain, she still has peripheral neuropathy in her hands and feet, currently she is taking her gabapentin 300 mg in the a.m. and 600 mg at night, this has controlled both her neuropathy as well as her right thigh pain and to support her headache control. She is feeling quite content, and more settled. Her good friend for which she shared housing every other week, had moved so she is unable to stay with him anymore. She actually is feeling better and not so unsettled being in one place. She feels her depression is currently under control, though she has anxiety regarding the coronavirus she feels like this is manageable. She is grateful at this point time to be on disability and not having to worry about the fall out from the economic ramifications from the pandemic. Review of Systems - Constitutional Constitutional: reports: Fatigue (improved), Weight stable. denies: Fever, Chills - Eyes Eyes: reports: Vision loss (improved) - Cardiovascular Cardiovascular: reports: Decr. exercise tolerance (improved) - Respiratory Respiratory: denies: Cough, SOB at rest - Gastrointestinal Gastrointestinal: reports: Good appetite. denies: Reflux/heartburn - Integumentary Integumentary: reports: Dryness - Neurological Neurological: reports: General weakness, Headache (see HPI), Memory problems (much improved) - Psychiatric Psychiatric: reports: Depression, Anxiety - Hematologic/Lymphatic Hematologic/Lymphatic: reports: Recurrent infections - All Other Systems All Other Systems: reports: Reviewed and negative Medications/Allergies - Medications Home Medications: Ambulatory Orders Medication Instructions Recorded Confirmed Alendronate Sodium 70 mg PO .Sundays12/18/18 11/15/19 Aspirin Chewable [[facility] 81 mg PO DAILY 12/18/18 11/15/19 Aspirin] Calcium Carbonate [[id number]] 1,000 mg PO BID 12/18/18 02/02/20 Cholecalciferol (Vitamin D3) 1,000 unit PO DAILY 12/18/18 02/02/20 [Vitamin D3] Exemestane 25 mg PO DAILY 12/18/18 02/02/20 Leuprolide Acetate [Lupron Depot] 22.5 mg IM .Q3 MONTH 12/18/18 02/02/20 Magnesium 133 mg PO DAILY 12/18/18 11/15/19 Melatonin 6 mg PO ACHS 12/18/18 02/02/20 Mycophenolate Mofetil [Cellcept] 500 mg PO BID 12/18/18 02/02/20 Pantoprazole [Protonix] 40 mg PO DAILY 12/18/18 02/02/20 Pravastatin [Pravachol] 20 mg PO DAILY 12/18/18 02/02/20 Sulfamethoxazole/Trimethoprim 1 each PO .MWF 12/18/18 02/02/20 [Bactrim 400-80 mg Tablet] Tacrolimus [Prograf] 3.5 mg PO BID 12/18/18 02/02/20 Torsemide 20 mg PO DAILY 12/18/18 11/15/19 Acetaminophen [Tylenol] 650 mg PO Q6HR PRN 12/24/18 02/02/20 Vitamin [Trinatal Rx 1] 1 tab PO DAILY 12/24/18 02/02/20 Gabapentin 300 mg PO .300 MG & 600 MG 02/02/19 11/15/19 Potassium Chloride 30 meq PO DAILY 02/26/19 02/02/20 Trazodone HCl 100 mg PO ACHS PRN 06/10/19 02/02/20 Metoclopramide [Reglan] 5 mg PO Q6H PRN #6 tablet 09/17/19 02/02/20 Aspirin/Acetaminophen/Caffeine 1 tab PO DAILY PRN 11/15/19 02/02/20 [Excedrin Migraine Caplet] Venlafaxine ER [Effexor ER] 37.5 mg PO DAILY 02/02/20 02/02/20 - Allergies Allergies/Adverse Reactions: Allergies Allergy/AdvReac Type Severity Reaction Status Date / Time carvedilol Allergy Anaphylaxis Verified 09/16/19 22:22 amiodarone AdvReac Unknown Verified 09/16/19 22:22 Physical Exam - Physical Exam VS per patient 96.1, 104, 16, 102/65 General; Vitals reviewed, patient does have longstanding tachycardia. Denies any symptom management issues regarding this. ENT; no nasal flaring, no significant oral secretions Eyes; no scleral icterus, mild periorbital edema Pulmonary; normal work of breathing Neuro; patient alert and oriented x3, awake and moving appropriately. Psych; appropriate affect, no outward signs of agitation or anxiety. Heme; no overt bleeding or bruising of extremities. Palliative Care - POLST Patient has POLST: No POLST Status: Full Code Pain: Pain improved, Location (see HPI) Tiredness/Fatigue: Mild (1-3) Drowsiness/Sedation: Mild (1-3) Nausea: None Anorexia: None Dyspnea: Mild (1-3) Depression: Mild (1-3) Anxiety: Moderate (4-6) (related to COVID19) Feelings of wellbeing/Perceived Quality of Life: Good, Acceptable, Improved Sleep: Sleeps well Constipation: No Performance Status: Patient able to manage her own ADLs, ambulates without any difficulty. She has been more sedentary but still taken dog out for walks. She has initiated yoga. - Palliative Care Discussion: Patient does share overall she is feeling much better, feels like her cognitive status is improved, though she still continues with headaches they are much more tolerable. She is feeling more settled. She reports her depression is well controlled. She is anxious about COVID 19, but is taking appropriate cautions. She is doing some writing but not as much, is still working on plotting out and thoughts around a donor letter. Impression and Recommendations - Palliative Care Impression: This is a jose 54-year-old woman with multiple comorbidities, currently living status post heart transplant with previous LVAD destination therapy. She continues treatment regarding her past history of stage III breast cancer, her symptom burden has improved as well as her improving depression. Palliative care continues to provide support around symptom management and counseling for adjustment to illness. Recommendations/Counseling Done: 1. Depression. Patient has been stable long-term on sertraline, headache clinic wanted to try her on Venlafaxine, she was doing a straight switch. Counseling provided regarding still may have some side effects, normalize this for 7 to 10 days. She will monitor for symptoms. She does feel like overall her mood is been elevated, she is feeling quite settled, no signs or symptoms of persistent depressive feelings shared on today's call. 2. Headache. This is been improved, headache clinic is now attributed to possible migraines. She will be switching antidepressants to see if improves, before she can trial migraine medication. She finds this is tolerable at her current level, though it does remain persistent for 2 to 3 days and impacts her quality of life. 3. Left clavicular pain this continues to be persistent but more "annoying" than prior, she did have an MRI that did not show any concerns. 4. Generalized weakness. Counseling provided to encourage patient continue to participate in progressive ambulatory program, positive reinforcement given for initiation of yoga. 5. CO VID 19 preventative measures. Reviewed patient's current preventive measures taking, addressed questions and concerns, patient is following appropriate guidelines. Telehealth Visit - TeleMedicine Visit Referring Provider: Dr. Pasha Ross Visit Type:: TeleHealth Video Call Patient agrees and consents to this telehealth visit type: Yes Time spent:: 45 minutes Video type:: Zoom Location of provider:: Office Location of patient:: Home Provider Statement: I spent 100% on the TeleHealth Video Call with the patient with greater than 50% spent counseling the patient and coordination of care.
== END 2020-02-02 14:31 | disposition home or self-care (01) ==
LOC: PC 14:30
PROVIDERS: ATTEND Nurse Practitioner Adult Health
DX: Z51.5 Encounter for palliative care (principal); R51 Headache; G62.9 Polyneuropathy, unspecified; F32.9 Major depressive disorder, single episode, unspecified; R53.1 Weakness; C50.919 Malignant neoplasm of unspecified site of unspecified female breast; M25.512 Pain in left shoulder; Z79.818 Long term (current) use of other agents affecting estrogen receptors and estrogen levels; Z79.2 Long term (current) use of antibiotics; Z79.899 Other long term (current) drug therapy; Z79.82 Long term (current) use of aspirin; Z79.811 Long term (current) use of aromatase inhibitors; Z86.73 Personal history of transient ischemic attack (TIA), and cerebral infarction without residual deficits; Z94.1 Heart transplant status

== ENCOUNTER 2020-02-05 08:38 | Outpatient (CLI) | payer MEDICARE, BC ==
[2020-02-05 08:55] LABS: BASOPHILS # (AUTO) 0.1 10^3/uL (0.0-0.1); EOSINOPHILS # (AUTO) 0.1 10^3/uL (0.0-0.7); EOSINOPHILS % (AUTO) 2.7 %; HGB - HEMOGLOBIN 11.7 g/dL (12.0-16.0); LYMPHOCYTES # (AUTO) 0.8 10^3/uL (1.5-3.5); LYMPHOCYTES % (AUTO) 16.5 %; MEAN CORPUSCULAR HEMOGLOBIN 29.6 pg (27.0-31.0); MEAN CORPUSCULAR HGB CONC 33.2 g/dL (32.0-36.0); MEAN CORPUSCULAR VOLUME 89.1 fL (81.0-99.0); MEAN PLATELET VOLUME 9.7 fL (7.9-10.8); MONOCYTES # (AUTO) 0.3 10^3/uL (0.0-1.0); MONOCYTES % (AUTO) 5.9 %; NEUTROPHILS # (AUTO) 3.8 10^3/uL (1.5-6.6); NEUTROPHILS % (AUTO) 73.7 %; PLT - PLATELET COUNT 249 10^3/uL (130-450); RED BLOOD COUNT 3.95 10^6/uL (4.20-5.40); RED CELL DISTRIBUTION WIDTH 12.3 % (12.0-15.0); WHITE BLOOD COUNT 5.1 x10^3/uL (4.8-10.8)
== END 2020-02-05 08:39 | disposition home or self-care (01) ==
LOC: LAB 08:38
PROVIDERS: ATTEND Internal Medicine Cardiovascular Disease
DX: Z94.1 Heart transplant status (principal)
CPT/HCPCS: 36415; 80197; 83735; 85025

== ENCOUNTER 2020-03-23 14:00 | Outpatient (CLI) | payer MEDICARE, BC ==
--- NOTE | 2020-03-23 15:18 | PROVIDER PROGRESS NOTE ---
HPI/Interval History - HPI/Interval History This is a jose 54-year-old woman who has been followed with palliative care, originally in the context of LVAD as destination therapy. She had an LVAD due to result of chemotherapy-induced severe cardiomyopathy, with the sequela of advanced CHF. She did eventually have a heart transplant after being hospitalized with with LVAD thrombosis 07/2019. She has also had a history of small stroke in 2019. She is receiving support for history of stage III breast cancer currently in remission, and remains on hormone therapy and Lupron every 3 months. Patient continues have persistent left clavicle pain, she finally saw the cardiac surgeon, and thinks it is compressed nerve. She is awaiting to find out when she can have a MRI, her understanding is that it would involve physical therapy and or working with her medications. She can also have surgery to remove the rib, she does perceive it as significant debility, causing her significant issues as far as her quality of life. She is not been able to titrate up her gabapentin because of dizziness and syncope. She reports the nu mbness is becoming more pronounced particularly down her left arm, and is anxious to have this addressed. At patient's other persistent symptom is her headaches, she reports over the last week and a half has been better though she did have one yesterday. They get fairly severe, and do not respond even to opioids. Is adding to her fatigue as well. She was going to trial via recommendation of the headache clinic changing from her sertraline to venlafaxine, but they did not order the medication and referred her back to original prescribing provider. If she were to fail this, then the next step would be Botox, unfortunately this would mean a trip every 12 weeks. She is hoping either to find a more local resource or that she gets relief with medication change. Patient's depression is doing actually fairly well, though she is experiencing grief and loss with the recent loss of her cat. She has been much more isolated because of the COVID-19. She is quite sequestered appropriately, but is making adjustments. Review of Systems - Constitutional Constitutional: reports: Fatigue (improving), Weight stable. denies: Fever, Chills - Eyes Eyes: reports: Vision loss, Corrective lenses - Cardiovascular Cardiovascular: reports: Exertional dyspnea (has slow "uptake" with heart rate with activity; paces accordingly), Decr. exercise tolerance - Respiratory Respiratory: reports: SOB with exertion. denies: Wheezing, SOB at rest - Gastrointestinal Gastrointestinal: reports: Good appetite - Genitourinary Genitourinary: reports: Frequency - Musculoskeletal Musculoskeletal: reports: Stiffness - Integumentary Integumentary: reports: Pruritis (new symptom; wondering if creatinine is worsening as had this symptom before; will f/up and get testing through cardiology), Dryness - Neurological Neurological: reports: General weakness, Headache, Numbness, Memory problems (improving) - Psychiatric Psychiatric: reports: Anxiety. denies: Depression - Hematologic/Lymphatic Hematologic/Lymphatic: denies: Recurrent infections - All Other Systems All Other Systems: reports: Reviewed and negative Medications/Allergies - Medications Home Medications: Ambulatory Orders Medication Instructions Recorded Confirmed Alendronate Sodium 70 mg PO .Sundays12/18/18 03/23/20 Aspirin Chewable [[facility] 81 mg PO DAILY 12/18/18 03/23/20 Aspirin] Calcium Carbonate [[id number]] 1,000 mg PO BID 12/18/18 03/23/20 Cholecalciferol (Vitamin D3) 1,000 unit PO DAILY 12/18/18 03/23/20 [Vitamin D3] Exemestane 25 mg PO DAILY 12/18/18 03/23/20 Leuprolide Acetate [Lupron Depot] 22.5 mg IM .Q3 MONTH 12/18/18 03/23/20 Magnesium 133 mg PO DAILY 12/18/18 03/23/20 Melatonin 6 mg PO ACHS 12/18/18 03/23/20 Mycophenolate Mofetil [Cellcept] 500 mg PO BID 12/18/18 03/23/20 Pantoprazole [Protonix] 40 mg PO DAILY 12/18/18 03/23/20 Pravastatin [Pravachol] 20 mg PO DAILY 12/18/18 03/23/20 Sulfamethoxazole/Trimethoprim 1 each PO .MWF 12/18/18 03/23/20 [Bactrim 400-80 mg Tablet] Tacrolimus [Prograf] 4 mg PO BID 12/18/18 03/23/20 Torsemide 20 mg PO DAILY 12/18/18 03/23/20 Acetaminophen [Tylenol] 650 mg PO Q6HR PRN 12/24/18 03/23/20 Vitamin [Trinatal Rx 1] 1 tab PO DAILY 12/24/18 03/23/20 Gabapentin 300 mg PO BID 02/02/19 03/23/20 Potassium Chloride 20 meq PO BID 02/26/19 03/23/20 Trazodone HCl 50 - 100 mg PO QPM PRN 06/10/19 03/23/20 Metoclopramide [Reglan] 5 mg PO Q6H PRN #6 tablet 09/17/19 03/23/20 Aspirin/Acetaminophen/Caffeine 1 tab PO DAILY PRN 11/15/19 03/23/20 [Excedrin Migraine Caplet] Venlafaxine ER [Effexor ER] 37.5 mg PO DAILY MDD to start this 02/02/20 03/23/20 week - Allergies Allergies/Adverse Reactions: Allergies Allergy/AdvReac Type Severity Reaction Status Date / Time carvedilol Allergy Anaphylaxis Verified 02/08/20 10:20 amiodarone AdvReac Unknown Verified 02/08/20 10:20 Physical Exam - Physical Exam Patient took her vital signs 95/71 pulse 105 and respirations 18. General; vitals reviewed, patient has longstanding tachycardia. Denies any symptom management issues regarding this. ENT: No nasal flaring, no significant oral secretions Eyes: No scleral icterus, mild periorbital edema Pulmonary: Normal work of breathing, some increased breathlessness with activity. Neuro: Patient alert and oriented x3, awake and moving appropriately. Psych: Appropriate affect no outward signs of agitation or anxiety. Cardiac: No francisco javier-aural cyanosis, no edema. Heme: No overt bleeding or bruising of extremities noted. Palliative Care - POLST Patient has POLST: No POLST Status: Full Code Pain: Pain worsening, Location (left clavicle; headache improving; right thigh remains plateaued) Tiredness/Fatigue: Moderate (4-6) Drowsiness/Sedation: None Nausea: None Anorexia: None Dyspnea: Mild (1-3) Depression: Mild (1-3) Anxiety: Mild (1-3) Feelings of wellbeing/Perceived Quality of Life: Good, Acceptable, Improved Sleep: Sleep improved Constipation: No Performance Status: Patient is getting out and walking several times a day, this is in conjunction with walking her dog. She reports she is up to 2 miles and doing quite better. Overall with her fatigue, is able to do more activity. She is able to manage her own ADLs and drive independently. - Palliative Care Discussion: Discussion includes patient's response regarding changes, continued isolation regarding COVID-19, patient overall doing fairly well. Express appropriate feelings of grief and loss with her of her cat. Does raise her vulnerabilities, particularly in the context of what she has been through and not wanting to prolong suffering. Discussion regarding these things. Patient is doing well overall, does not present with any depressive symptoms, and anxiety well controlled. Impression and Recommendations - Palliative Care Impression: This is a jose 52-year-old woman with multiple comorbidities, currently living status post heart transplant, with previous LVAD destination therapy. She continues with her treatment for past history of stage III breast cancer, currently in remission. Patient continues with moderate symptom burden, depression and anxiety well controlled. Palliative care continue provide support around symptom management and counseling for adjustment to illness. Recommendations/Counseling Done: 1. Depression. Patient's been stable long-term on sertraline, she was going to switch over as the headache clinic wanted to try some venlafaxine. Unfortunately she was unable to get prescription, has had deferred back to primary prescriber. We did discuss if she wants to continue on this path, I am more than happy to prescribe for her. She is able to do a straight switch they are both SSRIs. Counseling again reviewed regarding may still have some side effects, this should normalize in 7 to 10 days. She will monitor for symptoms. We can increase if her depressive symptoms increase, the goal is so in hopes to decrease her headaches. 2. Headache. This has improved over the last week and a half, but still would like to move forward on trial. She has to switch antidepressants before she can trial migraine medication or Botox. She may also explore headache clinic alternatives up closer to home. 3. Left clavicular pain. This continues to be persistent and more debilitating, with increased numbness pain, and symptomology. She had seen the cardiac surgeon, they were going to arrange for an MRI, to see if there is compressed nerve in there, with hopes to either relieve through manipulation of physical therapy, or possible surgery to release. She is awaiting callback and coordination of care regarding that. 4. Neuropathy. Patient does have pain in her right thigh, has been on gabapentin long-term for this, has side effects, also discussed related to her nerve pain in her shoulder, would recommend possibly changing over to pregabalin. Ratio would be 6-1 currently she is on 300 mg twice daily of gabapentin, would initiate at pregabalin 50 mg twice daily, and then could titrate up to effect. Still has side effects but less than gabapentin, and also if efficacy can be better defined in shorter period of time. If MRI or coordination of care it is more extended, she will call and we can try this sooner than later, otherwise agreed once changed to time, with the initiation of venlafaxine first. Telehealth Visit - TeleMedicine Visit Referring Provider: Dr. Pasha Ross Visit Type:: TeleHealth Video Call Patient agrees and consents to this telehealth visit type: Yes Patient agrees to have their insurance billed: Yes Time spent:: 50 minutes Video type:: Doximetry Location of provider:: Office Location of patient:: Home Provider Statement: I spent 100% on the TeleHealth Video Call with the patient with greater than 50% spent counseling the patient and coordination of care.
== END 2020-03-23 14:01 | disposition home or self-care (01) ==
LOC: PC 14:00
PROVIDERS: ATTEND Nurse Practitioner Adult Health
DX: Z51.5 Encounter for palliative care (principal); F32.9 Major depressive disorder, single episode, unspecified; R51 Headache; G62.9 Polyneuropathy, unspecified; M25.512 Pain in left shoulder; C50.919 Malignant neoplasm of unspecified site of unspecified female breast; Z79.899 Other long term (current) drug therapy; Z79.82 Long term (current) use of aspirin; Z79.818 Long term (current) use of other agents affecting estrogen receptors and estrogen levels; Z79.811 Long term (current) use of aromatase inhibitors; Z79.2 Long term (current) use of antibiotics; Z94.1 Heart transplant status

== ENCOUNTER 2020-04-11 09:49 | Outpatient (CLI) | payer MEDICARE, BC ==
--- NOTE | 2020-04-11 11:30 | DEXA Report ---
Reason: POST MENOPAUSAL Procedure Date: 04/11/2020 Accession Number: [id number] / [id number] Procedure: DEX - Dexa Spine and/or Hip CPT Code: Final Report FULL RESULT: PROCEDURE: Dexa Spine and/or Hip INDICATIONS: POST MENOPAUSAL TECHNIQUE: Dual energy x-ray absorptiometry (DXA) was performed on a eInstruction by [employer]. Regions measured are the AP Spine, femoral neck, and if needed forearm. COMPARISON: 10/24/2017 FINDINGS: Lumbar Spine: Bone Mineral Density 1.268 g/cm/cm,T score 0.7 , normal. Previous T score was 0.1. Left Hip: Bone Mineral Density 1.082 g/cm/cm,T score 0.6 , normal. Previous T score was 0.9. Change from previous -3.0%, significant. (T score greater or equal to -1.0: NORMAL) (T score from -1.1 to -2.4: OSTEOPENIA) (T score less than or equal to -2.5 to: OSTEOPOROSIS) Impression: 1. Significant interval decrease in bone mineral density of the left hip compared to the prior study. 2. The patient continues to have normal bone mineral density. Patients with diagnosis of osteoporosis or osteopenia should have regular bone mineral density assessment. For those eligible for Medicare, routine testing is allowed once every 2 years. Testing frequency can be increased for patients who have rapidly progressing disease or for those who are receiving medical therapy to restore bone mass. Reviewed by: Caty Remy MD on 04/11/2020 11:28 AM PDT Approved by: Caty Remy MD on 04/11/2020 11:28 AM PDT Station ID: [id number]
== END 2020-04-11 09:50 | disposition home or self-care (01) ==
LOC: DI 09:49
PROVIDERS: ATTEND Internal Medicine Hematology & Oncology
DX: Z78.0 Asymptomatic menopausal state (principal)
CPT/HCPCS: 77080

== ENCOUNTER 2020-06-13 23:39 | Outpatient (CLI) | payer MEDICARE, BC | END 2020-06-13 23:40 | disposition short-term general hospital (02) | LOC: EMS 23:39 | PROVIDERS: ATTEND Surgery | DX: R42 Dizziness and giddiness (principal); R11.0 Nausea; R51 Headache | CPT/HCPCS: A0425; A0427 ==

== ENCOUNTER 2020-06-28 10:14 | Outpatient (CLI) | payer MEDICARE, BC ==
[2020-06-28 10:27] LABS: BASOPHILS % (AUTO) 0.5 %; EOSINOPHILS # (AUTO) 0.1 10^3/uL (0.0-0.7); EOSINOPHILS % (AUTO) 2.3 %; HGB - HEMOGLOBIN 11.6 g/dL (12.0-16.0); LYMPHOCYTES # (AUTO) 0.8 10^3/uL (1.5-3.5); LYMPHOCYTES % (AUTO) 13.4 %; MEAN CORPUSCULAR HEMOGLOBIN 31.8 pg (27.0-31.0); MEAN CORPUSCULAR HGB CONC 34.7 g/dL (32.0-36.0); MEAN CORPUSCULAR VOLUME 91.5 fL (81.0-99.0); MEAN PLATELET VOLUME 9.9 fL (7.9-10.8); MONOCYTES # (AUTO) 0.4 10^3/uL (0.0-1.0); MONOCYTES % (AUTO) 6.8 %; NEUTROPHILS # (AUTO) 4.4 10^3/uL (1.5-6.6); NEUTROPHILS % (AUTO) 76.8 %; PLT - PLATELET COUNT 259 10^3/uL (130-450); RED BLOOD COUNT 3.65 10^6/uL (4.20-5.40); WHITE BLOOD COUNT 5.7 x10^3/uL (4.8-10.8)
[2020-06-28 10:39] LABS: ALBUMIN 4.2 g/dL (3.2-5.5); ALBUMIN/GLOBULIN RATIO 1.5 (1.0-2.2); BILIRUBIN,TOTAL 0.6 mg/dL (0.2-1.0); CALCIUM 9.2 mg/dL (8.5-10.3); CREATININE 1.2 mg/dL (0.4-1.0); MAGNESIUM 1.6 mg/dL (1.7-2.8)
== END 2020-06-28 10:15 | disposition home or self-care (01) ==
LOC: LAB 10:14
PROVIDERS: ATTEND Internal Medicine Cardiovascular Disease
DX: Z94.1 Heart transplant status (principal)
CPT/HCPCS: 36415; 80053; 80197; 83735; 85025

== ENCOUNTER 2020-07-22 09:27 | Outpatient (CLI) | payer MEDICARE, BC ==
[2020-07-22 09:59] LABS: CALCIUM 9.2 mg/dL (8.5-10.3); CREATININE 1.3 mg/dL (0.4-1.0)
== END 2020-07-22 09:28 | disposition home or self-care (01) ==
LOC: LAB 09:27
PROVIDERS: ATTEND Internal Medicine Cardiovascular Disease
DX: Z94.1 Heart transplant status (principal)
CPT/HCPCS: 36415; 80048; 80195; 80197; 81599

== ENCOUNTER 2020-08-08 08:00 | Outpatient (CLI) | payer MEDICARE, BC ==
[2020-08-08 18:10] LABS: CALCIUM 8.9 mg/dL (8.5-10.3); CREATININE 1.8 mg/dL (0.4-1.0)
== END 2020-08-08 23:59 | disposition home or self-care (01) ==
LOC: LAB 08:00
PROVIDERS: ATTEND Internal Medicine Cardiovascular Disease
DX: Z94.1 Heart transplant status (principal)
CPT/HCPCS: 36415; 80048; 80195; 80197; 81599

== ENCOUNTER 2020-09-05 14:49 | Outpatient (CLI) | payer MEDICARE, BC ==
--- NOTE | 2020-09-05 19:41 | CONSULTATION NOTE ---
Palliative Care Follow Up - Referral Referring Provider: Pasha Ross MD Time of Visit: [id number] Referral setting: [facility] – [place] Referral Reason: Depression/s/p Heart transplant /Stage IIIa Breast Cancer - Information Sources Records reviewed: Previous records reviewed History/Review of Systems obtained from: Patient Exam limitations: No limitations - History of Present Illness Update Brief HPI Update: This is a jose 55-year-old man has been followed by palliative care, originally in the context of LVAD as destination therapy. She had an LVAD due to resulting chemotherapy-induced severe cardiomyopathy a sequela of advanced CHF. She eventually had a heart transplant after being hospitalized with LVAD thrombosis 07/2019. She also had a history of a small stroke in 2019. She is currently continuing with support for her history of stage IIIa breast cancer currently in remission, remains on hormone therapy and Lupron every 3 months. She has had a sequela of symptoms, but all seem to be improving slowly. She has had persistent and fluctuating headaches, these have improved some, we had trialed per recommendation of headache clinic venlafaxine, she saw no difference even with titration up to 75 mg, she was having an episode of persistent anxiety recently and switch back to her sertraline. She has not noticed any difference. She is also switched from her CellCept to sirolimus, thinking this may have something to do with her symptoms. She has noted some ongoing persistent fatigue, had low percentage of iron saturation is receiving iron transfusion today, and has had some persistent diarrhea. Her other symptom has been her left clavicular pain, with multiple work-ups, most recently she has trialed physical therapy with massage, ultrasound, and is getting some relief. She reports the severity of it has decreased as well as the impact. She also has vague symptoms of persistent fatigue, intermittent muscle aches, breathlessness and dizziness and is hoping that iron transfusion will help. She does not present with any signs or symptoms of heart failure, her breath sounds are clear though she does have diminished in the left lower lobe, and no lower extremity edema. She has had a busy few months, with family visiting, and stressors that have accompanied this. We are doing to check-in, particular around her depression as she does have a history of major depressive disorder. Past Medical History: CHF, hypertension, atrial fib, arrhythmias, history of ablation, kidney stones, depression, anxiety, history of spine surgery 2004, history mastectomy bilateral, history of LVAD, history of heart transplant Social History - Living Situation Living arrangement: At home Living Situation: With family Support System: Patient lives with her mom in [place], she has a good friend whom she had been alternating living situation with previously. She is finding she is settling in, she a large family that is both a source of support and stressors. Medications/Allergies - Medications Home Medications: Ambulatory Orders Medication Instructions Recorded Confirmed Alendronate Sodium 70 mg PO .Sundays12/18/18 09/05/20 Aspirin Chewable [[facility] 81 mg PO DAILY 12/18/18 09/05/20 Aspirin] Calcium Carbonate [[id number]] 1,000 mg PO BID 12/18/18 09/05/20 Cholecalciferol (Vitamin D3) 1,000 unit PO DAILY 12/18/18 09/05/20 [Vitamin D3] Exemestane 25 mg PO DAILY 12/18/18 09/05/20 Leuprolide Acetate [Lupron Depot] 22.5 mg IM .Q3 MONTH 12/18/18 09/05/20 Magnesium 133 mg PO DAILY 12/18/18 09/05/20 Melatonin 6 mg PO ACHS 12/18/18 09/05/20 Pantoprazole [Protonix] 40 mg PO DAILY 12/18/18 09/05/20 Pravastatin [Pravachol] 20 mg PO DAILY 12/18/18 09/05/20 Sulfamethoxazole/Trimethoprim 1 each PO .MWF 12/18/18 09/05/20 [Bactrim 400-80 mg Tablet] Tacrolimus [Prograf] 3.5 - 4 mg PO BID 12/18/18 09/05/20 Torsemide 20 mg PO DAILY 12/18/18 09/05/20 Vitamin [Trinatal Rx 1] 1 tab PO DAILY 12/24/18 09/05/20 Gabapentin 300 mg PO BID 02/02/19 09/05/20 Potassium Chloride 20 meq PO BID 02/26/19 09/05/20 Trazodone HCl 50 - 100 mg PO QPM PRN 06/10/19 09/05/20 Metoclopramide [Reglan] 5 mg PO Q6H PRN #6 tablet 09/17/19 09/05/20 Aspirin/Acetaminophen/Caffeine 1 tab PO DAILY PRN 11/15/19 09/05/20 [Excedrin Migraine Caplet] Ondansetron [Zuplenz] 4 mg PO Q8HR PRN 09/05/20 09/05/20 Sertraline HCl 100 mg PO DAILY 09/05/20 09/05/20 Sirolimus 1.5 mg PO DAILY 09/05/20 09/05/20 - Allergies Allergies/Adverse Reactions: Allergies Allergy/AdvReac Type Severity Reaction Status Date / Time carvedilol Allergy Anaphylaxis Verified 08/29/20 10:04 amiodarone AdvReac Unknown Verified 08/29/20 10:04 Review of Systems - Constitutional Constitutional: reports: Fatigue (worsening), Weight stable. denies: Fever, Chills - Eyes Eyes: reports: Vision loss, Corrective lenses - Cardiovascular Cardiovascular: reports: Lightheadedness, Exertional dyspnea, Decr. exercise tolerance. denies: Chest pain - Respiratory Respiratory: reports: SOB with exertion. denies: Cough, Wheezing, SOB at rest - Gastrointestinal Gastrointestinal: reports: Diarrhea (reports loose stool with some urgency almost daily since new medication sirolimus) - Genitourinary Genitourinary: reports: Frequency - Musculoskeletal Musculoskeletal: reports: Muscle pain, Back pain (new; concerned with increased activity-has hx of "bulging disc" DJD dx), Stiffness, Muscle weakness - Integumentary Integumentary: reports: Dryness, Hair changes - Neurological Neurological: reports: General weakness, Headache (improved but fluctuates/persists), Memory problems (feels frustrated by memory issues) - Psychiatric Psychiatric: reports: Depression (concerned with transition to winter), Anxiety (worried since venlafaxine did not help h/a; returned to sertraline r/t anxiety) Physical Exam - Physical Exam General Appearance: positive: No acute distress, Alert Eyes Bilateral: positive: Normal inspection Neck: positive: Trachea midline Cardiovascular: positive: Regular rate & rhythm Respiratory: positive: No respiratory distress, Diminished in bases (in LLL). negative: Wheezes, Rales, Rhonchi Abdomen: positive: Soft, Nml bowel sounds Skin: positive: Pallor, Dryness Extremities: positive: No pedal edema Neurologic/Psychiatric: positive: Oriented x3, Mood/affect nml Palliative Care - POLST Patient has POLST: No POLST Status: Full Code Pain: Pain improved, Location (left clavicular /neck shoulder area), Severity (4/10) Tiredness/Fatigue: Mild (1-3) Drowsiness/Sedation: Mild (1-3) Nausea: Mild (1-3) Anorexia: Mild (1-3) Dyspnea: Mild (1-3) Depression: None Anxiety: Mild (1-3) Feelings of wellbeing/Perceived Quality of Life: Good, Acceptable, Improved Sleep: Sleeps well Performance Status: Patient has been less active, though she is independent in her ADLs and does drive. She has been going to physical therapy, did discuss considering increasing her activity around a progressive ambulation program. - Palliative Care Discussion: Met with patient, she is coming down off of multiple family visits and busyness, and stressors that come with this. She is perceiving it would be of benefit for her to pull back and create more of a routine. We did explore things that were supportive for her that have been helpful in the past and easily integrated back into her routine. She does get anxious with the changing light, she has had MDD before, and is worried about triggers. She though feels quite elevated mood, and does not feel any persistent depressive symptoms /feelings today. Results - Lab Results Lab results reviewed: Yes Impression and Recommendations - Palliative Care Impression: This is a jose 55-year-old woman with multiple serious comorbidities, currently living status post heart transplant with previous LVAD destination therapy. She continues to get treatment for her history of stage III breast cancer, currently in remission. Continues with fluctuating but improving symptom burden, palliative care continue provide support around symptom man agement and counseling for adjustment illness Recommendations/Counseling Done: 1. Headache. Patient originally had reported venlafaxine had helped with headaches, at this point she does not see it as effective. She has found that work with her neck and physical therapist has decreased the severity and frequency of headaches. 2. Depression. Patient has been stable long-term on sertraline, she was having some anxiety, she switched back and feels it is currently working. She would like to explore wondering if she even needs it at this point in time possibly titrating back in the spring. Counseling provided regarding ways to support her routine, including integrating a routine of progressive ambulation, return to nature walks, set limits on her family, and explore meditative activities. 3. Back pain. She reports she is with increased activity having increased lower lumbar back discomfort to actually her left hip area. Did recommend she may get appointment with her primary Nay Mainor NEIL, she has not seen her recently, and then could follow through on referrals if needed. She will try make an appointment if it is too far in the future, can make arrangements short- term for x-rays if needed. She also sees her bus transportation manager next week as well. 4. Left clavicular pain. Follow-up with oncology, suspects it actually may have been a radiation-induced Fasciitis. She has gotten relief with ongoing physical therapist appointments. 5. Fatigue. This is multifactorial, she will be getting iron transfusion, she is hopeful this will help. Encouraged also for progressive ambulation program, to increase her endurance as she has been more sedentary. Encouraged though again also to pace her activities and set priorities. 6. Dyspnea. Patient continues with intermittent dyspnea, she does have difficulty taking deep breaths. We did discuss actually integrating back into her regime and incentive spirometer. She does think she still has 1 from her surgeries, this is most likely multifactorial as well. 7. Advance care planning. Patient continues to express appropriate feelings regarding sequela of events, moving with serious illness. Will explore patient's goal and hesitation for follow-up donors letter. Time Spent: 45 minutes with greater than 50% of this done in counseling regarding management of depression, adjustment illness, symptom management and anticipatory guidance.
== END 2020-09-05 14:50 | disposition home or self-care (01) ==
LOC: PC 14:49
PROVIDERS: ATTEND Nurse Practitioner Adult Health
DX: Z51.5 Encounter for palliative care (principal); R51.9 Headache, unspecified; F32.9 Major depressive disorder, single episode, unspecified; M54.5 Low back pain; M25.512 Pain in left shoulder; R53.83 Other fatigue; R06.09 Other forms of dyspnea; R19.7 Diarrhea, unspecified; Z79.899 Other long term (current) drug therapy; Z79.82 Long term (current) use of aspirin; Z94.1 Heart transplant status
CPT/HCPCS: 99215

== ENCOUNTER 2020-09-19 08:44 | Outpatient (CLI) | payer MEDICARE, BC ==
[2020-09-19 09:18] LABS: CALCIUM 9.1 mg/dL (8.5-10.3); CREATININE 1.4 mg/dL (0.4-1.0)
== END 2020-09-19 08:45 | disposition home or self-care (01) ==
LOC: LAB 08:44
PROVIDERS: ATTEND Internal Medicine Cardiovascular Disease
DX: Z94.1 Heart transplant status (principal)
CPT/HCPCS: 36415; 80048; 80195; 80197; 81599

== ENCOUNTER 2020-09-21 11:20 | Outpatient (CLI) | payer MEDICARE, BC ==
--- NOTE | 2020-09-21 12:09 | XRAY Report ---
PROCEDURE: Lumbar Spine 2 View INDICATIONS: LUMBAR DISC DEGENERATION W/NEUROLOGICAL MANIFESTAT TECHNIQUE: 2 views of the lumbar spine were acquired. COMPARISON: None. FINDINGS: Bones: Partial sacralization of L5. 4 nonrib-bearing lumbar vertebral bodies. There is normal bony a lignment. No vertebral body compression fractures. No suspicious bony lesions. Multilevel degenera tive disc space loss. Lower lumbar facet arthropathy. Soft tissues: Overlying bowel gas pattern is normal. No suspicious soft tissue calcifications. IMPRESSION: 1. Note made of partial sacralization of L5 for nonrib-bearing lumbar vertebral bodies present. 2. No evidence acute bony abnormality of the lumbar spine. Comment: Lumbar spine MRI may be helpful. Reviewed by: Travis Butler MD on 09/21/2020 12:07 PM PST Approved by: Travis Butler MD on 09/21/2020 12:07 PM PST Station ID: [id number]
== END 2020-09-21 11:21 | disposition home or self-care (01) ==
LOC: DI 11:20
PROVIDERS: ATTEND Nurse Practitioner
DX: M51.06 Intervertebral disc disorders with myelopathy, lumbar region (principal)
CPT/HCPCS: 72100

== ENCOUNTER 2020-11-16 10:12 | Outpatient (CLI) | payer MEDICARE, BC ==
[2020-11-16 10:42] LABS: CALCIUM 10.4 mg/dL (8.5-10.3); CREATININE 1.5 mg/dL (0.4-1.0)
== END 2020-11-16 10:13 | disposition home or self-care (01) ==
LOC: LAB 10:12
PROVIDERS: ATTEND Internal Medicine Cardiovascular Disease
DX: Z94.1 Heart transplant status (principal)
CPT/HCPCS: 36415; 80048; 80195; 80197; 81599

== ENCOUNTER 2020-11-28 10:30 | Outpatient (CLI) | payer MEDICARE, BC ==
--- NOTE | 2020-11-28 16:11 | CONSULTATION NOTE ---
Palliative Care Follow Up - Referral Referring Provider: Dr. Pasha Ross Time of Visit: [id number] Referral setting[place] [facility] [place] Reason: Depression/s/p Heart transplant/Hx of Breast CA - Information Sources Records reviewed: Previous records reviewed History/Review of Systems obtained from: Patient Exam limitations: No limitations - History of Present Illness Update Brief HPI Update: This is a jose 55-year-old woman, being followed by palliative care, originally in the context of LVAD S testing and shunt therapy. She had an LVAD due to resulting chemotherapy-induced severe cardiomyopathy with a sequela of advanced CHF. She eventually had a heart transplant after being hospitalized with LVAD thrombosis in 07/2019. She is also had a history of small stroke in 2019. She is currently is in remission for her stage IIIa breast cancer, remains on hormone therapy and Lupron every 3 months. She has continued to improve as far as cardiac status, with improving endurance, she still is challenged tachycardia with exercise, resting heart rate around 82, with initial incline or increase in activity around 98-100, and can top out until her heart takes an 120-135. She is walking her jose dog daily, and adding progressive ambulation. She is able to participate in household tasks, and is grateful for her increase in activity tolerance. Patient has completed her physical therapy, she does have residual pain at her left clavicle area, she recently stopped physical therapy. She is still continue to exercise, but did improve was actually her headaches, they are down to about 1 time a month. Her most problematic symptom with her increased activity has been a resurgence of her lower back pain. She originally had severe ruptured disc in 2004, and 14 with her increase activity she has noted increased pain particularly with twisting activities. She did have an MRI in [place], was referred to a ne urosurgeon at [facility], is awaiting outcome of that appointment. She does use cold packs, and acetaminophen with some improvement. She is also doing some stretching exercise. Patient reports overall her mood has improved, she was fearful with winter resurgence of her depression, she feels like she is setting short-term goals, her anxiety is improved overall, and is settling in and grateful for her improvement in her quality of life is well as functional status. She continues to be grateful for the time she has been given. Past Medical History: CHF, hypertension, atrial fib, arrhythmias, history of ablation, kidney stones, depression, anxiety, history of spine surgery 2004, history of bilateral mastectomy, history of LVAD, history of heart transplant Social History - Living Situation Living arrangement: At home Living Situation: With family Support System: Patient continues to live with her mother in [place], with her increased endurance, she is feeling like she is doing more. Her mother had actually been her caregiver for several years, and her mother though she is elderly, is in good health. 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 Medications/Allergies - Medications Home Medications: Ambulatory Orders Medication Instructions Recorded Confirmed Aspirin Chewable [[facility] 81 mg PO DAILY 12/18/18 11/28/20 Aspirin] Calcium Carbonate [[id number]] 1,000 mg PO BID 12/18/18 11/28/20 Cholecalciferol (Vitamin D3) 1,000 unit PO DAILY 12/18/18 11/28/20 [Vitamin D3] Exemestane 25 mg PO DAILY 12/18/18 11/28/20 Leuprolide Acetate [Lupron Depot] 22.5 mg IM .Q3 MONTH 12/18/18 11/28/20 Magnesium 133 mg PO DAILY 12/18/18 11/28/20 Pantoprazole [Protonix] 40 mg PO DAILY 12/18/18 11/28/20 Pravastatin [Pravachol] 20 mg PO DAILY 12/18/18 11/28/20 Sulfamethoxazole/Trimethoprim 1 each PO .MWF 12/18/18 11/28/20 [Bactrim 400-80 mg Tablet] Tacrolimus [Prograf] 2 - 2.5 mg PO BID 12/18/18 11/28/20 Torsemide 20 mg PO .20 MG3 /10MG 4 DAYS 12/18/18 11/28/20 Vitamin [Trinatal Rx 1] 1 tab PO DAILY 12/24/18 11/28/20 Gabapentin 300 mg PO BID 02/02/19 11/28/20 Potassium Chloride 20 meq PO .40 AM 20 PM 02/26/19 11/28/20 Trazodone HCl 100 mg PO QPM PRN 06/10/19 11/28/20 Metoclopramide [Reglan] 5 mg PO Q6H PRN #6 tablet 09/17/19 11/28/20 Aspirin/Acetaminophen/Caffeine 1 tab PO DAILY PRN 11/15/19 11/28/20 [Excedrin Migraine Caplet] Ondansetron [Zuplenz] 4 mg PO Q8HR PRN 09/05/20 11/28/20 Sertraline HCl 100 mg PO DAILY 09/05/20 11/28/20 Sirolimus 1.5 mg PO DAILY 09/05/20 11/28/20 - Allergies Allergies/Adverse Reactions: Allergies Allergy/AdvReac Type Severity Reaction Status Date / Time carvedilol Allergy Anaphylaxis Verified 08/29/20 10:04 amiodarone AdvReac Unknown Verified 08/29/20 10:04 Review of Systems - Constitutional Constitutional: reports: Fatigue (improved), Weight stable. denies: Fever, Chills - Eyes Eyes: reports: Vision loss, Corrective lenses - Ears, Nose & Throat Ears, Nose & Throat: reports: Dry mouth - Cardiovascular Cardiovascular: reports: Palpitations (with activity), Exertional dyspnea (improving), Decr. exercise tolerance. denies: Chest pain, Edema - Respiratory Respiratory: reports: SOB with exertion. denies: Cough, Wheezing, SOB at rest - Gastrointestinal Gastrointestinal: reports: Diarrhea (reports loose stool with some urgency almost daily since medication sirolimus), Good appetite - Genitourinary Genitourinary: reports: Frequency - Musculoskeletal Musculoskeletal: reports: Muscle pain, Back pain (new; concerned with increased activity-has hx of "bulging disc" DJD dx; awaiting neurosurgeon referral; had MRI), Stiffness, Muscle weakness - Integumentary Integumentary: reports: Dryness, Hair changes - Neurological Neurological: reports: General weakness, Headache (improved less than once a month; PT improved), Memory problems (feels frustrated by memory issues) - Psychiatric Psychiatric: reports: Depression (had been concerned with transition to winter; doing well). denies: Anxiety - All Other Systems All Other Systems: reports: Reviewed and negative Physical Exam - Vital Signs Temperature: 97.3 C - Physical Exam General Appearance: positive: No acute distress, Alert Eyes Bilateral: positive: Normal inspection ENT: positive: Other (patient masked) Neck: positive: Trachea midline Cardiovascular: positive: Regular rate & rhythm Respiratory: positive: No respiratory distress, Breath sounds nml. negative: Wheezes, Rales, Rhonchi Abdomen: positive: Soft, Nml bowel sounds Skin: positive: Pallor, Dryness Extremities: positive: No pedal edema Neurologic/Psychiatric: positive: Oriented x3, Mood/affect nml Palliative Care - POLST Patient has POLST: No POLST Status: Full Code Pain: Pain worsening (lower back pain), Pain improved (headache; right thigh neuropathic pain; controlled with gabapentin 300 mg bid) Tiredness/Fatigue: Mild (1-3) Drowsiness/Sedation: Mild (1-3) Nausea: None Anorexia: None Dyspnea: Moderate (4-6) (with activity) Depression: None Anxiety: None Feelings of wellbeing/Perceived Quality of Life: Fair, Acceptable, Improved Sleep: Sleeps well Constipation: No Performance Status: Patient continues to improve with her activity tolerance, continue to do progressive ambulation. She is doing a short walk daily at least, and continues to challenge herself to longer distances - Palliative Care Discussion: Patient does feel like she currently has her depression and anxiety under control. She is trying to fine-tune things for improved quality of life, is somewhat disappointed her pain has exacerbated. She is hoping to get it addressed before at becomes more limiting. She remains quite grateful, but is aware she continues on "borrowed time". Feels like she is making goals, doing well, and settled in to her current rhythm. She does find it helpful to process her current situation, acknowledging her last few years have been full of significant event/trauma. Results - Lab Results Lab results reviewed: Yes Impression and Recommendations - Palliative Care Impression: This is a jose 55-year-old woman with multiple serious comorbidities, currently living with status post heart transplant with previous LVAD destination therapy, and history of stage III breast cancer, currently in remission. Continues with fluctuating but improving symptom burden, improving functional status, as well as current depression under control. Palliative care continue provide support and symptom management and counseling for adjustment illness Recommendations/Counseling Done: 1. Stage III breast cancer, currently in remission. Patient received 22.5 Lupron this time, she understands there is a 12.25 mg dose, was not available via insurance/supply last time. Requested reach out to Dr. JO ARMENDARIZ for appointment in December, email with inquiry sent. 2. Status post heart transplant. Patient doing fairly well, trying to adjust her activity given limitations with physical ask exercise. She is continue with progressive exercise program, feels like she is making good improvement. Continues to be followed by [facility] team. Currently feels like things are going well, and remains quite grateful and hopeful. 3. Depression. Patient's been stable long-term on her sertraline, had trialed venlafaxine to see if it would help with headaches without improvement. Counseling provided regarding ways to continue to support her routine, she is doing progressive ambulation, setting short-term goals, and feeling depression currently well controlled. 4. Back pain. Patient reports with increased activity having increased lower back discomfort, she had seen her PCP, was able to get x-rays and MRI. She is awaiting feedback from neurosurgeon if [facility]. Counseling provided regarding patient's questions regarding weight loss, may improve back pain and overall wellbeing. Patient has had counseling from cardiac rehab, CBT to engage on goalsetting regarding ways to integrate into her current routine, with portion control, healthy choices, and regular meal patterns. Time Spent: 45 minutes with greater than 50% of this done in counseling regarding symptom management, adjustment illness, and anticipatory guidance. Coordination of care with oncology team
== END 2020-11-28 10:31 | disposition home or self-care (01) ==
LOC: PC 10:30
PROVIDERS: ATTEND Nurse Practitioner Adult Health
DX: Z51.5 Encounter for palliative care (principal); C50.919 Malignant neoplasm of unspecified site of unspecified female breast; F32.9 Major depressive disorder, single episode, unspecified; M54.5 Low back pain; Z94.1 Heart transplant status
CPT/HCPCS: 99215

== ENCOUNTER 2020-12-06 09:19 | Outpatient (CLI) | payer MEDICARE, BC ==
[2020-12-06 09:34] LABS: BASOPHILS # (AUTO) 0.1 10^3/uL (0.0-0.1); BASOPHILS % (AUTO) 0.9 %; EOSINOPHILS # (AUTO) 0.2 10^3/uL (0.0-0.7); EOSINOPHILS % (AUTO) 2.6 %; HGB - HEMOGLOBIN 11.5 g/dL (12.0-16.0); LYMPHOCYTES # (AUTO) 0.9 10^3/uL (1.5-3.5); LYMPHOCYTES % (AUTO) 16.4 %; MEAN CORPUSCULAR HEMOGLOBIN 29.9 pg (27.0-31.0); MEAN CORPUSCULAR HGB CONC 33.4 g/dL (32.0-36.0); MEAN CORPUSCULAR VOLUME 89.4 fL (81.0-99.0); MEAN PLATELET VOLUME 9.2 fL (7.9-10.8); MONOCYTES # (AUTO) 0.4 10^3/uL (0.0-1.0); MONOCYTES % (AUTO) 7.2 %; NEUTROPHILS # (AUTO) 4.1 10^3/uL (1.5-6.6); NEUTROPHILS % (AUTO) 72.7 %; PLT - PLATELET COUNT 265 10^3/uL (130-450); RED BLOOD COUNT 3.85 10^6/uL (4.20-5.40); WHITE BLOOD COUNT 5.7 x10^3/uL (4.8-10.8)
[2020-12-06 10:03] LABS: CALCIUM 9.6 mg/dL (8.5-10.3); CREATININE 1.4 mg/dL (0.4-1.0)
== END 2020-12-06 09:20 | disposition home or self-care (01) ==
LOC: LAB 09:19
PROVIDERS: ATTEND Nurse Practitioner
DX: R53.83 Other fatigue (principal); I50.9 Heart failure, unspecified; E61.1 Iron deficiency; Z94.1 Heart transplant status
CPT/HCPCS: 36415; 80048; 80195; 80197; 81599; 82728; 83540; 84466; 85025

== ENCOUNTER 2020-12-23 09:00 | Outpatient (CLI) | payer MEDICARE, BC ==
[2020-12-23 09:38] LABS: CALCIUM 9.2 mg/dL (8.5-10.3); CREATININE 1.7 mg/dL (0.4-1.0); POTASSIUM 3.5 mmol/L (3.5-5.0)
== END 2020-12-23 09:01 | disposition home or self-care (01) ==
LOC: LAB 09:00
PROVIDERS: ATTEND Internal Medicine Cardiovascular Disease
DX: Z94.1 Heart transplant status (principal)
CPT/HCPCS: 36415; 80048; 80195; 80197; 81599

== ENCOUNTER 2021-01-12 09:35 | Outpatient (CLI) | payer MEDICARE, BC ==
[2021-01-12 10:05] LABS: BASOPHILS # (AUTO) 0.1 10^3/uL (0.0-0.1); BASOPHILS % (AUTO) 1.1 %; EOSINOPHILS # (AUTO) 0.1 10^3/uL (0.0-0.7); EOSINOPHILS % (AUTO) 2.5 %; HCT - HEMATOCRIT 35.2 % (37.0-47.0); HGB - HEMOGLOBIN 11.8 g/dL (12.0-16.0); LYMPHOCYTES # (AUTO) 0.9 10^3/uL (1.5-3.5); LYMPHOCYTES % (AUTO) 16.8 %; MEAN CORPUSCULAR HEMOGLOBIN 29.4 pg (27.0-31.0); MEAN CORPUSCULAR HGB CONC 33.5 g/dL (32.0-36.0); MEAN CORPUSCULAR VOLUME 87.6 fL (81.0-99.0); MEAN PLATELET VOLUME 9.9 fL (7.9-10.8); MONOCYTES # (AUTO) 0.3 10^3/uL (0.0-1.0); NEUTROPHILS # (AUTO) 3.9 10^3/uL (1.5-6.6); NEUTROPHILS % (AUTO) 73.2 %; PLT - PLATELET COUNT 301 10^3/uL (130-450); RED BLOOD COUNT 4.02 10^6/uL (4.20-5.40); RED CELL DISTRIBUTION WIDTH 12.3 % (12.0-15.0); WHITE BLOOD COUNT 5.3 x10^3/uL (4.8-10.8)
[2021-01-12 10:13] LABS: CALCIUM 9.6 mg/dL (8.5-10.3); CREATININE 1.4 mg/dL (0.4-1.0); POTASSIUM 3.9 mmol/L (3.5-5.0)
== END 2021-01-12 09:36 | disposition home or self-care (01) ==
LOC: LAB 09:35
PROVIDERS: ATTEND Internal Medicine
DX: Z94.1 Heart transplant status (principal)
CPT/HCPCS: 36415; 80048; 80195; 80197; 81599; 85025

== ENCOUNTER 2021-02-20 16:46 | Outpatient (CLI) | payer MEDICARE, BC | END 2021-02-20 16:47 | disposition home or self-care (01) | LOC: COV 16:46 | PROVIDERS: ATTEND Family Medicine | DX: Z01.812 Encounter for preprocedural laboratory examination (principal); Z20.822 Contact with and (suspected) exposure to COVID-19 ==

== ENCOUNTER 2021-02-27 12:20 | Outpatient (CLI) | payer MEDICARE, BC ==
--- NOTE | 2021-02-27 16:53 | CONSULTATION NOTE ---
Palliative Care Follow Up - Referral Referring Provider: Dr. Pasha Ross Time of Visit: [phone] [place] [facility] [place] Reason: Depression/s/p heart transplant/SIIIa Breast CA in remission - Information Sources Records reviewed: Previous records reviewed History/Review of Systems obtained from: Patient Exam limitations: No limitations - History of Present Illness Update Brief HPI Update: This is a jose 55-year-old woman being followed by palliative care, originally in the context of LVAD as a destination therapy. She had an LVAD due to resulting chemotherapy-induced severe cardiomyopathy with the sequela of advanced CHF. She eventually had a heart transplant after being hospitalized with an LVAD thrombosis in 07/2019. She is currently also in remission for her stage IIIa breast cancer, remains on hormone therapy and Lupron every 3 months. Patient recently had some SVT, and received a heart cath, she has had some fluid retention, and now presents with some worsening kidney function of BUN 37, 1.8 creatinine, 29 GFR. She is awaiting follow-up from cardiology regarding this. She reports her echo has been fine, she did receive both Covid shots, and overall sees an improvement in her health. She reports her depression is much improved, she did have "a dip", was able to identify exacerbating factors, she is looking at a "attempt to work" on disability, has interviewed for some jobs. She is feeling that this is also helped her feel more empowered. She continues with some persistent back pain, she did get an MRI and saw neurosurgery, given there is only a 30% chance of likelihood to improve, and with her risk for infection would not be worth the risk. She is awaiting to hear if possible injections may be doable. She reports it is worse with activity it does get as high as 5-7 over 10, this is when she has been persistently active, with twisting or gardening activities/sweeping. She reports it does impact her sleep at that point. Past Medical History: CHF, hypertension, atrial fib, arrhythmias, history of ablation, kidney stones, depression, anxiety, history of spine surgery 2004, history bilateral mastectomy, history of LVAD, history of heart transplant Social History - Living Situation Living arrangement: At home Living Situation: With family Support System: She is living with her mother, she reports this is working well her mother is 80 years old and feels like it is supportive of her as well. She is finding rhythm and activity, she does have a dog that she takes on a walk on a regular basis. She has support from her family, and she has been doing small jobs which has improved her connections with the outside world as well. Medications/Allergies - Medications Home Medications: Ambulatory Orders Medication Instructions Recorded Confirmed Aspirin Chewable [[facility] 81 mg PO DAILY 12/18/18 02/27/21 Aspirin] Calcium Carbonate [[id number]] 1,000 mg PO BID 12/18/18 02/27/21 Cholecalciferol (Vitamin D3) 1,000 unit PO DAILY 12/18/18 02/27/21 [Vitamin D3] Exemestane 25 mg PO DAILY 12/18/18 02/27/21 Leuprolide Acetate [Lupron Depot] 22.5 mg IM .Q3 MONTH 12/18/18 02/27/21 Magnesium 133 mg PO DAILY 12/18/18 02/27/21 Pantoprazole [Protonix] 40 mg PO DAILY 12/18/18 02/27/21 Pravastatin [Pravachol] 20 mg PO DAILY 12/18/18 02/27/21 Sulfamethoxazole/Trimethoprim 1 each PO .MWF 12/18/18 02/27/21 [Bactrim 400-80 mg Tablet] Tacrolimus [Prograf] 1 mg PO .1.5 MG AM & 1 MG PM 12/18/18 02/27/21 Torsemide 20 mg PO .20 MG3 /10MG 4 DAYS 12/18/18 02/27/21 Vitamin [Trinatal Rx 1] 1 tab PO DAILY 12/24/18 02/27/21 Gabapentin 300 mg PO BID 02/02/19 02/27/21 Potassium Chloride 20 meq PO .40 AM 20 PM 02/26/19 02/27/21 Trazodone HCl 100 mg PO QPM PRN 06/10/19 02/27/21 Metoclopramide [Reglan] 5 mg PO Q6H PRN #6 tablet 09/17/19 02/27/21 Aspirin/Acetaminophen/Caffeine 1 tab PO DAILY PRN 11/15/19 02/27/21 [Excedrin Migraine Caplet] Ondansetron [Zuplenz] 4 mg PO Q8HR PRN 09/05/20 02/27/21 Sertraline HCl 100 mg PO DAILY 09/05/20 02/27/21 Sirolimus 1.5 mg PO DAILY 09/05/20 02/27/21 - Allergies Allergies/Adverse Reactions: Allergies Allergy/AdvReac Type Severity Reaction Status Date / Time carvedilol Allergy Anaphylaxis Verified 02/27/21 12:20 amiodarone AdvReac Unknown Verified 02/27/21 12:20 Review of Systems - Constitutional Constitutional: reports: Fatigue (improved), Weight stable (118.5 kg). denies: Fever, Chills - Eyes Eyes: reports: Vision loss, Corrective lenses - Ears, Nose & Throat Ears, Nose & Throat: reports: Dry mouth - Cardiovascular Cardiovascular: reports: Palpitations (with activity; worsened recently with he art cath/bx done negative findings), Exertional dyspnea (improving), Decr. exercise tolerance. denies: Chest pain, Edema - Respiratory Respiratory: reports: SOB with exertion. denies: Cough, Wheezing, SOB at rest - Gastrointestinal Gastrointestinal: reports: Diarrhea (reports loose stool with some urgency almost daily since medication sirolimus), Good appetite - Genitourinary Genitourinary: reports: Frequency - Musculoskeletal Musculoskeletal: reports: Muscle pain, Back pain (new; concerned with increased activity-has hx of "bulging disc" DJD dx; awaiting neurosurgeon referral; had MRI), Stiffness, Muscle weakness - Integumentary Integumentary: reports: Dryness, Hair changes - Neurological Neurological: reports: General weakness, Headache (improved less than once a month; PT improved), Memory problems (feels frustrated by memory issues) - Psychiatric Psychiatric: reports: Depression (doing well). denies: Anxiety - Endocrine Endocrine: reports: Other (elevated BS) - Hematologic/Lymphatic Hematologic/Lymph: denies: Recurrent infections - All Other Systems All Other Systems: reports: Reviewed and negative Physical Exam - Vital Signs Temperature: 36.3 C Pulse Rate: 93 Respiratory Rate: 18 O2 Saturation: 97 (ra @ rest) Blood Pressure: 111/77 - Physical Exam General Appearance: positive: No acute distress, Alert Eyes Bilateral: positive: Normal inspection ENT: positive: Other (patient masked) Neck: positive: Trachea midline Respiratory: positive: No respiratory distress Abdomen: positive: Soft, Other (feels fluid may have been in abdomen) Skin: positive: Pallor, Dryness Extremities: positive: No pedal edema Neurologic/Psychiatric: positive: Oriented x3, Mood/affect nml Palliative Care - POLST Patient has POLST: No Pain: Location (back / right thigh), Severity (2/10) Tiredness/Fatigue: Mild (1-3) Drowsiness/Sedation: None Nausea: None Anorexia: None Dyspnea: None Depression: None Anxiety: None Feelings of wellbeing/Perceived Quality of Life: Good, Acceptable, Improved Sleep: Sleeps well Constipation: No Performance Status: Patient's activity tolerance is continue to improve, she is taking frequent walks and able to endure for longer periods of time. She is independent in all her ADLs. - Palliative Care Discussion: Discussion centered again on review of her current health care journey, just how far she is come. She remains quite thankful for her ongoing wellness and that things are continue improved. She is finding there is room now for normal life, being ill was a full-time job and very little space for other things for her perception. She is finding the thought of returning back to work empowering, she does have some few small jobs, continues to weigh benefits and burdens and worried some about the persistent fatigue. She reports her depression is doing quite well at this point in time, continues to have adequate support and with the pandemic has had a lot of isolation, but this is feeling less onerous as well. Results - Lab Results Lab results reviewed: Yes Impression and Recommendations - Palliative Care Impression: This is a jose 55-year-old woman with multiple serious comorbidities, living with status post heart transplant with previous LVAD destination therapy, history of stage IIIa breast cancer currently in remission and continuing with supportive treatment. She continues with fluctuating but continued improved symptom burden, improved functional status, and with current depression under control. Palliative care continue provide support and symptom management as well as counseling for adjustment to illness. Recommendations/Counseling Done: 1. Depression patient is long-term been stable on her sertraline, she is doing well. Counseling and review regarding ways to continue support her routine, she is doing ambulation, setting short-term goals, moving towards incorporating and integrating back work which is supportive for her. 2. Status post heart transplant. Patient with recent exacerbation of SVT, she has had a recent heart cath. Now she is concerned appropriately regarding her worsening kidney function. She is followed by the [facility] team, remains quite grateful and hopeful. She plans to follow-up with them regarding her worsening kidney status. 3. Stage III breast cancer currently in remission. Patient continues to receive Lupron and remains on her exemestane. She is now only needing meet with oncology every 6 months. 4. Advanced care planning. Patient is doing very well in the context of adjustment to her current situation. She benefits from intermittent review of symptoms as well as goals. Palliative care continue to meet with her every few months for support, she is at high risk for sequela of either serious condition. 50 minutes with greater than 50% of this done in counseling regarding depress ion, short-term goals, and anticipatory guidance.
== END 2021-02-27 12:21 | disposition home or self-care (01) ==
LOC: PC 12:20
PROVIDERS: ATTEND Nurse Practitioner Adult Health
DX: Z51.5 Encounter for palliative care (principal); F32.9 Major depressive disorder, single episode, unspecified; C50.919 Malignant neoplasm of unspecified site of unspecified female breast; Z94.1 Heart transplant status; Z79.899 Other long term (current) drug therapy; Z79.82 Long term (current) use of aspirin
CPT/HCPCS: 99215

== ENCOUNTER 2021-03-09 09:37 | Outpatient (CLI) | payer MEDICARE, BC ==
[2021-03-09 10:16] LABS: CALCIUM 8.7 mg/dL (8.5-10.3); CREATININE 1.2 mg/dL (0.4-1.0); POTASSIUM 3.9 mmol/L (3.5-5.0)
== END 2021-03-09 09:38 | disposition home or self-care (01) ==
LOC: LAB 09:37
PROVIDERS: ATTEND Internal Medicine Cardiovascular Disease
DX: Z94.1 Heart transplant status (principal)
CPT/HCPCS: 36415; 80048; 80195; 80197; 81599

== ENCOUNTER 2021-05-15 09:06 | Outpatient (CLI) | payer MEDICARE, BC ==
[2021-05-15 09:37] LABS: CREATININE 1.3 mg/dL (0.4-1.0); POTASSIUM 4.7 mmol/L (3.5-5.0)
== END 2021-05-15 09:07 | disposition home or self-care (01) ==
LOC: LAB 09:06
PROVIDERS: ATTEND Internal Medicine Cardiovascular Disease
DX: Z94.1 Heart transplant status (principal)
CPT/HCPCS: 36415; 80048; 80195; 80197; 81599

== ENCOUNTER 2021-06-05 12:56 | Outpatient (CLI) | payer MEDICARE, BC ==
--- NOTE | 2021-06-05 18:03 | CONSULTATION NOTE ---
Palliative Care Follow Up - Referral Referring Provider: Dr. Pasha Ross Time of Visit: 1300 60 minutes [place] [facility] [place] Reason: Depression/ANxiety/ S/p heart transplant / breast CA - Information Sources Records reviewed: Previous records reviewed History/Review of Systems obtained from: Patient Exam limitations: No limitations - History of Present Illness Update Brief HPI Update: This is a jose 55-year-old woman being followed by palliative care, originally in the context of LVAD as destination therapy. She had an LVAD due to resulting chemo therapy induced severe cardiomyopathy with sequela of advanced CHF. She eventually though did have a heart transplant after being hospitalized with LVAD thrombosis in 07/2019. She is continue to improve as far as her cardiac status remains on immunosuppressive drugs, has not had any further cardiac events and is monitored on a regular basis through [facility]. She is also currently in remission for her stage IIIa breast cancer, remains on exemestane hormone therapy and Lupron every 3 months. She is not noticed any skin changes, or swollen lymph nodes. She is due to see oncology again in August. Patient has been followed by palliative care, for monitoring of depression and fluctuating symptoms regarding pain. She has continued to improve, though did have an exacerbation, related to stressors in her life. Her sister has had recurrent breast cancer, and is feeling a little bit of "PTSD" with her restarting treatment. She has reached out to counseling, and is working with someone at this point in time, has felt the supportive and does not feel needs medication adjustment at this time. Patient is return to work, she is on disability but is doing a return to work trial, she has been since 02/2021, she has found it very energizing to be working again, has had persistent and worsening fatigue with this, but overall is pleased. She is pacing herself, she is of course at high risk given her immune status, and needing to monitor carefully for the new uptake and Covid. Past Medical History: CHF, hypertension, atrial fib, arrhythmias, history of ablation, kidney stones, depression, anxiety, history of spine surgery 2004, history bilateral mastectomy, history of LVAD, history of heart transplant Social History - Living Situation Living arrangement: At home Living Situation: With family Support System: Patient is living with her mother, who is 80 years old and is feeling they are supportive of each other. She does have a dog she takes in a walk regularly, as has support from her family but is finding needing to put limits. Medications/Allergies - Medications Home Medications: Ambulatory Orders Medication Instructions Recorded Confirmed Aspirin Chewable [[facility] 81 mg PO DAILY 12/18/18 06/05/21 Aspirin] Calcium Carbonate [[id number]] 1,000 mg PO BID 12/18/18 06/05/21 Cholecalciferol (Vitamin D3) 1,000 unit PO DAILY 12/18/18 06/05/21 [Vitamin D3] Exemestane 25 mg PO DAILY 12/18/18 02/27/21 Leuprolide Acetate [Lupron Depot] 22.5 mg IM .Q3 MONTH 12/18/18 06/05/21 Magnesium 133 mg PO DAILY 12/18/18 06/05/21 Pantoprazole [Protonix] 40 mg PO DAILY 12/18/18 06/05/21 Pravastatin [Pravachol] 20 mg PO DAILY 12/18/18 06/05/21 Sulfamethoxazole/Trimethoprim 1 each PO .MWF 12/18/18 06/05/21 [Bactrim 400-80 mg Tablet] Tacrolimus [Prograf] 1.5 mg PO BID 12/18/18 06/05/21 Torsemide 20 mg PO .20 MG ALT W/ 10 MG 12/18/18 06/05/21 Vitamin [Trinatal Rx 1] 1 tab PO DAILY 12/24/18 06/05/21 Gabapentin 300 mg PO BID 02/02/19 02/27/21 Potassium Chloride 20 meq PO .80 X3/40 X 4 DAYS 02/26/19 06/05/21 Trazodone HCl 50 - 100 mg PO QPM PRN 06/10/19 06/05/21 Aspirin/Acetaminophen/Caffeine 1 tab PO DAILY PRN 11/15/19 06/05/21 [Excedrin Migraine Caplet] Ondansetron [Zuplenz] 4 mg PO Q8HR PRN 09/05/20 06/05/21 Sertraline HCl 100 mg PO DAILY 09/05/20 06/05/21 Sirolimus 2 mg PO DAILY 09/05/20 06/05/21 - Allergies Allergies/Adverse Reactions: Allergies Allergy/AdvReac Type Severity Reaction Status Date / Time carvedilol Allergy Anaphylaxis Verified 02/27/21 12:20 amiodarone AdvReac Unknown Verified 02/27/21 12:20 Review of Systems - Constitutional Constitutional: reports: Fatigue (improved), Weight stable (118.5 kg). denies: Fever, Chills - Eyes Eyes: reports: Vision loss, Corrective lenses - Ears, Nose & Throat Ears, Nose & Throat: reports: Dry mouth - Cardiovascular Cardiovascular: reports: Palpitations (with activity;), Exertional dyspnea (improving). denies: Chest pain, Edema - Respiratory Respiratory: reports: SOB with exertion. denies: Cough, Wheezing, SOB at rest - Gastrointestinal Gastrointestinal: reports: Good appetite - Genitourinary Genitourinary: reports: Frequency - Musculoskeletal Musculoskeletal: reports: Muscle pain, Stiffness, Muscle weakness (improving) - Integumentary Integumentary: reports: Dryness, Hair changes - Neurological Neurological: reports: General weakness, Headache (improved less than once a month;), Memory problems (improving) - Psychiatric Psychiatric: reports: Depression (doing well), Anxiety - All Other Systems All Other Systems: reports: Reviewed and negative Physical Exam - Vital Signs Pulse Rate: 98 Respiratory Rate: 18 Blood Pressure: 114/78 - Physical Exam General Appearance: positive: No acute distress, Alert Eyes Bilateral: positive: Normal inspection Neck: positive: Trachea midline Cardiovascular: positive: Regular rate & rhythm Respiratory: positive: No respiratory distress, Breath sounds nml Abdomen: positive: Soft Skin: positive: Pallor, Dryness Extremities: positive: Pedal edema (trace in ankles) Neurologic/Psychiatric: positive: Oriented x3, Mood/affect nml Palliative Care - POLST Patient has POLST: No POLST Status: Full Code Pain: Pain improved, Location (lefft neck area;), Severity (1/10) Tiredness/Fatigue: Mild (1-3) Drowsiness/Sedation: None Nausea: None Anorexia: None Dyspnea: Mild (1-3) Depression: None Anxiety: Mild (1-3) Feelings of wellbeing/Perceived Quality of Life: Good, Acceptable, Improved Sleep: Sleeps well Constipation: No Performance Status: Patient is still somewhat limited by her dyspnea and intermittent palpations. She does pace herself. She has had no chest pain. She is able to manage her ADLs, does feel like she is getting stronger. Unfortunately with the uptake of Covid, has not been able to return to the gym. She is walking more and making this a priority. She does feel like her endurance has improved - Palliative Care Discussion: Discussion and counseling centered on stressors currently addressing in her life, ways of strengthening her current coping and reinforcement for setting limits, continuing with counseling, and reframing. Patient feels currently she is managing, does not feel exacerbation of her depression is impacting her current status and is moving through most of her concerns. Reflection back on just how difficult the last couple years have been, grief and loss regarding friendships, and how to normalize her current situation as she moves forward. Results - Lab Results Lab results reviewed: Yes Impression and Recommendations - Palliative Care Impression: This is a jose 55-year-old woman with multiple serious comorbidities, living with s/p heart transplant with previous LVAD destination therapy, history of stage III breast cancer currently remission and continue with supportive treatment. She continues with fluctuating but improving symptom burden, improving functional status. Palliative care continue provide support and symptom management as well as counseling for adjustment to illness Recommendations/Counseling Done: 1. Depression. Patient has long-term been stable on her sertraline, after much discussion and review of stressors will continue current dosing. Patient may benefit from addition of Abilify if exacerbates. Counseling provided regarding reinforcement for counseling support, continuing her exercise program, she is integrating back into a work environment and setting good limits. 2. Right thigh pain. This is attributed to most likely nerve damage. She is currently on gabapentin, she will follow-up with me about her dosing. She would like to consider titrating back as this is continued to improve. She will notify me if she needs 100 mg, counseling provided regarding need for titration slowly off gabapentin. 3. Stage III breast cancer, currently in remission. Patient continues to receive Lupron and remains on her exemestane. She is now meeting with oncology every 6 months, due again in August for Lupron. 4. S/p heart transplant. Patient reports she is doing well at this time, is followed by the [facility] team remains quite grateful and hopeful. She has had meds titrated but nothing acute. Counseling provided regarding protection from Covid given her immune status, awaiting final recommendations for third shot. 5. Advanced care planning. Patient is doing well in the context of adjustment to her current situation, patient benefits from review of symptoms as well as goals. Palliative care continue every 3 months for support, she is at high risk for sequela of either serious condition. 60 minutes with greater than 50% of this done in counseling regarding depression, anxiety, current status physical exam and review of symptoms with anticipatory guidance provided
== END 2021-06-05 12:57 | disposition home or self-care (01) ==
LOC: PC 12:56
PROVIDERS: ATTEND Nurse Practitioner Adult Health
DX: Z51.5 Encounter for palliative care (principal); F32.9 Major depressive disorder, single episode, unspecified; M79.651 Pain in right thigh; Z85.3 Personal history of malignant neoplasm of breast; Z94.1 Heart transplant status
CPT/HCPCS: 99215

== ENCOUNTER 2021-06-23 10:39 | Outpatient (CLI) | payer MEDICARE, BC ==
--- NOTE | 2021-06-23 11:37 | XRAY Report ---
PROCEDURE: Shoulder 3 View RT INDICATIONS: RIGHT SHOULDER PAIN AFTER LIFTING TECHNIQUE: 4 views of the shoulder were acquired. COMPARISON: None. FINDINGS: Bones: No fractures or dislocations. No suspicious bony lesions. Visualized ribs appear intact. S cattered subchondral sclerosis and spurring. Soft tissues: No suspicious soft tissue calcifications. IMPRESSION: Mild degenerative changes. If the patient's pain or other symptoms persist, consider fur ther evaluation with MRI. Reviewed by: Anibal Campbell MD on 06/23/2021 11:36 AM PDT Approved by: Anibal Campbell MD on 06/23/2021 11:36 AM PDT Station ID: [id number]
== END 2021-06-23 23:59 | disposition home or self-care (01) ==
LOC: DI.N 10:39
PROVIDERS: ATTEND Physician Assistant Medical
DX: S46.011A Strain of muscle(s) and tendon(s) of the rotator cuff of right shoulder, initial encounter (principal); M19.011 Primary osteoarthritis, right shoulder

== ENCOUNTER 2021-09-04 14:33 | Outpatient (CLI) | payer MEDICARE, BC ==
--- NOTE | 2021-09-04 15:02 | ONCOLOGY/HEMATOLOGY VISIT ---
HEME/ONC PROGRESS NOTE: cc: Jackie Callahan MD; Malinda Em NP ONCOLOGY HISTORY: 1. Stage IIIa (T4 N2 M0) left breast cancer since 03/2014. ER/WI highly positive. HER-2 negative. a. NeoadjuvantTC x2 cycles, then TAC x4 cycles done in 07/2014 b. Bilateral mastectomy in 08/2014, [id number], followed by adjuvant radiation. c. LHRH and exemestane since 11/2014 2. Cardiomyopathy due to Adriamycin since 04/2015 a. Left ventricular systolic device placement in 12/2014. Failed. b. Cardiac transplant in 09/2018. 3. Excellent bone density in 2014, 2017, 04/2020. a. No Zometa infusion for adjuvant breast cancer therapy due to renal failure. 4. Ongoing left chest wall, axilla pain. Negative PET scan work-up for metastasis in 02/2020. a. Gabapentin 600 mg nightly. 300 mg every morning. b. S/p physical therapy and massage therapy with improvement. 5. Anemia of iron deficiency with the fatigue. a. Intravenous iron replacement in 08/2020 with improvement. ASSESSMENT/PLAN: 1. Breast cancer. High Stage disease. No evidence of disease recurrence now. She will continue on LHRH injection every 3 months and daily exemestane 25mg for a 10-year course till 2024; 2. Anemia of iron deficiency. s/p 1 dose of infusion. Hemoglobin above 12g and subjectively feeling better. on oral supplement. Otherwise recheck in 6 months. 3. Chest wall and axilla pain. No metastatic disease. Continue on physical therapy and medical management. Symptomatically improved. 4. Follow-up plan. Every 3 months injection. Every 6 months for physical exam and blood test. HISTORY OF CURRENT ILLNESS/REVIEW OF SYSTEMS: As dictated on 03/22/2016 for details. Callie is here for ongoing care regarding above high complexity issues. Since last visit she is a feeling better. 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 Continued on cardiac medications. Left chest wall and axilla pain somewhat improved. Continuing to see public stenographer at [facility]. Continued on immunosuppression due to cardiac transplant. SOCIAL HISTORY: No smoking no drink. Lives at [place]. Sister Nathalia removed [place] where she has a grand son. Unfortunately developed stage IV breast cancer Currently undergoing palliative systemic chemotherapy anti-HER2. Allergic to carvedilol and amiodarone. PHYSICAL EXAM: Weight 121 kg. BP 139/90. No adenopathy in the cervical, supraclavicular, and axillary region. Bilateral chest wall exam. Extensive telangiectasia due to radiation. But no signs of relapse. Extremity no pitting edema. Extensive labs reviewed. Anemia has Resolved Iron level however still subnormal. Clinical Data: Allergies carvedilol Allergy (Verified 02/27/21 12:20) Anaphylaxis amiodarone Adverse Reaction (Verified 02/27/21 12:20) Unknown Home Medications Aspirin Chewable [[facility] Aspirin] 81 mg PO DAILY 12/18/18 [History Last Taken Unknown] Calcium Carbonate [[id number]] 1,000 mg PO BID 12/18/18 [History Last Taken Unknown] Cholecalciferol (Vitamin D3) [Vitamin D3] 1,000 unit PO DAILY 12/18/18 [History Last Taken Unknown] Exemestane 25 mg PO DAILY 12/18/18 [History Last Taken Unknown] Leuprolide Acetate [Lupron Depot] 22.5 mg IM .Q3 MONTH 12/18/18 [History Last Taken 05/29/21 12:00] Magnesium 133 mg PO DAILY 12/18/18 [History Last Taken Unknown] Pantoprazole [Protonix] 40 mg PO DAILY 12/18/18 [History Last Taken Unknown] Pravastatin [Pravachol] 20 mg PO DAILY 12/18/18 [History Last Taken Unknown] Sulfamethoxazole/Trimethoprim [Bactrim 400-80 mg Tablet] 1 each PO .MWF 12/18/18 [History Last Taken Unknown] Tacrolimus [Prograf] 1.5 mg PO BID 12/18/18 [History Last Taken Unknown] Torsemide 20 mg PO .20 MG ALT W/ 10 MG 12/18/18 [History Last Taken Unknown] Vitamin [Trinatal Rx 1] 1 tab PO DAILY 12/24/18 [History Last Taken Unknown] Gabapentin 300 mg PO BID 02/02/19 [History Last Taken Unknown] Potassium Chloride 20 meq PO .80 X3/40 X 4 DAYS 02/26/19 [History Last Taken Unknown] Trazodone HCl 50 - 100 mg PO QPM PRN 06/10/19 [History Last Taken Unknown] Aspirin/Acetaminophen/Caffeine [Excedrin Migraine Caplet] 1 tab PO DAILY PRN 11/15/19 [History Last Taken Unknown] Ondansetron [Zuplenz] 4 mg PO Q8HR PRN 09/05/20 [History Last Taken Unknown] Sertraline HCl 100 mg PO DAILY 09/05/20 [History Last Taken Unknown] Sirolimus 2 mg PO DAILY 09/05/20 [History Last Taken Unknown]
--- NOTE | 2021-09-04 17:14 | CONSULTATION NOTE ---
Palliative Care Follow Up - Referral Referring Provider: Dr. Pasha Ross Time of Visit: 1530 45 minutes Referral setting: [facility] – [place], [place] Referral Reason: Depression/anxiety/s/p heart transplant/hx breast CA - Information Sources Records reviewed: Previous records reviewed History/Review of Systems obtained from: Patient Exam limitations: No limitations - History of Present Illness Update Brief HPI Update: This is a jose 56-year-old woman followed by palliative care, originally in the context of LVAD as destination therapy. She had an LVAD due to resulting chemotherapy-induced severe cardiomyopathy with sequela of advanced CHF. Eventually did have a heart transplant after being hospitalized with LVAD thrombosis in 07/2019. She has continued to improve as far as her cardiac status, remains on immunosuppressive drugs, and is down to 2 times a year surveillance and follow-up. She does have some intermittent sharp shooting pains across her chest area this is induced by stress and not activity. She is continue to monitor. She is also currently remission for stage IIIa breast cancer, remains on exemestane, and Lupron every 3 months. She has not noticed any skin changes or swollen lymph nodes. She has just seen oncology, they will continue every 3 month Lupron shots and every 6 months check in. Patient has been followed by palliative care for monitoring of depression and fluctuating symptoms regarding her pain. She has recently had ongoing weekly counseling, feels like she is doing fairly well currently. She does have quite a bit of stressors going on, her sister has been diagnosed with metastatic breast cancer, she is currently working trying to weigh benefits and burdens of being able to continue with her health to work versus return to disability. She has had some persistent fatigue, and this is exacerbated by stress. She only now has an occasional headache, again stressed need to use 1-2 times a month, she has intermittent sharp shooting pains in her chest, this is related to stress not daily, she still has some residual right thigh pain, but is down to gabapentin 100 mg twice daily and has tolerated this without an exacerbation of her pain. Past Medical History: CHF, hypertension, atrial fib, arrhythmias, history of ablation, kidney stones, depression, anxiety, history of spine surgery 2004, history bilateral mastectomy, history of LVAD, history of heart transplant Social History - Living Situation Living arrangement: At home Living Situation: With family Support System: Patient lives with her 80-year-old mother, feels like this is supportive relationship. She does have a dog she takes on walks regularly, she is working 32 hours a weekm able to do most of this work remotely. 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 She was recently back to [place] to help her sister move in with her niece, she does have 9 siblings total, 8 who are still alive. Medications/Allergies - Medications Home Medications: Ambulatory Orders Medication Instructions Recorded Confirmed Aspirin Chewable [[facility] 81 mg PO DAILY 12/18/18 09/04/21 Aspirin] Calcium Carbonate [[id number]] 1,000 mg PO BID 12/18/18 09/04/21 Cholecalciferol (Vitamin D3) 1,000 unit PO DAILY 12/18/18 09/04/21 [Vitamin D3] Exemestane 25 mg PO DAILY 12/18/18 09/04/21 Leuprolide Acetate [Lupron Depot] 22.5 mg IM .Q3 MONTH 12/18/18 09/04/21 Magnesium 133 mg PO DAILY 12/18/18 09/04/21 Pantoprazole [Protonix] 40 mg PO DAILY 12/18/18 09/04/21 Pravastatin [Pravachol] 20 mg PO DAILY 12/18/18 09/04/21 Sulfamethoxazole/Trimethoprim 1 each PO .MWF 12/18/18 09/04/21 [Bactrim 400-80 mg Tablet] Tacrolimus [Prograf] 1.5 mg PO BID 12/18/18 09/04/21 Torsemide 20 mg PO .20 MG ALT W/ 10 MG 12/18/18 09/04/21 Vitamin [Trinatal Rx 1] 1 tab PO DAILY 12/24/18 09/04/21 Gabapentin 100 mg PO BID MDD tapering off 02/02/19 09/04/21 Potassium Chloride 20 meq PO .80 X3/40 X 4 DAYS 02/26/19 09/04/21 Trazodone HCl 50 - 100 mg PO QPM PRN 06/10/19 09/04/21 Aspirin/Acetaminophen/Caffeine 1 tab PO DAILY PRN 11/15/19 09/04/21 [Excedrin Migraine Caplet] Ondansetron [Zuplenz] 4 mg PO Q8HR PRN 09/05/20 09/04/21 Sertraline HCl 100 mg PO DAILY 09/05/20 09/04/21 Sirolimus 2 mg PO DAILY 09/05/20 09/04/21 - Allergies Allergies/Adverse Reactions: Allergies Allergy/AdvReac Type Severity Reaction Status Date / Time carvedilol Allergy Anaphylaxis Verified 02/27/21 12:20 amiodarone AdvReac Unknown Verified 02/27/21 12:20 Review of Systems - Constitutional Constitutional: reports: Fatigue (improved), Weight stable. denies: Fever, Chills - Eyes Eyes: reports: Vision loss, Corrective lenses - Ears, Nose & Throat Ears, Nose & Throat: reports: Dry mouth - Cardiovascular Cardiovascular: reports: Palpitations (with activity;), Chest pain (intermittent sharp shooting pains with stress), Exertional dyspnea (improving). denies: Edema - Respiratory Respiratory: reports: SOB with exertion. denies: Cough, Wheezing, SOB at rest - Gastrointestinal Gastrointestinal: reports: Good appetite - Genitourinary Genitourinary: reports: Frequency - Musculoskeletal Musculoskeletal: reports: Muscle pain, Stiffness, Muscle weakness (improving) - Integumentary Integumentary: reports: Dryness, Hair changes - Neurological Neurological: reports: General weakness, Headache (improved less than once a month;), Memory problems (improving) - Psychiatric Psychiatric: reports: Depression (doing well), Anxiety - Endocrine Endocrine: reports: Other (elevated BS) - All Other Systems All Other Systems: reports: Reviewed and negative Physical Exam - Vital Signs Temperature: 97.8 C Pulse Rate: 107 Respiratory Rate: 18 O2 Saturation: 97 Blood Pressure: 139/90 - Physical Exam General Appearance: positive: No acute distress, Alert Eyes Bilateral: positive: Normal inspection ENT: positive: No signs of dehydration Neck: positive: Trachea midline Cardiovascular: positive: Regular rate & rhythm, Tachycardia Respiratory: positive: No respiratory distress, Breath sounds nml Abdomen: positive: Soft Skin: positive: Pallor, Dryness Extremities: positive: No pedal edema Neurologic/Psychiatric: positive: Oriented x3, Mood/affect nml Palliative Care - POLST Patient has POLST: No POLST Status: Full Code Tiredness/Fatigue: None Drowsiness/Sedation: None Nausea: None Anorexia: None Dyspnea: Mild (1-3) Depression: None Anxiety: None Feelings of wellbeing/Perceived Quality of Life: Fair, Acceptable, Improved Sleep: Sleep improved Constipation: No Performance Status: Patient has been recently traveling, but her norm has been improved activity. She does walk her dog, loves to take walks in nature. She is trying to be more active. She does have bands if she would want to add core her upper extremity exercises. She does not feel safe going back to the gym, encouraged her to continue to incorporate and integrate activity and exercise. - Palliative Care Discussion: Patient with multiple stressors, had recently been to [place] for 3 weeks to help her sister who now has metastatic breast CA to the liver and lung moved in with her daughter. She is able to see her niece's baby who is coming on a year. She is trying to acclimate to work life, though does find this quite fatiguing. Weighing benefits and burdens of continuing to challenge herself to incorporate normal working back into her life. She has till November to see if this is going to be effective. We reviewed her current stressors, she does feel like her depression and anxiety is currently well controlled, discussed her support system and ways to continue to access this and set boundaries for h erself. Results - Lab Results Lab results reviewed: Yes Lab and Imaging Results: BUN 21, creatinine 1.1, GFR 52 Impression and Recommendations - Palliative Care Impression: This is a jose 52-year-old woman with multiple serious comorbidities, living with s/p heart transplant with previous LVAD destination therapy, history of stage IIIa breast cancer currently in remission continuing with supportive treatment. She continues with fluctuating back to nude improved symptom burden, functional status is improved. Palliative care continue provide support for symptom management as well as counseling for adjustment to illness. Recommendations/Counseling Done: 1. Depression. Patient's long-term been stable on her sertraline, has had some weekly counseling, finding this beneficial though has stopped this as before she went to [place]. She does have appropriate response to situational stressors, does not feel she is needing any medication adjustments. She is integrating back in the work environment and trying to set good limits. 2. Right thigh pain. This is attributed to most likely nerve damage, currently on gabapentin. She is titrating back, currently on 100 mg twice daily without any exacerbation of her pain. We did discuss again with instruction on slow taper. 3. Stage IIIa breast cancer currently in remission. Patient continues to receive Lupron and remains on her exemestane. She has met with oncology, will be meeting with them every 6 weeks and with shots every 3 months. 4. S/p heart transplant. Patient reports she is doing well at this time, does have some intermittent sharp shooting chest pains attributes this and can be brought on by stress. Is looking at ways to decrease her stressors particularly in the context of triggering events. 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 She is followed by [facility] team, remains quite grateful and hopeful. 5. Advanced care planning patient is doing well in the context of adjustment to her current situation, patient benefits from review of symptoms as well as goals ongoing from palliative care. Palliative care will continue every 3 months for support, she is at high risk for sequela of either serious condition. 45 minutes with greater than 50% of this done in counseling regarding symptom management, depression, anxiety, stressors, review of current medications, recommendations for adjustments and anticipatory guidance
== END 2021-09-04 14:34 | disposition home or self-care (01) ==
LOC: PC 14:33
PROVIDERS: ATTEND Nurse Practitioner Adult Health
DX: Z51.5 Encounter for palliative care (principal); F32.9 Major depressive disorder, single episode, unspecified; F41.9 Anxiety disorder, unspecified; Z85.3 Personal history of malignant neoplasm of breast; R53.83 Other fatigue; R07.9 Chest pain, unspecified; Z94.1 Heart transplant status; Z90.13 Acquired absence of bilateral breasts and nipples; D50.9 Iron deficiency anemia, unspecified
CPT/HCPCS: 99215

== ENCOUNTER 2021-11-30 08:18 | Outpatient (CLI) | payer OTHER, MEDICARE ==
[2021-11-30 08:42] LABS: CALCIUM 9.1 mg/dL (8.5-10.3); CREATININE 1.3 mg/dL (0.4-1.0); POTASSIUM 4.2 mmol/L (3.5-5.0)
== END 2021-11-30 08:19 | disposition home or self-care (01) ==
LOC: LAB 08:18
PROVIDERS: ATTEND Internal Medicine Cardiovascular Disease
DX: Z94.1 Heart transplant status (principal)
CPT/HCPCS: 36415; 80048; 80195; 80197; 81599

== ENCOUNTER 2021-12-04 16:17 | Outpatient (CLI) | payer MEDICARE, OTHER ==
--- NOTE | 2021-12-05 05:45 | CONSULTATION NOTE ---
Palliative Care Follow Up - Referral Referring Provider: Dr. Pasha Ross Time of Visit: TUESDAY 12/05 0930 45 min Referral setting: [facility] [place] Ref[place] Reason: Depression/hx Breast CA/s/p heart transplant - Information Sources Records reviewed: Previous records reviewed History/Review of Systems obtained from: Patient Exam limitations: No limitations - History of Present Illness Update Brief HPI Update: This is a jose 56-year-old woman followed by palliative care, originally in the context of LVAD as destination therapy. She eventually had a heart transplant after hospitalized with LVAD thrombosis 07/2019. She continues to improve, just had a cardiac work-up with heart CT scan and echo, is doing fairly well. She does remain on immunosuppressive drugs, and is continue with surveillance twice a year. She does have intermittent sharp shooting pains across her chest area right up into her left neck and clavicle area. This does appear with stressors and increased activity, but has not progressed in any way. She continues to monitor this. She is also currently admission for stage III breast cancer, remains on exemestane, and Lupron every 3 months. She has not noticed any skin changes or swollen lymph nodes. She will continue every 3-month Lupron shots and check- in's every 6 months. Patient followed by palliative care for monitoring of depression and fluctuating symptoms. She feels like she is doing fairly well currently, she is returned to work, most persistent symptom has been fatigue. She has had some weight gains. She continues with some residual right thigh neuropathic pain, but is taking gabapentin 100 mg at bedtime, has tolerated this without exacerbation. She is concerned about elevated blood sugar on her last labs for fasting 135. But feels overall she is doing fairly well.We reviewed her stressors, anxiety, and feels currently her depression is well controlled. Past Medical History: CHF, hypertension, atrial fib, arrhythmias, history of ablation, kidney stones, depression, anxiety, history of spine surgery 2004, history bilateral mastectomy, history of LVAD, history of heart transplant Social History - Living Situation Living arrangement: At home Living Situation: With family Support System: Patient continues to live with her 80-year-old mother, this feels like a supportive relationship and is working. She does have a jose dog, she is able to take out for walks regularly. She is working, can do most of his work remotely. She does have 9 siblings total, 8 who are still alive, does have good family support. Medications/Allergies - Medications Home Medications: Ambulatory Orders Medication Instructions Recorded Confirmed Aspirin Chewable [[facility] 81 mg PO DAILY 12/18/18 12/05/21 Aspirin] Calcium Carbonate [[id number]] 1,000 mg PO BID 12/18/18 12/05/21 Cholecalciferol (Vitamin D3) 1,000 unit PO DAILY 12/18/18 12/05/21 [Vitamin D3] Exemestane 25 mg PO DAILY 12/18/18 12/05/21 Leuprolide Acetate [Lupron Depot] 22.5 mg IM .Q3 MONTH 12/18/18 12/05/21 Magnesium 133 mg PO DAILY 12/18/18 12/05/21 Pantoprazole [Protonix] 40 mg PO DAILY 12/18/18 12/05/21 Pravastatin [Pravachol] 20 mg PO DAILY 12/18/18 12/05/21 Sulfamethoxazole/Trimethoprim 1 each PO .MWF 12/18/18 12/05/21 [Bactrim 400-80 mg Tablet] Tacrolimus [Prograf] 1.5 mg PO BID 12/18/18 12/05/21 Torsemide 20 mg PO .20 MG ALT W/ 10 MG 12/18/18 12/05/21 Vitamin [Trinatal Rx 1] 1 tab PO DAILY 12/24/18 12/05/21 Gabapentin 100 mg PO QPM 02/02/19 12/05/21 Potassium Chloride 20 meq PO .80 X3/40 X 4 DAYS 02/26/19 12/05/21 Trazodone HCl 50 - 100 mg PO QPM PRN 06/10/19 12/05/21 Aspirin/Acetaminophen/Caffeine 1 tab PO DAILY PRN 11/15/19 12/05/21 [Excedrin Migraine Caplet] Ondansetron [Zuplenz] 4 mg PO Q8HR PRN 09/05/20 12/05/21 Sertraline HCl 100 mg PO DAILY 09/05/20 12/05/21 Sirolimus 2 mg PO DAILY 09/05/20 12/05/21 - Allergies Allergies/Adverse Reactions: Allergies Allergy/AdvReac Type Severity Reaction Status Date / Time carvedilol Allergy Anaphylaxis Verified 02/27/21 12:20 amiodarone AdvReac Unknown Verified 02/27/21 12:20 Review of Systems - Constitutional Constitutional: reports: Fatigue (improved but still somewhat limiting with work), Weight gain (10 pounds). denies: Fever, Chills - Eyes Eyes: reports: Vision loss, Corrective lenses - Ears, Nose & Throat Ears, Nose & Throat: reports: Dry mouth - Cardiovascular Cardiovascular: reports: Palpitations (with activity;), Chest pain (intermittent sharp shooting pains with stress or activity; no change), Exertional dyspnea (improving). denies: Edema - Respiratory Respiratory: reports: SOB with exertion. denies: Cough, Wheezing, SOB at rest - Gastrointestinal Gastrointestinal: reports: Good appetite - Genitourinary Genitourinary: reports: Frequency - Musculoskeletal Musculoskeletal: reports: Muscle pain, Stiffness, Muscle weakness (improving) - Integumentary Integumentary: reports: Dryness, Hair changes - Neurological Neurological: reports: General weakness, Headache (improved less than once a month;), Memory problems (improving) - Psychiatric Psychiatric: reports: Depression (doing well), Anxiety (improved) - Endocrine Endocrine: reports: Other (elevated BS) - All Other Systems All Other Systems: reports: Reviewed and negative Physical Exam - Vital Signs Pulse Rate: 92 Respiratory Rate: 18 Blood Pressure: 127/82 - Physical Exam General Appearance: positive: No acute distress, Alert Eyes Bilateral: positive: Normal inspection ENT: positive: No signs of dehydration Neck: positive: Trachea midline Cardiovascular: positive: Regular rate & rhythm, Tachycardia (persistent; no change) Respiratory: positive: No respiratory distress, Breath sounds nml Abdomen: positive: Soft, Obese Skin: positive: Pallor, Dryness Extremities: positive: No pedal edema Neurologic/Psychiatric: positive: Oriented x3, Mood/affect nml Palliative Care - POLST Patient has POLST: No POLST Status: Full Code Pain: Pain unchanged, Location (clavicle left neck area), Severity (2/10) Tiredness/Fatigue: Mild (1-3) Drowsiness/Sedation: None Nausea: Mild (1-3) Anorexia: None Dyspnea: Mild (1-3) Depression: None Anxiety: Mild (1-3) Feelings of wellbeing/Perceived Quality of Life: Good, Acceptable, Improved Sleep: Sleeps well, Sleep improved Constipation: No (loose daily as side effect of med) Performance Status: Patient has been less active, with persistent fatigue working full-time. - Palliative Care Discussion: Discussion centered on multiple stressors, psychosocial support, reframing where she is currently as she is coming off her disability. Has been difficult with the stressors related to Covid, and isolation. Patient feels like she is doing well overall, continues to seek appropriate support. Impression and Recommendations - Palliative Care Impression: This is a jose 56-year-old woman with multiple serious comorbidities, living with s/p heart transplant with previous LVAD destination therapy, history of stage III breast cancer currently remission continuing with supportive treatment. She is returning to work after being on disability, continues with some persistent fatigue. Palliative care continue provide intermittent support for symptom management as well as counseling for adjustment to illness. Recommendations/Counseling Done: 1. Depression. Patient's long-term been stable on her sertraline, has recently been in on weekly counseling, has not restarted this but feels she is doing okay. She is working, integrating more into the "real world". Though counseling provided regarding stressors of current isolation, COVID-19, and concerns with immunosuppression. Providing psychosocial support and reinforcement for coping behaviors. 2. Right thigh pain. This is attributed to nerve damage, currently on gabapentin. She is currently on 100 mg at bedtime, will continue this as still has some discomfort. 3. Stage IIIa breast cancer left. Currently in remission. Patient continues to receive Lupron remains on her exemestane. We will continue her current treatment plan. 4. S/p heart transplant. Patient recently had her work-up, she is doing well. Still has some intermittent sharp shooting clavicle and chest pain up into her l eft neck. She does not feel like this is currently worsening, and is followed by [facility], remains quite grateful and hopeful. 5. Hyperglycemia. Patient with recent weight gain, persistent elevated FBS. Recommended she follow-up with her cardiac team for A1c. Counseling provided regarding recommendations for weight loss, goalsetting, and increasing activity. 6. Advanced care planning. Patient's doing well in the context of adjustment to her current situation, patient now transitioning into more health maintenance. Reviewed recommendations for follow-up Pap smear, dermatology surveillance, and ongoing PCP support. Palliative care continuing every 3 months for support, patient is high risk for sequela of either serious condition. 45 minutes with review of chart, labs, [id number] with patient, counseling for adjustment illness, review of symptoms, coordination of care, and anticipatory guidance.
== END 2021-12-04 16:18 | disposition home or self-care (01) ==
LOC: PC 16:17
PROVIDERS: ATTEND Nurse Practitioner Adult Health
DX: Z51.5 Encounter for palliative care (principal); R53.83 Other fatigue; F32.A Depression, unspecified; R07.89 Other chest pain; R73.9 Hyperglycemia, unspecified; M79.651 Pain in right thigh; C50.912 Malignant neoplasm of unspecified site of left female breast; M62.81 Muscle weakness (generalized); Z94.1 Heart transplant status; Z79.811 Long term (current) use of aromatase inhibitors; Z79.818 Long term (current) use of other agents affecting estrogen receptors and estrogen levels; Z79.899 Other long term (current) drug therapy; Z60.8 Other problems related to social environment; Z90.13 Acquired absence of bilateral breasts and nipples; Z79.2 Long term (current) use of antibiotics
CPT/HCPCS: 99215

== ENCOUNTER 2021-12-14 08:08 | Outpatient (CLI) | payer MEDICARE, OTHER ==
[2021-12-14 08:42] LABS: BUN - BLOOD UREA NITROGEN 23 mg/dL (6-20); CALCIUM 9.2 mg/dL (8.5-10.3); CARBON DIOXIDE - CO2 25 mmol/L (21-32); CHLORIDE 103 mmol/L (101-111); CHOLESTEROL 175 mg/dL; CREATININE 1.3 mg/dL (0.4-1.0); GFR - MDRD 43 (>89); GLUCOSE 144 mg/dL (70-100); HDL CHOLESTEROL 58 mg/dL; LDL CHOLESTEROL,CALCULATED 87 mg/dL; LDL/HDL RATIO 1.5 (<4.4); POTASSIUM 3.9 mmol/L (3.5-5.0); SODIUM 140 mmol/L (135-145); TRIGLYCERIDES 150 mg/dL; VLDL CHOLESTEROL 30 mg/dL
== END 2021-12-14 08:09 | disposition home or self-care (01) ==
LOC: LAB 08:08
PROVIDERS: ATTEND Internal Medicine Cardiovascular Disease
DX: E78.5 Hyperlipidemia, unspecified (principal); Z94.1 Heart transplant status
CPT/HCPCS: 36415; 80048; 80061; 80195; 80197; 81599; 83721

== ENCOUNTER 2022-03-05 14:00 | Outpatient (CLI) | payer OTHER, MEDICARE ==
--- NOTE | 2022-03-05 17:57 | CONSULTATION NOTE ---
Palliative Care Follow Up - Referral Referring Provider: Dr. Pasha Ross Time of Visit: 1400 45 min [place] [facility] [place] Reason: Depression/anxiety/Breast CA/ s/p heart transplant - Information Sources Records reviewed: Previous records reviewed History/Review of Systems obtained from: Patient Exam limitations: No limitations - History of Present Illness Update Brief HPI Update: This is a jose 52-year-old woman followed by palliative care, originally in the context of LVAD as destination therapy. She eventually had a heart transplant after hospitalization with LVAD thrombosis 07/2019. She remains on immunosuppressive drugs, and surveillance twice a year. She continues with persistent sharp shooting pains across her Left shoulder area radiating up into her neck. These appear with stress and increased activity, but have not progressed, and is using massage and relaxation to manage. She is also in remission for stage III breast cancer, remains on exemestane and Lupron therapy every 3 months. She has not noticed any skin changes or swollen lymph nodes, and her see a 15 remains stable. Patient is followed by palliative care for monitoring depression rate and fluctuating symptoms, she is doing well currently. Her sister unfortunately had progression of her breast cancer with brain mets, this is caused some increased stress and reflection for patient herself. She has been able to titrate off gabapentin with no residual effects. She is sleeping well with intermittent use of trazodone. She did have some elevated cholesterol as result of her tach [place], and has been started on hypercholesterolemia meds. Past Medical History: CHF, hypertension, atrial fibs, arrhythmias, history of ablation, kidney stones, depression, anxiety, history of spine surgery 2004, history bilateral mastectomy, history of LVAD, history of heart transplant Social History - Living Situation Living arrangement: At home Living Situation: With family Support System: Patient continues to live at home with her mother, this continues to work well, her mother is 80 and is good health. She does have multiple siblings, one third stressors in the family. She has been working a significant mount of time, has come off disability. She is scaling back, and hoping to decrease to 4 days a week. Medications/Allergies - Medications Home Medications: Ambulatory Orders Medication Instructions Recorded Confirmed Aspirin Chewable [[facility] 81 mg PO DAILY 12/18/18 03/05/22 Aspirin] Calcium Carbonate [[id number]] 1,000 mg PO BID 12/18/18 03/05/22 Cholecalciferol (Vitamin D3) 1,000 unit PO DAILY 12/18/18 03/05/22 [Vitamin D3] Exemestane 25 mg PO DAILY 12/18/18 03/05/22 Leuprolide Acetate [Lupron Depot] 22.5 mg IM .Q3 MONTH 12/18/18 03/05/22 Magnesium 133 mg PO DAILY 12/18/18 03/05/22 Pantoprazole [Protonix] 40 mg PO DAILY 12/18/18 03/05/22 Pravastatin [Pravachol] 20 mg PO DAILY 12/18/18 03/05/22 Sulfamethoxazole/Trimethoprim 1 each PO .MWF 12/18/18 03/05/22 [Bactrim 400-80 mg Tablet] Tacrolimus [Prograf] 1.5 mg PO BID 12/18/18 03/05/22 Torsemide 20 mg PO DAILY 12/18/18 03/05/22 Vitamin [Trinatal Rx 1] 1 tab PO DAILY 12/24/18 03/05/22 Potassium Chloride 20 meq PO .80 X3/40 X 4 DAYS 02/26/19 03/05/22 Trazodone HCl 50 - 100 mg PO QPM PRN 06/10/19 03/05/22 Aspirin/Acetaminophen/Caffeine 1 tab PO DAILY PRN 11/15/19 03/05/22 [Excedrin Migraine Caplet] Ondansetron [Zuplenz] 4 mg PO Q8HR PRN 09/05/20 03/05/22 Sertraline HCl 100 mg PO DAILY 09/05/20 03/05/22 Sirolimus 1 mg PO DAILY 09/05/20 03/05/22 Ezetimibe [Zetia] 10 mg PO QD 03/05/22 03/05/22 - Allergies Allergies/Adverse Reactions: Allergies Allergy/AdvReac Type Severity Reaction Status Date / Time carvedilol Allergy Anaphylaxis Verified 02/27/21 12:20 amiodarone AdvReac Unknown Verified 02/27/21 12:20 Review of Systems - Constitutional Constitutional: reports: Fatigue (improved but still somewhat limiting with work), Weight gain (10 pounds). denies: Fever, Chills - Eyes Eyes: reports: Vision loss, Corrective lenses - Ears, Nose & Throat Ears, Nose & Throat: reports: Dry mouth - Cardiovascular Cardiovascular: reports: Palpitations (with activity;), Chest pain (intermittent sharp shooting pains with stress or activity; no change), Exertional dyspnea (improving). denies: Edema - Respiratory Respiratory: reports: SOB with exertion. denies: Cough, Wheezing, SOB at rest - Gastrointestinal Gastrointestinal: reports: Good appetite - Genitourinary Genitourinary: reports: Frequency - Musculoskeletal Musculoskeletal: reports: Muscle pain, Stiffness, Muscle weakness (improving) - Integumentary Integumentary: reports: Dryness, Hair changes - Neurological Neurological: reports: General weakness, Headache (improved less than once a month;), Memory problems (improving) - Psychiatric Psychiatric: reports: Depression (doing well), Anxiety (improved) - Endocrine Endocrine: reports: Intolerance to cold - All Other Systems All Other Systems: reports: Reviewed and negative Physical Exam - Vital Signs Temperature: 36.2 C Pulse Rate: 99 Respiratory Rate: 20 O2 Saturation: 98 Blood Pressure: 132/83 - Physical Exam General Appearance: positive: No acute distress, Alert Eyes Bilateral: positive: Normal inspection ENT: positive: No signs of dehydration Neck: positive: Trachea midline Cardiovascular: positive: Regular rate & rhythm, Tachycardia (persistent; no change) Respiratory: positive: No respiratory distress, Breath sounds nml Abdomen: positive: Soft, Obese Skin: positive: Pallor, Dryness Extremities: positive: No pedal edema Neurologic/Psychiatric: positive: Oriented x3, Mood/affect nml Palliative Care - POLST Patient has POLST: No POLST Status: Full Code Pain: Pain unchanged, Location (left shoulder/neck area) Feelings of wellbeing/Perceived Quality of Life: Good, Acceptable, Improved Sleep: Sleeps well Constipation: No Performance Status: Patient has started her garden, she reports she is less active with her current work schedule. She still walks the dog, is hoping to increase her endurance and activities soon. - Palliative Care Discussion: Discussion centered on multiple stressors, patient has initiated plan to scale back and create more worklife balance. Patient is seeking to create more community, does feel like she has good family support. Patient is feeling somewhat vulnerable especially in the context of her sisters metastatic disease to the brain. Reviewed patient's coping mechanisms in the context of her concerns for depression and long-term anxiety. Results - Lab Results Lab results reviewed: Yes Impression and Recommendations - Palliative Care Impression: This is a jose 56-year-old woman with multiple serious comorbidities living with s/p heart transplant with previous LVAD destination therapy, history of stage III breast cancer currently in remission and continue with supportive treatment. Patient's depression and anxiety currently controlled. Palliative care continue to provide intermittent support for symptom management and counseling for adjustment illness. Recommendations/Counseling Done: 1. Depression. Patient's long-term been stable on her sertraline, is working, and continues to integrate into what she calls the "real world". Counseling provided regarding stressors, reinforced positive coping mechanisms, provided psychosocial support and encouragement to continue to explore ways to decrease isolation. 2. Right thigh pain. This attributed nerve damage, has been able to titrate off gabapentin. Has not noticed any increase or decrease with this. Will remain off. 3. Stage IIIa breast cancer, left. Currently in remission. Patient continues on treatment, her understanding is will need full 10 years. Had positive conversation with oncology PA about long-term goals. 4. S/p heart transplants. Patient continues to do well, still continues with intermittent sharp shooting pain on left, currently stable. She is finding some relief with regular massage. 5. Advanced care planning. Patient continues to do well in the context of adjustment to and about face with her current situation. Palliative care continue every 3 months for support, patient is high risk for sequela of either serious condition. 45 minutes review of oncology notes, labs, [id number] with patient for counseling and support and review of symptom management.
== END 2022-03-05 14:01 | disposition home or self-care (01) ==
LOC: PC 14:00
PROVIDERS: ATTEND Nurse Practitioner Adult Health
DX: Z51.5 Encounter for palliative care (principal); Z94.1 Heart transplant status; R07.9 Chest pain, unspecified; M25.512 Pain in left shoulder; M54.2 Cervicalgia; M79.651 Pain in right thigh; F32.A Depression, unspecified; F41.9 Anxiety disorder, unspecified; R53.83 Other fatigue; R06.09 Other forms of dyspnea; R53.1 Weakness; C50.912 Malignant neoplasm of unspecified site of left female breast; Z79.818 Long term (current) use of other agents affecting estrogen receptors and estrogen levels; Z79.2 Long term (current) use of antibiotics; Z79.899 Other long term (current) drug therapy; Z79.811 Long term (current) use of aromatase inhibitors; Z79.82 Long term (current) use of aspirin; Z63.79 Other stressful life events affecting family and household
CPT/HCPCS: 99215

== ENCOUNTER 2022-08-20 08:18 | Outpatient (CLI) | payer OTHER ==
[2022-08-20 08:42] LABS: CALCIUM 9.2 mg/dL (8.5-10.3); CREATININE 1.1 mg/dL (0.4-1.0); POTASSIUM 3.9 mmol/L (3.5-5.0)
== END 2022-08-20 08:19 | disposition home or self-care (01) ==
LOC: LAB 08:18
PROVIDERS: ATTEND Internal Medicine Cardiovascular Disease
DX: Z94.1 Heart transplant status (principal)
CPT/HCPCS: 36415; 80048; 80197

== ENCOUNTER 2022-09-06 08:18 | Outpatient (CLI) | payer OTHER ==
[2022-09-06 08:46] LABS: CREATININE 1.1 mg/dL (0.4-1.0)
[2022-09-06 09:27] LABS: CALCIUM 9.1 mg/dL (8.5-10.3); POTASSIUM 4.4 mmol/L (3.5-5.0)
[2022-09-06 10:04] LABS: THYROID STIMULATING HORMONE 2.36 uIU/mL (0.34-5.60)
[2022-09-06 10:07] LABS: FREE T4 (FREE THYROXINE) 0.9 ng/dL (0.58-1.64)
[2022-09-07 08:10] LABS: SIROLIMUS (RAPAMUNE) 3.3 ng/mL (3.0-20.0); TACROLIMUS (FK506) 5.9 ng/mL (2.0-20.0)
== END 2022-09-06 08:19 | disposition home or self-care (01) ==
LOC: LAB 08:18
PROVIDERS: ATTEND Internal Medicine Cardiovascular Disease
DX: I50.22 Chronic systolic (congestive) heart failure (principal); R53.81 Other malaise; R53.83 Other fatigue; Z94.1 Heart transplant status
CPT/HCPCS: 36415; 80048; 80195; 80197; 82024; 82533; 83880; 84439; 84443

== ENCOUNTER 2023-04-04 08:47 | Outpatient (CLI) | payer OTHER, MEDICARE ==
[2023-04-04 09:16] LABS: CALCIUM 9.2 mg/dL (8.5-10.3); CREATININE 1.2 mg/dL (0.4-1.0); POTASSIUM 4.1 mmol/L (3.5-5.0)
== END 2023-04-04 08:48 | disposition home or self-care (01) ==
LOC: LAB 08:47
PROVIDERS: ATTEND Internal Medicine Cardiovascular Disease
DX: Z94.1 Heart transplant status (principal)
CPT/HCPCS: 36415; 80048; 80197

== ENCOUNTER 2023-06-10 09:31 | Outpatient (CLI) | payer OTHER, MEDICARE ==
[2023-06-10 09:58] LABS: CALCIUM 9.4 mg/dL (8.5-10.3); POTASSIUM 4.6 mmol/L (3.5-4.5)
== END 2023-06-10 09:32 | disposition home or self-care (01) ==
LOC: LAB 09:31
PROVIDERS: ATTEND Internal Medicine Cardiovascular Disease
DX: Z94.1 Heart transplant status (principal)
CPT/HCPCS: 36415; 80048; 80195

== ENCOUNTER 2023-06-25 08:17 | Outpatient (CLI) | payer OTHER, MEDICARE ==
[2023-06-25 09:10] LABS: CALCIUM 9.5 mg/dL (8.5-10.3); CREATININE 1.1 mg/dL (0.6-1.3); POTASSIUM 4.4 mmol/L (3.5-4.5)
[2023-06-26 07:10] LABS: SIROLIMUS (RAPAMUNE) 1.9 ng/mL (3.0-20.0); TACROLIMUS (FK506) 4.7 ng/mL (2.0-20.0)
== END 2023-06-25 08:18 | disposition home or self-care (01) ==
LOC: LAB 08:17
PROVIDERS: ATTEND Internal Medicine Cardiovascular Disease
DX: Z94.1 Heart transplant status (principal)
CPT/HCPCS: 36415; 80048; 80195; 80197

== ENCOUNTER 2023-08-06 08:43 | Outpatient (CLI) | payer OTHER, MEDICARE ==
[2023-08-06 09:09] LABS: CALCIUM 9.4 mg/dL (8.5-10.3); CREATININE 1.1 mg/dL (0.6-1.3); POTASSIUM 4.1 mmol/L (3.5-4.5)
[2023-08-07 09:10] LABS: SIROLIMUS (RAPAMUNE) 2.2 ng/mL (3.0-20.0); TACROLIMUS (FK506) 4.6 ng/mL (2.0-20.0)
== END 2023-08-06 08:44 | disposition home or self-care (01) ==
LOC: LAB 08:43
PROVIDERS: ATTEND Internal Medicine Cardiovascular Disease
DX: Z94.1 Heart transplant status (principal)
CPT/HCPCS: 36415; 80048; 80195; 80197

== ENCOUNTER 2023-08-16 09:45 | Outpatient (CLI) | payer OTHER, MEDICARE ==
--- NOTE | 2023-08-16 10:23 | Sleep Patient Instructions ---
Sleep Center Visit Summary - Patient Visit Information Reason for Visit: Initial consultation - Patient Instructions Additional Instructions: You will continue with CPAP therapy with pressure set at 5-15 cmH2O. A supply prescription will be updated with your DME once we have a copy of your last sleep study. We encourage you to continue to try to lose weight. Please follow up with the sleep care office in 1 year. - Clinic Information Contact: [facility] [address] [place] [id number] [email or web address] T: [phone]
--- NOTE | 2023-08-16 10:29 | SLEEP CARE CONSULTATION ---
Information from patient questionnaire entered by Flory Paulson. I have reviewed and concur with the information entered by Flory Paulson. This document represents the service I personally performed and the decisions made by me, Jordyn Sexton ARNP. History of Present Illness Service Date and Time: 08/16/2023 0945 Reason for Visit: New patient, sleep apnea on CPAP therapy Chief Complaint: reports: Excessive daytime sleepiness, Other (NEED NEW DR. OWENS CLOSED) Date of Onset: SEVERAL YRS Usual bedtime: 930-10PM Time it takes to fall asleep: 15-30MINS Snores at night: Yes Observed to quit breathing while asleep: No Number of times waking at night: 1-3 Reasons for waking at night: reports: Bathroom, Other (UNKNOWN) Toss, Turn, or Twitch while sleeping: Yes Recalls having dreams: Yes Usually gets out of bed at: 645-9AM Feels refreshed in the morning: No Morning headache: Yes Sleepy or fatigued during the day: Yes Ever fallen asleep while driving: No Takes day naps: No Prior sleep studies: Yes Additional HPI information: VILMA WATTS was previously diagnosed to have unknown, AHI unknown, sleep apnea-hypopnea syndrome and comes in today to establish care for CPAP therapy. She did not bring in a copy of her last sleep study but a copy has been requested. - Parasomnia Symptoms Ever been unable to move upon waking from sleep: Yes Walks in sleep: No Ever felt weak in the knees when startled or emotional: Yes Bothered by creepy, crawly, restless sensations in legs: Yes Problems with memory or concentration: Yes CPAP Compliance Data - Data Reviewed with Patient Average duration of nightly device use: 10 hours 55 mins Compliance rate %: 91.1 (82/90 days used) Current pressure setting (cmH2O): 5-15 ( 90%, 11.8) Average residual AHI: 2.9 Central apnea: 0.2 Obstructive apnea: 0.4 Average large leak: 2 mins 45 secs Compliance data discussion: She has a Dreamstation that has been replaced. She is getting her supplies from [employer]. She is using a full face mask, ResMed AirFit F20, small cushion. She changes cushion every couple month. She does have a back up mask if needed. Subjective Missed days of use due to: reports: other (for weekends away don't take it ) Patient concerns: reports: dry mouth, nose, throat (sometimes dry mouth). denies: aerophagia, mask discomfort, air blowing in eyes, mask leak noise, condensation in mask/hose, nasal congestion, epistaxis Observed to snore while using device: No Current pressure setting perceived as: comfortable On therapy, patient: reports: sleeping better, awakening more refreshed, being more awake and alert during the day, more rested overall. denies: drowsiness while driving Initial [place] Sleepiness Scale score: 2 (08/05/23) Past Medical History Past Medical History: reports: Congestive Heart Failure, Stroke (10/2022 from an Angiogram), Depression, Other (STROKE 10/27/2018, HEART TRANSPLANT 10/27/2018; LVAD; Loop recorder) Social History The patient's occupation is a [employer]. Patient is Single and lives in [place]. Have you smoked in the past 12 months: No Years of smokin Quit date: 2012 Alcohol use: Yes Alcohol amount and frequency: GLASS WINE/BEER ONCE PER MONTH Caffeine use: Yes Caffeine amount and frequency: 1 CUP DAILY Family History Family history of sleep disordered breathing: Yes Family Hx Sleep Apnea: Mother: Snoring, Sibling: Snoring, Sleep apnea - Treated Allergies and Home Medications Known drug allergies: Yes (as listed) Drug allergies reviewed: Yes Home medication list reviewed: Yes Allergy and home medication list: Allergies carvedilol Allergy (Verified 08/15/23 13:05) Anaphylaxis amiodarone Adverse Reaction (Verified 08/15/23 13:05) Unknown Home Medications Medication Instructions Recorded Confirmed Last Taken Type Aspirin Chewable [[facility] 81 mg PO DAILY 12/18/18 08/16/23 Unknown History Aspirin] Calcium Carbonate [[id number]] 1,000 mg PO BID 12/18/18 08/16/23 Unknown History Cholecalciferol (Vitamin D3) 1,000 unit PO DAILY 12/18/18 08/16/23 Unknown History [Vitamin D3] Exemestane 25 mg PO DAILY 12/18/18 08/16/23 Unknown History Leuprolide Acetate [Lupron Depot] 22.5 mg IM .Q3 MONTH 12/18/18 08/16/23 05/29/21 12:00 History Magnesium 133 mg PO DAILY 12/18/18 08/16/23 Unknown History Pravastatin [Pravachol] 20 mg PO DAILY 12/18/18 08/16/23 Unknown History Sulfamethoxazole/Trimethoprim 1 each PO .MWF 12/18/18 08/16/23 Unknown History [Bactrim 400-80 mg Tablet] Tacrolimus [Prograf] 1.5 mg PO BID 12/18/18 08/16/23 Unknown History Torsemide 10 mg PO UD 12/18/18 08/16/23 Unknown History Vitamin [Trinatal Rx 1] 1 tab PO DAILY 12/24/18 08/16/23 Unknown History Potassium Chloride 20 meq PO .80 X3/40 X 4 DAYS 02/26/19 08/16/23 Unknown History Trazodone HCl 50 - 100 mg PO QPM PRN 06/10/19 08/16/23 Unknown History Ondansetron [Zuplenz] 4 mg PO Q8HR PRN 09/05/20 08/16/23 Unknown History Sertraline HCl 100 mg PO DAILY 09/05/20 08/16/23 Unknown History Sirolimus 1 mg PO DAILY 09/05/20 08/16/23 Unknown History Ezetimibe [Zetia] 10 mg PO QD 03/05/22 08/16/23 Unknown History Metoclopramide Inj [Reglan Inj] See Rx Instructions .ROUTE .COMPLEX 08/16/23 08/16/23 Unknown History Metoprolol Succinate [Toprol Xl] See Rx Instructions .ROUTE .COMPLEX 08/16/23 08/16/23 Unknown History Review of Systems Weight gain over past 5 years: 5 Cardiovascular: reports: palpitations, irregular heart rate or pulse Respiratory: reports: shortness of breath Gastrointestinal: denies: heartburn Neurological: reports: headaches Psychiatric: denies: anxiety, depression Ear/Nose/Throat: denies: tonsillectomy Endocrine: denies: thyroid disease Musculoskeletal: reports: joint pain Immunologic: reports: sneezing, allergies to food or environment Physical Exam Vital signs obtained and entered by: FLORY West MA Blood Pressure: 114/80 (RIGHT) Cuff size: wrist Heart Rate: 96 O2 Saturation: 95 Height: 5 ft 9 in Weight: 271 lb 3.2 oz Body Mass Index: 40.0 BMI Classification: Morbidly Obese Neck circumference: 17 Heart: regular rate and rhythm Lungs: clear bilaterally Impression and Plan 1. Obstructive Sleep Apnea-Hypopnea Syndrome, unknown, with good treatment compliance and good apnea control. On CPAP therapy, the patient has better sleep quality and is more rested overall. Once we have a copy of her last sleep study I will update her supply prescription with [employer]. If unable to get copy of sleep study, I will order verifying sleep study. Patient has significant improvement of their sleep apnea and is satisfied with current CPAP therapy. Patient denies problems with oral dryness, nasal congestion, epistaxis, skin irritation or aerophagia. Patient's apnea severity and rationale for treatment to reduce apnea, improve sleep quality and reduce cardiovascular and cerebrovascular events was reviewed. I also reviewed the benefit of consistent device use of CPAP for cardiac disease (CHF), strokes. 2. Obesity, unspecified. Currently patients BMI is 40. Obesity increases the risk of apnea, CPAP pressure requirements and overall health risks especially cardiovascular and diabetes. Thus patient is advised to lose weight. * Continue auto CPAP pressure at 5-15 cmH2O * Update supply prescription once get copy of sleep study * Notify me if snoring with mask or feeling that the pressure is too much or too little * Attempt to lose weight * Call this office if any problems using CPAP * Return for follow up in 1 year, or sooner if concerns arise Counseling Topics: Spare mask, Weight loss health impact Prescriptions: Device supplies Follow up with Sleep Care in: 1 year Visit Type: In Office Time Spent with Patient (minutes): 30 Provider Statement: I spent 100% of the Face to Face Visit with the patient with greater than 50% spent counseling the patient and coordination of care.
[2023-08-16 10:43] VITALS: BP 114/80; O2SAT 95
== END 2023-08-16 09:46 | disposition home or self-care (01) ==
LOC: SC 09:45
PROVIDERS: ATTEND Nurse Practitioner Family
DX: G47.33 Obstructive sleep apnea (adult) (pediatric) (principal); E66.01 Morbid (severe) obesity due to excess calories; Z68.41 Body mass index [BMI] 40.0-44.9, adult
CPT/HCPCS: 99203; 99212

== ENCOUNTER 2023-08-24 12:17 | Emergency (ER) | payer OTHER, MEDICARE ==
--- NOTE | 2023-08-24 12:52 | ED Physician Documentation ---
PD HPI FOCAL NEURO - Stated complaint Stated Complaint: NAUSEA,LIGHTHEADED,VERTIGO - Chief complaint Chief Complaint: Neuro - History obtained from History obtained from: Patient - Additional information Additional information: 58-year-old woman who has a history of breast cancer. Originally diagnosed in 2013. 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 Perioperatively she had a stroke with significant deficits initially but completely resolved and then in October of this year had a iatrogenic embolic stroke related to cardiac angiogram resulting in chronic paresthesias on the left. At around 1115 today she developed lightheadedness and vertigo with nausea, similar to prior stroke symptoms. She denies headache, other new focal neurologic deficits (noting she has chronic left-sided numbness) or vomiting. She has had no surgeries or interventions in the last 2 months. No history of rejection episodes. She is on aspirin, 81 mg a day, no other anticoagulants. She has a history of A-fib with her old heart and has had very brief episodes of A-fib with her new heart but not enough to merit anticoagulation. PD PAST MEDICAL HISTORY - Past Medical History Cardiovascular: Congestive heart failure, Hypertension, Atrial fibrillation, Arrhythmia, Other Respiratory: Shortness of breath Neuro: CVA Endocrine/Autoimmune: None GI: None MOLD COOLER: Breast cancer : Kidney stones HEENT: None Psych: Depression, Anxiety Musculoskeletal: None Derm: None - Past Surgical History Past Surgical History: Yes Ortho: Spine surgery /MOLD COOLER: Mastectomy Cardiovascular: Other - Present Medications Home Medications: Ambulatory Orders Medication Instructions Recorded Confirmed Aspirin Chewable [[facility] 81 mg PO DAILY 12/18/18 08/16/23 Aspirin] Calcium Carbonate [[id number]] 1,000 mg PO BID 12/18/18 08/16/23 Cholecalciferol (Vitamin D3) 1,000 unit PO DAILY 12/18/18 08/16/23 [Vitamin D3] Exemestane 25 mg PO DAILY 12/18/18 08/16/23 Leuprolide Acetate [Lupron Depot] 22.5 mg IM .Q3 MONTH 12/18/18 08/16/23 Magnesium 133 mg PO DAILY 12/18/18 08/16/23 Pravastatin [Pravachol] 20 mg PO DAILY 12/18/18 08/16/23 Sulfamethoxazole/Trimethoprim 1 each PO .MWF 12/18/18 08/16/23 [Bactrim 400-80 mg Tablet] Tacrolimus [Prograf] 1.5 mg PO BID 12/18/18 08/16/23 Torsemide 10 mg PO UD 12/18/18 08/16/23 Vitamin [Trinatal Rx 1] 1 tab PO DAILY 12/24/18 08/16/23 Potassium Chloride 20 meq PO .80 X3/40 X 4 DAYS 02/26/19 08/16/23 Trazodone HCl 50 - 100 mg PO QPM PRN 06/10/19 08/16/23 Ondansetron [Zuplenz] 4 mg PO Q8HR PRN 09/05/20 08/16/23 Sertraline HCl 100 mg PO DAILY 09/05/20 08/16/23 Sirolimus 1 mg PO DAILY 09/05/20 08/16/23 Ezetimibe [Zetia] 10 mg PO QD 03/05/22 08/16/23 Metoclopramide Inj [Reglan Inj] See Rx Instructions .ROUTE .COMPLEX 08/16/23 08/16/23 Metoprolol Succinate [Toprol Xl] See Rx Instructions .ROUTE .COMPLEX 08/16/23 08/16/23 - Allergies Allergies/Adverse Reactions: Allergies Allergy/AdvReac Type Severity Reaction Status Date / Time carvedilol Allergy Anaphylaxis Verified 08/16/23 09:43 amiodarone AdvReac Unknown Verified 08/16/23 09:43 - Social History Does the pt smoke?: No Smoking Status: Never smoker Does the pt drink ETOH?: Yes Does the pt have substance abuse?: No - Immunizations Immunizations are current?: Yes - POLST Patient has POLST: No PD ED PE NORMAL - Vitals Vital signs reviewed: Yes - General General: Alert and oriented X 3, No acute distress - HEENT HEENT: PERRL, EOMI - Neck Neck: Supple, no meningeal sign, No bony TTP - Cardiac Cardiac: RRR, No murmur - Respiratory Respiratory: No respiratory distress, Clear bilaterally - Abdomen Abdomen: Non tender - Extremities Extremities: No deformity, No tenderness to palpate, Normal ROM s pain, No edema, No calf tenderness / cord - Neuro Neuro: Alert and oriented X 3, No motor deficit, No sensory deficit, Normal speech Eye Opening: Spontaneous Motor: Obeys Commands Verbal: Oriented GCS Score: 15 - Psych Psych: Normal mood, Normal affect NIHSS - Time Time: 12:45 - Level of Consciousness Level of consciousness: (0) Alert, Keenly responsive LOC Questions: (0) Answers both Q's correct LOC Commands: (0) Performs both correctly - Gaze Best Gaze: (0) Normal - Visual Visual: (0) No loss - Facial Palsy Facial Palsy: (0) Normal, symmetrical movement - Motor Arms (both separate) Motor Arm (right): (0) No drift Motor Arm (left): (0) No drift - Motor Legs (both separate) Motor Leg (right): (0) No drift Motor Leg (left): (1) Drift (she is unsure if this is chronic or not) - Limb Ataxia Limb Ataxia: (0) Absent - Sensory Sensory: (1) [id number] loss (Left upper/lower ext, chronic per pt) - Best Language Best Language: (0) No aphasia - Dysarthria Dysarthria: (0) Normal - Extinction and Inattention (formally neg Extinction and inattention: (0) No abnormality - Total Score/Results Total Score/Result: 2 Results - Vitals Vitals: Vital Signs - 24 hr 08/24/23 08/24/23 08/24/23 12:35 13:35 13:53 Temperature 36.4 C L Heart Rate 88 93 88 Respiratory 20 14 15 Rate Blood Pressure 130/96 H 135/97 H 124/102 H O2 Saturation 98 100 100 08/24/23 08/24/23 14:54 15:57 Temperature Heart Rate 91 92 Respiratory 21 21 Rate Blood Pressure 111/84 H 131/105 H O2 Saturation 99 98 Oxygen O2 Source Room air - EKG (time done) 1347 EKG releavant findings:: EKG personally interpreted by author of this note. Relevant findings are: Rate: Rate (enter#) (84) Rhythm: NSR (Versus ectopic atrial axis due to odd P axis.), SHIREEN [place]: Normal Intervals: Normal MD QRS: LVH Ischemia: Q waves Computer interpretation: Agree with computer - Labs Labs: Laboratory Tests 08/24/23 08/24/23 08/24/23 13:02 13:02 13:02 WBC 10.1 RBC 4.68 Hgb 13.5 Hct 40.5 MCV 86.5 MCH 28.8 MCHC 33.3 RDW 12.5 Plt Count 328 MPV 10.3 Neut # (Auto) 8.4 H Lymph # (Auto) 1.1 L [place] # (Auto) 0.5 Eos # (Auto) 0.1 Baso # (Auto) 0.1 Absolute Nucleated RBC 0.00 Nucleated RBC % 0.0 PT 13.2 H INR 1.2 Sodium 140 Potassium 4.1 Chloride 108 Carbon Dioxide 25 Anion Gap 7.0 BUN 22 H Creatinine 1.1 Estimated GFR (MDRD) 51 L Glucose 110 H Calcium 9.7 Total Bilirubin 0.5 AST 22 ALT 29 Alkaline Phosphatase 93 Total Protein 7.3 Albumin 4.3 Globulin 3.0 Albumin/Globulin Ratio 1.4 Lipase 24 - Rads (name of study) CT and CT angiography of the head are negative/normal. Relevant Findings:: Final report received, EMP independent interpretation of test PD Medical Decision Making - ED course ED course: 58-year-old heart transplant patient with complex medical history as above presents with vertigo which was a symptom for prior strokes for her. Unclear if any of her physical examination findings are new, she feels that the left-sided numbness is not worse than normal and she has small amount of left leg drift which she is unsure if it is new or old, but she does not notice any specific weakness in the left leg. She [place] initially over for CT and CTA. CT showing no bleed and was interviewed at that point by our telestroke neurologist, Dr. Timur Gomez who does not recommend tPA given the minor physical findings. At that point I did ask our health community health education coordinator to call the [facility] to discuss the patient given her medical complexity and history. Subsequently at about 2:10 PM I spoke with Dr. Jackson, neurology at the [facility] who felt that we could probably just do MRI here and if negative probably could be discharged, but if positive we would have to call [facility]. Subsequently MRI of the brain was normal with no evidence of acute ischemia and her vertigo was resolving and she was comfortable with discharge. Departure - Departure Disposition: 01 Home, Self Care Clinical Impression: Heart transplant recipient, Vertigo Record reviewed to determine appropriate education?: Yes Instructions: ED Vertigo Unspecified Comments: Call your doctor to arrange a follow-up appointment, make the next available appointment. In the interim, return anytime if worse or if new symptoms develop. Forms: PCP List
[2023-08-24 13:10] LABS: BASOPHILS # (AUTO) 0.1 10^3/uL (0.0-0.1); BASOPHILS % (AUTO) 0.5 %; EOSINOPHILS # (AUTO) 0.1 10^3/uL (0.0-0.7); HCT - HEMATOCRIT 40.5 % (37.0-47.0); HGB - HEMOGLOBIN 13.5 g/dL (12.0-16.0); LYMPHOCYTES # (AUTO) 1.1 10^3/uL (1.5-3.5); LYMPHOCYTES % (AUTO) 10.6 %; MEAN CORPUSCULAR HEMOGLOBIN 28.8 pg (27.0-31.0); MEAN CORPUSCULAR HGB CONC 33.3 g/dL (32.0-36.0); MEAN CORPUSCULAR VOLUME 86.5 fL (81.0-99.0); MEAN PLATELET VOLUME 10.3 fL (7.9-10.8); MONOCYTES # (AUTO) 0.5 10^3/uL (0.0-1.0); MONOCYTES % (AUTO) 4.8 %; NEUTROPHILS # (AUTO) 8.4 10^3/uL (1.5-6.6); NEUTROPHILS % (AUTO) 82.8 %; PLT - PLATELET COUNT 328 10^3/uL (130-450); RED BLOOD COUNT 4.68 10^6/uL (4.20-5.40); RED CELL DISTRIBUTION WIDTH 12.5 % (12.0-15.0); WHITE BLOOD COUNT 10.1 x10^3/uL (4.8-10.8)
[2023-08-24 13:15] LABS: INR 1.2 (0.8-1.2); PT - PROTHROMBIN TIME 13.2 secs (9.9-12.6)
[2023-08-24 13:22] LABS: ALBUMIN 4.3 g/dL (3.2-5.5); ALBUMIN/GLOBULIN RATIO 1.4 (1.0-2.2); BILIRUBIN,TOTAL 0.5 mg/dL (0.2-1.0); CALCIUM 9.7 mg/dL (8.5-10.3); CREATININE 1.1 mg/dL (0.6-1.3); POTASSIUM 4.1 mmol/L (3.5-4.5); TOTAL PROTEIN 7.3 g/dL (6.4-8.9)
[2023-08-24] MEDS ORDERED: iohexoL-300 100 ML VIAL IVP ONE (13:44)
--- NOTE | 2023-08-24 13:48 | CT Report ---
PROCEDURE: Head W/O Stroke Protocol INDICATIONS: Neuro deficit, acute, stroke suspected TECHNIQUE: Noncontrast 4.5 mm thick angled axial sections acquired from the foramen magnum to the vertex, with c oronal reformats. For radiation dose reduction, the following was used: automated exposure control, adjustment of mA and/or kV according to patient size. COMPARISON: None. FINDINGS: Image quality: Excellent. CSF spaces: Basal cisterns are patent. No extra-axial fluid collections. Ventricles are normal in size and shape. Brain: No midline shift. No intracranial masses or hemorrhage. Mireles-white matter interface is norm al. Skull and face: Calvarium and visualized facial bones are intact, without suspicious lesions. Sinuses: Visualized sinuses and mastoids are clear. IMPRESSION: No acute intracranial pathology This study fulfills neurological imaging criteria for inclusion or exclusion of acute stroke therapie s based on available published neurological imaging guidelines. Reviewed by: Mathew Tamayo MD on 08/24/2023 12:47 PM ELEUTERIO Approved by: Mathew Tamayo MD on 08/24/2023 12:47 PM AKMIRZA Station ID: [id number]
--- NOTE | 2023-08-24 13:54 | CT Report ---
Image quality: Streak artifact from patient body habitus HEAD CT ANGIOGRAPHY: Anterior circulation: Intracranial internal carotid arteries appear patent without high-grade stenosis. There is flow/opacification within the paired anterior cerebral arteries. There is opacification within the middle cerebral arteries. The anterior communicating artery is seen. No aneurysms are seen. No occlusion. Posterior circulation: Visualized portions of the vertebral arteries are patent and join to form a n ormal appearing basilar artery. No evidence for high-grade stenosis. No occlusions. There is opacification of the posterior cerebral arteries. No aneurysms are seen. NECK CT ANGIOGRAPHY: Carotid system: The great vessels demonstrate a conventional anatomy as they arise from the aortic a rch. The origins of the common carotid arteries appear patent. The common carotid arteries appear patent throughout their visualized courses without high grade sten osis. The bifurcation regions are both patent without high grade stenosis. The internal carotid arteries demonstrate normal calibers and courses. Posterior circulation: The origins of the vertebral arteries both appear patent without hemodynamic ally significant stenosis. The more superior extracranial portions of both vertebral arteries also demonstrate normal courses an d calibers. They join to form a normal appearing basilar artery. Soft tissues: Visualized neck soft tissues demonstrate no suspicious abnormalities. Bones: No suspicious bony lesions. Visualized cervical spine appears normally aligned. No acute compression fractures of the vertebral bodies. IMPRESSION: 1. No aneurysm, stenosis, occlusion, or vascular extravasation identified within the head and neck. Reviewed by: Mathew Tamayo MD on 08/24/2023 12:53 PM ELEUTERIO Approved by: Mathew Tamayo MD on 08/24/2023 12:53 PM AKDT Station ID: [id number]
--- NOTE | 2023-08-24 16:06 | MRI Report ---
PROCEDURE: BRAIN WO INDICATIONS: CVA sx, vertigo TECHNIQUE: Noncontrast axial T1 spin echo, axial T2 fast spin echo, sagittal and axial FLAIR, coronal T2 fast sp in echo, axial gradient echo, axial diffusion and ADC through the brain. COMPARISON: CT head August 24, 2023 FINDINGS: Image quality: Excellent. CSF Spaces: Basal cisterns are patent. No extra-axial fluid collections. Ventricles are normal in size and shape. Brain: No intracranial masses or hemorrhage. Mireles/white matter interface is normal. Brainstem appe ars normal. Diffusion-weighted images demonstrate no acute ischemic insult. No chronic ischemic ins ults. Normal intravascular flow voids are present. Skull and face: Calvarium has normal marrow signal. Orbits appear normal. Sinuses: Sinuses and mastoids are clear. IMPRESSION: Normal MRI brain. No evidence of ischemia. Reviewed by: Mathew Tamayo MD on 08/24/2023 3:04 PM ELEUTERIO Approved by: Mathew Tamayo MD on 08/24/2023 3:04 PM ELEUTERIO Station ID: [id number]
[2023-08-24 16:33] VITALS: BP 127/108; O2SAT 100
== END 2023-08-24 16:21 | disposition home or self-care (01) ==
LOC: ED 12:17
DX: R42 Dizziness and giddiness (principal); Z94.1 Heart transplant status; I69.354 Hemiplegia and hemiparesis following cerebral infarction affecting left non-dominant side
CPT/HCPCS: 36415; 70450; 70496; 70498; 70551; 80053; 83690; 85025; 85610; 93005; 99284; Q9967

== ENCOUNTER 2023-10-15 10:42 | Outpatient (CLI) | payer OTHER, MEDICARE | END 2023-10-15 10:43 | disposition short-term general hospital (02) | LOC: EMS 10:42 | DX: R07.9 Chest pain, unspecified (principal); R53.83 Other fatigue; R42 Dizziness and giddiness; R53.1 Weakness; Z94.1 Heart transplant status | CPT/HCPCS: A0425; A0427 ==

== ENCOUNTER 2023-10-17 15:17 | Outpatient (CLI) | payer OTHER, MEDICARE | END 2023-10-17 15:18 | disposition short-term general hospital (02) | LOC: EMS 15:17 | DX: R07.9 Chest pain, unspecified (principal); Z94.1 Heart transplant status | CPT/HCPCS: A0425; A0429 ==

== ENCOUNTER 2023-11-07 14:30 | Outpatient (CLI) | payer OTHER, MEDICARE ==
[2023-11-07 14:48] LABS: BASOPHILS % (AUTO) 1.3 %; EOSINOPHILS # (AUTO) 0.1 10^3/uL (0.0-0.7); EOSINOPHILS % (AUTO) 4.2 %; HCT - HEMATOCRIT 37.2 % (37.0-47.0); HGB - HEMOGLOBIN 12.1 g/dL (12.0-16.0); LYMPHOCYTES # (AUTO) 1.2 10^3/uL (1.5-3.5); LYMPHOCYTES % (AUTO) 37.9 %; MEAN CORPUSCULAR HGB CONC 32.5 g/dL (32.0-36.0); MEAN CORPUSCULAR VOLUME 89.2 fL (81.0-99.0); MEAN PLATELET VOLUME 9.2 fL (7.9-10.8); MONOCYTES # (AUTO) 0.1 10^3/uL (0.0-1.0); MONOCYTES % (AUTO) 1.6 %; NEUTROPHILS # (AUTO) 1.7 10^3/uL (1.5-6.6); PLT - PLATELET COUNT 234 10^3/uL (130-450); RED BLOOD COUNT 4.17 10^6/uL (4.20-5.40); RED CELL DISTRIBUTION WIDTH 14.6 % (12.0-15.0); WHITE BLOOD COUNT 3.1 x10^3/uL (4.8-10.8)
[2023-11-07 15:15] LABS: ALBUMIN 4.4 g/dL (3.2-5.5); ALBUMIN/GLOBULIN RATIO 1.5 (1.0-2.2); BILIRUBIN,TOTAL 0.7 mg/dL (0.2-1.0); CALCIUM 9.2 mg/dL (8.5-10.3); CREATININE 1.4 mg/dL (0.6-1.3); TOTAL PROTEIN 7.4 g/dL (6.4-8.9)
[2023-11-11 16:10] LABS: CMV QUANTITATION DNA PCR Positive < 200 IU/mL (Negative)
== END 2023-11-07 14:31 | disposition home or self-care (01) ==
LOC: LAB 14:30
PROVIDERS: ATTEND Internal Medicine Cardiovascular Disease
DX: B25.9 Cytomegaloviral disease, unspecified (principal); Z94.1 Heart transplant status
CPT/HCPCS: 36415; 80053; 85025; 87497

== ENCOUNTER 2023-11-19 08:41 | Outpatient (CLI) | payer OTHER, MEDICARE ==
[2023-11-19 09:00] LABS: BASOPHILS # (AUTO) 0.1 10^3/uL (0.0-0.1); BASOPHILS % (AUTO) 1.5 %; EOSINOPHILS # (AUTO) 0.1 10^3/uL (0.0-0.7); EOSINOPHILS % (AUTO) 1.5 %; HCT - HEMATOCRIT 36.9 % (37.0-47.0); LYMPHOCYTES # (AUTO) 0.9 10^3/uL (1.5-3.5); LYMPHOCYTES % (AUTO) 28.8 %; MEAN CORPUSCULAR HEMOGLOBIN 29.6 pg (27.0-31.0); MEAN CORPUSCULAR HGB CONC 32.5 g/dL (32.0-36.0); MEAN CORPUSCULAR VOLUME 90.9 fL (81.0-99.0); MEAN PLATELET VOLUME 9.1 fL (7.9-10.8); MONOCYTES # (AUTO) 0.1 10^3/uL (0.0-1.0); MONOCYTES % (AUTO) 3.1 %; NEUTROPHILS # (AUTO) 2.1 10^3/uL (1.5-6.6); NEUTROPHILS % (AUTO) 64.5 %; PLT - PLATELET COUNT 289 10^3/uL (130-450); RED BLOOD COUNT 4.06 10^6/uL (4.20-5.40); RED CELL DISTRIBUTION WIDTH 15.5 % (12.0-15.0); WHITE BLOOD COUNT 3.3 x10^3/uL (4.8-10.8)
[2023-11-19 09:22] LABS: ALBUMIN 4.2 g/dL (3.2-5.5); ALBUMIN/GLOBULIN RATIO 1.4 (1.0-2.2); BILIRUBIN,TOTAL 0.6 mg/dL (0.2-1.0); CALCIUM 9.5 mg/dL (8.5-10.3); CREATININE 1.2 mg/dL (0.6-1.3); POTASSIUM 4.1 mmol/L (3.5-4.5); TOTAL PROTEIN 7.2 g/dL (6.4-8.9)
[2023-11-20 17:12] LABS: SIROLIMUS (RAPAMUNE) 5.6 ng/mL (3.0-20.0); TACROLIMUS (FK506) 3.8 ng/mL (2.0-20.0)
== END 2023-11-19 08:42 | disposition home or self-care (01) ==
LOC: LAB 08:41
PROVIDERS: ATTEND Internal Medicine Cardiovascular Disease
DX: Z09 Encounter for follow-up examination after completed treatment for conditions other than malignant neoplasm (principal); Z94.1 Heart transplant status; B25.9 Cytomegaloviral disease, unspecified
CPT/HCPCS: 36415; 80053; 80195; 80197; 85025; 87497

== ENCOUNTER 2023-11-26 08:42 | Outpatient (CLI) | payer OTHER, MEDICARE ==
[2023-11-26 09:07] LABS: ALBUMIN 4.2 g/dL (3.2-5.5); ALBUMIN/GLOBULIN RATIO 1.4 (1.0-2.2); BASOPHILS # (AUTO) 0.1 10^3/uL (0.0-0.1); BASOPHILS % (AUTO) 1.7 %; BILIRUBIN,TOTAL 0.5 mg/dL (0.2-1.0); CALCIUM 9.6 mg/dL (8.5-10.3); CREATININE 1.3 mg/dL (0.6-1.3); EOSINOPHILS # (AUTO) 0.1 10^3/uL (0.0-0.7); EOSINOPHILS % (AUTO) 2.9 %; HGB - HEMOGLOBIN 11.9 g/dL (12.0-16.0); LYMPHOCYTES # (AUTO) 0.9 10^3/uL (1.5-3.5); LYMPHOCYTES % (AUTO) 25.4 %; MEAN CORPUSCULAR HEMOGLOBIN 30.3 pg (27.0-31.0); MEAN CORPUSCULAR HGB CONC 33.1 g/dL (32.0-36.0); MEAN CORPUSCULAR VOLUME 91.6 fL (81.0-99.0); MEAN PLATELET VOLUME 9.8 fL (7.9-10.8); MONOCYTES # (AUTO) 0.2 10^3/uL (0.0-1.0); MONOCYTES % (AUTO) 6.1 %; NEUTROPHILS # (AUTO) 2.2 10^3/uL (1.5-6.6); NEUTROPHILS % (AUTO) 63.6 %; PLT - PLATELET COUNT 212 10^3/uL (130-450); POTASSIUM 4.1 mmol/L (3.5-4.5); RED BLOOD COUNT 3.93 10^6/uL (4.20-5.40); RED CELL DISTRIBUTION WIDTH 15.4 % (12.0-15.0); TOTAL PROTEIN 7.1 g/dL (6.4-8.9); WHITE BLOOD COUNT 3.5 x10^3/uL (4.8-10.8)
[2023-11-27 08:11] LABS: SIROLIMUS (RAPAMUNE) 5.5 ng/mL (3.0-20.0); TACROLIMUS (FK506) 4.6 ng/mL (2.0-20.0)
[2023-11-29 18:08] LABS: CMV QUANTITATION DNA PCR Negative (Negative)
== END 2023-11-26 08:43 | disposition home or self-care (01) ==
LOC: LAB 08:42
PROVIDERS: ATTEND Internal Medicine Cardiovascular Disease
DX: Z48.21 Encounter for aftercare following heart transplant (principal); Z94.1 Heart transplant status; B25.9 Cytomegaloviral disease, unspecified
CPT/HCPCS: 36415; 80053; 80195; 80197; 85025; 87497

== ENCOUNTER → 2023-12-27 | Outpatient (CLI) | payer OTHER, MEDICARE | LOC: PC 08:00 | PROVIDERS: ATTEND Nurse Practitioner Adult Health | DX: Z51.5 Encounter for palliative care (principal); B02.23 Postherpetic polyneuropathy; B25.9 Cytomegaloviral disease, unspecified; Z94.1 Heart transplant status; F32.A Depression, unspecified; Z85.3 Personal history of malignant neoplasm of breast; Z71.89 Other specified counseling; R73.9 Hyperglycemia, unspecified | CPT/HCPCS: 99215 ==

== ENCOUNTER 2024-01-24 09:05 | Outpatient (CLI) | payer OTHER, MEDICARE ==
[2024-01-24 09:43] LABS: CALCIUM 9.8 mg/dL (8.5-10.3); CREATININE 1.3 mg/dL (0.6-1.3)
[2024-01-25 07:09] LABS: SIROLIMUS (RAPAMUNE) 2.1 ng/mL (3.0-20.0); TACROLIMUS (FK506) 3.6 ng/mL (2.0-20.0)
== END 2024-01-24 09:06 | disposition home or self-care (01) ==
LOC: LAB 09:05
PROVIDERS: ATTEND Internal Medicine Cardiovascular Disease
DX: Z09 Encounter for follow-up examination after completed treatment for conditions other than malignant neoplasm (principal); Z94.1 Heart transplant status
CPT/HCPCS: 36415; 80048; 80195; 80197

== ENCOUNTER 2024-02-06 08:47 | Outpatient (CLI) | payer OTHER, MEDICARE ==
[2024-02-06 09:21] LABS: CALCIUM 10.1 mg/dL (8.5-10.3); CREATININE 1.3 mg/dL (0.6-1.3); POTASSIUM 4.4 mmol/L (3.5-4.5)
[2024-02-07 11:11] LABS: TACROLIMUS (FK506) 5.7 ng/mL (2.0-20.0)
== END 2024-02-06 08:48 | disposition home or self-care (01) ==
LOC: LAB 08:47
PROVIDERS: ATTEND Internal Medicine Cardiovascular Disease
DX: Z94.1 Heart transplant status (principal)
CPT/HCPCS: 36415; 80048; 80195; 80197

== ENCOUNTER 2024-05-14 08:21 | Outpatient (CLI) | payer OTHER, MEDICARE ==
[2024-05-14 08:49] LABS: CALCIUM 9.6 mg/dL (8.5-10.3); CREATININE 1.3 mg/dL (0.6-1.3); POTASSIUM 4.2 mmol/L (3.5-4.5)
[2024-05-15 12:09] LABS: SIROLIMUS (RAPAMUNE) 4.5 ng/mL (3.0-20.0); TACROLIMUS (FK506) 6.4 ng/mL (2.0-20.0)
== END 2024-05-14 08:22 | disposition home or self-care (01) ==
LOC: LAB 08:21
PROVIDERS: ATTEND Internal Medicine Cardiovascular Disease
DX: Z09 Encounter for follow-up examination after completed treatment for conditions other than malignant neoplasm (principal); Z94.1 Heart transplant status
CPT/HCPCS: 36415; 80048; 80195; 80197

== ENCOUNTER 2024-05-25 08:00 | Outpatient (CLI) | payer OTHER, MEDICARE | END 2024-05-25 23:59 | disposition home or self-care (01) | LOC: PC 08:00 | PROVIDERS: ATTEND Nurse Practitioner Adult Health | DX: Z51.5 Encounter for palliative care (principal); C50.919 Malignant neoplasm of unspecified site of unspecified female breast; T86.23 Heart transplant infection; B25.9 Cytomegaloviral disease, unspecified; F32.A Depression, unspecified; F41.9 Anxiety disorder, unspecified; Z86.79 Personal history of other diseases of the circulatory system; Z79.60 Long term (current) use of unspecified immunomodulators and immunosuppressants; Z79.899 Other long term (current) drug therapy; Z80.3 Family history of malignant neoplasm of breast; Z63.4 Disappearance and death of family member; Z86.718 Personal history of other venous thrombosis and embolism; Z79.818 Long term (current) use of other agents affecting estrogen receptors and estrogen levels; Z79.811 Long term (current) use of aromatase inhibitors; Z92.21 Personal history of antineoplastic chemotherapy; F43.20 Adjustment disorder, unspecified; E66.9 Obesity, unspecified; Z79.52 Long term (current) use of systemic steroids | CPT/HCPCS: 99215 ==

== ENCOUNTER 2024-05-28 08:41 | Outpatient (CLI) | payer OTHER, MEDICARE ==
[2024-05-28 09:37] LABS: ALBUMIN 4.2 g/dL (3.2-5.5); ALBUMIN/GLOBULIN RATIO 1.5 (1.0-2.2); BILIRUBIN,TOTAL 0.5 mg/dL (0.2-1.0); CALCIUM 9.4 mg/dL (8.5-10.3); CREATININE 1.5 mg/dL (0.6-1.3); POTASSIUM 3.8 mmol/L (3.5-4.5)
== END 2024-05-28 08:42 | disposition home or self-care (01) ==
LOC: LAB 08:41
PROVIDERS: ATTEND Internal Medicine Cardiovascular Disease
DX: Z09 Encounter for follow-up examination after completed treatment for conditions other than malignant neoplasm (principal); Z94.1 Heart transplant status
CPT/HCPCS: 36415; 80053; 80197

== ENCOUNTER 2024-07-21 07:46 | Outpatient (CLI) | payer OTHER, MEDICARE ==
[2024-07-21 08:29] LABS: THYROID STIMULATING HORMONE 3.88 uIU/mL (0.34-5.60)
[2024-07-21 08:41] LABS: ESTIMATED AVERAGE GLUCOSE 120 mg/dL (70-100); HEMOGLOBIN A1c% 5.8 % (4.27-6.07)
== END 2024-07-21 07:47 | disposition home or self-care (01) ==
LOC: LAB 07:46
PROVIDERS: ATTEND Nurse Practitioner Family
DX: Z00.00 Encounter for general adult medical examination without abnormal findings (principal)
CPT/HCPCS: 36415; 83036; 84443